=== PATIENT | male | born 1930 | race Caucasian/White ===

== ENCOUNTER 2016-10-06 11:01 | Emergency (ER) | payer OTHER ==
[~2016-10-06] VITALS: Ht 180.3 cm; Wt 94.3 kg
[~2016-10-06 11:01] MED LIST: ASPI81TA28 PO; ATEN-175 PO; LISI-725 PO
[2016-10-06 11:12] VITALS: TEMP 36.7; Ht 180.3 cm; Wt 94.3 kg
[2016-10-06] MEDS ORDERED: NAPR1TAB9 PO (11:39)
[2016-10-06] MEDS ORDERED: ACET-1256 PO (11:39)
--- NOTE | 2016-10-06 12:07 | DIAGNOSTIC IMAGING REPORT ---
LEFT KNEE 1 OR 2 VIEWS ROUTINE CLINICAL HISTORY: Left knee pain status post trauma COMPARISON: None DISCUSSION: There are postsurgical changes of a midline sternotomy. There is a transverse fracture of the mid patellar pole with fracture fragment distraction. Fracture margins appear corticated and this fracture may be old. Please correlate with history of prior injury. There is a bone cement interface lucency involving the anterior cortex of distal femur. There is no evidence of dislocation. IMPRESSION: 1. Distracted patellar fracture. This may be old. Clinical correlation is advocated 2. Postsurgical changes of a total right knee arthroplasty. Bone cement interface lucency involving the anterior cortex of the distal femur. Electronically signed by: Juvenal White M.D. 10/06/2016 12:05 PM Dictated Date/Time: 10/06/2016 12:03 PM
--- NOTE | 2016-10-06 12:13 | DIAGNOSTIC IMAGING REPORT ---
RIGHT RIBS UNILATERAL WITH PA CHEST CLINICAL HISTORY: Right rib pain status post trauma COMPARISON STUDY: Chest x-ray dated 01/29/2016 FINDINGS: There are postsurgical changes of bilateral shoulder arthroplasties. The heart is enlarged. There is no pneumothorax. There are acute fractures the right anterolateral sixth, seventh, and eighth ribs. IMPRESSION: 1. Acute fractures of the right anterolateral sixth, seventh, eighth ribs. 2. No evidence of pneumothorax. Electronically signed by: Juvenal White M.D. 10/06/2016 12:11 PM Dictated Date/Time: 10/06/2016 12:08 PM
[2016-10-06] MEDS ORDERED: OXYC1TAB3 PO (12:53)
[2016-10-06 13:22] VITALS: BP 159/82; PULSE 70; O2SAT 97
--- NOTE | 2016-10-06 17:24 | EMERGENCY ROOM VISIT NOTE ---
History Report prepared by Cassy: Xenia Seay Under the Supervision of: Dr. Lucian Iglesias M.D. First contact with patient: 11:23 Chief Complaint: FALL Stated Complaint: SORE RIBS RIGHTSIDE History of Present Illness The patient is an 85 year old male who presents to the Emergency Room with complaints of worsening pain to his right ribs since suffering a fall 4 days prior to arrival. Currently, while laying in a propped up position, he is in mild discomfort, but his pain worsens with attempts of movements as well as deep breaths. At the time of onset, the patient was walking outside when he slipped on ice, causing him to fall forward. During the fall, the patient scraped his nose and chin on the ground, and lost consciousness for about 15 seconds, but there were several people around that were able to help him at the scene. During the fall, the patient injured his right ribs as well as his left knee, but he did not get checked out until today because he thought that he was fine. However, as his pain has become progressively worse, he came to the ED for further evaluation today. He states he is mostly unable to sleep at night. Since the fall, the patient denies having a headache or pain to his neck, back , chest, left ribs, abdomen, upper extremities, pelvis, or lower right extremity. He also denies recent lightheadedness, dizziness, visual difficulties , shortness of breath, or abnormal swelling to his extremities. The patient takes a baby aspirin qd, but denies the use of other blood thinning medications. Source of History: patient Onset: over the past 4 days Position: other (Right ribs) Symptom Intensity: mild Timing: worsening Modifying Factors (Worsening): breathing, movement Associated Symptoms: No SOB, No abdominal pain, No headache, No neck pain Note: Patient has pain to his left knee. Review of Systems See HPI for pertinent positives & negatives. A total of 10 systems reviewed and were otherwise negative. Past Medical & Surgical Medical Problems: (1) CKD (chronic kidney disease), stage III (2) Dyslipidemia (3) HTN (hypertension) (4) Non-Hodgkin lymphoma (5) Osteoarthritis Surgical Problems: (1) H/O rotator cuff surgery (2) History of carotid endarterectomy (3) History of CEA (carotid endarterectomy) (4) History of total bilateral knee replacement (5) History of total left hip replacement (6) Hx of cholecystectomy (7) Status post total shoulder arthroplasty Family History Patient reports no known family medical history. Social History Smoking Status: Never Smoker Drug Use: none Marital Status: Occupation Status: retired Current/Historical Medications Scheduled Allopurinol (Zyloprim), 100 MG PO HS Aspirin (Aspirin Ec), 81 MG PO HS Atenolol (Tenormin), 100 MG PO QPM Lisinopril (Zestril), 20 MG PO QPM Scheduled PRN Oxycodone Ir (Roxicodone Ir), 5 MG PO Q4H PRN for Pain Miscellaneous Medications Acetaminophen (Tylenol), 500 MG PO Naproxen (Aleve), 220 MG PO Allergies Coded Allergies: Indapamide (Verified Allergy, Unknown, 10/06/16) Penicillins (Verified Allergy, Unknown, unknown, 10/06/16) Sulfa Antibiotics (Verified Allergy, Unknown, unknown, 10/06/16) Sulfamethoxazole (Verified Allergy, Unknown, unknown, 10/06/16) Physical Exam Vital Signs Date Time Temp Pulse Resp B/P Pulse Ox O2 Delivery O2 Flow Rate FiO2 10/06/16 13:22 70 17 159/82 97 Room Air 10/06/16 11:12 36.7 69 17 219/101 98 Room Air Physical Exam Constitutional: Vital signs reviewed. Head: Patient has abrasions to his chin and tip of the nose without facial tenderness or mobility. Eyes: Pupils are equal round reactive to light. Conjunctiva are noninjected. ENT: Pharynx is clear without erythema or exudate. Mucous membranes are moist. Neck supple without meningeal signs. No midline tenderness to the cervical spine. Respiratory: Clear to auscultation bilaterally. Breath sounds are equal bilaterally. Cardiovascular: Regular rate and rhythm. No rubs or gallops. GI: Soft, nondistended and nontender. Bowel sounds are present. Musculoskeletal: Tenderness over the right lower anterior ribs with mild bruising. No crepitus or flail segment. Tenderness to the medial aspect of the left knee with bruising. No joint laxity . Neurological: The patient is awake and alert. Cranial nerves II-XII are intact. Motor is 5 out of 5 all extremities. Sensation is intact to light touch all extremities. Normal speech. No pronator drift. Psychiatric: Normal affect. Medical Decision & Procedures ER Provider Diagnostic Interpretation: X-ray results as stated below per interpretation by me and the radiologist: RIGHT RIBS UNILATERAL WITH PA CHEST CLINICAL HISTORY: Right rib pain status post trauma COMPARISON STUDY: Chest x-ray dated 01/29/2016 FINDINGS: There are postsurgical changes of bilateral shoulder arthroplasties. The heart is enlarged. There is no pneumothorax. There are acute fractures the right anterolateral sixth, seventh, and eighth ribs. IMPRESSION: 1. Acute fractures of the right anterolateral sixth, seventh, eighth ribs. 2. No evidence of pneumothorax. Electronically signed by: Juvenal White M.D. 10/06/2016 12:11 PM Dictated Date/Time: 10/06/2016 12:08 PM LEFT KNEE 1 OR 2 VIEWS ROUTINE CLINICAL HISTORY: Left knee pain status post trauma COMPARISON: None DISCUSSION: There are postsurgical changes of a midline sternotomy. There is a transverse fracture of the mid patellar pole with fracture fragment distraction. Fracture margins appear corticated and this fracture may be old. Please correlate with history of prior injury. There is a bone cement interface lucency involving the anterior cortex of distal femur. There is no evidence of dislocation. IMPRESSION: 1. Distracted patellar fracture. This may be old. Clinical correlation is advocated 2. Postsurgical changes of a total right knee arthroplasty. Bone cement interface lucency involving the anterior cortex of the distal femur. Electronically signed by: Juvenal White M.D. 10/06/2016 12:05 PM Dictated Date/Time: 10/06/2016 12:03 PM ED Course 1124: The patient was evaluated in room C3. A complete history and physical exam was performed. 1230: I reevaluated the patient at this time and discussed the results of his radiology reports with him. He stated that he has an old patellar fracture, and Dr. Celeste did his knee replacement. [facility] will be contacted. 1245: I discussed the patient's case with Mikael Valencia PA-C from [facility]. He has reviewed the x-rays with Dr. White. He said that he does not need to be admitted, but said that the patient will need to have his knee repaired as an outpatient. He recommended a knee immobilizer with weight bearing. He will call the patient for expedient appointment. 1300: I updated the patient on my discussion with the orthopedists. Additional discharge instructions were also discussed at this time. He verbalized his understanding and agreement with the treatment plan, and he is now ready for disposition. Medical Decision This is an 85-year-old male who presents with pain to his ribs and left knee after a fall. Differential diagnosis includes rib fracture, pneumothorax, pleural effusion, pneumonia, knee fracture. I did perform a limited focused review of portions of the patient's old chart on the electronic medical record. The patient was seen by PT yesterday. He is also followed by the wound care clinic for a foot ulcer. I did evaluate the patient as noted above. The patient suffered a mechanical fall 4 days ago. He did hit his head and stated he thinks he lost consciousness but denies having any headache at this time it he denies any concussion symptoms as well and is neurologically intact on examination. Given these findings I did not feel CT scanning of his head was indicated. He does complain of right rib pain and knee pain. I did order and personally review the patient's x-rays as described above. The patient does have rib fractures to the right lower ribs as well as a fracture to his prosthetic knee. His patella is also fractured but is appears to be old. He does state that he has previously broken his patella. He is able to extend his knee without any difficulty. I did discuss the test results with the patient. I did discuss the case with [facility]. They did review the x-rays and felt that the patient could follow up in the office for outpatient repair of the knee. The patient does state that he has been walking on that knee. He was placed in a knee immobilizer and given a walker. He was also given an incentive spirometer and a prescription for OxyIR. He was given precautions regarding its use and he stated he would only use it at night to help him sleep. He was discharged in good condition and will follow up with [facility] later this week as well as his regular doctor. Consults Time Called: [phone] Consulting Physician: Mikael CABRAL Returned Call: [phone] Discussed the patient's case. He has reviewed the x-rays with Dr. White. He said that he does not need to be admitted, but said that the patient will need to have his knee repaired as an outpatient. He recommended a knee immobilizer with weight bearing. He will call the patient for expedient appointment. Impression Primary Impression: Multiple fractures of ribs of right side Additional Impressions: Fall Acute head injury with loss of consciousness Fracture of prosthetic knee Scribe Attestation The scribe's documentation has been prepared under my direct and personally reviewed by me in its entirety. I confirm that the note above accurately reflects all work, treatment, procedures, and medical decision making performed by me. Departure Information Dispostion Home / Self-Care Prescriptions Oxycodone Ir (Roxicodone Ir) 5 Mg Tab 5 MG PO Q4H Y for Pain, #20 TAB Prov: Tito Mayer M.D. 10/06/16 Referrals Kenn Gray D.O. (PCP) Forms HOME CARE DOCUMENTATION FORM, IMPORTANT VISIT INFORMATION Patient Instructions Francisco Villaseñor, My [facility] Additional Instructions You have been examined and treated today on an emergency basis only. This is not a substitute for, or an effort to provide, complete comprehensive medical care. It is impossible to recognize and treat all injuries or illnesses in a single emergency department visit. It is therefore important that you follow up closely with your physician and [facility] this week to schedule repair of your left knee. Call as soon as possible for an appointment. Return immediately for worsening symptoms or if you develop fever, vomiting, shortness of breath or any other concerning symptoms. Problem Qualifiers
[2017-04-28] MEDS ORDERED: TNR50 PO (12:31)
[2017-04-28] MEDS ORDERED: DAPT500I IV (12:31)
[2017-04-28] MEDS ORDERED: CMD5 PO (12:31)
[2017-04-28] MEDS ORDERED: LSN40 PO (12:31)
[2017-04-28] MEDS ORDERED: LPT10 PO (12:31)
[2017-04-28] MEDS ORDERED: LEVO-17 PO (12:31)
[2017-05-02] MEDS ORDERED: AMLO-110 PO (14:27)
[2017-05-02] MEDS ORDERED: LINE1TAB6 PO (14:27)
[2017-05-02] MEDS ORDERED: MGNO400 PO (14:27)
[2017-05-11] MEDS ORDERED: ALLO100T PO (13:41)
[2017-05-13] MEDS ORDERED: DXY100 PO (18:25)
== END 2016-10-06 13:25 | disposition home or self-care (01) ==
LOC: C.EDB 11:02 → C.EDC 13:25
DX: S22.41XA Multiple fractures of ribs, right side, initial encounter for closed fracture (principal); S06.9X1A Unspecified intracranial injury with loss of consciousness of 30 minutes or less, initial encounter; T84.013A Broken internal left knee prosthesis, initial encounter; W19.XXXA Unspecified fall, initial encounter; N18.3 Chronic kidney disease, stage 3 (moderate); E78.5 Hyperlipidemia, unspecified; I12.9 Hypertensive chronic kidney disease with stage 1 through stage 4 chronic kidney disease, or unspecified chronic kidney disease

== ENCOUNTER → 2017-04-06 | Outpatient (CLI) | payer OTHER ==
[~2017-04-06] MED LIST changes: +ACET-1256 PO; +ALLO100T PO; +AMLO-110 PO; +CMD5 PO; +DAPT500I IV; +DXY100 PO; +LEVO-17 PO; +LINE1TAB6 PO; +LPT10 PO; +LSN40 PO; +MGNO400 PO; +NAPR1TAB9 PO; +OXYC1TAB3 PO; +TNR50 PO; +WARF5TAB7 PO
--- NOTE | 2017-04-06 13:49 | DIAGNOSTIC IMAGING REPORT ---
THREE-PHASE NUCLEAR BONE SCAN OF THE RIGHT SHOULDER CLINICAL HISTORY: 86-year-old male with history of right total shoulder arthroplasty, clinical concern for loosening. TECHNIQUE: Following the IV administration of 26.7 mCi of technetium 99m MDP, three-phase bone scan of the right shoulder was performed. Anterior flow images as well as anterior and posterior blood pool phase images were acquired. Bone phase imaging of right shoulder was performed at three hours in multiple obliquities. COMPARISON: Correlation made to plain radiograph of the right shoulder from October 09, 2016. FINDINGS: Anterior angiographic images demonstrate left upper extremity injection with expected intravascular radiotracer activity. Few foci of persistent uptake likely in lymph nodes of the left upper extremity. Anterior and posterior blood flow phase images demonstrate diffuse soft tissue uptake as well as focally in the partially lymph nodes, consistent with the expected distribution. No increased radiotracer in the region of the right shoulder. Delayed phase demonstrates mild periprosthetic uptake in the right shoulder in the region of the glenoid fossa and acromion. Minimal increased uptake along the shaft and tip of the prosthesis within the proximal humeral metadiaphysis. IMPRESSION: 1. Three-phase bone scan demonstrates positive radiotracer uptake only on delayed phase with mild periprosthetic activity, which is nonspecific and could potentially indicate expected post surgical findings. As focal radiotracer uptake at the glenoid is slightly more prominent than along the shaft of the prosthesis, loosening cannot be confidently excluded in this region. However, no evidence to suggest infection. 2. Acromioclavicular joint degenerative changes. Electronically signed by: Isaiah Barahona M.D. 04/06/2017 1:48 PM Dictated Date/Time: 04/06/2017 1:33 PM
== END | disposition home or self-care (01) ==
LOC: C.NUCL 09:47
PROVIDERS: ATTEND Orthopaedic Surgery Sports Medicine
DX: M25.511 Pain in right shoulder (principal); G89.29 Other chronic pain

== ENCOUNTER 2017-04-24 11:48 | Inpatient (IN) | payer OTHER ==
[~2017-04-24] VITALS: Ht 180.3 cm; Wt 87.3 kg
[~2017-04-24 11:48] MED LIST changes: -ALLO100T PO; -AMLO-110 PO; -CMD5 PO; -DAPT500I IV; -DXY100 PO; -LEVO-17 PO; -LINE1TAB6 PO; -LPT10 PO; -LSN40 PO; -MGNO400 PO; -OXYC1TAB3 PO; -TNR50 PO; -WARF5TAB7 PO
--- NOTE | 2017-04-24 12:49 | EMERGENCY ROOM VISIT NOTE ---
History Report prepared by Jcibantonio: Rachele Cazares Under the Supervision of: Dr. Benito Green M.D. First contact with patient: 12:33 Chief Complaint: FOOT PAIN Stated Complaint: RIGHT FOOT PAIN History of Present Illness The patient is an 86 year old male who presents to the Emergency Room with complaints of worsening right foot pain. He reports he has had an ulcer on the bottom of his right foot for the past 2 years. Approximately 3 months ago, the wound opened up and has become increasingly painful. He rates his current discomfort as a 5/10. He is not diabetic. The patient also reports he was recently found to have an infection in his right shoulder. He had the shoulder replaced a few years ago by Dr. Walters of [facility]. He recently followed up with Dr. Kenny of [facility], as he had [place] [facility] The shoulder was drained this past week and the patient states he was told 2 days later that the sample showed evidence of infection. He is not currently on antibiotics. He denies any previous history of skin or surgical infections. He denies any recent fevers, chills, cough or cold symptoms, nausea, vomiting, diarrhea or constipation or urinary symptoms. Source of History: patient Onset: 3 months NP Position: foot (right) Symptom Intensity: 5/10 Timing: worsening Associated Symptoms: No fevers, No chills, No cough (cough or cold symptoms) , No nausea, No vomiting, No diarrhea, No urinary symptoms Review of Systems See HPI for pertinent positives and negatives. A total of ten systems were reviewed and were otherwise negative. Past Medical & Surgical Medical Problems: (1) CKD (chronic kidney disease), stage III (2) Dyslipidemia (3) HTN (hypertension) (4) Non-Hodgkin lymphoma (5) Osteoarthritis Surgical Problems: (1) H/O rotator cuff surgery (2) History of carotid endarterectomy (3) History of CEA (carotid endarterectomy) (4) History of total bilateral knee replacement (5) History of total left hip replacement (6) Hx of cholecystectomy (7) Status post total shoulder arthroplasty Family History Patient reports no known family medical history. Social History Smoking Status: Former Smoker Alcohol Use: none Drug Use: none Marital Status: Housing Status: lives alone Occupation Status: retired Current/Historical Medications Scheduled Allopurinol (Zyloprim), 200 MG PO HS Aspirin (Aspirin Ec), 81 MG PO HS Allergies Coded Allergies: Indapamide (Verified Allergy, Unknown, 04/24/17) Penicillins (Verified Allergy, Unknown, unknown, 04/24/17) Sulfa Antibiotics (Verified Allergy, Unknown, unknown, 04/24/17) Sulfamethoxazole (Verified Allergy, Unknown, unknown, 04/24/17) Physical Exam Vital Signs Date Time Temp Pulse Resp B/P (MAP) Pulse Ox O2 Delivery O2 Flow Rate FiO2 04/24/17 18:00 Room Air 04/24/17 18:00 36.6 79 18 174/98 (123) 99 Room Air 04/24/17 17:06 86 20 141/80 98 Room Air 04/24/17 15:56 67 20 141/97 100 Room Air 04/24/17 15:55 100 Room Air 04/24/17 14:57 87 20 164/97 98 Room Air 04/24/17 14:09 75 16 135/90 99 Room Air 04/24/17 11:57 36.7 86 20 99/66 96 Room Air Physical Exam GENERAL: Awake, alert, well-appearing, in no distress HENT: Normocephalic, atraumatic. Oropharynx unremarkable. EYES: Normal conjunctiva. Sclera non-icteric. NECK: Supple. No nuchal rigidity. FROM. No JVD. RESPIRATORY: Clear to auscultation. CARDIAC: Regular rate, normal rhythm. Extremities warm and well perfused. Pulses equal. ABDOMEN: Soft, non-distended. No tenderness to palpation. No rebound or guarding. No masses. RECTAL: Deferred. MUSCULOSKELETAL: Chest examination reveals no tenderness. The back is symmetrical on inspection without obvious abnormality. There is no CVA tenderness to palpation. Induration in anterior right shoulder, presumably from recently drained abscess, +underlying fluctuance, no erythema or warmth. LOWER EXTREMITIES: 2+ edema, mild warmth over dorsum of the foot, no crepitus, chronic ulcer at the plantar surface at the base of the 4th phalanx with induration and +underlying fluctuance. NEURO: Normal sensorium. No sensory or motor deficits noted. SKIN: No rash or jaundice noted. Medical Decision & Procedures ER Provider Diagnostic Interpretation: Radiology results as stated below per my review and radiologist interpretation: RIGHT FOOT MIN 3 VIEWS ROUTINE CLINICAL HISTORY: Right foot pain COMPARISON: None. DISCUSSION: There is a hallux valgus deformity. No acute fractures are visualized. There is a plantar calcaneal spur. IMPRESSION: 1. No acute fractures 2. Pronounced hallux valgus deformity Electronically signed by: Juvenal White M.D. 04/24/2017 1:58 PM Laboratory Results Test 04/24/17 13:35 Immature Granulocyte % (Auto) 0.4 % White Blood Count 5.36 K/uL (4.8-10.8) Red Blood Count 3.19 M/uL (4.7-6.1) Hemoglobin 10.2 g/dL (14.0-18.0) Hematocrit 31.2 % (42-52) Mean Corpuscular Volume 97.8 fL (80-100) Mean Corpuscular Hemoglobin 32.0 pg (25-34) Mean Corpuscular Hemoglobin Concent 32.7 g/dl (32-36) Platelet Count 123 K/uL (130-400) Mean Platelet Volume 9.2 fL (7.4-10.4) Neutrophils (%) (Auto) 70.5 % Lymphocytes (%) (Auto) 22.0 % Monocytes (%) (Auto) 4.3 % Eosinophils (%) (Auto) 2.6 % Basophils (%) (Auto) 0.2 % Neutrophils # (Auto) 3.78 K/uL (1.4-6.5) Lymphocytes # (Auto) 1.18 K/uL (1.2-3.4) Monocytes # (Auto) 0.23 K/uL (0.11-0.59) Eosinophils # (Auto) 0.14 K/uL (0-0.5) Basophils # (Auto) 0.01 K/uL (0-0.2) Immature Granulocyte # (Auto) 0.02 K/uL (0.00-0.02) Erythrocyte Sedimentation Rate 70 mm/hr (0-14) C-Reactive Protein 12.10 mg/dl (0-0.29) Laboratory results reviewed by me Medications Administered Medications (Trade) Dose Ordered Sig/Niall Route Start Time Stop Time Status Last Admin Dose Admin Sodium Chloride 1,000 ml @ 125 mls/hr Q8H STAT IV 04/24/17 15:01 04/24/17 18:10 DC 04/24/17 15:01 125 MLS/HR Metronidazole (Flagyl / Nss) 500 mg NOW STAT IV 04/24/17 15:01 04/24/17 15:11 DC 04/24/17 15:54 500 MG Cefepime HCl 2000 mg/Dextrose 122.6 ml @ 200 mls/hr NOW STAT IV 04/24/17 15:01 04/24/17 15:37 DC 04/24/17 15:54 200 MLS/HR Vancomycin HCl 1250 mg/Sodium Chloride 275 ml @ 125 mls/hr 1530 IV 04/24/17 15:30 04/24/17 18:00 DC 04/24/17 16:28 125 MLS/HR Aztreonam 2000 mg/ Dextrose 110 ml @ 100 mls/hr Q8H IV 04/24/17 18:00 05/08/17 17:59 04/26/17 10:05 100 MLS/HR Daptomycin 525 mg/ Sodium Chloride 60.5 ml @ 120 mls/hr 1730 ONCE IV 04/24/17 17:30 04/24/17 18:00 DC 04/24/17 19:06 120 MLS/HR ED Course 1237: The patient was evaluated in room B2. A complete history and physical exam was performed. 1530: I reevaluated the patient. He is resting comfortably. I discussed my recommendation he remain in the hospital for further evaluation and management and he and his daughter verbalized complete understanding and agreement. 1550: I discussed the patients case with Dr. Song, [facility] Hospitalist. The patient will be further evaluated. Medical Decision I reviewed the patient's past medical history, medications, and the nursing notes as described above. The differential diagnoses considered include cellulitis, osteomyelitis, abscess and venous stasis. The patient is an 86 y/o gentleman who presents to the ED with worsening right foot swelling, pain, and redness in the setting of ?right shoulder infection per HPI. On arrival the patient is well-appearing in NAD. On exam has indurated and fluctuant areas on plantar surface of right foot and anterior aspect of right shoulder. Bedside US showing fluid collections c/w abscess. Considering foot abscess is > 1 cm deep and shoulder abscess overlying remote total shoulder replacement will defer I&D to ortho. Otherwise, xrays negative for osseous involvement. WBC wnl. However, ESR and CRP elevated raising concern for rapidly evolving infection. Will tx empirically with broad spectrum abx. Patient admitted to medicine service for further management including ortho consultation. Medication Reconcilliation Current Medication List: was personally reviewed by me Blood Pressure Screening Patient's blood pressure: Normal blood pressure Blood pressure disposition: Did not require urgent referral Consults Time Called: 1545 Consulting Physician: Arianne Crawley Hospitalist Returned Call: [phone] I discussed the patients case with [facility]. The patient will be further evaluated. Impression Primary Impression: Cellulitis Additional Impressions: Foot abscess, right Abscess of shoulder Scribe Attestation The scribe's documentation has been prepared under my direction and personally reviewed by me in its entirety. I confirm that the note above accurately reflects all work, treatment, procedures, and medical decision making performed by me. Departure Information Dispostion Being Evaluated By Hospitalist Referrals Kenn Gray D.O. (PCP) Patient Instructions My [facility] Problem Qualifiers
[2017-04-24 13:49] LABS: BASO % 0.2 %; BASO ABS # 0.01 K/uL (0-0.2); COMPLETE YES; EOS % 2.6 %; HEMATOCRIT 31.2 % (42-52); IG% 0.4 %; LYMPH ABS # 1.18 K/uL (1.2-3.4); MEAN CELL VOLUME 97.8 fL (80-100); MEAN CORPUSCULAR HGB CONC 32.7 g/dl (32-36); MEAN PLATELET VOLUME 9.2 fL (7.4-10.4); MONO % 4.3 %; NEUT % 70.5 %; PLATELET COUNT 123 K/uL (130-400); RED BLOOD COUNT 3.19 M/uL (4.7-6.1); WHITE BLOOD COUNT 5.36 K/uL (4.8-10.8)
--- NOTE | 2017-04-24 13:59 | DIAGNOSTIC IMAGING REPORT ---
RIGHT FOOT MIN 3 VIEWS ROUTINE CLINICAL HISTORY: Right foot pain COMPARISON: None. DISCUSSION: There is a hallux valgus deformity. No acute fractures are visualized. There is a plantar calcaneal spur. IMPRESSION: 1. No acute fractures 2. Pronounced hallux valgus deformity Electronically signed by: Juvenal White M.D. 04/24/2017 1:58 PM Dictated Date/Time: 04/24/2017 1:55 PM
[2017-04-24 14:05] LABS: BUN/CREATININE RATIO 29.6 (10-20); C-REACTIVE PROTEIN 12.1 mg/dl (0-0.29); CREATININE 1.7 mg/dl (0.60-1.40); POTASSIUM 4.4 mmol/L (3.5-5.1)
[2017-04-24] MEDS ORDERED: METRONIDAZOLE 500MG / 100ML NSS IV STA (15:01)
[2017-04-24] MEDS ORDERED: VANCOMYCIN INJ 1,250 MG in SODIUM CHLORIDE 0.9% 500ML 500 ML IV STA (15:01)
[2017-04-24] MEDS ORDERED: CEFEPIME IV 2,000 MG in DEXTROSE 5% 100ML 100 ML IV STA (15:01)
[2017-04-24] MEDS ORDERED: SODIUM CHLORIDE 0.9% 1000ML 1,000 ML IV STA (15:01)
[2017-04-24] MEDS ORDERED: VANCOMYCIN INJ 1,250 MG in SODIUM CHLORIDE 0.9% 250ML 250 ML IV SCH (15:30)
--- NOTE | 2017-04-24 15:42 | DIAGNOSTIC IMAGING REPORT ---
RIGHT SHOULDER MIN 2 VIEWS ROUTINE CLINICAL HISTORY: Pain. Abscess. Evaluate for osteomyelitis. 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 There are no acute fractures or dislocations. There is a 2.5 cm corticated bony density located inferior to the scapular glenoid. This remain stable. There are no conventional radiographic findings to indicate acute osteomyelitis. IMPRESSION: 1. Postsurgical changes of a right shoulder arthroplasty 2. No acute fractures or dislocations 3. No conventional radiographic evidence of osteomyelitis Electronically signed by: Juvenal White M.D. 04/24/2017 3:41 PM Dictated Date/Time: 04/24/2017 3:39 PM
[2017-04-24 15:55] VITALS: O2SAT 100; Ht 180.3 cm; Wt 87.3 kg
[2017-04-24] MEDS ORDERED: CONSULT PHARMACY STA (16:23)
[2017-04-24] MEDS ORDERED: ACETAMINOPHEN 325 MG TAB PO PRN (16:30)
[2017-04-24] MEDS ORDERED: ONDANSETRON INJ 2 MG/ML 2 ML VIAL IV PRN (16:30)
[2017-04-24] MEDS ORDERED: POLYETHYLENE (MIRALAX) 17 GM PACK PO PRN (16:30)
[2017-04-24 16:44] LABS: PROTHROMBIN TIME (PATIENT) 33.1 SECONDS (9.0-12.0)
[2017-04-24] MEDS ORDERED: AZTREONAM CONSULT ACTIVE PRN ×2 (17:15)
[2017-04-24] MEDS ORDERED: DAPTOMYCIN CONSULT ACTIVE PRN ×2 (17:15)
[2017-04-24] MEDS ORDERED: DAPTOmycin IV 525 MG in SODIUM CHLORIDE 0.9% 50ML 50 ML IV ONE (17:30)
[2017-04-24 18:00] VITALS: BP 174/98; PULSE 79; TEMP 36.6; O2SAT 99
--- NOTE | 2017-04-24 18:02 | History and Physical ---
History & Physical Date & Time of Service: Apr 24, 2017 at 17:46 Chief Complaint: Right Foot Pain Primary Care Physician: Kenn Gray D.O. History of Present Illness Source: patient, family, clinic records Patient is an 86 yo male who came to the ER for complaints of worsening pain, drainage, and swelling of his right foot wound, and worsening pain and stiffness of his right shoulder. He states he was seen by Orthopedics and recently had fluid drained from his right shoulder, and that he was called on Wednesday that the fluid resulted as showing infection in his right shoulder. The patient states he has been having issues on and off for the last 3 years with his shoulder and reaccumulation of fluid, as well as decreasing ROM. He states that his right plantar foot wound has been there for several years, and that he was previously treated with IV abx and wound clinic follow up, but he was discharged in September 2016 as his wound had healed and no longer appeared infected per the clinic notes. The patient states that several months after that his wound seemed to again progressively worsen, and has been more painful to stand on and has been draining white/yellowish material. He denies any other symptoms of fever, chills, sweats, and only other complaint is feeling tired/ fatigued. Past Medical/Surgical History Medical Problems: (1) CKD (chronic kidney disease), stage III Status: Chronic (2) Dyslipidemia Status: Chronic (3) HTN (hypertension) Status: Chronic (4) Non-Hodgkin lymphoma: diffuse large B cell Permanent Comment: s/p chemo, last treatment in 2010 Status: Chronic (5) Osteoarthritis Status: Chronic Surgical Problems: (1) H/O rotator cuff surgery Status: Chronic (2) History of CEA (carotid endarterectomy) Status: Chronic (3) History of total bilateral knee replacement Permanent Comment: s/p left knee revision Status: Chronic (4) History of total left hip replacement Status: Chronic (5) Hx of cholecystectomy Status: Chronic (6) Status post total shoulder arthroplasty bilateral Status: Chronic Family History Patient reports no known family medical history. Social History Smoking Status: Former Smoker Drug Use: none Marital Status: Housing status: lives with family Occupational Status: retired Immunizations History of Influenza Vaccine: Yes Influenza Vaccine Date: Jun 24, 2007 History of Tetanus Vaccine?: Yes Tetanus Immunization Date: Jun 23, 2004 History of Pneumococcal: Unknown Pneumococcal Date: Jul 22, 2007 History of Hepatitis B Vaccine: No Multi-Drug Resistant Organisms History of MDRO: No Allergies Coded Allergies: Indapamide (Verified Allergy, Unknown, 04/24/17) Penicillins (Verified Allergy, Unknown, unknown, 04/24/17) Sulfa Antibiotics (Verified Allergy, Unknown, unknown, 04/24/17) Sulfamethoxazole (Verified Allergy, Unknown, unknown, 04/24/17) Home Medications Scheduled Allopurinol (Zyloprim), 200 MG PO HS Aspirin (Aspirin Ec), 81 MG PO HS Review of Systems Constitutional: + fatigue, No fever, No chills, No sweats, No weight loss Eyes: No worsening of vision, No eye pain, No discharge, No diplopia ENT: No hearing loss, No nasal symptoms, No sore throat, No trouble swallowing Respiratory: No cough, No sputum, No wheezing, No shortness of breath Cardiovascular: No chest pain, No edema, No claudication, No palpitations Abdomen: No pain, No nausea, No vomiting, No diarrhea, No GI bleeding Musculoskeletal: + joint pain, + swelling, No problem reported Genitourinary - Male: No hematuria, No dysuria, No urinary frequency, No urinary urgency Neurologic: No memory loss, No numbness/tingling Psychiatric: No depression symptoms, No anxiety, No insomnia, No substance abuse Endocrine: No problem reported Hematologic / Lymphatic: No problem reported Integumentary: + problem reported (right foot wound) Physical Exam Vital Signs Date Time Temp Pulse Resp B/P (MAP) Pulse Ox O2 Delivery O2 Flow Rate FiO2 04/24/17 17:06 86 20 141/80 98 Room Air 04/24/17 15:56 67 20 141/97 100 Room Air 04/24/17 15:55 100 Room Air 04/24/17 14:57 87 20 164/97 98 Room Air 04/24/17 14:09 75 16 135/90 99 Room Air 04/24/17 11:57 36.7 86 20 99/66 96 Room Air General Appearance: WD/WN, no apparent distress Head: normocephalic, atraumatic Eyes: PERRL, EOMI, sclerae normal ENT: hearing grossly normal Neck: supple, no JVD, no carotid bruits, trachea midline Respiratory/Chest: lungs clear, normal breath sounds, no respiratory distress, no accessory muscle use Cardiovascular: no edema, no gallop, no JVD, no murmur, + irregularly irregular Abdomen/GI: normal bowel sounds, non tender, soft, no organomegaly Back: normal inspection Extremities/Musculoskelatal: no calf tenderness, normal capillary refill, no pedal edema, + pertinent finding (right foot plantar wound with eschar) Neurologic/Psych: no motor/sensory deficits, alert, normal mood/affect, oriented x 3 Skin: normal color, warm/dry, no rash Diagnostics Laboratory Results Results Past 24 Hours Test 04/24/17 13:35 Range/Units White Blood Count 5.36 4.8-10.8 K/uL Red Blood Count 3.19 4.7-6.1 M/uL Hemoglobin 10.2 14.0-18.0 g/dL Hematocrit 31.2 42-52 % Mean Corpuscular Volume 97.8 80-100 fL Mean Corpuscular Hemoglobin 32.0 25-34 pg Mean Corpuscular Hemoglobin Concent 32.7 32-36 g/dl Platelet Count 123 130-400 K/uL Mean Platelet Volume 9.2 7.4-10.4 fL Neutrophils (%) (Auto) 70.5 % Lymphocytes (%) (Auto) 22.0 % Monocytes (%) (Auto) 4.3 % Eosinophils (%) (Auto) 2.6 % Basophils (%) (Auto) 0.2 % Neutrophils # (Auto) 3.78 1.4-6.5 K/uL Lymphocytes # (Auto) 1.18 1.2-3.4 K/uL Monocytes # (Auto) 0.23 0.11-0.59 K/uL Eosinophils # (Auto) 0.14 0-0.5 K/uL Basophils # (Auto) 0.01 0-0.2 K/uL RDW Standard Deviation 60.0 36.4-46.3 fL RDW Coefficient of Variation 16.6 11.5-14.5 % Immature Granulocyte % (Auto) 0.4 % Immature Granulocyte # (Auto) 0.02 0.00-0.02 K/uL Erythrocyte Sedimentation Rate 70 0-14 mm/hr Prothrombin Time 33.1 9.0-12.0 SECONDS Prothromb Time International Ratio 3.0 0.9-1.1 Sodium Level 135 136-145 mmol/L Potassium Level 4.4 3.5-5.1 mmol/L Chloride Level 106 98-107 mmol/L Carbon Dioxide Level 22 21-32 mmol/L Anion Gap 7.0 3-11 mmol/L Blood Urea Nitrogen 50 7-18 mg/dl Creatinine 1.70 0.60-1.40 mg/dl Est Creatinine Clear Calc Drug Dose 34.4 ml/min Estimated GFR () 42.0 Estimated GFR (Non- 36.2 BUN/Creatinine Ratio 29.6 10-20 Random Glucose 87 70-99 mg/dl Calcium Level 9.0 8.5-10.1 mg/dl C-Reactive Protein 12.10 0-0.29 mg/dl Microbiology Results 04/24/17 Blood Culture, Received Pending 04/24/17 Blood Culture, Received Pending Impression Assessment and Plan RIGHT FOOT WOUND WITH PROBABLE INFECTION: -will start on empiric abx with aztreonam and daptomycin -previous wound cultures grew MSSA -obtain blood cultures -consult placed to polisher sand and physician -consult to Ortho -foot x ray not suggestive of osteomyelitis; can consider MRI if the wound is suspicious for involvement of the bone -ESR and CRP were checked as outpatient as well as this admission and remain elevated RIGHT SHOULDER SYNOVITIS: had effusion recently aspirated and sent to lab -per patient he had aspiration of the fluid by Ortho and was called about possibility of infection although there isn't any information in [place] or [employer] concerning the fluid analysis -will consult Ortho for further evaluation -pain control PAROXYSMAL ATRIAL FIBRILLATION: -on atenolol and coumadin, continue both -rate controlled -EKG ordered HTN: -stable, controlled ANEMIA: -on procrit and followed by hematology -hgb stable VALVULAR DISEASE: -aortic sclerosis, moderate tricuspid regurgitation, mild mitral regurgitation. PREVIOUS CAROTID DISEASE: -s/p B/L CEA DYSLIPIDEMIA: -continued on atorvastatin DIFFUSE B CELL LYMPHOMA: -stable -continue with outpatient follow up with Oncology Level of Care Med/Surg Advanced Directives Existing Living Will: Yes Existing Power of Butter Grader: Yes VTE Prophylaxis VTE Risk Assessment Done? Y/N: Yes Risk Level: Moderate
[2017-04-24 19:15] VITALS: BP 148/83
[2017-04-24] MEDS: AZTREONAM IV 2,000 MG in DEXTROSE 5% 100ML 100 ML IV SCH (19:47)
[2017-04-24] MEDS ORDERED: ETHYL CHLORIDE AER SPR 100 ML CAN EXT SCH (20:30)
[2017-04-24] MEDS: OXYCODONE/ACETAMINOPHEN 5-325 TAB PO PRN (21:03)
[2017-04-24] MEDS: ALLOPURINOL 100 MG TAB PO SCH (21:23)
[2017-04-24] MEDS: ASPIRIN 81 MG ECTAB PO SCH (21:23)
[2017-04-24 22:48] VITALS: BP 122/70; PULSE 71; TEMP 36.9; O2SAT 97
[2017-04-24 22:48] LABS: SYNOVIAL FLUID APPEARANCE TURBID; SYNOVIAL FLUID COLOR RED
[2017-04-25] MEDS ORDERED: LORAZEPAM 0.5 MG TAB PO ONE ×2 (01:30→19:45)
[2017-04-25] MEDS: AZTREONAM IV 2,000 MG in DEXTROSE 5% 100ML 100 ML IV SCH ×3 (02:03→18:50)
--- NOTE | 2017-04-25 05:01 | ORTHOPEDIC CONSULTATION ---
DATE OF CONSULTATION: 04/24/2017 HISTORY OF PRESENT ILLNESS: The patient is an 86-year-old male who I have recently consulted on with regard to chronic right shoulder pain. He has a long history with regard to pain in his right shoulder. He had an index reverse total shoulder replacement in [address] Walters here at [facility]. He said he never had the pain relieved on this shoulder, they did on his other shoulder. Over the last year, he developed notable swelling in the shoulder and increasing pain. He has been followed in our practice with Dr. Celeste for knee and hip issues with regard to other joint replacements. He was seen by Dr. Celeste who wanted me to evaluate his shoulder, so I agreed to consult with regard to his right shoulder. At the time I had seen him, he had already had several months of shoulder pain, swelling and some skin changes and some erythema and warmth that were concerning for chronic infection in his shoulder. He did have labs demonstrating elevated C-reactive protein and sed rate over 100, but a normal white blood cell count. He is never febrile, never feeling sick. He did not really mention his foot issues to me, but on further questioning today, he discussed with me that he has been having issues with a nonhealing wound in his right foot. He has been treated at the wound clinic for over a year for that. He had a period of 4 months where the wound in his foot closed and was not draining and he was not having any trouble with it, but recently the wound just opened again and was getting some drainage from it. As part of his workup, we did x-ray his shoulder which demonstrated that he has a reverse total shoulder replacement. He did not have any loosening of his components. He has a long cemented stem which is firmly intact, the glenoid component is intact, but he does have significant notching on the inferior scapula and a 2 cm area of heterotopic ossification of soft tissues in that area. Initially, it was felt that possibly he had chronic pain due to notching and synovitis, but we had to rule out infection because of the increased CRP and sed rate, so I did do a sterile prep and aspiration of his shoulder and sent for Synovasure evaluation. This did come back as alpha-defensins positive, staph antigen positive with definitive infection in his shoulder. Because he had been seen at [place] as well in the past by Dr. Erick Perdomo who did his original reverse shoulder replacement on his opposite shoulder in 2006 and the fact that he may require removal of a well-fixed long cemented stem, I thought this may be better to have this done at tertiary care center. At this point, since we just found out the test results this week and were making arrangements, patient was admitted to the hospital here at [facility]. PAST MEDICAL HISTORY: Positive for gout as well as non-Hodgkin lymphoma, hypertension, rotator cuff surgery, left hip replacement, bilateral knee replacement, revision knee replacement, and carotid surgery. MEDICATIONS: See dictated H&P. REVIEW OF SYSTEMS: The patient's shoulder has been less painful and feeling better since he had the aspiration of his shoulder. PHYSICAL EXAMINATION: Today demonstrates that he has joint effusion, right shoulder. In the deltopectoral area, there is a fluctuant area consistent with fluid collection below the skin and subcutaneous tissues. There is no drainage. There is no erythema. He has soreness with range of motion of his shoulder, but no severe pain. Distal neurological exam and circulation was all intact. His shoulder is clinically located. His right foot demonstrates he has about a 2-3 mm open wound over the mid plantar aspect of the foot over the metatarsal heads. He has a significant hallux valgus deformity with severe deformity of the great toe and hammer toes with marked deformity of the central lesser toes 2, 3 and 4 and transfer lesion over the plantar surface of the foot with a small open wound with some minor amount of drainage, no viji pus, but an open wound in the area. He has some mild chronic erythematous changes on the dorsum of the foot and some edema of the foot. X-rays of his foot demonstrate the hammertoes and hallux valgus deformity with no clear bone erosion or infection. His shoulder x-ray demonstrates no loosening of his shoulder replacement with the notching and heterotopic ossification inferior to the glenoid noted as seen on previous x-rays. His sed rate now is down to 70. His white count is normal. His differential is normal. 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 PLAN: MRI right foot to rule out osteomyelitis or abscess. We did aspirate his shoulder as we do not have definitive cultures back from the previous aspiration and we do not have a defined organism. His shoulder was sterilely prepped today with Betadine and aspirated for cloudy debris filled fluid, somewhat blood tinged from the aspiration attempt. We did get a good 10 mL more fluid and because of all the debris the needle clogged, so we took the needle out and sent that to lab for assessment but I was able to express more fluid out through the opening from the needle and then placed sterile dressing across the anterior shoulder. The patient is presently on antibiotics. I discussed definitive treatment with patient that we will discuss all the options. He wants to be minimalistic with regard to surgery, but I do not think there is a nonsurgical option that is going to work for him. I discussed with him that I discussed this case with Dr. Walters who did his surgery, who is more familiar with this implant and discussed the options of either a surgical treatment here or transfer to tertiary care center as originally planned. Thank you for this consultation. HERNANDEZ
[2017-04-25 06:33] LABS: INR 3.4 (0.9-1.1); PROTHROMBIN TIME (PATIENT) 38.1 SECONDS (9.0-12.0)
[2017-04-25 07:32] VITALS: BP 133/86; PULSE 71; TEMP 36.5; O2SAT 96
[2017-04-25 08:00] VITALS: O2SAT 96
[2017-04-25] MEDS: ATORVASTATIN 10 MG TAB PO SCH (09:12)
[2017-04-25] MEDS: PANTOprazole SOD 40 MG TAB PO SCH (09:12)
[2017-04-25] MEDS: LISINOPRIL 40 MG TAB PO SCH (09:13)
--- NOTE | 2017-04-25 09:45 | Progress Note ---
Orthopedic SOAP Note Subjective Date of Service: Apr 25, 2017. Additional Notes: feeling better ,can raise arm better Problem List Medical Problems: (1) Abscess of shoulder Status: Acute (2) Cellulitis Status: Acute (3) Foot abscess, right Status: Acute Objective some swelling ,no erythema , and can raise shoulder to 110 degrees overhead in abduction.no change in foot. Date Time Temp Pulse Resp B/P (MAP) Pulse Ox O2 Delivery O2 Flow Rate FiO2 04/25/17 07:32 36.5 71 18 133/86 (102) 96 Room Air 04/25/17 00:20 Room Air 04/24/17 22:48 36.9 71 16 122/70 (87) 97 Room Air 04/24/17 19:15 148/83 (104) 04/24/17 18:00 Room Air 04/24/17 18:00 36.6 79 18 174/98 (123) 99 Room Air 04/24/17 17:06 86 20 141/80 98 Room Air 04/24/17 15:56 67 20 141/97 100 Room Air 04/24/17 15:55 100 Room Air 04/24/17 14:57 87 20 164/97 98 Room Air 04/24/17 14:09 75 16 135/90 99 Room Air 04/24/17 11:57 36.7 86 20 99/66 96 Room Air Laboratory Results 24 Hours: Test 04/24/17 13:35 04/25/17 05:26 White Blood Count 5.36 K/uL Red Blood Count 3.19 M/uL Hemoglobin 10.2 g/dL Hematocrit 31.2 % Mean Corpuscular Volume 97.8 fL Mean Corpuscular Hemoglobin 32.0 pg Mean Corpuscular Hemoglobin Concent 32.7 g/dl Platelet Count 123 K/uL Mean Platelet Volume 9.2 fL Neutrophils (%) (Auto) 70.5 % Lymphocytes (%) (Auto) 22.0 % Monocytes (%) (Auto) 4.3 % Eosinophils (%) (Auto) 2.6 % Basophils (%) (Auto) 0.2 % Neutrophils # (Auto) 3.78 K/uL Lymphocytes # (Auto) 1.18 K/uL Monocytes # (Auto) 0.23 K/uL Eosinophils # (Auto) 0.14 K/uL Basophils # (Auto) 0.01 K/uL Prothromb Time International Ratio 3.0 3.4 Prothrombin Time 33.1 SECONDS 38.1 SECONDS Assessment 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 will need definitive surgical rx of shoulder . patient would like to be evaluated by Dr Perdomo at [facility] if possible.will need iv abx for now.recommend infectious disease consultation.
--- NOTE | 2017-04-25 13:55 | Progress Note ---
Medicine Progress Note Date & Time of Visit: Apr 25, 2017 at 13:30. Subjective Pt was seen and examined Lying in bed comfortable with no distress Pt said that his right shoulder feels better he said that he is able to move it he denies any pain in the right shoulder. Denies any chest pain, palpitation, dizziness and SOB Objective Last 8 Hrs Date Time Temp Pulse Resp B/P (MAP) Pulse Ox O2 Delivery O2 Flow Rate FiO2 04/25/17 08:00 96 Room Air 04/25/17 07:32 36.5 71 18 133/86 (102) 96 Room Air Physical Exam: General- No acute distress Head- atraumatic Eyes- PERRL, EOMI ENT- oropharynx clear Neck- supple, no JVD Lungs- clear to auscultation Heart- No murmur Abdomen- normal bowel sounds, soft, nontender\ Extremities- Right foot edema, no calf tenderness Neuro- alert, oriented x 3; PERRL, EOMI; no facial palsy; no dysarthria Skin- warm & dry Laboratory Results: Last 24 Hours Test 04/24/17 13:35 04/24/17 20:50 04/25/17 05:26 White Blood Count 5.36 K/uL Red Blood Count 3.19 M/uL Hemoglobin 10.2 g/dL Hematocrit 31.2 % Mean Corpuscular Volume 97.8 fL Mean Corpuscular Hemoglobin 32.0 pg Mean Corpuscular Hemoglobin Concent 32.7 g/dl Platelet Count 123 K/uL Mean Platelet Volume 9.2 fL Neutrophils (%) (Auto) 70.5 % Lymphocytes (%) (Auto) 22.0 % Monocytes (%) (Auto) 4.3 % Eosinophils (%) (Auto) 2.6 % Basophils (%) (Auto) 0.2 % Neutrophils # (Auto) 3.78 K/uL Lymphocytes # (Auto) 1.18 K/uL Monocytes # (Auto) 0.23 K/uL Eosinophils # (Auto) 0.14 K/uL Basophils # (Auto) 0.01 K/uL RDW Standard Deviation 60.0 fL RDW Coefficient of Variation 16.6 % Immature Granulocyte % (Auto) 0.4 % Immature Granulocyte # (Auto) 0.02 K/uL Erythrocyte Sedimentation Rate 70 mm/hr Prothrombin Time 33.1 SECONDS 38.1 SECONDS Prothromb Time International Ratio 3.0 3.4 Sodium Level 135 mmol/L Potassium Level 4.4 mmol/L Chloride Level 106 mmol/L Carbon Dioxide Level 22 mmol/L Anion Gap 7.0 mmol/L Blood Urea Nitrogen 50 mg/dl Creatinine 1.70 mg/dl Est Creatinine Clear Calc Drug Dose 34.4 ml/min Estimated GFR () 42.0 Estimated GFR (Non- 36.2 BUN/Creatinine Ratio 29.6 Random Glucose 87 mg/dl Calcium Level 9.0 mg/dl C-Reactive Protein 12.10 mg/dl Synovial Fluid Source RIGHT SHOULDER Synovial Fluid Color RED Synovial Fluid Appearance TURBID Synovial Fluid WBC 02987 /uL Synovial Fluid RBC 64553 /uL Synovial Fluid Polynuclear WBCs 85.0 % Synovial Fluid Mononuclear WBCs 15.0 % Total Creatine Kinase 41 U/L Date/Time Source Procedure Growth Status 04/24/17 15:50 Blood Blood Culture Pending Received 04/24/17 15:25 Blood Blood Culture Pending Received 04/24/17 20:50 Joint Fluid/Space (Synovial) Shoulder, Right Gram Stain - Final Resulted 04/24/17 20:50 Joint Fluid/Space (Synovial) Shoulder, Right Bacterial Culture - Preliminary NO GROWTH TO DATE. Resulted Assessment & Plan RIGHT FOOT WOUND WITH DRAINAGE Afebrile, No leukocytosis Continue empiric abx with aztreonam and daptomycin Previous wound cultures grew MSSA Blood cx pending Elevated ESR and CRP Ortho on board MRI of right foot pending Wound care consulted RIGHT SHOULDER PAIN Had fluid aspiration done 1 week ago, received a called and said that fluid was positive for bacteria ( No record on outpatient chart of fluid analysis) ID on board Ortho on board Right shoulder was aspirated yesterday by ortho, no bacteria growth so far If surgery needed, he would like it to be done by Dr. Perdomo in [facility] since he did the surgery in his left shoulder Clinically improved significantly PAROXYSMAL ATRIAL FIBRILLATION: Rate is controlled On atenolol and coumadin INR today 3.4, will hold coumadin today Check INR in am ELEVATED CREATINE creatine on admission 1.7 creatine on 03/05 was 1.3 will monitor BMP HTN: Continue Atenolol and lisinopril controlled ANEMIA: On procrit -hgb 10.2 stable VALVULAR DISEASE: Aortic sclerosis, moderate tricuspid regurgitation, mild mitral regurgitation. Stable PREVIOUS CAROTID DISEASE: -s/p B/L CEA DYSLIPIDEMIA: -continued on atorvastatin DIFFUSE B CELL LYMPHOMA: -stable -continue with outpatient follow up with Oncology Consultants: Ortho ID Wound care Procedures: Right shoulder aspiration Current Inpatient Medications: Current Inpatient Medications Medications (Trade) Dose Ordered Sig/Niall Route Start Time Stop Time Status Last Admin Dose Admin Acetaminophen (Tylenol Tab) 650 mg Q4H PRN PO 04/24/17 16:30 05/24/17 16:29 Polyethylene (Miralax Powder Packet) 17 gm DAILY PRN PO 04/24/17 16:30 05/24/17 16:29 Ondansetron HCl (Zofran Inj) 4 mg Q6H PRN IV 04/24/17 16:30 05/24/17 16:29 Aztreonam 2000 mg/ Dextrose 110 ml @ 100 mls/hr Q8H IV 04/24/17 18:00 05/08/17 17:59 04/25/17 09:13 100 MLS/HR Daptomycin 525 mg/ Sodium Chloride 60.5 ml @ 100 mls/hr Q24H IV 04/25/17 17:00 05/08/17 16:59 Aztreonam (Consult) 1 ea UD PRN N/A 04/24/17 17:15 05/24/17 17:14 Daptomycin (Consult) 1 ea UD PRN N/A 04/24/17 17:15 05/24/17 17:14 Atenolol (Tenormin Tab) 50 mg QAM PO 04/25/17 09:00 05/25/17 08:59 04/25/17 09:13 50 MG Warfarin Sodium (Coumadin Tab) 5 mg DAILY@16 PO 04/25/17 16:00 05/25/17 15:59 Future Hold Lisinopril (Zestril Tab) 40 mg QAM PO 04/25/17 09:00 05/25/17 08:59 04/25/17 09:13 40 MG Pantoprazole Sodium (Protonix Tab) 40 mg QAM PO 04/25/17 09:00 05/25/17 08:59 04/25/17 09:12 40 MG Oxycodone/ Acetaminophen (Percocet 5-325mg Tab) 1 tab Q8 PRN PO 04/24/17 20:15 05/08/17 20:14 04/24/17 21:03 1 TAB Allopurinol (Zyloprim Tab) 200 mg HS PO 04/24/17 21:00 05/24/17 20:59 04/24/17 21:23 200 MG Aspirin (Ecotrin Tab) 81 mg HS PO 04/24/17 21:00 05/24/17 20:59 04/24/17 21:23 81 MG Atorvastatin Calcium (Lipitor Tab) 10 mg QAM PO 04/25/17 09:00 05/25/17 08:59 04/25/17 09:12 10 MG
[2017-04-25 15:20] VITALS: BP 134/92; PULSE 71; TEMP 36.5; O2SAT 97
[2017-04-25 16:40] LABS: SALINE CHECK YES
[2017-04-25] MEDS: DAPTOmycin IV 525 MG in SODIUM CHLORIDE 0.9% 50ML 50 ML IV SCH (16:44)
--- NOTE | 2017-04-25 17:49 | Medical Consult ---
Consultation Date of Consultation: Apr 25, 2017. Attending Physician: John Shultz M.D. Reason for Consultation: Right shoulder and right foot wound infection History of Present Illness 86-year-old male with history of multiple joint replacements, status post right shoulder replacement approximately 4 years ago, who states that he has been having progressively worsening right shoulder pain for quite some time. Was treated conservatively, but recently underwent aspiration of the right shoulder joint with finding of elevated white blood cell count with evidence of infection. Patient [facility] also [facility] for chronic right plantar ulcer, which was previously healed, but now has been open and draining for several months. He has had elevated sed rate and C reactive protein, but no fever, chills, or other systemic complaints. because of abnormal shoulder aspiration, patient was referred for admission, but also notes progressively worsening redness and swelling of his right foot. He has had x-ray done, read by me, which show no obvious bone infection. He was started empirically on combination of daptomycin and aztreonam, and has noted significant improvement over the last 24 hours in his right foot swelling and erythema. He denies any significant pain. Past Medical/Surgical History Medical Problems: (1) Abscess of shoulder Status: Acute (2) Cellulitis Status: Acute (3) Foot abscess, right Status: Acute Medical Problems: (1) CKD (chronic kidney disease), stage III (2) Dyslipidemia (3) HTN (hypertension) (4) Non-Hodgkin lymphoma (5) Osteoarthritis Surgical Problems: (1) H/O rotator cuff surgery (2) History of carotid endarterectomy (3) History of CEA (carotid endarterectomy) (4) History of total bilateral knee replacement (5) History of total left hip replacement (6) Hx of cholecystectomy (7) Status post total shoulder arthroplasty Family History Patient reports no known family medical history. Social History Smoking Status: Former Smoker Drug Use: none Marital Status: Housing Status: lives alone Occupation Status: retired Allergies Coded Allergies: Indapamide (Verified Allergy, Unknown, 04/24/17) Penicillins (Verified Allergy, Unknown, unknown, 04/24/17) Sulfa Antibiotics (Verified Allergy, Unknown, unknown, 04/24/17) Sulfamethoxazole (Verified Allergy, Unknown, unknown, 04/24/17) Current Inpatient Medications Current Inpatient Medications Medications (Trade) Dose Ordered Sig/Niall Route Start Time Stop Time Status Last Admin Dose Admin Acetaminophen (Tylenol Tab) 650 mg Q4H PRN PO 04/24/17 16:30 05/24/17 16:29 Polyethylene (Miralax Powder Packet) 17 gm DAILY PRN PO 04/24/17 16:30 05/24/17 16:29 Ondansetron HCl (Zofran Inj) 4 mg Q6H PRN IV 04/24/17 16:30 05/24/17 16:29 Aztreonam 2000 mg/ Dextrose 110 ml @ 100 mls/hr Q8H IV 04/24/17 18:00 05/08/17 17:59 04/25/17 09:13 100 MLS/HR Daptomycin 525 mg/ Sodium Chloride 60.5 ml @ 100 mls/hr Q24H IV 04/25/17 17:00 05/08/17 16:59 04/25/17 16:44 100 MLS/HR Aztreonam (Consult) 1 ea UD PRN N/A 04/24/17 17:15 05/24/17 17:14 Daptomycin (Consult) 1 ea UD PRN N/A 04/24/17 17:15 05/24/17 17:14 Atenolol (Tenormin Tab) 50 mg QAM PO 04/25/17 09:00 05/25/17 08:59 04/25/17 09:13 50 MG Warfarin Sodium (Coumadin Tab) 5 mg DAILY@16 PO 04/25/17 16:00 05/25/17 15:59 Future Hold Lisinopril (Zestril Tab) 40 mg QAM PO 04/25/17 09:00 05/25/17 08:59 04/25/17 09:13 40 MG Pantoprazole Sodium (Protonix Tab) 40 mg QAM PO 04/25/17 09:00 05/25/17 08:59 04/25/17 09:12 40 MG Oxycodone/ Acetaminophen (Percocet 5-325mg Tab) 1 tab Q8 PRN PO 04/24/17 20:15 05/08/17 20:14 04/24/17 21:03 1 TAB Allopurinol (Zyloprim Tab) 200 mg HS PO 04/24/17 21:00 05/24/17 20:59 04/24/17 21:23 200 MG Aspirin (Ecotrin Tab) 81 mg HS PO 04/24/17 21:00 05/24/17 20:59 04/24/17 21:23 81 MG Atorvastatin Calcium (Lipitor Tab) 10 mg QAM PO 04/25/17 09:00 05/25/17 08:59 04/25/17 09:12 10 MG Review of Systems All systems were reviewed and are negative except as per HPI Physical Exam Date Time Temp Pulse Resp B/P (MAP) Pulse Ox O2 Delivery O2 Flow Rate FiO2 04/25/17 15:20 36.5 71 18 134/92 (106) 97 Room Air 04/25/17 08:00 96 Room Air 04/25/17 07:32 36.5 71 18 133/86 (102) 96 Room Air 04/25/17 00:20 Room Air 04/24/17 22:48 36.9 71 16 122/70 (87) 97 Room Air 04/24/17 19:15 148/83 (104) 04/24/17 18:00 Room Air 04/24/17 18:00 36.6 79 18 174/98 (123) 99 Room Air General Appearance: WD/WN, no apparent distress Head: normocephalic, atraumatic Eyes: normal inspection, EOMI, sclerae normal ENT: normal ENT inspection, hearing grossly normal, pharynx normal Neck: supple, no adenopathy, thyroid normal, trachea midline Respiratory/Chest: chest non-tender, lungs clear, normal breath sounds, no respiratory distress Cardiovascular: regular rate, rhythm, no gallop, no murmur Abdomen/GI: normal bowel sounds, non tender, soft, no organomegaly Back: normal inspection, no CVA tenderness Extremities/Musculoskelatal: no calf tenderness, normal capillary refill, + pertinent finding ( minimal right shoulder swelling) Neurologic/Psych: alert, normal mood/affect, oriented x 3 Skin: normal color, no rash, + pertinent finding ( receding right foot erythema , small plantar ulcer right foot with serous drainage at present) Lymphatic: no adenopathy Laboratory Results Date/Time Source Procedure Growth Status 04/24/17 20:50 Joint Fluid/Space (Synovial) Shoulder, Right Gram Stain - Final Resulted 04/24/17 20:50 Joint Fluid/Space (Synovial) Shoulder, Right Bacterial Culture - Preliminary NO GROWTH TO DATE. Resulted Last 24 Hours Test 04/24/17 20:50 04/25/17 05:26 Synovial Fluid Source RIGHT SHOULDER Synovial Fluid Color RED Synovial Fluid Appearance TURBID Synovial Fluid WBC 81382 /uL Synovial Fluid RBC [id number] /uL Synovial Fluid Polynuclear WBCs 85.0 % Synovial Fluid Mononuclear WBCs 15.0 % Prothrombin Time 38.1 SECONDS Prothromb Time International Ratio 3.4 Total Creatine Kinase 41 U/L RIGHT FOOT MIN 3 VIEWS ROUTINE CLINICAL HISTORY: Right foot pain COMPARISON: None. DISCUSSION: There is a hallux valgus deformity. No acute fractures are visualized. There is a plantar calcaneal spur. IMPRESSION: 1. No acute fractures 2. Pronounced hallux valgus deformity Electronically signed by: Juvenal White M.D. 04/24/2017 1:58 PM Dictated Date/Time: 04/24/2017 1:55 PM Assessment & Plan 86-year-old male with probable low-grade infection of right shoulder replacement, as well as right foot infection in the setting of chronic foot ulceration, which appears to be improving on IV antibiotics. Patient should continue on daptomycin and aztreonam pending further culture results. Patient likely is going to require prolonged IV antibiotic therapy, await final culture results to determine optimum antibiotic therapy. Will follow.
--- NOTE | 2017-04-25 18:46 | DIAGNOSTIC IMAGING REPORT ---
RIGHT FOREFOOT MRI WITHOUT CONTRAST HISTORY: right foot infection TECHNIQUE: Multiplanar multisequence MRI of the right forefoot was performed without the use of intravenous contrast COMPARISON STUDY: Right foot 04/24/2017. FINDINGS: Motion artifact results in suboptimal evaluation the right foot. Hallux valgus deformity is again noted. Dorsal subcutaneous edema. Nonspecific marrow edema within the shaft and head of the third metacarpal with surrounding mild soft tissue edema. This also demonstrates diminished T1 signal. There is also marrow edema within the proximal pharynx of the third toe as well surrounding soft tissue edema within the third toe. No loculated fluid collections identified this noncontrast study. The remaining osseous structures demonstrate a normal signal intensity. There is mild soft tissue edema along the plantar surface of the foot. Large bony bunion. 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 Flexion deformities throughout the second through fifth toes. There is chronic dorsal subluxation of the second through fourth toes. IMPRESSION: 1. Difficult evaluation for osteomyelitis given the motion artifact and lack of intravenous contrast. There is abnormal marrow edema and T1 hypointense signal seen within the head and shaft of the third metatarsal and proximal phalanx of the third toe. This is nonspecific but is suspicious for osteomyelitis in the appropriate clinical setting. 2. Subcutaneous edema within the foot. 3. Chronic deformities as described above within the toes. Electronically signed by: Delfino Peng M.D. 04/26/2017 4:06 PM Dictated Date/Time: 04/25/2017 6:35 PM
[2017-04-25] MEDS: OXYCODONE/ACETAMINOPHEN 5-325 TAB PO PRN (20:22)
[2017-04-25] MEDS: ALLOPURINOL 100 MG TAB PO SCH (21:19)
[2017-04-25] MEDS: ASPIRIN 81 MG ECTAB PO SCH (21:19)
[2017-04-25 23:10] VITALS: BP 144/87; PULSE 59; TEMP 36.5; O2SAT 95
[2017-04-26] MEDS: AZTREONAM IV 2,000 MG in DEXTROSE 5% 100ML 100 ML IV SCH ×3 (01:24→18:38)
[2017-04-26 06:03] LABS: HEMATOCRIT 28.5 % (42-52); MEAN CORPUSCULAR HEMOGLOBIN 31.6 pg (25-34); MEAN PLATELET VOLUME 9.1 fL (7.4-10.4); PLATELET COUNT 125 K/uL (130-400); RED BLOOD COUNT 2.97 M/uL (4.7-6.1); WHITE BLOOD COUNT 4.43 K/uL (4.8-10.8)
[2017-04-26 06:34] LABS: INR 2.5 (0.9-1.1); PROTHROMBIN TIME (PATIENT) 28.3 SECONDS (9.0-12.0)
[2017-04-26 06:45] LABS: BUN/CREATININE RATIO 25.9 (10-20); CALCIUM 8.6 mg/dl (8.5-10.1); CREATININE 1.5 mg/dl (0.60-1.40); POTASSIUM 3.7 mmol/L (3.5-5.1)
[2017-04-26 07:12] VITALS: BP 147/91; PULSE 84; TEMP 36.4; O2SAT 97
[2017-04-26 07:30] VITALS: O2SAT 97
[2017-04-26] MEDS: PANTOprazole SOD 40 MG TAB PO SCH (10:04)
[2017-04-26] MEDS: ATORVASTATIN 10 MG TAB PO SCH (10:05)
[2017-04-26] MEDS: LISINOPRIL 40 MG TAB PO SCH (10:05)
--- NOTE | 2017-04-26 11:21 | Orthopedic Progress Note ---
Orthopedic Progress Note Date of Service Apr 26, 2017. Subjective Reports: feeling well, Denies: complaints Objective Shoulder with minimal discomfort. States his forward flexion is much better since aspiration. Aspiration site without drainage. Old drainage noted on dressing. Essentially NT on ROM. Right 3rd toe ulcer on plantar surface. Lessening erythema. Mild drainage. No foul odor. Date Time Temp Pulse Resp B/P (MAP) Pulse Ox O2 Delivery O2 Flow Rate FiO2 04/26/17 07:12 36.4 84 18 147/91 (109) 97 Room Air 04/25/17 23:35 Room Air 04/25/17 23:10 36.5 59 16 144/87 (106) 95 Room Air 04/25/17 15:30 Room Air 04/25/17 15:20 36.5 71 18 134/92 (106) 97 Room Air Laboratory Results 24 Hours: Test 04/26/17 05:36 Hematocrit 28.5 % Hemoglobin 9.4 g/dL Prothromb Time International Ratio 2.5 Prothrombin Time 28.3 SECONDS Additional Notes: RIGHT FOREFOOT MRI WITHOUT CONTRAST HISTORY: right foot infection TECHNIQUE: Multiplanar multisequence MRI of the right forefoot was performed without the use of intravenous contrast COMPARISON STUDY: Right foot 04/24/2017. FINDINGS: Motion artifact results in suboptimal evaluation the right foot. Hallux valgus deformity is again noted. Dorsal subcutaneous edema. Nonspecific marrow edema within the shaft and head of the third metacarpal with surrounding mild soft tissue edema. This also demonstrates diminished T1 signal. There is also marrow edema within the proximal pharynx of the third toe as well surrounding soft tissue edema within the third toe. No loculated fluid collections identified this noncontrast study. The remaining osseous structures demonstrate a normal signal intensity. There is mild soft tissue edema along the plantar surface of the foot. Large bony bunion. 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 Flexion deformities throughout the second through fifth toes. There is chronic dorsal subluxation of the second through fourth toes. IMPRESSION: 1. Difficult evaluation for osteomyelitis given the motion artifact and lack of intravenous contrast. There is abnormal marrow edema and T1 hypointense signal seen within the head and shaft of the third metatarsal and proximal femoral severe third toe. This is nonspecific but could represent osteomyelitis in the appropriate clinical setting. 2. Subcutaneous edema within the foot. 3. Chronic deformities as described above within the toes. Assessment & Plan Assessment: chronic infection and notching and synovitis of right reversed total shoulder replacement,chronic infection and nonhealing wound right foot Plan: MRI of foot with no definite area of osteomyelitis but possible. Waiting for better kidney fxn so that contrast may be used to ascertain whether it's true osteo or not. No surgery planned for right shoulder at this time. Cx still NGTD. If further work would be needed on the prosthesis, planning for [place]domo [place] [facility] [place] look into that further.
--- NOTE | 2017-04-26 12:17 | Progress Note ---
Medicine Progress Note Date & Time of Visit: Apr 26, 2017 at 11:51. Subjective Pt was seen and examined Lying in bed comfortable with son at bedside Pt said that he did not sleep last night because of being in hospital he said that he was thinking to much last night Pt said that he has no pain in his shoulder He said that he is able to move it with no discomfort denies any chest pain, palpitation, dizziness and fever Objective Last 8 Hrs Date Time Temp Pulse Resp B/P (MAP) Pulse Ox O2 Delivery O2 Flow Rate FiO2 04/26/17 07:12 36.4 84 18 147/91 (109) 97 Room Air Physical Exam: General- No acute distress Head- atraumatic Eyes- PERRL, EOMI ENT- oropharynx clear Neck- supple, no JVD Lungs- clear to auscultation Heart- No murmur Abdomen- normal bowel sounds, soft, nontender Extremities- Right foot edema, mild drainage at the right plantar area of the 3rd toe, no erythema, no calf tenderness Neuro- alert, oriented x 3; PERRL, EOMI; no facial palsy; no dysarthria Skin- warm & dry Laboratory Results: Last 24 Hours Test 04/26/17 05:36 White Blood Count 4.43 K/uL Red Blood Count 2.97 M/uL Hemoglobin 9.4 g/dL Hematocrit 28.5 % Mean Corpuscular Volume 96.0 fL Mean Corpuscular Hemoglobin 31.6 pg Mean Corpuscular Hemoglobin Concent 33.0 g/dl RDW Standard Deviation 58.1 fL RDW Coefficient of Variation 16.6 % Platelet Count 125 K/uL Mean Platelet Volume 9.1 fL Prothrombin Time 28.3 SECONDS Prothromb Time International Ratio 2.5 Sodium Level 139 mmol/L Potassium Level 3.7 mmol/L Chloride Level 110 mmol/L Carbon Dioxide Level 19 mmol/L Anion Gap 10.0 mmol/L Blood Urea Nitrogen 39 mg/dl Creatinine 1.50 mg/dl Est Creatinine Clear Calc Drug Dose 39.0 ml/min Estimated GFR () 48.8 Estimated GFR (Non- 42.1 BUN/Creatinine Ratio 25.9 Random Glucose 92 mg/dl Calcium Level 8.6 mg/dl Assessment & Plan RIGHT FOOT WOUND WITH DRAINAGE Afebrile, No leukocytosis Continue empiric abx with aztreonam and daptomycin Previous wound cultures grew MSSA Blood cx no growth to date Elevated ESR and CRP Ortho on board MRI of right foot without contrast cannot exclude osteomyelitis will need to get MRI with contrast when renal function improves to r/o osteomyelitis Wound care consulted Continue daily wound care RIGHT SHOULDER PAIN Had fluid aspiration done 1 week ago, received a called and said that fluid was positive for bacteria ( No record on outpatient chart of fluid analysis) Ortho on board Right shoulder was aspirated yesterday by ortho, no bacteria growth so far Continue IV dapto and aztreonam ID on board recommended to continue IV abx As per ID pt will need prolonged IV antibiotic therapy, waiting for the cx for final decision to arrange for abx infusion ed case manager was notified about outpt abx infusion If surgery needed, he would like it to be done by Dr. Perdomo in [facility] [place] since he did the surgery in his left shoulder Clinically improved significantly PAROXYSMAL ATRIAL FIBRILLATION: Rate is controlled On atenolol and coumadin INR today 2.5, will resume coumadin today Check INR in am ELEVATED CREATINE creatine on admission 1.7 creatine on 03/05 was 1.3 creatine today 1.5 hold lisinopril for now Plan to get an MRI with contrast when creatine improves will monitor BMP HTN: Continue Atenolol controlled hold lisinopril tomorrow ANEMIA: On procrit hgb 9.6 Continue monitor VALVULAR DISEASE: Aortic sclerosis, moderate tricuspid regurgitation, mild mitral regurgitation. Stable PREVIOUS CAROTID DISEASE: -s/p B/L CEA DYSLIPIDEMIA: -continued on atorvastatin DIFFUSE B CELL LYMPHOMA: -stable -continue with outpatient follow up with Oncology DVT px on Coumadin INR 2.5 CODE STATUS FULL CODE Consultants: Ortho ID Wound care Procedures: Right shoulder aspiration Current Inpatient Medications: Current Inpatient Medications Medications (Trade) Dose Ordered Sig/Niall Route Start Time Stop Time Status Last Admin Dose Admin Acetaminophen (Tylenol Tab) 650 mg Q4H PRN PO 04/24/17 16:30 05/24/17 16:29 Polyethylene (Miralax Powder Packet) 17 gm DAILY PRN PO 04/24/17 16:30 05/24/17 16:29 Ondansetron HCl (Zofran Inj) 4 mg Q6H PRN IV 04/24/17 16:30 05/24/17 16:29 Aztreonam 2000 mg/ Dextrose 110 ml @ 100 mls/hr Q8H IV 04/24/17 18:00 05/08/17 17:59 04/26/17 10:05 100 MLS/HR Daptomycin 525 mg/ Sodium Chloride 60.5 ml @ 100 mls/hr Q24H IV 04/25/17 17:00 05/08/17 16:59 04/25/17 16:44 100 MLS/HR Aztreonam (Consult) 1 ea UD PRN N/A 04/24/17 17:15 05/24/17 17:14 Daptomycin (Consult) 1 ea UD PRN N/A 04/24/17 17:15 05/24/17 17:14 Atenolol (Tenormin Tab) 50 mg QAM PO 04/25/17 09:00 05/25/17 08:59 04/26/17 10:04 50 MG Warfarin Sodium (Coumadin Tab) 5 mg DAILY@16 PO 04/25/17 16:00 05/25/17 15:59 Future Hold Lisinopril (Zestril Tab) 40 mg QAM PO 04/25/17 09:00 05/25/17 08:59 04/26/17 10:05 40 MG Pantoprazole Sodium (Protonix Tab) 40 mg QAM PO 04/25/17 09:00 05/25/17 08:59 04/26/17 10:04 40 MG Oxycodone/ Acetaminophen (Percocet 5-325mg Tab) 1 tab Q8 PRN PO 04/24/17 20:15 05/08/17 20:14 04/25/17 20:22 1 TAB Allopurinol (Zyloprim Tab) 200 mg HS PO 04/24/17 21:00 05/24/17 20:59 04/25/17 21:19 200 MG Aspirin (Ecotrin Tab) 81 mg HS PO 04/24/17 21:00 05/24/17 20:59 04/25/17 21:19 81 MG Atorvastatin Calcium (Lipitor Tab) 10 mg QAM PO 04/25/17 09:00 05/25/17 08:59 04/26/17 10:05 10 MG
--- NOTE | 2017-04-26 14:44 | Infectious Disease Progress Nt ---
Progress Note Date of Service Apr 26, 2017. Subjective Pt evaluation today including: conversation w/ patient, physical exam, chart review, lab review, review of studies, conversation w/ tax consultant, review of inpatient medication list No new complaints. Shoulder pain/motion improving. Remains afebrile. Cultures negative to date. All Other Systems: Reviewed and Negative Medications Current Inpatient Medications Medications (Trade) Dose Ordered Sig/Niall Route Start Time Stop Time Status Last Admin Dose Admin Acetaminophen (Tylenol Tab) 650 mg Q4H PRN PO 04/24/17 16:30 05/24/17 16:29 Polyethylene (Miralax Powder Packet) 17 gm DAILY PRN PO 04/24/17 16:30 05/24/17 16:29 Ondansetron HCl (Zofran Inj) 4 mg Q6H PRN IV 04/24/17 16:30 05/24/17 16:29 Aztreonam 2000 mg/ Dextrose 110 ml @ 100 mls/hr Q8H IV 04/24/17 18:00 05/08/17 17:59 04/26/17 10:05 100 MLS/HR Daptomycin 525 mg/ Sodium Chloride 60.5 ml @ 100 mls/hr Q24H IV 04/25/17 17:00 05/08/17 16:59 04/25/17 16:44 100 MLS/HR Aztreonam (Consult) 1 ea UD PRN N/A 04/24/17 17:15 05/24/17 17:14 Daptomycin (Consult) 1 ea UD PRN N/A 04/24/17 17:15 05/24/17 17:14 Atenolol (Tenormin Tab) 50 mg QAM PO 04/25/17 09:00 05/25/17 08:59 04/26/17 10:04 50 MG Warfarin Sodium (Coumadin Tab) 5 mg DAILY@16 PO 04/25/17 16:00 05/25/17 15:59 Future hold Lisinopril (Zestril Tab) 40 mg QAM PO 04/25/17 09:00 05/25/17 08:59 04/26/17 10:05 40 MG Pantoprazole Sodium (Protonix Tab) 40 mg QAM PO 04/25/17 09:00 05/25/17 08:59 04/26/17 10:04 40 MG Oxycodone/ Acetaminophen (Percocet 5-325mg Tab) 1 tab Q8 PRN PO 04/24/17 20:15 05/08/17 20:14 04/25/17 20:22 1 TAB Allopurinol (Zyloprim Tab) 200 mg HS PO 04/24/17 21:00 05/24/17 20:59 04/25/17 21:19 200 MG Aspirin (Ecotrin Tab) 81 mg HS PO 04/24/17 21:00 05/24/17 20:59 04/25/17 21:19 81 MG Atorvastatin Calcium (Lipitor Tab) 10 mg QAM PO 04/25/17 09:00 05/25/17 08:59 04/26/17 10:05 10 MG Objective Vital Signs Date Time Temp Pulse Resp B/P (MAP) Pulse Ox O2 Delivery O2 Flow Rate FiO2 04/26/17 07:30 97 Room Air 04/26/17 07:12 36.4 84 18 147/91 (109) 97 Room Air 04/25/17 23:35 Room Air 04/25/17 23:10 36.5 59 16 144/87 (106) 95 Room Air 04/25/17 15:30 Room Air 04/25/17 15:20 36.5 71 18 134/92 (106) 97 Room Air Physical Exam General Appearance: WD/WN, no apparent distress Eyes: normal inspection, sclerae normal ENT: normal ENT inspection, pharynx normal Neck: supple, no adenopathy, trachea midline Respiratory/Chest: chest non-tender, lungs clear, normal breath sounds, no respiratory distress Cardiovascular: regular rate, rhythm, no gallop, no murmur Abdomen: normal bowel sounds, non tender, soft, no organomegaly Extremities: non-tender, no calf tenderness Neurologic/Psychiatric: alert, oriented x 3 Skin: normal color, no rash, + pertinent finding (improved right foot erythema) Lymphatic: no adenopathy Laboratory Results RUN DATE: 04/25/17 [facility] LAB PAGE 1 RUN TIME: 1109 Specimen Inquiry PATIENT: JHONY CHAPPELL LOC: [facility] U # : [id number] AGE/SX: 86/M ROOM: [facility] REG : 04/24/[address]: John Shultz M.D. : 1930 BED: 2 DIS : STATUS: ADM IN TLOC: SPEC #: [id number] OLAYINKA: 04/24/17 STATUS: RES REQ #: [id number] RECD: 04/24/[address]: Mike Kenny M.D. SOURCE: [facility] ENTR: 04/24/17 [facility] DR: Neal Frey MD SPDESC: SHOULDER,R Macie Song DYamel Dooley M.D. Shaw, Mark R., Kenn Ling D.O. ORDERED: AER/ALANIS CULTSMR COMMENTS: Has Specimen Been Obtained/Collected? Y Procedure Result Verified Site GRAM STAIN Final 04/25/17-06 RESULT MANY WBCs SEEN NO ORGANISMS SEEN OR AER/ALANIS CULT Preliminary 04/25/17-1108 NO GROWTH TO DATE. Last 24 Hours Test 04/26/17 05:36 White Blood Count 4.43 K/uL Red Blood Count 2.97 M/uL Hemoglobin 9.4 g/dL Hematocrit 28.5 % Mean Corpuscular Volume 96.0 fL Mean Corpuscular Hemoglobin 31.6 pg Mean Corpuscular Hemoglobin Concent 33.0 g/dl RDW Standard Deviation 58.1 fL RDW Coefficient of Variation 16.6 % Platelet Count 125 K/uL Mean Platelet Volume 9.1 fL Prothrombin Time 28.3 SECONDS Prothromb Time International Ratio 2.5 Sodium Level 139 mmol/L Potassium Level 3.7 mmol/L Chloride Level 110 mmol/L Carbon Dioxide Level 19 mmol/L Anion Gap 10.0 mmol/L Blood Urea Nitrogen 39 mg/dl Creatinine 1.50 mg/dl Est Creatinine Clear Calc Drug Dose 39.0 ml/min Estimated GFR () 48.8 Estimated GFR (Non- 42.1 BUN/Creatinine Ratio 25.9 Random Glucose 92 mg/dl Calcium Level 8.6 mg/dl RIGHT FOREFOOT MRI WITHOUT CONTRAST HISTORY: right foot infection TECHNIQUE: Multiplanar multisequence MRI of the right forefoot was performed without the use of intravenous contrast COMPARISON STUDY: Right foot 04/24/2017. FINDINGS: Motion artifact results in suboptimal evaluation the right foot. Hallux valgus deformity is again noted. Dorsal subcutaneous edema. Nonspecific marrow edema within the shaft and head of the third metacarpal with surrounding mild soft tissue edema. This also demonstrates diminished T1 signal. There is also marrow edema within the proximal pharynx of the third toe as well surrounding soft tissue edema within the third toe. No loculated fluid collections identified this noncontrast study. The remaining osseous structures demonstrate a normal signal intensity. There is mild soft tissue edema along the plantar surface of the foot. Large bony bunion. 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 Flexion deformities throughout the second through fifth toes. There is chronic dorsal subluxation of the second through fourth toes. IMPRESSION: 1. Difficult evaluation for osteomyelitis given the motion artifact and lack of intravenous contrast. There is abnormal marrow edema and T1 hypointense signal seen within the head and shaft of the third metatarsal and proximal femoral severe third toe. This is nonspecific but could represent osteomyelitis in the appropriate clinical setting. 2. Subcutaneous edema within the foot. 3. Chronic deformities as described above within the toes. Assessment and Plan 86-year-old male with probable low-grade infection of right shoulder replacement, as well as right foot infection in the setting of chronic foot ulceration, which appears to be improving on IV antibiotics. Could possibly have P. acnes shoulder infection as this may take several days to grow. Suspect patient does not have osteomyelitis given unremarkable foot xray. Continue present Abx for now. Will follow.
[2017-04-26 15:26] VITALS: BP 148/96; PULSE 64; TEMP 36.3; O2SAT 98
[2017-04-26] MEDS: WARFARIN SOD 5 MG TAB PO SCH (16:06)
[2017-04-26] MEDS: DAPTOmycin IV 525 MG in SODIUM CHLORIDE 0.9% 50ML 50 ML IV SCH (17:30)
[2017-04-26] MEDS ORDERED: ZOLPIDEM TARTRATE 5 MG TAB PO PRN (19:30)
[2017-04-26] MEDS: ALLOPURINOL 100 MG TAB PO SCH (20:17)
[2017-04-26] MEDS: ASPIRIN 81 MG ECTAB PO SCH (20:17)
[2017-04-26 23:55] VITALS: BP 158/83; PULSE 82; TEMP 36.7; O2SAT 95
[2017-04-27] MEDS: AZTREONAM IV 2,000 MG in DEXTROSE 5% 100ML 100 ML IV SCH ×3 (01:44→17:59)
[2017-04-27 05:58] LABS: HEMATOCRIT 28.6 % (42-52); MEAN CELL VOLUME 96.3 fL (80-100); MEAN CORPUSCULAR HGB CONC 32.2 g/dl (32-36); MEAN PLATELET VOLUME 9.6 fL (7.4-10.4); PLATELET COUNT 120 K/uL (130-400); RED BLOOD COUNT 2.97 M/uL (4.7-6.1); WHITE BLOOD COUNT 4.05 K/uL (4.8-10.8)
[2017-04-27 06:08] LABS: INR 2.1 (0.9-1.1); PROTHROMBIN TIME (PATIENT) 23.6 SECONDS (9.0-12.0)
[2017-04-27 06:32] LABS: BUN/CREATININE RATIO 27.8 (10-20); CALCIUM 8.7 mg/dl (8.5-10.1); CREATININE 1.3 mg/dl (0.60-1.40); POTASSIUM 3.6 mmol/L (3.5-5.1)
[2017-04-27 07:40] VITALS: O2SAT 97
[2017-04-27 07:53] VITALS: BP 144/88; PULSE 76; TEMP 36.6; O2SAT 96
[2017-04-27 08:00] VITALS: O2SAT 96
[2017-04-27] MEDS: PANTOprazole SOD 40 MG TAB PO SCH (08:41)
[2017-04-27] MEDS: ATORVASTATIN 10 MG TAB PO SCH (08:41)
[2017-04-27] MEDS: LISINOPRIL 40 MG TAB PO SCH (08:42)
[2017-04-27] MEDS: OXYCODONE/ACETAMINOPHEN 5-325 TAB PO PRN (08:43)
--- NOTE | 2017-04-27 13:51 | Orthopedic Progress Note ---
Orthopedic Progress Note Date of Service Apr 27, 2017. Subjective Reports: feeling well, pain controlled w PO medications, Denies: complaints, chest pain, SOB, nausea / vomiting, light headedness, calf pain Additional Notes: states shoulder pain improving, denies fever/chills Objective Shoulder with minimal discomfort, states his flexion has significantly improved since 3 days ago, able to FF to 90 degrees. No drainage noted. Essentially NT on ROM. Right 3rd toe ulcer on plantar surface. minimal drainage. No foul odor. 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 Waiting for better kidney fxn so that contrast may be used to ascertain whether it's true osteo or not. No surgery planned for right shoulder at this time. Cx still NGTD. If further work would be needed on the prosthesis, planning for Dr Perdomo at [facility] [place] that further. Discussed possible PICC, medicine to discuss with dr khan.
--- NOTE | 2017-04-27 13:52 | Wound Consultation: Inpatient ---
Wound Consultation Date of Consultation: Apr 26, 2017. Attending Physician: Chapito Pimentel MD Reason for Consultation: Ulceration right great toe History of Present Illness Patient recently admitted for evaluation of cellulitis infection to his right foot as well as right shoulder. Patient states he is uncertain when he initially got the ulceration to his right great toe for some time in the last few months. Patient denies any known trauma. Patient denies any fever chills or night sweats patient denies any increased pain at the current time. Patient denies any other systemic complaints at this time. Family History Patient reports no known family medical history. Social History Smoking Status: Former Smoker Drug Use: none Marital Status: Housing Status: lives alone Occupation Status: retired Allergies Coded Allergies: Indapamide (Verified Allergy, Unknown, 04/24/17) Penicillins (Verified Allergy, Unknown, unknown, 04/24/17) Sulfa Antibiotics (Verified Allergy, Unknown, unknown, 04/24/17) Sulfamethoxazole (Verified Allergy, Unknown, unknown, 04/24/17) Home Medications Scheduled Allopurinol (Zyloprim), 200 MG PO HS Aspirin (Aspirin Ec), 81 MG PO HS Inpatient Medications Current Inpatient Medications Medications (Trade) Dose Ordered Sig/Niall Route Start Time Stop Time Status Last Admin Dose Admin Acetaminophen (Tylenol Tab) 650 mg Q4H PRN PO 04/24/17 16:30 05/24/17 16:29 Polyethylene (Miralax Powder Packet) 17 gm DAILY PRN PO 04/24/17 16:30 05/24/17 16:29 Ondansetron HCl (Zofran Inj) 4 mg Q6H PRN IV 04/24/17 16:30 05/24/17 16:29 Aztreonam 2000 mg/ Dextrose 110 ml @ 100 mls/hr Q8H IV 04/24/17 18:00 05/08/17 17:59 04/27/17 10:11 100 MLS/HR Daptomycin 525 mg/ Sodium Chloride 60.5 ml @ 100 mls/hr Q24H IV 04/25/17 17:00 05/08/17 16:59 04/26/17 17:30 100 MLS/HR Aztreonam (Consult) 1 ea UD PRN N/A 04/24/17 17:15 05/24/17 17:14 Daptomycin (Consult) 1 ea UD PRN N/A 04/24/17 17:15 05/24/17 17:14 Atenolol (Tenormin Tab) 50 mg QAM PO 04/25/17 09:00 05/25/17 08:59 04/27/17 08:41 50 MG Warfarin Sodium (Coumadin Tab) 5 mg DAILY@16 PO 04/25/17 16:00 05/25/17 15:59 Future hold 04/26/17 16:06 5 MG Lisinopril (Zestril Tab) 40 mg QAM PO 04/25/17 09:00 05/25/17 08:59 04/27/17 08:42 40 MG Pantoprazole Sodium (Protonix Tab) 40 mg QAM PO 04/25/17 09:00 05/25/17 08:59 04/27/17 08:41 40 MG Oxycodone/ Acetaminophen (Percocet 5-325mg Tab) 1 tab Q8 PRN PO 04/24/17 20:15 05/08/17 20:14 04/27/17 08:43 1 TAB Allopurinol (Zyloprim Tab) 200 mg HS PO 04/24/17 21:00 05/24/17 20:59 04/26/17 20:17 200 MG Aspirin (Ecotrin Tab) 81 mg HS PO 04/24/17 21:00 05/24/17 20:59 04/26/17 20:17 81 MG Atorvastatin Calcium (Lipitor Tab) 10 mg QAM PO 04/25/17 09:00 05/25/17 08:59 04/27/17 08:41 10 MG Zolpidem Tartrate (Ambien Tab) 5 mg HS PRN PO 04/26/17 19:30 05/26/17 19:29 04/26/17 21:05 5 MG Physical Exam Date Time Temp Pulse Resp B/P (MAP) Pulse Ox O2 Delivery O2 Flow Rate FiO2 04/27/17 08:00 96 Room Air 04/27/17 07:53 36.6 76 18 144/88 (106) 96 Room Air 04/27/17 07:40 97 Room Air 04/26/17 23:55 36.7 82 18 158/83 (108) 95 Room Air 04/26/17 23:50 Room Air 04/26/17 16:00 Room Air 04/26/17 15:26 36.3 64 18 148/96 (591) 98 Room Air General Appearance: no apparent distress Head: normocephalic, atraumatic Eyes: normal inspection, PERRL, sclerae normal ENT: normal ENT inspection Neck: supple Respiratory/Chest: lungs clear Cardiovascular: regular rate, rhythm Extremities/Musculoskelatal: + pertinent finding (abdomen ulceration present on the right foot second metatarsal head measuring 0.3 x 0.2 x 0.1 cm. There is no central slough noted there is no periwound erythema edema palpable tenderness or fluctuance noted. Full range of motion is present. Pulses +2 equal patient is neuropathic in the foot.) Neurologic/Psych: no motor/sensory deficits, oriented x 3 Laboratory Results Last 24 Hours Test 04/27/17 05:14 White Blood Count 4.05 K/uL Red Blood Count 2.97 M/uL Hemoglobin 9.2 g/dL Hematocrit 28.6 % Mean Corpuscular Volume 96.3 fL Mean Corpuscular Hemoglobin 31.0 pg Mean Corpuscular Hemoglobin Concent 32.2 g/dl RDW Standard Deviation 58.7 fL RDW Coefficient of Variation 16.6 % Platelet Count 120 K/uL Mean Platelet Volume 9.6 fL Prothrombin Time 23.6 SECONDS Prothromb Time International Ratio 2.1 Sodium Level 139 mmol/L Potassium Level 3.6 mmol/L Chloride Level 111 mmol/L Carbon Dioxide Level 21 mmol/L Anion Gap 7.0 mmol/L Blood Urea Nitrogen 36 mg/dl Creatinine 1.30 mg/dl Est Creatinine Clear Calc Drug Dose 45.0 ml/min Estimated GFR () 58.1 Estimated GFR (Non- 50.1 BUN/Creatinine Ratio 27.8 Random Glucose 92 mg/dl Calcium Level 8.7 mg/dl Assessment & Plan Assessment: Neuropathic ulcer right foot Plan: No debridement is indicated at this time. The site will be dressed with Aquacel Ag and gauze change daily patient will have an orthotic consultation for ongoing offloading issues. Patient will continue to be monitored during hospitalization and followed an outpatient basis as needed.
[2017-04-27] MEDS ORDERED: EPOETIN ALFA 40,000 UNITS/ML VIAL SQ SCH (14:00)
[2017-04-27] MEDS ORDERED: LISINOPRIL 40 MG TAB PO ONE (14:01)
--- NOTE | 2017-04-27 14:03 | Progress Note ---
Medicine Progress Note Date & Time of Visit: Apr 27, 2017 at 13:57. Subjective patient seen resting in bed, comfortable in good spirits states right shoulder and right foot pain is improving daily denies other symptoms Objective Last 8 Hrs Date Time Temp Pulse Resp B/P (MAP) Pulse Ox O2 Delivery O2 Flow Rate FiO2 04/27/17 08:00 96 Room Air 04/27/17 07:53 36.6 76 18 144/88 (106) 96 Room Air 04/27/17 07:40 97 Room Air Physical Exam: General- oriented x 3, not in distress, speaks in sentences with no effort Eyes- EOMI, anicteric ENT- oropharynx clear Neck- supple, no JVD Lungs- clear to auscultation bilaterally Heart- regular rhythm; no murmur, normal rate Abdomen- normal bowel sounds, soft, nontender Extremities- no pretibial edema, no calf tenderness Neuro- alert, oriented x 3; no gross focal deficits Skin- warm & dry Laboratory Results: Last 24 Hours Test 04/27/17 05:14 White Blood Count 4.05 K/uL Red Blood Count 2.97 M/uL Hemoglobin 9.2 g/dL Hematocrit 28.6 % Mean Corpuscular Volume 96.3 fL Mean Corpuscular Hemoglobin 31.0 pg Mean Corpuscular Hemoglobin Concent 32.2 g/dl RDW Standard Deviation 58.7 fL RDW Coefficient of Variation 16.6 % Platelet Count 120 K/uL Mean Platelet Volume 9.6 fL Prothrombin Time 23.6 SECONDS Prothromb Time International Ratio 2.1 Sodium Level 139 mmol/L Potassium Level 3.6 mmol/L Chloride Level 111 mmol/L Carbon Dioxide Level 21 mmol/L Anion Gap 7.0 mmol/L Blood Urea Nitrogen 36 mg/dl Creatinine 1.30 mg/dl Est Creatinine Clear Calc Drug Dose 45.0 ml/min Estimated GFR () 58.1 Estimated GFR (Non- 50.1 BUN/Creatinine Ratio 27.8 Random Glucose 92 mg/dl Calcium Level 8.7 mg/dl Assessment & Plan INFECTED RIGHT FOOT ULCER Afebrile, No leukocytosis Continue empiric abx with aztreonam and daptomycin Previous wound cultures grew MSSA Blood cx no growth to date Elevated ESR and CRP Ortho on board MRI of right foot without contrast cannot exclude osteomyelitis will need to get MRI with contrast when renal function improves to r/o osteomyelitis Wound care consulted Continue daily wound care ID consulted currently on Dapto + Aztreonam IV awaiting Dr. Frey's recommendations re: IV antibiotics may need a PICC line will discuss with Dr. Frey re: if MRI foot with contrast is necessary RIGHT SHOULDER PAIN Had fluid aspiration done 1 week ago, received a called and said that fluid was positive for bacteria ( No record on outpatient chart of fluid analysis) Ortho on board Right shoulder was aspirated by ortho, no bacteria growth so far Continue IV dapto and aztreonam -- awaiting final recommendations per Ortho PAROXYSMAL ATRIAL FIBRILLATION: Rate is controlled On atenolol INR today 2.1 -- on coumadin ACUTE RENAL FAILURE, RESOLVED creatine on admission 1.7 creatine today 1.3 HTN: Continue Atenolol continue Lisinopril ANEMIA: On procrit hgb 9.6 -- continue procrit VALVULAR DISEASE: Aortic sclerosis, moderate tricuspid regurgitation, mild mitral regurgitation. Stable PREVIOUS CAROTID DISEASE: -s/p B/L CEA DYSLIPIDEMIA: -continued on atorvastatin DIFFUSE B CELL LYMPHOMA: -stable -continue with outpatient follow up with Oncology DVT px on Coumadin CODE STATUS FULL CODE Consultants: Ortho ID Wound care Procedures: Right shoulder aspiration Dispo pending awaiting ID recommendations re: IV antibiotics Consultants: Ortho ID Wound care Procedures: Right shoulder aspiration Current Inpatient Medications: Current Inpatient Medications Medications (Trade) Dose Ordered Sig/Niall Route Start Time Stop Time Status Last Admin Dose Admin Acetaminophen (Tylenol Tab) 650 mg Q4H PRN PO 04/24/17 16:30 05/24/17 16:29 Polyethylene (Miralax Powder Packet) 17 gm DAILY PRN PO 04/24/17 16:30 05/24/17 16:29 Ondansetron HCl (Zofran Inj) 4 mg Q6H PRN IV 04/24/17 16:30 05/24/17 16:29 Aztreonam 2000 mg/ Dextrose 110 ml @ 100 mls/hr Q8H IV 04/24/17 18:00 05/08/17 17:59 04/27/17 10:11 100 MLS/HR Daptomycin 525 mg/ Sodium Chloride 60.5 ml @ 100 mls/hr Q24H IV 04/25/17 17:00 05/08/17 16:59 04/26/17 17:30 100 MLS/HR Aztreonam (Consult) 1 ea UD PRN N/A 04/24/17 17:15 05/24/17 17:14 Daptomycin (Consult) 1 ea UD PRN N/A 04/24/17 17:15 05/24/17 17:14 Atenolol (Tenormin Tab) 50 mg QAM PO 04/25/17 09:00 05/25/17 08:59 04/27/17 08:41 50 MG Warfarin Sodium (Coumadin Tab) 5 mg DAILY@16 PO 04/25/17 16:00 05/25/17 15:59 Future hold 04/26/17 16:06 5 MG Lisinopril (Zestril Tab) 40 mg QAM PO 04/25/17 09:00 05/25/17 08:59 04/27/17 08:42 40 MG Pantoprazole Sodium (Protonix Tab) 40 mg QAM PO 04/25/17 09:00 05/25/17 08:59 04/27/17 08:41 40 MG Oxycodone/ Acetaminophen (Percocet 5-325mg Tab) 1 tab Q8 PRN PO 04/24/17 20:15 05/08/17 20:14 04/27/17 08:43 1 TAB Allopurinol (Zyloprim Tab) 200 mg HS PO 04/24/17 21:00 05/24/17 20:59 04/26/17 20:17 200 MG Aspirin (Ecotrin Tab) 81 mg HS PO 04/24/17 21:00 05/24/17 20:59 04/26/17 20:17 81 MG Atorvastatin Calcium (Lipitor Tab) 10 mg QAM PO 04/25/17 09:00 05/25/17 08:59 04/27/17 08:41 10 MG Zolpidem Tartrate (Ambien Tab) 5 mg HS PRN PO 04/26/17 19:30 05/26/17 19:29 04/26/17 21:05 5 MG
[2017-04-27 15:15] VITALS: BP 130/81; PULSE 68; TEMP 36.5; O2SAT 97
--- NOTE | 2017-04-27 15:37 | Infectious Disease Progress Nt ---
Progress Note Date of Service Apr 27, 2017. Subjective Pt evaluation today including: conversation w/ patient, physical exam, chart review, lab review, review of studies, conversation w/ [employer] consultant, review of inpatient medication list No new complaints. Pain in shoulders improving. Remains afebrile. Cultures from shoulder aspirate still no growth. All Other Systems: Reviewed and Negative Medications Current Inpatient Medications Medications (Trade) Dose Ordered Sig/Niall Route Start Time Stop Time Status Last Admin Dose Admin Acetaminophen (Tylenol Tab) 650 mg Q4H PRN PO 04/24/17 16:30 05/24/17 16:29 Polyethylene (Miralax Powder Packet) 17 gm DAILY PRN PO 04/24/17 16:30 05/24/17 16:29 Ondansetron HCl (Zofran Inj) 4 mg Q6H PRN IV 04/24/17 16:30 05/24/17 16:29 Aztreonam 2000 mg/ Dextrose 110 ml @ 100 mls/hr Q8H IV 04/24/17 18:00 05/08/17 17:59 04/27/17 10:11 100 MLS/HR Daptomycin 525 mg/ Sodium Chloride 60.5 ml @ 100 mls/hr Q24H IV 04/25/17 17:00 05/08/17 16:59 04/26/17 17:30 100 MLS/HR Aztreonam (Consult) 1 ea UD PRN N/A 04/24/17 17:15 05/24/17 17:14 Daptomycin (Consult) 1 ea UD PRN N/A 04/24/17 17:15 05/24/17 17:14 Atenolol (Tenormin Tab) 50 mg QAM PO 04/25/17 09:00 05/25/17 08:59 04/27/17 08:41 50 MG Warfarin Sodium (Coumadin Tab) 5 mg DAILY@16 PO 04/25/17 16:00 05/25/17 15:59 Future hold 04/26/17 16:06 5 MG Lisinopril (Zestril Tab) 40 mg QAM PO 04/25/17 09:00 05/25/17 08:59 04/27/17 08:42 40 MG Pantoprazole Sodium (Protonix Tab) 40 mg QAM PO 04/25/17 09:00 05/25/17 08:59 04/27/17 08:41 40 MG Oxycodone/ Acetaminophen (Percocet 5-325mg Tab) 1 tab Q8 PRN PO 04/24/17 20:15 05/08/17 20:14 04/27/17 08:43 1 TAB Allopurinol (Zyloprim Tab) 200 mg HS PO 04/24/17 21:00 05/24/17 20:59 04/26/17 20:17 200 MG Aspirin (Ecotrin Tab) 81 mg HS PO 04/24/17 21:00 05/24/17 20:59 04/26/17 20:17 81 MG Atorvastatin Calcium (Lipitor Tab) 10 mg QAM PO 04/25/17 09:00 05/25/17 08:59 04/27/17 08:41 10 MG Zolpidem Tartrate (Ambien Tab) 5 mg HS PRN PO 04/26/17 19:30 05/26/17 19:29 04/26/17 21:05 5 MG Diphenhydramine HCl (Benadryl Cap) 25 mg DAILY PRN PO 04/27/17 14:00 05/27/17 13:59 Epoetin Berry 11820 units/ Syringe 3 ml @ 0 mls/hr NOW ONCE SQ 04/27/17 16:00 04/27/17 16:01 Objective Vital Signs Date Time Temp Pulse Resp B/P (MAP) Pulse Ox O2 Delivery O2 Flow Rate FiO2 04/27/17 15:15 36.5 68 18 130/81 (97) 97 Room Air 04/27/17 08:00 96 Room Air 04/27/17 07:53 36.6 76 18 144/88 (106) 96 Room Air 04/27/17 07:40 97 Room Air 04/26/17 23:55 36.7 82 18 158/83 (108) 95 Room Air 04/26/17 23:50 Room Air 04/26/17 16:00 Room Air Physical Exam General Appearance: WD/WN, no apparent distress Eyes: normal inspection, EOMI, sclerae normal ENT: normal ENT inspection, pharynx normal Neck: supple, thyroid normal, trachea midline Respiratory/Chest: lungs clear, normal breath sounds, no respiratory distress Cardiovascular: regular rate, rhythm, no gallop, no murmur Abdomen: normal bowel sounds, non tender, soft, no organomegaly Extremities: non-tender, no calf tenderness Neurologic/Psychiatric: alert, normal mood/affect, oriented x 3 Skin: normal color, no rash, + pertinent finding (Right foot ulcer without drainage or purulence) Lymphatic: no adenopathy Laboratory Results RUN DATE: 04/27/17 LAB PAGE 1 RUN TIME: 1143 Specimen Inquiry PATIENT: JHONY CHAPPELL LOC: [employer] U # : [id number] AGE/SX: 86/M ROOM: [facility] REG : 04/24/[address]: Chapito Pimentel MD : [id number] BED: 2 DIS : STATUS: ADM IN TLOC: SPEC #: [id number] OLAYINKA: 04/24/17 STATUS: RES REQ #: [id number] RECD: 04/24/[address]: Mike Kenny M.D. SOURCE: [facility] ENTR: 04/24/[address] [facility] [address]: Neal Frey MD [facility]: SHOULDER,R Macie Song, DОльгаOYamel Oconnor M.D. Shaw, Mark R., Kenn Ling D.O. ORDERED: AER/ALANIS CULTSMR COMMENTS: Has Specimen Been Obtained/Collected? Y Procedure Result Verified Site GRAM STAIN Final 04/25/17-654 RESULT MANY WBCs SEEN NO ORGANISMS SEEN OR AER/ALANIS CULT Preliminary 04/27/17-1142 NO GROWTH TO DATE. Last 24 Hours Test 04/27/17 05:14 White Blood Count 4.05 K/uL Red Blood Count 2.97 M/uL Hemoglobin 9.2 g/dL Hematocrit 28.6 % Mean Corpuscular Volume 96.3 fL Mean Corpuscular Hemoglobin 31.0 pg Mean Corpuscular Hemoglobin Concent 32.2 g/dl RDW Standard Deviation 58.7 fL RDW Coefficient of Variation 16.6 % Platelet Count 120 K/uL Mean Platelet Volume 9.6 fL Prothrombin Time 23.6 SECONDS Prothromb Time International Ratio 2.1 Sodium Level 139 mmol/L Potassium Level 3.6 mmol/L Chloride Level 111 mmol/L Carbon Dioxide Level 21 mmol/L Anion Gap 7.0 mmol/L Blood Urea Nitrogen 36 mg/dl Creatinine 1.30 mg/dl Est Creatinine Clear Calc Drug Dose 45.0 ml/min Estimated GFR () 58.1 Estimated GFR (Non- 50.1 BUN/Creatinine Ratio 27.8 Random Glucose 92 mg/dl Calcium Level 8.7 mg/dl Assessment and Plan 86-year-old male with probable low-grade infection of right shoulder replacement, as well as right foot infection in the setting of chronic foot ulceration, which appears to be improving on IV antibiotics. Could possibly have P. acnes shoulder infection as this may take several days to grow. Suspect patient does not have osteomyelitis given unremarkable foot xray. Suspect patient will require prolonged IV antibiotic therapy, would recommend PICC line placement and have case management see if daptomycin can be covered as an outpatient. Could use oral levofloxacin in place of aztreonam to make outpatient therapy easier. Will discuss with all involved. Will continue to follow.
[2017-04-27] MEDS ORDERED: EPOETIN ALFA SQ ONE (16:00)
[2017-04-27] MEDS: WARFARIN SOD 5 MG TAB PO SCH (17:01)
[2017-04-27] MEDS: DAPTOmycin IV 525 MG in SODIUM CHLORIDE 0.9% 50ML 50 ML IV SCH (17:01)
[2017-04-27 21:11] VITALS: BP 137/84; PULSE 77
[2017-04-27] MEDS: ALLOPURINOL 100 MG TAB PO SCH (21:13)
[2017-04-27] MEDS: ASPIRIN 81 MG ECTAB PO SCH (21:13)
[2017-04-27 23:20] VITALS: BP 132/80; PULSE 73; TEMP 36.5; O2SAT 97
[2017-04-28] MEDS: AZTREONAM IV 2,000 MG in DEXTROSE 5% 100ML 100 ML IV SCH ×2 (01:57→10:37)
[2017-04-28 07:30] VITALS: BP 130/84; PULSE 76; TEMP 36.2; O2SAT 97
[2017-04-28 07:58] VITALS: O2SAT 97
[2017-04-28] MEDS ORDERED: LISINOPRIL 40 MG TAB PO SCH (09:00)
[2017-04-28] MEDS: ATORVASTATIN 10 MG TAB PO SCH (09:11)
[2017-04-28] MEDS: LISINOPRIL 40 MG TAB PO SCH (09:11)
[2017-04-28] MEDS: PANTOprazole SOD 40 MG TAB PO SCH (09:11)
--- NOTE | 2017-04-28 10:56 | DIAGNOSTIC IMAGING REPORT ---
CHEST ONE VIEW PORTABLE HISTORY: PICC placement COMPARISON: Chest 01/29/2016. FINDINGS: No pleural effusions. No pneumothorax. No focal lung consolidations to suggest pneumonia. No evidence for pulmonary edema. A few linear densities the left lung base favor subsegmental atelectasis. Bilateral shoulder arthroplasties. There is a left PICC. The tip is not clearly visualized but appears to terminate at the distal left brachiocephalic vein near the midline. IMPRESSION: There is a left PICC. The tip is not clearly visualized but appears to terminate at the distal left brachiocephalic vein near the midline. This could be advanced by approximately 3 cm. Electronically signed by: Delfino Peng M.D. 04/28/2017 10:55 AM Dictated Date/Time: 04/28/2017 10:52 AM
--- NOTE | 2017-04-28 12:25 | Progress Note ---
Medicine Progress Note Date & Time of Visit: Apr 28, 2017 at 12:15. Subjective patient seen resting in bed, in good spirits states he feels "tremendous" pain on his shoulder and foot much improved denies other symptoms states he is ready and would like to be discharged today Objective Last 8 Hrs Date Time Temp Pulse Resp B/P (MAP) Pulse Ox O2 Delivery O2 Flow Rate FiO2 04/28/17 07:58 97 Room Air 04/28/17 07:30 Room Air 04/28/17 07:30 36.2 76 20 130/84 (99) 97 Room Air Physical Exam: General- oriented x 3, not in distress, speaks in sentences with no effort Eyes-anicteric Neck-no JVD Lungs- clear breath sounds bilaterally Heart- regular rhythm; no murmur, normal rate Abdomen- normal bowel sounds, soft, nontender Extremities- no pretibial edema, no calf tenderness right shoulder:mild swelling, no erythema/warmth/tenderness right fooot: small ulcer on the plantar aspect, 3rd metatarsal head, no discharge/surrounding erythema/warmth Neuro- alert, oriented x 3; no gross focal deficits Skin- warm & dry Laboratory Results: Last 24 Hours Test 04/28/17 11:54 Assessment & Plan INFECTED RIGHT FOOT ULCER ID consulted- Dr. Frey placed on aztreonam and daptomycin IV x 4 days Blood cx no growth to date Ortho consulted- Dr. Kenny MRI of right foot without contrast cannot exclude osteomyelitis per Dr. Frey, osteomyelitis of the right foot unlikely Wound care consulted- Dr. Jeffrey Clarke recommend site to be dressed with Aquacel Ag and gauze change daily discussed with Dr. Frey recommend at least 2 weeks of IV Dapto via PICC line and Levaquin PO follow up with Dr. Frey (ID) and Dr. Clarke ([facility]) in 1 week RIGHT SHOULDER PAIN Ortho consulted- Dr. Kenny xray:IMPRESSION: 1. Postsurgical changes of a right shoulder arthroplasty 2. No acute fractures or dislocations 3. No conventional radiographic evidence of osteomyelitis -- s/p Aspiration of shoulder culture: negative -- surgery not recommended at this time per Ortho PAROXYSMAL ATRIAL FIBRILLATION: Rate is controlled On atenolol and coumadin ACUTE RENAL FAILURE, RESOLVED HTN: Continue Atenolol continue Lisinopril ANEMIA: On procrit hgb 9.6 -- continue procrit VALVULAR DISEASE: Aortic sclerosis, moderate tricuspid regurgitation, mild mitral regurgitation. Stable PREVIOUS CAROTID DISEASE: -s/p B/L CEA DYSLIPIDEMIA: -continued on atorvastatin DIFFUSE B CELL LYMPHOMA: -stable -continue with outpatient follow up with Oncology DVT px on Coumadin CODE STATUS FULL CODE Consultants: Ortho ID Wound care Procedures: Right shoulder aspiration Dispo d/c home today ff up with PCP in 3-5 days ff up with Dr. Frey and Dr. Clarke in 1 week Consultants: Ortho ID Wound care Procedures: Right shoulder aspiration Current Inpatient Medications: Current Inpatient Medications Medications (Trade) Dose Ordered Sig/Niall Route Start Time Stop Time Status Last Admin Dose Admin Acetaminophen (Tylenol Tab) 650 mg Q4H PRN PO 04/24/17 16:30 05/24/17 16:29 Polyethylene (Miralax Powder Packet) 17 gm DAILY PRN PO 04/24/17 16:30 05/24/17 16:29 Ondansetron HCl (Zofran Inj) 4 mg Q6H PRN IV 04/24/17 16:30 05/24/17 16:29 Aztreonam 2000 mg/ Dextrose 110 ml @ 100 mls/hr Q8H IV 04/24/17 18:00 06/05/17 17:59 04/28/17 10:37 100 MLS/HR Daptomycin 525 mg/ Sodium Chloride 60.5 ml @ 100 mls/hr Q24H IV 04/25/17 17:00 06/06/17 16:59 04/27/17 17:01 100 MLS/HR Aztreonam (Consult) 1 ea UD PRN N/A 04/24/17 17:15 05/24/17 17:14 Daptomycin (Consult) 1 ea UD PRN N/A 04/24/17 17:15 05/24/17 17:14 Atenolol (Tenormin Tab) 50 mg QAM PO 04/25/17 09:00 05/25/17 08:59 04/28/17 09:11 50 MG Warfarin Sodium (Coumadin Tab) 5 mg DAILY@16 PO 04/25/17 16:00 05/25/17 15:59 Future hold 04/27/17 17:01 5 MG Lisinopril (Zestril Tab) 40 mg QAM PO 04/25/17 09:00 05/25/17 08:59 04/28/17 09:11 40 MG Pantoprazole Sodium (Protonix Tab) 40 mg QAM PO 04/25/17 09:00 05/25/17 08:59 04/28/17 09:11 40 MG Oxycodone/ Acetaminophen (Percocet 5-325mg Tab) 1 tab Q8 PRN PO 04/24/17 20:15 05/08/17 20:14 04/27/17 08:43 1 TAB Allopurinol (Zyloprim Tab) 200 mg HS PO 04/24/17 21:00 05/24/17 20:59 04/27/17 21:13 200 MG Aspirin (Ecotrin Tab) 81 mg HS PO 04/24/17 21:00 05/24/17 20:59 04/27/17 21:13 81 MG Atorvastatin Calcium (Lipitor Tab) 10 mg QAM PO 04/25/17 09:00 05/25/17 08:59 04/28/17 09:11 10 MG Zolpidem Tartrate (Ambien Tab) 5 mg HS PRN PO 04/26/17 19:30 05/26/17 19:29 04/26/17 21:05 5 MG Diphenhydramine HCl (Benadryl Cap) 25 mg DAILY PRN PO 04/27/17 14:00 05/27/17 13:59 04/27/17 21:17 25 MG Heparin Sodium (Porcine) (Heparin 10 Unit/ ml 5 ml Flush) 5 ml PRN PRN FLUSH 04/28/17 10:30 05/28/17 10:29
[2017-04-28] MEDS ORDERED: LEVO-17 PO (12:31)
[2017-04-28] MEDS ORDERED: LSN40 PO (12:31)
[2017-04-28] MEDS ORDERED: TNR50 PO (12:31)
[2017-04-28] MEDS ORDERED: DAPT500I IV (12:31)
[2017-04-28] MEDS ORDERED: LPT10 PO (12:31)
[2017-04-28] MEDS ORDERED: CMD5 PO (12:31)
--- NOTE | 2017-04-28 12:40 | Discharge Instructions ---
Discharge Instructions Date of Service Apr 28, 2017. Admission Reason for Admission: Abscess Of Shoulder, Foot Abscess - Right Discharge Discharge Diagnosis / Problem: RIGHT SHOULDER AND RIGHT FOOT ULCER INFECTION Discharge Goals Goal(s): Diagnostic testing, Therapeutic intervention Activity Recommendations Activity Limitations: as noted below (INCREASE ACTIVITY GRADUALLY TOLERATED) Lifting Limitations: until after follow-up appointment Exercise/Sports Limitations: until after follow-up appointment Weightbearing Status: Right partial (weight bearing on the heel only) ALWAYS USE BOOT FOR THE RIGHT FOOT, NO LIFTING AND MINIMIZE MOVEMENT ON THE RIGHT SHOULDER FOR NOW . Instructions / Follow-Up Instructions / Follow-Up PLEASE REVIEW YOUR NEW MEDICATION LIST AND FOLLOW UP INSTRUCTIONS DAILY. OBSERVE PROPER WOUND CARE DAILY. CALL PRIMARY CARE PHYSICIAN OR RETURN TO ER IMMEDIATELY IF WITH RECURRENCE OF SYMPTOMS, INCREASING PAIN/REDNESS/SWELLING/DISCHARGE ON THE RIGHT SHOULDER/FOOT, FEVER/ CHILLS, DIARRHEA; PAIN/SWELLING/BLEEDING/DISCHARGE ON THE PICC LINE SITE OR LEFT ARM. EAT YOGURT DAILY AND AT LEAST 1 WEEK AFTER TAKING ANTIBIOTICS. DRINK LOTS OF FLUIDS DAILY. FOLLOW UP WITH DR. GAMING (ASSOCIATE OF DR. OLVERA) ON MAY 03, 2017 AT 10 :45 AM. FOLLOW UP WITH DR. TALBERT (INFECTIOUS DISEASE) IN 1 WEEK. FOLLOW UP WITH DR. GARCIA (WOUND CARE CENTER) IN 1 WEEK. FOLLOW UP WITH DR. MAY (ORTHOPEDIC SURGEON) IN 1 WEEK. Current Hospital Diet Patient's current hospital diet: AHA Diet (Heart Healthy) Discharge Diet Recommended Diet: AHA Diet (Heart Healthy) Procedures Procedures Performed: RIGHT SHOULDER ASPIRATION; PICC LINE INSERTION Pending Studies Studies pending at discharge: no Medical Emergencies . Who to Call and When: Medical Emergencies: If at any time you feel your situation is an emergency, please call 911 immediately. . Non-Emergent Contact Non-Emergency issues call your: Primary Care Provider Call Non-Emergent contact if: you have a fever, your pain is not controlled, your pain is worsening, wound has increased drainage, wound has increased redness, wound has increased pain, you have any medication questions . . "Provider Documentation" section prepared by Chapito Pimentel. . VTE Core Measure Inpt VTE Proph given/why not?: Warfarin (Coumadin)
--- NOTE | 2017-04-28 12:46 | Discharge Summary ---
Discharge Summary Date of Service Apr 28, 2017. Discharge Summary Admission Date: Apr 24, 2017 at 18:04 Discharge Date: Apr 28, 2017 Discharge Disposition: Home with services Principal Diagnosis: INFECTED RIGHT FOOT ULCER and SHOULDER Secondary Diagnoses/Problems: Please refer to hospital course below. Procedures: Right shoulder aspiration; PICC line insertion RIGHT FOREFOOT MRI WITHOUT CONTRAST HISTORY: right foot infection TECHNIQUE: Multiplanar multisequence MRI of the right forefoot was performed without the use of intravenous contrast COMPARISON STUDY: Right foot 04/24/2017. FINDINGS: Motion artifact results in suboptimal evaluation the right foot. Hallux valgus deformity is again noted. Dorsal subcutaneous edema. Nonspecific marrow edema within the shaft and head of the third metacarpal with surrounding mild soft tissue edema. This also demonstrates diminished T1 signal. There is also marrow edema within the proximal pharynx of the third toe as well surrounding soft tissue edema within the third toe. No loculated fluid collections identified this noncontrast study. The remaining osseous structures demonstrate a normal signal intensity. There is mild soft tissue edema along the plantar surface of the foot. Large bony bunion. 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 Flexion deformities throughout the second through fifth toes. There is chronic dorsal subluxation of the second through fourth toes. IMPRESSION: 1. Difficult evaluation for osteomyelitis given the motion artifact and lack of intravenous contrast. There is abnormal marrow edema and T1 hypointense signal seen within the head and shaft of the third metatarsal and proximal phalanx of the third toe. This is nonspecific but is suspicious for osteomyelitis in the appropriate clinical setting. 2. Subcutaneous edema within the foot. 3. Chronic deformities as described above within the toes. RIGHT SHOULDER MIN 2 VIEWS ROUTINE CLINICAL HISTORY: Pain. Abscess. Evaluate for osteomyelitis. 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 There are no acute fractures or dislocations. There is a 2.5 cm corticated bony density located inferior to the scapular glenoid. This remain stable. There are no conventional radiographic findings to indicate acute osteomyelitis. IMPRESSION: 1. Postsurgical changes of a right shoulder arthroplasty 2. No acute fractures or dislocations 3. No conventional radiographic evidence of osteomyelitis RIGHT FOOT MIN 3 VIEWS ROUTINE CLINICAL HISTORY: Right foot pain COMPARISON: None. DISCUSSION: There is a hallux valgus deformity. No acute fractures are visualized. There is a plantar calcaneal spur. IMPRESSION: 1. No acute fractures 2. Pronounced hallux valgus deformity Consultations: Ortho; ID; Wound care Pending Studies/Follow-Up: Weekly CBC, CMP, CPK while on IV antibiotics ; Please refer to hospital course below. Medication Reconciliation New Medications: Daptomycin (Daptomycin) 500 Mg Inj 525 MG IV DAILY for 14 Days, 0 Refills Levofloxacin (Levaquin) 250 Mg Tab 250 MG PO DAILY for 14 Days, #14 TAB 0 Refills Atenolol (Atenolol) 50 Mg Tab 50 MG PO QAM for 30 Days, #30 TAB Atorvastatin (Atorvastatin Calcium) 10 Mg Tab 10 MG PO QAM for 30 Days, #30 TAB Lisinopril (Lisinopril) 40 Mg Tab 40 MG PO QAM for 30 Days, #30 TAB Warfarin Sod (Coumadin) 5 Mg Tab 5 MG PO UD for 30 Days, TAB take usual dose: 5mg po every //sat; and 2.5mg po all other days Continued Medications: Allopurinol (Zyloprim) 100 Mg Tab 200 MG PO HS, TAB 5 Refills Aspirin (Aspirin Ec) 81 Mg Tab 81 MG PO HS Admission Information HPI (per Admitting provider): Patient is an 86 yo male who came to the ER for complaints of worsening pain, drainage, and swelling of his right foot wound, and worsening pain and stiffness of his right shoulder. He states he was seen by Orthopedics and recently had fluid drained from his right shoulder, and that he was called on Wednesday that the fluid resulted as showing infection in his right shoulder. The patient states he has been having issues on and off for the last 3 years with his shoulder and reaccumulation of fluid, as well as decreasing ROM. He states that his right plantar foot wound has been there for several years, and that he was previously treated with IV abx and wound clinic follow up, but he was discharged in September 2016 as his wound had healed and no longer appeared infected per the clinic notes. The patient states that several months after that his wound seemed to again progressively worsen, and has been more painful to stand on and has been draining white/yellowish material. He denies any other symptoms of fever, chills, sweats, and only other complaint is feeling tired/ fatigued. Physical Exam (per Admitting): General Appearance: WD/WN, no apparent distress Head: normocephalic, atraumatic Eyes: PERRL, EOMI, sclerae normal ENT: hearing grossly normal Neck: supple, no JVD, no carotid bruits, trachea midline Respiratory/Chest: lungs clear, normal breath sounds, no respiratory distress, no accessory muscle use Cardiovascular: no edema, no gallop, no JVD, no murmur, + irregularly irregular Abdomen/GI: normal bowel sounds, non tender, soft, no organomegaly Back: normal inspection Extremities/Musculoskelatal: no calf tenderness, normal capillary refill, no pedal edema, + pertinent finding (right foot plantar wound with eschar) Neurologic/Psych: no motor/sensory deficits, alert, normal mood/affect, oriented x 3 Skin: normal color, warm/dry, no rash Hospital Course INFECTED RIGHT FOOT ULCER Foot Xray: 1. No acute fractures 2. Pronounced hallux valgus deformity Foot MRI: 1. Difficult evaluation for osteomyelitis given the motion artifact and lack of intravenous contrast. There is abnormal marrow edema and T1 hypointense signal seen within the head and shaft of the third metatarsal and proximal phalanx of the third toe. This is nonspecific but is suspicious for osteomyelitis in the appropriate clinical setting. 2. Subcutaneous edema within the foot. 3. Chronic deformities as described above within the toes. ID consulted- Dr. Frey placed on aztreonam and daptomycin IV x 4 days Blood cx no growth to date Ortho consulted- Dr. Kenny MRI of right foot without contrast cannot exclude osteomyelitis per Dr. Frey, osteomyelitis of the right foot unlikely Wound care consulted- Dr. Jeffrey Garcia recommend site to be dressed with Aquacel Ag and gauze change daily clinically improved discussed with Dr. Frey recommend at least 2 weeks of IV Dapto via PICC line and Levaquin PO - Dr. Frey to determine duration of antibiotics on follow up follow up with Dr. Frey (ID) and Dr. Garcia (W[facility] Care [facility]) in 1 week RIGHT SHOULDER PAIN Ortho consulted- Dr. Kenny xray:IMPRESSION: 1. Postsurgical changes of a right shoulder arthroplasty 2. No acute fractures or dislocations 3. No conventional radiographic evidence of osteomyelitis -- s/p Aspiration of shoulder culture: negative -- surgery not recommended at this time per Ortho -- follow up with Ortho Dr. 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 Stable PREVIOUS CAROTID DISEASE: -s/p B/L CEA DYSLIPIDEMIA: -continued on atorvastatin DIFFUSE B CELL LYMPHOMA: -stable -continue with outpatient follow up with Oncology DVT px on Coumadin CODE STATUS FULL CODE Consultants: Ortho ID Wound care Procedures: Right shoulder aspiration Dispo d/c home ff up with PCP in 3-5 days ff up with Dr. Frey, Dr. Garcia, Dr. Kenny in 1 week Total time spent on discharge = 45 minutes This includes examination of the patient, discharge planning, medication reconciliation, and communication with other providers. Discharge Instructions Discharge Instructions Date of Service Apr 28, 2017. Admission Reason for Admission: Abscess Of Shoulder, Foot Abscess - Right Discharge Discharge Diagnosis / Problem: RIGHT SHOULDER AND RIGHT FOOT ULCER INFECTION Discharge Goals Goal(s): Diagnostic testing, Therapeutic intervention Activity Recommendations Activity Limitations: as noted below (INCREASE ACTIVITY GRADUALLY TOLERATED) Lifting Limitations: until after follow-up appointment Exercise/Sports Limitations: until after follow-up appointment ALWAYS USE BOOT FOR THE RIGHT FOOT, NO LIFTING AND MINIMIZE MOVEMENT ON THE RIGHT SHOULDER FOR NOW . Instructions / Follow-Up Instructions / Follow-Up PLEASE REVIEW YOUR NEW MEDICATION LIST AND FOLLOW UP INSTRUCTIONS DAILY. OBSERVE PROPER WOUND CARE DAILY. CALL PRIMARY CARE PHYSICIAN OR RETURN TO ER IMMEDIATELY IF WITH RECURRENCE OF SYMPTOMS, INCREASING PAIN/REDNESS/SWELLING/DISCHARGE ON THE RIGHT SHOULDER/FOOT, FEVER/ CHILLS, DIARRHEA; PAIN/SWELLING/BLEEDING/DISCHARGE ON THE PICC LINE SITE OR LEFT ARM. EAT YOGURT DAILY AND AT LEAST 1 WEEK AFTER TAKING ANTIBIOTICS. DRINK LOTS OF FLUIDS DAILY. FOLLOW UP WITH DR. GAMING (ASSOCIATE OF DR. OLVERA) ON MAY 03, 2017 AT 10 :45 AM. FOLLOW UP WITH DR. FREY (INFECTIOUS DISEASE) IN 1 WEEK. FOLLOW UP WITH DR. GARCIA (WOUND CARE CENTER) IN 1 WEEK. FOLLOW UP WITH DR. KENNY (ORTHOPEDIC SURGEON) IN 1 WEEK. Current Hospital Diet Patient's current hospital diet: AHA Diet (Heart Healthy) Discharge Diet Recommended Diet: AHA Diet (Heart Healthy) Procedures Procedures Performed: RIGHT SHOULDER ASPIRATION; PICC LINE INSERTION Pending Studies Studies pending at discharge: no Medical Emergencies . Who to Call and When: Medical Emergencies: If at any time you feel your situation is an emergency, please call 911 immediately. . Non-Emergent Contact Non-Emergency issues call your: Primary Care Provider Call Non-Emergent contact if: you have a fever, your pain is not controlled, your pain is worsening, wound has increased drainage, wound has increased redness, wound has increased pain, you have any medication questions . . "Provider Documentation" section prepared by Chapito Pimentel. . VTE Core Measure Inpt VTE Proph given/why not?: Warfarin (Coumadin)
[2017-04-28 12:57] LABS: INR 2.7 (0.9-1.1); PROTHROMBIN TIME (PATIENT) 29.9 SECONDS (9.0-12.0)
[2017-04-28] MEDS ORDERED: NURSING VERBAL MED ORDER ONE (14:00)
[2017-04-28 14:04] VITALS: BP 130/84; PULSE 76; TEMP 36.2; O2SAT 97
--- NOTE | 2017-04-28 14:29 | DIAGNOSTIC IMAGING REPORT ---
CHEST ONE VIEW PORTABLE CLINICAL HISTORY: pic adjustment line position COMPARISON STUDY: 05/08/2017 10:35 AM FINDINGS: PICC catheter has been advanced to the superior vena cava. No evidence pneumothorax. IMPRESSION: PICC catheter is now in the superior vena cava. No evidence pneumothorax. The above report was generated using voice recognition software. It may contain grammatical, syntax or spelling errors. Electronically signed by: Jeffrey Loja M.D. 04/28/2017 2:28 PM Dictated Date/Time: 04/28/2017 2:27 PM
[2017-04-28] MEDS: DAPTOmycin IV 525 MG in SODIUM CHLORIDE 0.9% 50ML 50 ML IV SCH (14:50)
[2017-04-28 15:04] VITALS: BP 148/84; PULSE 73; TEMP 36.7; O2SAT 97
--- NOTE | 2017-04-28 15:27 | Infectious Disease Progress Nt ---
Progress Note Date of Service Apr 28, 2017. Subjective Pt evaluation today including: conversation w/ patient, physical exam, chart review, lab review, review of studies, conversation w/ production support consultant, review of inpatient medication list Patient without new complaints. Shoulder pain improving. No increase in foot pain. No fever or chills. Continues tolerating antibiotic without apparent difficulty. All Other Systems: Reviewed and Negative Medications Current Inpatient Medications Medications (Trade) Dose Ordered Sig/Niall Route Start Time Stop Time Status Last Admin Dose Admin Acetaminophen (Tylenol Tab) 650 mg Q4H PRN PO 04/24/17 16:30 05/24/17 16:29 Polyethylene (Miralax Powder Packet) 17 gm DAILY PRN PO 04/24/17 16:30 05/24/17 16:29 Ondansetron HCl (Zofran Inj) 4 mg Q6H PRN IV 04/24/17 16:30 05/24/17 16:29 Aztreonam 2000 mg/ Dextrose 110 ml @ 100 mls/hr Q8H IV 04/24/17 18:00 06/05/17 17:59 04/28/17 10:37 100 MLS/HR Daptomycin 525 mg/ Sodium Chloride 60.5 ml @ 100 mls/hr Q24H IV 04/25/17 17:00 06/06/17 16:59 04/28/17 14:50 100 MLS/HR Aztreonam (Consult) 1 ea UD PRN N/A 04/24/17 17:15 05/24/17 17:14 Daptomycin (Consult) 1 ea UD PRN N/A 04/24/17 17:15 05/24/17 17:14 Atenolol (Tenormin Tab) 50 mg QAM PO 04/25/17 09:00 05/25/17 08:59 04/28/17 09:11 50 MG Warfarin Sodium (Coumadin Tab) 5 mg DAILY@16 PO 04/25/17 16:00 05/25/17 15:59 Future hold 04/27/17 17:01 5 MG Lisinopril (Zestril Tab) 40 mg QAM PO 04/25/17 09:00 05/25/17 08:59 04/28/17 09:11 40 MG Pantoprazole Sodium (Protonix Tab) 40 mg QAM PO 04/25/17 09:00 05/25/17 08:59 04/28/17 09:11 40 MG Oxycodone/ Acetaminophen (Percocet 5-325mg Tab) 1 tab Q8 PRN PO 04/24/17 20:15 05/08/17 20:14 04/27/17 08:43 1 TAB Allopurinol (Zyloprim Tab) 200 mg HS PO 04/24/17 21:00 05/24/17 20:59 04/27/17 21:13 200 MG Aspirin (Ecotrin Tab) 81 mg HS PO 04/24/17 21:00 05/24/17 20:59 04/27/17 21:13 81 MG Atorvastatin Calcium (Lipitor Tab) 10 mg QAM PO 04/25/17 09:00 05/25/17 08:59 04/28/17 09:11 10 MG Zolpidem Tartrate (Ambien Tab) 5 mg HS PRN PO 04/26/17 19:30 05/26/17 19:29 04/26/17 21:05 5 MG Diphenhydramine HCl (Benadryl Cap) 25 mg DAILY PRN PO 04/27/17 14:00 05/27/17 13:59 04/27/17 21:17 25 MG Heparin Sodium (Porcine) (Heparin 10 Unit/ ml 5 ml Flush) 5 ml PRN PRN FLUSH 04/28/17 10:30 05/28/17 10:29 Objective Vital Signs Date Time Temp Pulse Resp B/P (MAP) Pulse Ox O2 Delivery O2 Flow Rate FiO2 04/28/17 15:04 36.7 73 18 148/84 (105) 97 Room Air 04/28/17 14:04 36.2 76 20 97 Room Air 04/28/17 07:58 97 Room Air 04/28/17 07:30 Room Air 04/28/17 07:30 36.2 76 20 130/84 (99) 97 Room Air 04/27/17 23:45 Room Air 04/27/17 23:20 36.5 73 16 132/80 (97) 97 Room Air 04/27/17 21:11 77 137/84 (101) 04/27/17 19:20 Room Air Physical Exam General Appearance: WD/WN, no apparent distress Eyes: normal inspection, EOMI, sclerae normal ENT: normal ENT inspection, pharynx normal Neck: supple, no adenopathy, trachea midline Respiratory/Chest: chest non-tender, lungs clear, normal breath sounds, no respiratory distress Cardiovascular: regular rate, rhythm, no gallop, no murmur Abdomen: normal bowel sounds, non tender, soft, no organomegaly Extremities: non-tender, no calf tenderness Neurologic/Psychiatric: alert, oriented x 3 Skin: normal color, no rash, + pertinent finding ( foot with less erythema) Lymphatic: no adenopathy Laboratory Results RUN DATE: 04/27/17 [facility] PAGE 1 RUN TIME: 1143 Specimen Inquiry PATIENT: JHONY CHAPPELL J [facility] [place] # : [id number] AGE/SX: 86/M ROOM: [facility] REG : 04/24/[address]: Chapito Pimentel MD : [id number] BED: 2 DIS : STATUS: ADM IN TLOC: SPEC #: [id number] OLAYINKA: 04/24/17 STATUS: RES REQ #: [id number] RECD: 04/24/[address]: Mike Kenny M.D. SOURCE: [place] ENTR: 04/24/[address] [facility] [address]: Neal Frey MD SPDESC: SHOULDER,R Macie Song ., D.OYamel Oconnor M.D. Shaw, Mark R., Kenn Ling D.OОльга ORDERED: AER/ALANIS CULTSMR COMMENTS: Has Specimen Been Obtained/Collected? Y Procedure Result Verified Site GRAM STAIN Final 04/25/17-654 RESULT MANY WBCs SEEN NO ORGANISMS SEEN OR AER/ALANIS CULT Preliminary 04/27/17-1142 NO GROWTH TO DATE. Last 24 Hours Test 04/28/17 12:20 Prothrombin Time 29.9 SECONDS Prothromb Time International Ratio 2.7 [~ rep ct add3]] CHEST ONE VIEW PORTABLE CLINICAL HISTORY: pic adjustment line position COMPARISON STUDY: 05/08/2017 10:35 AM FINDINGS: PICC catheter has been advanced to the superior vena cava. No evidence pneumothorax. IMPRESSION: PICC catheter is now in the superior vena cava. No evidence pneumothorax. The above report was generated using voice recognition software. It may contain grammatical, syntax or spelling errors. Assessment and Plan 86-year-old male with probable low-grade infection of right shoulder replacement, as well as right foot infection in the setting of chronic foot ulceration, which appears to be improving on IV antibiotics. Could possibly have P. acnes shoulder infection as this may take several days to grow. Suspect patient does not have osteomyelitis given unremarkable foot xray. Patient will require at least several weeks of IV antibiotics, PICC line has been placed, and outpatient therapy arranged. Would like to see patient back in follow-up in 2 weeks.
[2017-04-28] MEDS: WARFARIN SOD 5 MG TAB PO SCH (15:47)
--- NOTE | 2017-04-29 12:21 | EDITING REQUIRED CODING QUERY ---
CODING QUERY To promote full compliance with coding requirements relating to patient care, provider participation is requested in all cases of hvac journeyman uncertainty. Please assist us with the question(s) below: Coding Question(s): Osteomyelitis of the patient's foot was documented throughout the chart as a possibility. Please clarify below to the best of your knowledge. Thank you so much for your help! ( ) Acute Osteomyelitis, ( ) present on admission, ( ) Not present on admission ( ) Chronic Osteomyelitis, present on admission ( ) Sub acute Osteomyelitis, ( ) present on admission, ( ) Not present on admission ( ) Osteomyelitis, ruled out (X ) Other, explain Infectious Disease [facility] [place] consulted: as per Dr. Frey's consult notes, Osteomyelitis unlikely. Please refer to his notes. Thanks. Thank you! Rita Jimenez Principal Diagnosis: "_that condition established after study, to be chiefly responsible for occasioning the admission of the patient to the hospital for care." Co-Existing Principal Diagnosis: "_when two or more diagnoses equally meet the criteria for principal diagnosis as determined by the circumstances of admission, diagnostic work up, and/or therapy provided, and the Alphabetic Index, Tabular List, or another coding guideline does not provide sequencing direction, any one of the diagnoses may be sequenced first." "When the physician has documented what appears to be a current diagnosis in the body of the record, but has not included the diagnosis in the final diagnostic statement, the physician should be asked whether the diagnosis should be added." (Source Coding Clinic 2 QTR90. p3-4)
[2017-05-11] MEDS ORDERED: ALLO100T PO (13:41)
== END 2017-04-28 16:00 | disposition home health service (06) | DRG 540 ==
LOC: C.EDB 11:49 → ENRESERV 16:52 → C.MSW 18:04
PROVIDERS: ADMIT Internal Medicine; ATTEND Internal Medicine
PROC: 02HV33Z Insertion of Infusion Device into Superior Vena Cava, Percutaneous Approach (ICD-10-PCS; principal; 2017-04-28)
DX: M86.9 Osteomyelitis, unspecified (principal); T84.59XA Infection and inflammatory reaction due to other internal joint prosthesis, initial encounter; L02.611 Cutaneous abscess of right foot; C83.30 Diffuse large B-cell lymphoma, unspecified site; N17.9 Acute kidney failure, unspecified; Z96.611 Presence of right artificial shoulder joint; N18.3 Chronic kidney disease, stage 3 (moderate); I12.9 Hypertensive chronic kidney disease with stage 1 through stage 4 chronic kidney disease, or unspecified chronic kidney disease; E78.5 Hyperlipidemia, unspecified; M65.111 Other infective (teno)synovitis, right shoulder; I48.0 Paroxysmal atrial fibrillation; D64.9 Anemia, unspecified; I08.3 Combined rheumatic disorders of mitral, aortic and tricuspid valves; M10.9 Gout, unspecified; Z79.82 Long term (current) use of aspirin; Z79.899 Other long term (current) drug therapy; Z87.891 Personal history of nicotine dependence; Y83.1 Surgical operation with implant of artificial internal device as the cause of abnormal reaction of the patient, or of later complication, without mention of misadventure at the time of the procedure; Y79.2 Prosthetic and other implants, materials and accessory orthopedic devices associated with adverse incidents

== ENCOUNTER 2017-04-30 12:05 | Inpatient (IN) | payer OTHER ==
[~2017-04-30] VITALS: Ht 180.3 cm; Wt 88.3 kg
[~2017-04-30 12:05] MED LIST changes: -ACET-1256 PO; -ATEN-175 PO; +CMD5 PO; +DAPT500I IV; +LEVO-17 PO; -LISI-725 PO; +LPT10 PO; +LSN40 PO; -NAPR1TAB9 PO; +TNR50 PO
--- NOTE | 2017-04-30 13:14 | DIAGNOSTIC IMAGING REPORT ---
CHEST ONE VIEW PORTABLE HISTORY: Short of breath. COMPARISON: Chest 04/28/2017. FINDINGS: The tip of the left PICC is difficult to visualize but appears to terminate in the SVC. This imaging done change. No pneumothorax. No pleural effusions. The heart remains mildly enlarged. Diffusely elevated interstitium without focal consolidation to suggest pneumonia. This remains unchanged. Bilateral shoulder arthroplasties. IMPRESSION: No significant change compared to the prior study. No acute process. Electronically signed by: Delfino Peng M.D. 04/30/2017 1:12 PM Dictated Date/Time: 04/30/2017 1:11 PM
[2017-04-30 13:37] LABS: HEMATOCRIT 29.5 % (42-52); MEAN CELL VOLUME 96.4 fL (80-100); MEAN CORPUSCULAR HEMOGLOBIN 30.7 pg (25-34); MEAN CORPUSCULAR HGB CONC 31.9 g/dl (32-36); MEAN PLATELET VOLUME 9.8 fL (7.4-10.4); PLATELET COUNT 110 K/uL (130-400); RED BLOOD COUNT 3.06 M/uL (4.7-6.1); WHITE BLOOD COUNT 7.26 K/uL (4.8-10.8)
--- NOTE | 2017-04-30 13:47 | EMERGENCY ROOM VISIT NOTE ---
History First contact with patient: 13:44 Chief Complaint: SHORTNESS OF BREATH Stated Complaint: INFECTION-RT FOOT/SHOULDER, SOB Nursing Triage Summary: Pt states "my breathing is terrible. I walk 10 feet and I'm out of breath. I have a bunch of red spots all over me. It's on my arms. " Pt states Home Health told him to come to ED. SOB x 3 weeks. Rash since this am. Was admitted for infection in foot. Has PICC line. Receiving Dapto. Concerned about allergy to Dapto. Pt c/o blood being under PICC dressing. HX right shoulder pain. History of Present Illness The patient is a 86 year old male who presents to the Emergency Room with complaints of 3 weeks of progressive SOB Exacerbated by ambulation, relieved by rest. Denies orthopnea and PND. No oxygen or CPAP/BIPAP use at home. No associated CP, leg cramping while ambulating, diaphoresis, nausea, palpitations, leg edema, weight gain. Not dizzy or lightheaded. Compliant with a.fib medication. Denies pleurisy, no recent surgery or travel, but immobilization during previous hospital stay No falls, or LOC. Ex smoker of 50+ years, 5 pack year history. No inhaler use No fevers/chills/sweats. No URTI sx. Rash start today on arms bilaterally. Rash is not itchy, or burning. Home nurse pointed it out to him. Denies changes in food, medication, or outdoor travel/bug or tick bite. Review of Systems See HPI for pertinent positives and negatives. A total of ten systems were reviewed and were otherwise negative. Past Medical/Surgical History Medical Problems: (1) Atrial fibrillation (2) CKD (chronic kidney disease), stage III (3) DLBCL (diffuse large B cell lymphoma) (4) Dyslipidemia (5) HTN (hypertension) (6) Osteoarthritis Surgical Problems: (1) H/O rotator cuff surgery (2) History of carotid endarterectomy (3) History of CEA (carotid endarterectomy) (4) History of total bilateral knee replacement (5) History of total left hip replacement (6) Hx of cholecystectomy (7) Status post total shoulder arthroplasty Family History Patient reports no known family medical history. Social History Smoking Status: Former Smoker Alcohol Use: none Drug Use: none Marital Status: Housing Status: lives alone Occupation Status: retired Current/Historical Medications Scheduled Allopurinol (Zyloprim), 200 MG PO HS Aspirin (Aspirin Ec), 81 MG PO HS Atenolol (Atenolol), 50 MG PO QAM Atorvastatin (Atorvastatin Calcium), 10 MG PO QAM Daptomycin (Daptomycin), 525 MG IV DAILY Levofloxacin (Levaquin), 250 MG PO DAILY Lisinopril (Lisinopril), 40 MG PO QAM Warfarin Sod (Coumadin), 5 MG PO UD Physical Exam Vital Signs Date Time Temp Pulse Resp B/P (MAP) Pulse Ox O2 Delivery O2 Flow Rate FiO2 04/30/17 15:57 83 22 117/65 92 Room Air 04/30/17 15:33 85 Room Air 04/30/17 14:42 72 16 137/60 04/30/17 13:52 97 Room Air 04/30/17 13:52 97 Room Air 04/30/17 13:47 68 16 97/60 98 Room Air 04/30/17 12:42 70 04/30/17 12:09 36.9 74 22 100/63 96 Room Air 04/30/17 12:09 92 Room Air Physical Exam GENERAL: Alert, lying in bed, no acute distress, non-toxic. Saturations noted to drop into high 80s with conversation. HEAD: NC/AT. No sinus tenderness. EYES: PERRL, EOMI, normal conjunctiva OROPHARYNX: no exudate, no erythema, lips, buccal mucosa, and tongue normal and mucous membranes are dry EARS: Tympanic membranes within normal limits, no indication of effusion. NECK: Supple, no nuchal rigidity, no adenopathy, non-tender LUNGS: Clear to auscultation. Normal chest wall mechanics, good air entry. No crepitations, crackles, or wheezes HEART: S1 and S2 normal, irregularly irregular but rate controlled, no murmurs CHEST: No reproducible tenderness. ABDOMEN: abdomen soft, non-tender, normo-active bowel sounds, no masses, no rebound or guarding. BACK: Back is symmetrical on inspection, no deformities, no midline tenderness, no CVA tenderness. SKIN: Warm, pink, dry. Scattered petechiae on body, coalesced on elbows. UPPER EXTREMITIES: Grossly normal. Strength 5/5 LOWER EXTREMITIES: No pitting edema. Calves non tender. Valgus deformity of right big toe. Ulcer covered with bandage on base of right foot. Strength 5/5 bilaterally. NEURO: Alert, Ox3. No focal deficits. Normal sensorium, cranial nerves II-XII grossly intact, normal speech. PSYCH: Mood and affect appropriate. Medical Decision & Procedures ER Provider Diagnostic Interpretation: CHEST ONE VIEW PORTABLE HISTORY: Short of breath. COMPARISON: Chest 04/28/2017. FINDINGS: The tip of the left PICC is difficult to visualize but appears to terminate in the SVC. This imaging done change. No pneumothorax. No pleural effusions. The heart remains mildly enlarged. Diffusely elevated interstitium without focal consolidation to suggest pneumonia. This remains unchanged. Bilateral shoulder arthroplasties. IMPRESSION: No significant change compared to the prior study. No acute process. Laboratory Results 04/30/17 13:22 Red Blood Count 3.06, Mean Corpuscular Volume 96.4, Mean Corpuscular Hemoglobin 30.7, Mean Corpuscular Hemoglobin Concent 31.9, Mean Platelet Volume 9.8, Neutrophils (%) (Auto) 82.5, Lymphocytes (%) (Auto) 12.4, Monocytes (%) (Auto) 1.9, Eosinophils (%) (Auto) 3.0, Basophils (%) (Auto) 0.1, Neutrophils # (Auto) 5.98, Lymphocytes # (Auto) 0.90, Monocytes # (Auto) 0.14, Eosinophils # (Auto) 0.22, Basophils # (Auto) 0.01 04/30/17 13:22 Test 04/30/17 13:22 04/30/17 13:25 04/30/17 13:56 04/30/17 15:20 White Blood Count 7.26 K/uL (4.8-10.8) Red Blood Count 3.06 M/uL (4.7-6.1) Hemoglobin 9.4 g/dL (14.0-18.0) Hematocrit 29.5 % (42-52) Mean Corpuscular Volume 96.4 fL (80-100) Mean Corpuscular Hemoglobin 30.7 pg (25-34) Mean Corpuscular Hemoglobin Concent 31.9 g/dl (32-36) Platelet Count 110 K/uL (130-400) Mean Platelet Volume 9.8 fL (7.4-10.4) Neutrophils (%) (Auto) 82.5 % Lymphocytes (%) (Auto) 12.4 % Monocytes (%) (Auto) 1.9 % Eosinophils (%) (Auto) 3.0 % Basophils (%) (Auto) 0.1 % Neutrophils # (Auto) 5.98 K/uL (1.4-6.5) Lymphocytes # (Auto) 0.90 K/uL (1.2-3.4) Monocytes # (Auto) 0.14 K/uL (0.11-0.59) Eosinophils # (Auto) 0.22 K/uL (0-0.5) Basophils # (Auto) 0.01 K/uL (0-0.2) RDW Standard Deviation 61.3 fL (36.4-46.3) RDW Coefficient of Variation 17.4 % (11.5-14.5) Immature Granulocyte % (Auto) 0.1 % Immature Granulocyte # (Auto) 0.01 K/uL (0.00-0.02) Anisocytosis PRESENT Prothrombin Time 58.5 SECONDS (9.0-12.0) Prothromb Time International Ratio 5.1 (0.9-1.1) Activated Partial Thromboplast Time 60.1 SECONDS (21.0-31.0) Partial Thromboplastin Ratio 2.3 Anion Gap 9.0 mmol/L (3-11) Est Creatinine Clear Calc Drug Dose 27.9 ml/min Estimated GFR () 32.5 Estimated GFR (Non- 28.1 BUN/Creatinine Ratio 21.6 (10-20) Calcium Level 8.3 mg/dl (8.5-10.1) Magnesium Level 1.6 mg/dl (1.8-2.4) Total Bilirubin 0.3 mg/dl (0.2-1) Aspartate Amino Transf (AST/SGOT) 40 U/L (15-37) Alanine Aminotransferase (ALT/SGPT) 33 U/L (12-78) Alkaline Phosphatase 91 U/L (45-117) Total Protein 7.0 gm/dl (6.4-8.2) Albumin 2.0 gm/dl (3.4-5.0) Globulin 5.0 gm/dl (2.5-4.0) Albumin/Globulin Ratio 0.4 (0.9-2) Troponin I 0.021 ng/ml (0-0.045) Pro-B-Type Natriuretic Peptide 59005 pg/ml (0-1800) Bedside Troponin I < 0.030 ng/ml (0-0.045) Venous Blood pH 7.37 (7.36-7.41) Venous Blood Partial Pressure CO2 29 mmHg (38.0-50.0) Venous Blood Partial Pressure O2 33 mmHg Venous Blood HCO3 16 mmol/L Venous Blood Oxygen Saturation < 60.0 % Venous Blood Base Excess -7.8 mEq/L Medications Administered Medications (Trade) Dose Ordered Sig/Niall Route Start Time Stop Time Status Last Admin Dose Admin Sodium Chloride 1,000 ml @ 80 mls/hr [id number] IV 04/30/17 16:35 05/30/17 16:34 04/30/17 20:06 80 MLS/HR ECG Indication: SOB/dyspnea Rhythm: atrial fibrillation Findings: nonspecific-ST abn (Inferior and anterolateral) ED Course 1347: The patient was evaluated in room B4. A complete history and physical exam was performed. Labs and imaging were ordered 1412: Patient reassessed, comfortable at rest 1530: ambulation pulse ox. Sats 85%, HR 120s 1545: Consulted [facility] team 1558: Discussed patient with Dr. Coello who is agreeable to assess patient for admission Medical Decision Prior records/ancillary studies reviewed. Triage Nursing notes reviewed. Additional history obtained from the family. The patient's history was concerning for respiratory difficulties. Differential diagnosis: Etiologies such as infections, reactive airway disease, pneumonia, pneumothorax , COPD, CHF, cardiac ischemia, pulmonary embolism, musculoskeletal, gastrointestinal, as well as others were entertained. Physical examination: As above. ER treatment provided: On reassessment the patient felt better. Diagnostic interpretation by me: The electrocardiogram was negative for acute ischemic or pathologic change. The labs revealed anemia (stable), thrombocytopenia (stable), mild hyponatremia and hypokalemia, evidence of NAJMA and CHF, a supratherapeutic INR, Imaging studies: Chest x-ray as above. Consultation: [facility] The case was discussed and diagnostics were reviewed. The patient was evaluated in the ER for further treatment. This appears to be consistent with CHF, NAJMA, allergic reaction. By the evaluation outlined above emergent etiologies such as cardiac ischemia, pulmonary embolism, reactive airway disease, pneumonia, pneumothorax, musculoskeletal, serious bacterial infections, as well as others were deemed relatively unlikely. The patient informed about the findings as listed above. All questions were answered and he was pleased with the treatment thus far. Impression Primary Impression: Hypoxia Additional Impressions: CHF (congestive heart failure) NAJMA (acute kidney injury) Allergic drug rash Departure Information Dispostion Being Evaluated By Hospitalist Condition FAIR Referrals Kenn Gray D.O. (PCP) Patient Instructions My [facility] Resident Tracking Resident Involvement: Resident Care Provided Care Provided: Adult ED Problem Qualifiers Additional Impressions: CHF (congestive heart failure) Congestive heart failure type: unspecified congestive heart failure type Congestive heart failure chronicity: unspecified congestive heart failure chronicity Qualified Codes: I50.9 - Heart failure, unspecified
[2017-04-30 13:54] LABS: PARTIAL THROMBOPLASTIN RATIO 2.3; PROTHROMBIN TIME (PATIENT) 58.5 SECONDS (9.0-12.0)
[2017-04-30 13:57] LABS: BUN/CREATININE RATIO 21.6 (10-20); CALCIUM 8.3 mg/dl (8.5-10.1); CREATININE 2.1 mg/dl (0.60-1.40); POTASSIUM 3.3 mmol/L (3.5-5.1)
[2017-04-30 13:59] LABS: ALB/GLOB RATIO 0.4 (0.9-2)
[2017-04-30 14:04] LABS: ANISOCYTOSIS PRESENT; BASO % 0.1 %; BASO ABS # 0.01 K/uL (0-0.2); COMPLETE YES; IG% 0.1 %; LYMPH % 12.4 %; MONO % 1.9 %; NEUT % 82.5 %
[2017-04-30] MEDS ORDERED: SODIUM CHLORIDE 0.9% 500ML 500 ML IV STA (14:12)
[2017-04-30 14:17] LABS: INR 5.1 (0.9-1.1)
[2017-04-30 16:02] LABS: VEN BLOOD GAS BASE EXCESS -7.8 mEq/L; VENOUS BLOOD GAS PCO2 29 mmHg (38.0-50.0); VENOUS BLOOD GAS PO2 33 mmHg
[2017-04-30 16:03] LABS: VEN BLD GAS O2 SATURATION < 60.0 %
[2017-04-30] MEDS ORDERED: DAPTOMYCIN CONSULT ACTIVE PRN ×2 (16:42)
[2017-04-30] MEDS ORDERED: AZTREONAM CONSULT ACTIVE PRN ×2 (16:43)
[2017-04-30] MEDS ORDERED: METHYLPREDNISOLONE IV 60 MG in SYRINGE 0 ML IV ONE (16:45)
[2017-04-30] MEDS ORDERED: ONDANSETRON INJ 2 MG/ML 2 ML VIAL IV PRN (16:45)
[2017-04-30] MEDS ORDERED: ACETAMINOPHEN 325 MG TAB PO PRN (16:45)
[2017-04-30] MEDS ORDERED: METHYLPREDNISOLONE 125 MG VIAL IV STA (17:16)
--- NOTE | 2017-04-30 17:26 | History and Physical ---
History & Physical Date & Time of Service: Apr 30, 2017 ~ 16:30 Chief Complaint: Rash Primary Care Physician: Kenn Gray D.O. History of Present Illness Source: patient, clinic records, hospital records 86 year old male who presents to the ER with a rash. Patient was recently admitted to [facility] 04/24 - 04/28 for an infected right foot ulcer. Patient was discharged on IV Daptomycin and PO Levaquin. Patient reports he has been feeling well since his discharge. He reports that when he woke up this morning he noted a rash on his arms. He reports he had a similar type of rash last year and it went away on its own. He was not too concerned about the rash. He denies itching. Home health nursing came to evaluate the patient today and he reports they wanted him to come to the ER for evaluation. Patient also notes exertional shortness of breath for the past few weeks. He actually thought his breathing was better than it has been today. He denies chest pain. He reports his appetite has been good. No abdominal pain, nausea, vomiting, or diarrhea. He denies fever and chills. No urinary symptoms. Reports the pain he had in his right foot from the infection has gone away. In the ER, when patient ambulated he was visibly short of breath and became hypoxic at 85% and tachycardia. Symptoms improved with rest. CXR is clear. Creat is found to be 2.1 (baseline runs in the mid 1's). INR is 5.1. Past Medical/Surgical History Medical Problems: (1) Atrial fibrillation Status: Chronic (2) CKD (chronic kidney disease), stage III Status: Chronic (3) DLBCL (diffuse large B cell lymphoma) Permanent Comment: s/p chemo, 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 Status: Chronic (4) Dyslipidemia Status: Chronic (5) HTN (hypertension) Status: Chronic (6) Osteoarthritis Status: Chronic Surgical Problems: (1) H/O rotator cuff surgery Status: Chronic (2) History of CEA (carotid endarterectomy) Status: Chronic (3) History of total bilateral knee replacement Permanent Comment: s/p left knee revision Status: Chronic (4) History of total left hip replacement Status: Chronic (5) Hx of cholecystectomy Status: Chronic (6) Status post total shoulder arthroplasty Status: Chronic Family History non contributory due to patient's advanced age Social History Smoking Status: Former Smoker Alcohol Use: none Immunizations History of Influenza Vaccine: Yes Influenza Vaccine Date: Oct 19, 2016 History of Tetanus Vaccine?: Yes Tetanus Immunization Date: Feb 18, 2009 History of Pneumococcal: Yes Pneumococcal Date: Jan 14, 2016 Multi-Drug Resistant Organisms History of MDRO: No Allergies Coded Allergies: Indapamide (Verified Allergy, Unknown, 04/30/17) Penicillins (Verified Allergy, Unknown, unknown, 04/30/17) Sulfa Antibiotics (Verified Allergy, Unknown, unknown, 04/30/17) Sulfamethoxazole (Verified Allergy, Unknown, unknown, 04/30/17) Home Medications Scheduled Allopurinol (Zyloprim), 200 MG PO HS Aspirin (Aspirin Ec), 81 MG PO HS Atenolol (Atenolol), 50 MG PO QAM Atorvastatin (Atorvastatin Calcium), 10 MG PO QAM Daptomycin (Daptomycin), 525 MG IV DAILY Levofloxacin (Levaquin), 250 MG PO DAILY Lisinopril (Lisinopril), 40 MG PO QAM Warfarin Sod (Coumadin), 5 MG PO UD Review of Systems Constitutional- no fever; no weight loss Eyes- no acute visual changes ENT- no sinus drainage; no pharyngitis Pulmonary- no cough, no wheezing Cardiac- no chest pain, no palpitations, no orthopnea, no dependent edema GI- no nausea, no vomiting, no diarrhea, no melena, no hematochezia - no dysuria, no hematuria Musculoskeletal- no arthralgias, no myalgias Derm- (+) as above Hematologic- no unusual bruising, no unusual bleeding Lymphatics- no adenopathy Endocrine- no polyuria or polydipsia; no heat or cold intolerance Neuro- no headaches, no focal neurologic symptoms Psych- no anxiety, no depression Physical Exam Vital Signs Date Time Temp Pulse Resp B/P (MAP) Pulse Ox O2 Delivery O2 Flow Rate FiO2 04/30/17 15:57 83 22 117/65 92 Room Air 04/30/17 15:33 85 Room Air 04/30/17 14:42 72 16 137/60 04/30/17 13:52 97 Room Air 04/30/17 13:52 97 Room Air 04/30/17 13:47 68 16 97/60 98 Room Air 04/30/17 12:42 70 8/11/17 12:09 36.9 74 22 100/63 96 Room Air 04/30/17 12:09 92 Room Air General Appearance: no apparent distress Head: normocephalic Eyes: normal inspection ENT: hearing grossly normal Neck: supple, no JVD Respiratory/Chest: lungs clear, normal breath sounds, no respiratory distress Cardiovascular: regular rate, rhythm, no edema, normal peripheral pulses Abdomen/GI: normal bowel sounds, non tender, soft Extremities/Musculoskelatal: normal inspection, no calf tenderness Neurologic/Psych: no motor/sensory deficits, alert, normal mood/affect, oriented x 3 Skin: + pertinent finding (right plantar foot ulcer healing well, no surrounding redness or drainage; also noted diffuse maculopapular rash covering most of the body ) Diagnostics Laboratory Results Results Past 24 Hours Test 04/30/17 13:22 04/30/17 13:25 04/30/17 13:56 04/30/17 15:20 Range/Units White Blood Count 7.26 4.8-10.8 K/uL Red Blood Count 3.06 4.7-6.1 M/uL Hemoglobin 9.4 14.0-18.0 g/dL Hematocrit 29.5 42-52 % Mean Corpuscular Volume 96.4 80-100 fL Mean Corpuscular Hemoglobin 30.7 25-34 pg Mean Corpuscular Hemoglobin Concent 31.9 32-36 g/dl Platelet Count 110 130-400 K/uL Mean Platelet Volume 9.8 7.4-10.4 fL Neutrophils (%) (Auto) 82.5 % Lymphocytes (%) (Auto) 12.4 % Monocytes (%) (Auto) 1.9 % Eosinophils (%) (Auto) 3.0 % Basophils (%) (Auto) 0.1 % Neutrophils # (Auto) 5.98 1.4-6.5 K/uL Lymphocytes # (Auto) 0.90 1.2-3.4 K/uL Monocytes # (Auto) 0.14 0.11-0.59 K/uL Eosinophils # (Auto) 0.22 0-0.5 K/uL Basophils # (Auto) 0.01 0-0.2 K/uL RDW Standard Deviation 61.3 36.4-46.3 fL RDW Coefficient of Variation 17.4 11.5-14.5 % Immature Granulocyte % (Auto) 0.1 % Immature Granulocyte # (Auto) 0.01 0.00-0.02 K/uL Anisocytosis PRESENT Prothrombin Time 58.5 9.0-12.0 SECONDS Prothromb Time International Ratio 5.1 0.9-1.1 Activated Partial Thromboplast Time 60.1 21.0-31.0 SECONDS Partial Thromboplastin Ratio 2.3 Sodium Level 133 136-145 mmol/L Potassium Level 3.3 3.5-5.1 mmol/L Chloride Level 107 98-107 mmol/L Carbon Dioxide Level 17 21-32 mmol/L Anion Gap 9.0 3-11 mmol/L Blood Urea Nitrogen 45 7-18 mg/dl Creatinine 2.10 0.60-1.40 mg/dl Est Creatinine Clear Calc Drug Dose 27.9 ml/min Estimated GFR () 32.5 Estimated GFR (Non- 28.1 BUN/Creatinine Ratio 21.6 10-20 Random Glucose 112 70-99 mg/dl Calcium Level 8.3 8.5-10.1 mg/dl Total Bilirubin 0.3 0.2-1 mg/dl Aspartate Amino Transf (AST/SGOT) 40 15-37 U/L Alanine Aminotransferase (ALT/SGPT) 33 12-78 U/L Alkaline Phosphatase 91 45-117 U/L Total Protein 7.0 6.4-8.2 gm/dl Albumin 2.0 3.4-5.0 gm/dl Globulin 5.0 2.5-4.0 gm/dl Albumin/Globulin Ratio 0.4 0.9-2 Troponin I 0.021 0-0.045 ng/ml Pro-B-Type Natriuretic Peptide 77542 0-1800 pg/ml Bedside Troponin I < 0.030 0-0.045 ng/ml Venous Blood pH 7.37 7.36-7.41 Venous Blood Partial Pressure CO2 29 38.0-50.0 mmHg Venous Blood Partial Pressure O2 33 mmHg Venous Blood HCO3 16 mmol/L Venous Blood Oxygen Saturation < 60.0 % Venous Blood Base Excess -7.8 mEq/L Test 04/30/17 16:42 Range/Units Diagnostic Radiology CXR IMPRESSION: No significant change compared to the prior study. No acute process. Impression Assessment and Plan RASH - will give Solumedrol 60mg x 1 - ? drug rash from Daptomycin patient reports that he did not take Levaquin on discharge as directed, as he was not aware he had to take it - place on Aztreonam for now, d/c Daptomycin - ID consult NAJMA ON CKD STAGE III - baseline creat runs in the mid 1's, up to 2.1 today - likely prerenal - IVF, hold ACEi - follow up labs in AM EXERTIONAL SHORTNESS OF BREATH, HYPOXIA - admit to tele - patient presenting to the ER with a chief complaint of rash however was noted to have exertional shortness of breath and hypoxia - currently saturating well on room air at rest - CXR clear, no reports of cough or sputum production - on Coumadin, INR 5.1 - low suspicion for PE - noted high proBNP however patient does not examine to be volume overloaded - will obtain echo to complete work up - continue PRN O2, monitor ambulatory pulse ox; will need home O2 eval before discharge, ? outpatient PFTs RIGHT FOOT ULCER - healing well, antibiotics as above ATRIAL FIBRILLATION - rate controlled on beta anton, will continue - INR 5.1 - no signs of bleeding, hold Coumadin tonight ANEMIA - hgb at baseline - on Procrit HLD - continue statin HX DIFFUSE B CELL LYMPHOMA - stable - outpatient oncology follow up DVT PROPHYLAXIS - on Coumadin, INR 5.1 DISPO - In my clinical judgment this beneficiary meets acute admission criteria, established by [facility], that includes being hospitalized through two midnights. ATTENDING ADDENDUM care coordinated with DERECK Coello please refer to her notes for full details, I agree with her notes patient seen and examined, records reviewed by myself as well on exam, patient seen resting in bed, comfortable, in good spirits states rash is mildly pruritic at times, denies throat/lip swelling/tightness states dyspnea with exertion (Long distance) has been going on for 3 weeks, unchanged denies changes with urination no other symptoms VS noted and reviewed oriented x 3 , not in distress, speaks in sentences with no effort nor accessory muscle use normal rate, regular rhythm, no murmurs clear breath sounds bilaterally non distended, soft, nontender no bipedal edema, erythema, warmth no neuro deficits (+) diffuse maculopapular rash on the arms, chest/abdomen, back right shoulder: no erythema/warmth/tenderness right foot: healing ulcer plantar aspect, 3rd metatarsal WBC 8.9 Hg 9.2 Crea 2.1 ASSESSMENT/PLAN> GENERALIZED RASH, FROM DAPTOMYCIN? - started the morning of admission - was receiving daptomycin and aztreonam prior to discharge, and daptomycin was continued at home states he has note taken Levaquin since discharge as prescribed as he was not aware that he is supposed to take it - trial of Solumedrol 60mg IV once will consult ID ACUTE RENAL FAILURE - pre renal? - baseline 1.3 now 2.1 - will check CPK - IV fluids CHRONIC DYSPNEA ON EXERTION - elevated BNP but patient euvolemic from acute renal failure? - CXR clear - check echo - on coumadin, INR supratherapeutic, PE unlikely - may need outpatient PFTs RIGHT SHOULDER AND FOOT INFECTION - will consult ID for Abx other diagnoses and plan of care as per DERECK Coello's notes Chapito Pimentel MD VTE Prophylaxis VTE Risk Assessment Done? Y/N: Yes Risk Level: Moderate Given or contraindicated: Warfarin (Coumadin)
[2017-04-30 17:55] VITALS: BP 103/66; PULSE 80; TEMP 36.9; Ht 180.3 cm; Wt 88.3 kg
[2017-04-30] MEDS ORDERED: POTASSIUM CHLORIDE 20 MEQ TABCR PO ONE (19:30)
[2017-04-30] MEDS ORDERED: AZTREONAM 2000 MG in DEXTROSE 5% 100 ML IV ONE (19:30)
--- NOTE | 2017-04-30 19:43 | EMERGENCY ROOM VISIT NOTE ---
History Report prepared by Cassy: Jono Freeman Under the Supervision of: Dr. Anthony Higginbotham D.O. First contact with patient: 13:44 Chief Complaint: SHORTNESS OF BREATH Stated Complaint: INFECTION-RT FOOT/SHOULDER, SOB Nursing Triage Summary: Pt states "my breathing is terrible. I walk 10 feet and I'm out of breath. I have a bunch of red spots all over me. It's on my arms. " Pt states Home Health told him to come to ED. SOB x 3 weeks. Rash since this am. Was admitted for infection in foot. Has PICC line. Receiving Dapto. Concerned about allergy to Dapto. Pt c/o blood being under PICC dressing. HX right shoulder pain. History of Present Illness The patient is a 86 year old male who presents to the Emergency Room with complaints of worsening shortness of breath for the past 3 weeks. The patient was just recently discharged from the hospital from a foot and shoulder infection. He had a PIC line in place with IV Daptomycin. He has not changed any of his medications, foods, or recent activity. His shortness of breath is exacerbated with exertion. His home nurse noticed this morning that he had a rash all over his body. It is not bothering him at all. He denies any fevers, chest pain, abdominal pain, diaphoresis, nausea, vomiting, edema, dizziness, lightheadedness, or abnormal urinary symptoms. He also has not had recent falls or trauma. He notes that he has gotten a similar rash in the past. He has a history of atrial fibrillation and is on Coumadin. Source of History: patient Onset: 3 weeks ago Position: other (Respiratory System) Symptom Intensity: moderate Quality: other (Shortness of breath) Timing: worsening Modifying Factors (Worsening): exertion Associated Symptoms: + rash, No fevers, No chest pain, No nausea, No vomiting, No abdominal pain, No urinary symptoms Review of Systems See HPI for pertinent positives & negatives. A total of 10 systems reviewed and were otherwise negative. Past Medical & Surgical Medical Problems: (1) Atrial fibrillation (2) CKD (chronic kidney disease), stage III (3) DLBCL (diffuse large B cell lymphoma) (4) Dyslipidemia (5) HTN (hypertension) (6) Osteoarthritis Surgical Problems: (1) H/O rotator cuff surgery (2) History of carotid endarterectomy (3) History of CEA (carotid endarterectomy) (4) History of total bilateral knee replacement (5) History of total left hip replacement (6) Hx of cholecystectomy (7) Status post total shoulder arthroplasty Family History Patient reports no known family medical history. Social History Smoking Status: Former Smoker Alcohol Use: none Drug Use: none Marital Status: Housing Status: lives alone Occupation Status: retired Current/Historical Medications Scheduled Allopurinol (Zyloprim), 200 MG PO HS Aspirin (Aspirin Ec), 81 MG PO HS Atenolol (Atenolol), 50 MG PO QAM Atorvastatin (Atorvastatin Calcium), 10 MG PO QAM Daptomycin (Daptomycin), 525 MG IV DAILY Levofloxacin (Levaquin), 250 MG PO DAILY Lisinopril (Lisinopril), 40 MG PO QAM Warfarin Sod (Coumadin), 5 MG PO UD Allergies Coded Allergies: Indapamide (Verified Allergy, Unknown, 04/30/17) Penicillins (Verified Allergy, Unknown, unknown, 04/30/17) Sulfa Antibiotics (Verified Allergy, Unknown, unknown, 04/30/17) Sulfamethoxazole (Verified Allergy, Unknown, unknown, 04/30/17) Physical Exam Vital Signs Date Time Temp Pulse Resp B/P (MAP) Pulse Ox O2 Delivery O2 Flow Rate FiO2 04/30/17 15:57 83 22 117/65 92 Room Air 04/30/17 15:33 85 Room Air 04/30/17 14:42 72 16 137/60 04/30/17 13:52 97 Room Air 04/30/17 13:52 97 Room Air 04/30/17 13:47 68 16 97/60 98 Room Air 04/30/17 12:42 70 04/30/17 12:09 36.9 74 22 100/63 96 Room Air 04/30/17 12:09 92 Room Air Physical Exam GENERAL: alert, disheveled appearing, well nourished, no distress, non-toxic, sitting up in bed. EYE EXAM: normal conjunctiva OROPHARYNX: no exudate, no erythema, lips, buccal mucosa, and tongue normal and mucous membranes are moist NECK: supple, no nuchal rigidity, no adenopathy, non-tender LUNGS: Coarse breath sounds at bilateral bases. Normal chest wall mechanics HEART: Irregularly irregular, no murmurs, S1 normal and S2 normal ABDOMEN: abdomen soft, non-tender, normo-active bowel sounds, no masses, no rebound or guarding. BACK: Back is symmetrical on inspection and there is no deformity, no midline tenderness, no CVA tenderness. SKIN: Petechiae bilaterally to the upper extremities along with erythema of the chest. Maculopapular erythema which blanches on the chest, back, and legs. UPPER EXTREMITIES: Right shoulder erythema and tenderness over the humerus. There is a PICC line in forearm. LOWER EXTREMITIES: Right foot has a small ulcer at the base of the MTP on the plantar surface. NEURO EXAM: Normal sensorium, cranial nerves II-XII grossly intact, normal speech, no gross weakness of arms, no gross weakness of legs. Medical Decision & Procedures ER Provider Diagnostic Interpretation: Radiology results as stated below per my review and the radiologist's interpretation: CHEST ONE VIEW PORTABLE HISTORY: Short of breath. COMPARISON: Chest 04/28/2017. FINDINGS: The tip of the left PICC is difficult to visualize but appears to terminate in the SVC. This imaging done change. No pneumothorax. No pleural effusions. The heart remains mildly enlarged. Diffusely elevated interstitium without focal consolidation to suggest pneumonia. This remains unchanged. Bilateral shoulder arthroplasties. IMPRESSION: No significant change compared to the prior study. No acute process. Electronically signed by: Delfino Peng M.D. 04/30/2017 1:12 PM Dictated Date/Time: 04/30/2017 1:11 PM Laboratory Results 04/30/17 13:22 Red Blood Count 3.06, Mean Corpuscular Volume 96.4, Mean Corpuscular Hemoglobin 30.7, Mean Corpuscular Hemoglobin Concent 31.9, Mean Platelet Volume 9.8, Neutrophils (%) (Auto) 82.5, Lymphocytes (%) (Auto) 12.4, Monocytes (%) (Auto) 1.9, Eosinophils (%) (Auto) 3.0, Basophils (%) (Auto) 0.1, Neutrophils # (Auto) 5.98, Lymphocytes # (Auto) 0.90, Monocytes # (Auto) 0.14, Eosinophils # (Auto) 0.22, Basophils # (Auto) 0.01 04/30/17 13:22 Test 04/30/17 13:22 04/30/17 13:25 04/30/17 13:56 04/30/17 15:20 White Blood Count 7.26 K/uL (4.8-10.8) Red Blood Count 3.06 M/uL (4.7-6.1) Hemoglobin 9.4 g/dL (14.0-18.0) Hematocrit 29.5 % (42-52) Mean Corpuscular Volume 96.4 fL (80-100) Mean Corpuscular Hemoglobin 30.7 pg (25-34) Mean Corpuscular Hemoglobin Concent 31.9 g/dl (32-36) Platelet Count 110 K/uL (130-400) Mean Platelet Volume 9.8 fL (7.4-10.4) Neutrophils (%) (Auto) 82.5 % Lymphocytes (%) (Auto) 12.4 % Monocytes (%) (Auto) 1.9 % Eosinophils (%) (Auto) 3.0 % Basophils (%) (Auto) 0.1 % Neutrophils # (Auto) 5.98 K/uL (1.4-6.5) Lymphocytes # (Auto) 0.90 K/uL (1.2-3.4) Monocytes # (Auto) 0.14 K/uL (0.11-0.59) Eosinophils # (Auto) 0.22 K/uL (0-0.5) Basophils # (Auto) 0.01 K/uL (0-0.2) RDW Standard Deviation 61.3 fL (36.4-46.3) RDW Coefficient of Variation 17.4 % (11.5-14.5) Immature Granulocyte % (Auto) 0.1 % Immature Granulocyte # (Auto) 0.01 K/uL (0.00-0.02) Anisocytosis PRESENT Prothrombin Time 58.5 SECONDS (9.0-12.0) Prothromb Time International Ratio 5.1 (0.9-1.1) Activated Partial Thromboplast Time 60.1 SECONDS (21.0-31.0) Partial Thromboplastin Ratio 2.3 Anion Gap 9.0 mmol/L (3-11) Est Creatinine Clear Calc Drug Dose 27.9 ml/min Estimated GFR () 32.5 Estimated GFR (Non- 28.1 BUN/Creatinine Ratio 21.6 (10-20) Calcium Level 8.3 mg/dl (8.5-10.1) Magnesium Level 1.6 mg/dl (1.8-2.4) Total Bilirubin 0.3 mg/dl (0.2-1) Aspartate Amino Transf (AST/SGOT) 40 U/L (15-37) Alanine Aminotransferase (ALT/SGPT) 33 U/L (12-78) Alkaline Phosphatase 91 U/L (45-117) Total Protein 7.0 gm/dl (6.4-8.2) Albumin 2.0 gm/dl (3.4-5.0) Globulin 5.0 gm/dl (2.5-4.0) Albumin/Globulin Ratio 0.4 (0.9-2) Troponin I 0.021 ng/ml (0-0.045) Pro-B-Type Natriuretic Peptide 67860 pg/ml (0-1800) Bedside Troponin I < 0.030 ng/ml (0-0.045) Venous Blood pH 7.37 (7.36-7.41) Venous Blood Partial Pressure CO2 29 mmHg (38.0-50.0) Venous Blood Partial Pressure O2 33 mmHg Venous Blood HCO3 16 mmol/L Venous Blood Oxygen Saturation < 60.0 % Venous Blood Base Excess -7.8 mEq/L Laboratory results per my review. Medications Administered ECG Indication: SOB/dyspnea Rate (beats per minute): 70 Rhythm: atrial fibrillation Findings: Q waves (Septal), other (poor baseline in inferior leads) ED Course ED COURSE: Vital signs were reviewed and showed hypotension. The patients medical record was reviewed The above diagnostic studies were performed and reviewed. ED treatments and interventions as stated above. 1344: The patient was evaluated in room B4B. A complete history and physical examination was performed. 1412: Ordered Sodium Chloride 500 ml @ 999 mls/hr IV 1556: Upon reevaluation, the patient is resting. I discussed my findings with the patient and he understands and agrees with the treatment plan. Based on the patients age, coexisting illnesses, exam and lab findings the decision to treat as an inpatient was made. The patient remained stable while under my care. The patient will be evaluated by Malena Mulligan [facility] Hospitalist, for further management. Medical Decision Differential diagnoses includes but is not limited to pneumonia, bronchitis, COPD/Asthma exacerbation, pneumothorax, pulmonary embolism, congestive heart failure, acute coronary syndrome. Patient is an 86-year-old male who presents the ER for shortness of breath which has been worsening over the past 3 weeks along with recent rash which started in the past 24 hours. Rashes she has petechiae and appears to be a drug rash secondary to the IV antibiotics is receiving for infection on his foot. INR is 5.1. On ambulation he desats to 84% symptoms extremely tachycardic in the 120s. BNP is elevated at 10,000. Hemoglobin is stable at 9. Creatinine has increased to 2.1 along with a CO2 of 17. Secondary to the CO2, VBG was obtained which shows no acidosis. Chest x-ray was unremarkable. Patient was updated in regards to his findings. I favor the hypoxia is likely secondary to mild CHF. The rash I favors likely secondary to drugs. He has no oral involvement. No signs of TEN/SJS. She was updated at bedside admitted to internal medicine for further workup. Medication Reconcilliation Current Medication List: was personally reviewed by me Blood Pressure Screening Patient's blood pressure: Low blood pressure Consults Time Called: 1550 Consulting Physician: Malena Mulligan [facility] Hospitalist Returned Call: 1556 She will be evaluating the patient for further management and care. Impression Primary Impression: Dyspnea Additional Impressions: Petechiae NAJMA (acute kidney injury) CHF (congestive heart failure) Drug-induced skin rash Scribe Attestation The scribe's documentation has been prepared under my direction and personally reviewed by me in its entirety. I confirm that the note above accurately reflects all work, treatment, procedures, and medical decision making performed by me. Departure Information Dispostion Being Evaluated By Hospitalist Referrals Kenn Gray D.OОльга (PCP) Patient Instructions My [facility] Problem Qualifiers Primary Impression: Dyspnea Dyspnea type: dyspnea on exertion Qualified Codes: R06.09 - Other forms of dyspnea Additional Impressions: CHF (congestive heart failure) Congestive heart failure type: unspecified congestive heart failure type Congestive heart failure chronicity: unspecified congestive heart failure chronicity Qualified Codes: I50.9 - Heart failure, unspecified
[2017-04-30 20:00] VITALS: BP 107/71; PULSE 107; TEMP 37; O2SAT 97
[2017-04-30] MEDS: SODIUM CHLORIDE 0.9% 1000ML 1,000 ML IV SCH (20:06)
[2017-04-30] MEDS ORDERED: ASPIRIN 81 MG ECTAB PO SCH (21:00)
[2017-04-30 21:12] VITALS: BP 115/72; PULSE 81
[2017-04-30] MEDS: ALLOPURINOL 100 MG TAB PO SCH (21:16)
[2017-04-30] MEDS: ATORVASTATIN 10 MG TAB PO SCH (21:16)
[2017-04-30 23:47] VITALS: BP 98/59; PULSE 69; TEMP 36.3; O2SAT 98
[2017-05-01] VITALS (7 sets, daily range): BP systolic 100–125; BP diastolic 60–80; PULSE 63–80; TEMP 36.3–36.9; O2SAT 97–99
[2017-05-01] MEDS: AZTREONAM IV 1,000 MG in DEXTROSE 5% 100ML IV SCH ×2 (04:13→12:24)
[2017-05-01] MEDS: SODIUM CHLORIDE 0.9% 1000ML 1,000 ML IV SCH (04:14)
[2017-05-01 06:21] LABS: HEMATOCRIT 28.1 % (42-52); MEAN CELL VOLUME 95.6 fL (80-100); MEAN CORPUSCULAR HEMOGLOBIN 31.3 pg (25-34); MEAN CORPUSCULAR HGB CONC 32.7 g/dl (32-36); MEAN PLATELET VOLUME 10.6 fL (7.4-10.4); PLATELET COUNT 100 K/uL (130-400); RED BLOOD COUNT 2.94 M/uL (4.7-6.1); WHITE BLOOD COUNT 8.94 K/uL (4.8-10.8)
[2017-05-01 06:38] LABS: PROTHROMBIN TIME (PATIENT) 68.3 SECONDS (9.0-12.0)
[2017-05-01 06:43] LABS: INR 5.9 (0.9-1.1)
[2017-05-01 06:55] LABS: BUN/CREATININE RATIO 25.7 (10-20); CALCIUM 7.8 mg/dl (8.5-10.1); CREATININE 1.8 mg/dl (0.60-1.40); POTASSIUM 3.3 mmol/L (3.5-5.1)
[2017-05-01] MEDS ORDERED: POTASSIUM CHLORIDE 10 MEQ TABCR PO ONE ×2 (08:00→16:00)
[2017-05-01] MEDS: ATORVASTATIN 10 MG TAB PO SCH (08:10)
[2017-05-01 08:14] LABS: ALLEN TEST POS (POS); ARTERIAL BLD GAS O2 SATURATION 98.6 % (90-95); ARTERIAL BLOOD GAS BASE EXCESS -8.6 mEq/L (-9-1.8); ARTERIAL BLOOD GAS HCO3 14 mmol/L (19-24); ARTERIAL BLOOD GAS PO2 134 mm/Hg (80-95); ARTERIAL BLOOD GAS pH 7.45 (7.35-7.45); O2 ADMINISTRATION ROOM AIR
[2017-05-01 08:47] LABS: MAGNESIUM 1.7 mg/dl (1.8-2.4)
[2017-05-01] MEDS ORDERED: MAGNESIUM OXIDE 400 MG TAB PO ONE (13:45)
[2017-05-01] MEDS: LINEZOLID 600MG / D5W IV SCH (13:46)
[2017-05-01] MEDS ORDERED: METHYLPREDNISOLONE IV 60 MG in SYRINGE 0 ML IV ONE (14:00)
--- NOTE | 2017-05-01 14:10 | Progress Note ---
Medicine Progress Note Date & Time of Visit: May 01, 2017 at 13:58. Subjective patient seen resting in bed, comfortable in good spirits, joking states he feels good pruritus is very minimal to none, denies fever/chills, nausea, abdominal pain denies changes with urination no bleeding no dyspnea at rest, no change with breathing, only short of breath with walking long distances denies other symptoms Objective Last 8 Hrs Date Time Temp Pulse Resp B/P (MAP) Pulse Ox O2 Delivery O2 Flow Rate FiO2 05/01/17 12:01 98 Room Air 05/01/17 11:45 36.6 78 22 125/75 (92) 99 05/01/17 08:00 98 Room Air 05/01/17 07:30 36.4 79 20 100/60 (73) 98 Room Air Physical Exam: General- oriented x 3, not in distress, speaks in sentences with no effort Head- (+) facial erythema Eyes- EOMI, anicteric ENT- oropharynx clear Neck- supple, no JVD, no adenopathy, no thyromegaly Lungs- clear breath sounds bilaterally, no rales/wheezes Heart- normal rate, irregularly irregular rhythm Abdomen- normal bowel sounds, soft, nontender (+) maculopapular rash on the chest/abdomen/back Extremities- no pretibial edema, no calf tenderness (+) maculopapular rash on the upper and lower ext, with petechial rash Neuro- alert, oriented x 3; no gross deficits Skin- warm & dry Laboratory Results: Last 24 Hours Test 04/30/17 15:20 05/01/17 05:35 05/01/17 07:52 05/01/17 13:11 Venous Blood pH 7.37 Venous Blood Partial Pressure CO2 29 mmHg Venous Blood Partial Pressure O2 33 mmHg Venous Blood HCO3 16 mmol/L Venous Blood Oxygen Saturation < 60.0 % Venous Blood Base Excess -7.8 mEq/L White Blood Count 8.94 K/uL Red Blood Count 2.94 M/uL Hemoglobin 9.2 g/dL Hematocrit 28.1 % Mean Corpuscular Volume 95.6 fL Mean Corpuscular Hemoglobin 31.3 pg Mean Corpuscular Hemoglobin Concent 32.7 g/dl RDW Standard Deviation 60.3 fL RDW Coefficient of Variation 17.5 % Platelet Count 100 K/uL Mean Platelet Volume 10.6 fL Prothrombin Time 68.3 SECONDS Prothromb Time International Ratio 5.9 Sodium Level 134 mmol/L Potassium Level 3.3 mmol/L Chloride Level 108 mmol/L Carbon Dioxide Level 15 mmol/L Anion Gap 11.0 mmol/L Blood Urea Nitrogen 46 mg/dl Creatinine 1.80 mg/dl Est Creatinine Clear Calc Drug Dose 32.5 ml/min Estimated GFR () 39.2 Estimated GFR (Non- 33.8 BUN/Creatinine Ratio 25.7 Random Glucose 175 mg/dl Calcium Level 7.8 mg/dl Magnesium Level 1.7 mg/dl Total Bilirubin 0.3 mg/dl Direct Bilirubin 0.1 mg/dl Aspartate Amino Transf (AST/SGOT) 30 U/L Alanine Aminotransferase (ALT/SGPT) 35 U/L Alkaline Phosphatase 89 U/L Total Creatine Kinase 92 U/L Total Protein 6.7 gm/dl Albumin 1.8 gm/dl Arterial Blood pH 7.45 Arterial Blood Partial Pressure CO2 20 mmHg Arterial Blood Partial Pressure O2 134 mm/Hg Arterial Blood HCO3 14 mmol/L Arterial Blood Oxygen Saturation 98.6 % Arterial Blood Base Excess -8.6 mEq/L Arterial Blood Gas Delivery ROOM AIR Scar Test POS Test 05/01/17 13:13 05/01/17 13:29 Assessment & Plan GENERALIZED RASH, LIKELY DRUG ERUPTION HISTORY OF LEUKOCLASTIC VASCULITIS - had 1 day of Vanco, and 4 days Dapto + Aztreonam during admission last week continue Dapto x 2 days at home then rash started patient reports that he did not take Levaquin on discharge as directed, as he was not aware he had to take it - remains afebrile pruritus is very minimal, intermittent no dyspnea - d/c Aztreonam, continue Linezolid for right shoulder and foot infection on Solumedrol 60mg IV day 2 rash seems to be increasing patient also reports similar rash on his legs last year, 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 Miller (Derm), agree with management above and will see patient for inpatient consult - check liver profile NAJMA ON CKD STAGE III - baseline creat runs in the mid 1's crea on admission 2.3, now 1.8 HCO3 15 ABG ph 7.4 - likely prerenal - IVF, hold ACEi continue IV fluids check UA, lactic acid monitor crea may need Nephro consult EXERTIONAL SHORTNESS OF BREATH, HYPOXIA - on room air, asymptomatic CXR clear check Echo RIGHT FOOT ULCER - healing well - Linezolid only for now ID consulted ATRIAL FIBRILLATION - rate controlled on beta anton, will continue - INR increased to 5.9 no other signs of bleeding will monitor Plt, if below 100, may need vit k ANEMIA - hgb at baseline - on Procrit HLD - continue statin HX DIFFUSE B CELL LYMPHOMA - stable - outpatient oncology follow up DVT PROPHYLAXIS - on Coumadin, INR 5.9 DISPO - In my clinical judgment this beneficiary meets acute admission criteria, established by [facility], that includes being hospitalized through two midnights. Current Inpatient Medications: Current Inpatient Medications Medications (Trade) Dose Ordered Sig/Niall Route Start Time Stop Time Status Last Admin Dose Admin Sodium Chloride 1,000 ml @ 80 mls/hr [id number] IV 04/30/17 16:35 05/30/17 16:34 05/01/17 04:14 80 MLS/HR Acetaminophen (Tylenol Tab) 650 mg Q4H PRN PO 04/30/17 16:45 05/30/17 16:44 Ondansetron HCl (Zofran Inj) 4 mg Q6H PRN IV 04/30/17 16:45 05/30/17 16:44 Allopurinol (Zyloprim Tab) 200 mg HS PO 04/30/17 21:00 05/30/17 20:59 04/30/17 21:16 200 MG Aspirin (Ecotrin Tab) 81 mg HS PO 04/30/17 21:00 05/30/17 20:59 04/30/17 21:16 81 MG Atenolol (Tenormin Tab) 50 mg QAM PO 04/30/17 19:00 05/30/17 18:59 05/01/17 12:26 50 MG Atorvastatin Calcium (Lipitor Tab) 10 mg QAM PO 04/30/17 19:00 05/30/17 18:59 05/01/17 08:10 10 MG Heparin Sodium (Porcine) (Heparin 10 Unit/ ml 5 ml Flush) 5 ml PRN PRN FLUSH 05/01/17 00:45 05/31/17 00:44 Linezolid 600 mg/ Prmx 300 ml @ 200 mls/hr Q12H IV 05/01/17 12:30 05/11/17 12:29 Magnesium Oxide (Mag-Ox Tab) 400 mg BID PO 05/01/17 21:00 05/31/17 20:59 Magnesium Oxide (Mag-Ox Tab) 400 mg 1345 ONCE PO 05/01/17 13:45 05/01/17 13:46 Methylprednisolone Sodium Succinate 60 mg/Syringe 0.96 ml @ 1.5 mls/min 1400 ONCE IV 05/01/17 14:00 05/01/17 14:01
[2017-05-01 15:02] LABS: URINE APPEARANCE CLEAR (CLEAR); URINE BILIRUBIN NEG (NEG); URINE COLOR YELLOW; URINE EPITHELIAL CELL AUTO >30 /lpf (0-5); URINE NITRITE NEG (NEG); UROBILINOGEN NEG (NEG)
[2017-05-01 15:04] LABS: MANUAL MICROSCOPIC REQUIRED? NO; REVIEW REQ? YES
[2017-05-01 15:13] LABS: BUN/CREATININE RATIO 24.5 (10-20); CALCIUM 7.5 mg/dl (8.5-10.1); CREATININE 1.9 mg/dl (0.60-1.40); POTASSIUM 3.4 mmol/L (3.5-5.1)
[2017-05-01 15:14] LABS: PARTIAL THROMBOPLASTIN RATIO 2.6; PROTHROMBIN TIME (PATIENT) 87.4 SECONDS (9.0-12.0)
[2017-05-01 15:18] LABS: URINE PATH CASTS 0-3 GRANULAR CASTS /lpf (0)
[2017-05-01 15:24] LABS: INR 7.5 (0.9-1.1)
[2017-05-01] MEDS: SODIUM BICARBONATE 8.4% INJ 75 MEQ in SODIUM CHLORIDE 0.45% 1000ML 1,000 ML IV SCH (16:37)
[2017-05-01] MEDS ORDERED: PHYTONADIONE 5 MG TAB PO ONE (17:30)
--- NOTE | 2017-05-01 19:06 | ECHOCARDIOGRAM REPORT ---
*NOTICE TO RECEIVING REPUBLICAN AGENCY This information is strictly Confidential and protected under [place] law. [place] law prohibits you from making any further disclosure of this information unless further disclosure is expressly permitted by the written consent of the person to whom it pertains or is authorized by law. A general authorization for the release of medical or other information is not sufficient for this purpose. Hospital accepts no responsibility if the information is made available to any other person, INCLUDING THE PATIENT. Interpretation Summary * Name: JHONY CHAPPELL Study Date: 05/01/2017 09:43 AM BP: 125/75 mmHg * Patient Location: [facility] HR: 78 * : 1930 (M/d/yyyy) Gender: Male Height: 71 in * Age: 86 yrs Ethnicity: [place] Weight: 190 lb * Ordering Physician: Malena Coello * Referring Physician: Self, Referred * Performed By: Dashawn Ma RCS * * Reason For Study: SOB * BSA: 2.1 m2 * The study was technically adequate. * -- Conclusions -- * The left ventricular wall motion is normal. * Ejection Fraction = 55-60%. * The right ventricle is normal in size and function. * There is mild mitral regurgitation. * There is mild tricuspid regurgitation. * The aortic valve is moderately calcified with decreased excursion of the right coronary cusp. * No significant aortic valve gradient is detected on Doppler, however, mild aortic valve stenosis is suggested based on the 2D appearance. * Mild pulmonary hypertension is present. * The pulmonary artery systolic pressure is calculated to be 45 mm Hg. Procedure Details * A complete two-dimensional transthoracic echocardiogram was performed (2D, M-mode, Doppler and color flow Doppler). Left Ventricle * The left ventricle is normal in size. * There is normal left ventricular wall thickness. * Ejection Fraction = 55-60%. * Left ventricular systolic function is normal. * The left ventricular wall motion is normal. Right Ventricle * The right ventricle is normal in size and function. Atria * The left atrium is mildly dilated. * Right atrial size is normal. * There is no evidence of atrial septal defect, but resolution does not allow assessment for a patent foramen ovale. Mitral Valve * There is mild mitral annular calcification. * There is no mitral valve stenosis. * There is mild mitral regurgitation. Tricuspid Valve * The tricuspid valve is normal. * There is no tricuspid stenosis. * There is mild tricuspid regurgitation. * Mild pulmonary hypertension is present. The pulmonary artery systolic pressure is calculated to be 45 mm Hg. Aortic Valve * The aortic valve is trileaflet. * The aortic valve is moderately calcified with decreased excursion of the right coronary cusp. No significant aortic valve gradient is detected on Doppler, however, mild aortic valve stenosis is suggested based on the 2D appearance. * There is no significant aortic regurgitation. Pulmonic Valve * The pulmonary valve is not well seen, but the Doppler examination is normal without significant regurgitation or stenosis. Great Vessels * The aortic root and proximal ascending aorta are normal sized. Pericardium/Pleural * There is no pericardial effusion. Great Vessels * Normal inferior vena cava diameter and respiratory variation suggests normal central venous pressure. MMode 2D Measurements and Calculations IVSd 1.1 cm IVSs 1.3 cm LVIDd 4.5 cm LVIDs 3.2 cm LVPWd 1.1 cm LVPWs 1.3 cm IVS/LVPW 1.0 FS 28.1 % EDV(Teich) 92.8 ml ESV(Teich) 42.2 ml EF(Teich) 54.6 % EDV(cubed) 91.5 ml ESV(cubed) 34.0 ml EF(cubed) 62.9 % % IVS thick 14.6 % % LVPW thick 24.7 % LV mass(C)d 173.7 grams LV mass(C)dI 84.2 grams/m\S\2 LV mass(C)s 138.9 grams LV mass(C)sI 67.3 grams/m\S\2 CO(Teich) 3.8 l/min CI(Teich) 1.9 l/min/m\S\2 SV(Teich) 50.6 ml SI(Teich) 24.5 ml/m\S\2 CO(cubed) 4.4 l/min CI(cubed) 2.1 l/min/m\S\2 SV(cubed) 57.6 ml SI(cubed) 27.9 ml/m\S\2 Ao root diam 4.1 cm Ao root area 13.3 cm\S\2 ACS 1.7 cm LA dimension 4.2 cm asc Aorta Diam 3.7 cm LA/Ao 1.0 LVOT diam 2.1 cm LVOT area 3.3 cm\S\2 LVAd ap4 34.5 cm\S\2 LVLd ap4 8.5 cm EDV(MOD-sp4) 116.0 ml LVAs ap4 18.7 cm\S\2 LVLs ap4 7.3 cm ESV(MOD-sp4) 40.0 ml EF(MOD-sp4) 65.5 % LVAd ap2 33.5 cm\S\2 LVLd ap2 9.1 cm EDV(MOD-sp2) 103.0 ml LVAs ap2 19.0 cm\S\2 LVLs ap2 7.5 cm ESV(MOD-sp2) 42.0 ml EF(MOD-sp2) 59.2 % CO(MOD-sp4) 5.8 l/min CI(MOD-sp4) 2.8 l/min/m\S\2 SV(MOD-sp4) 76.0 ml SI(MOD-sp4) 36.8 ml/m\S\2 CO(MOD-sp2) 4.6 l/min CI(MOD-sp2) 2.2 l/min/m\S\2 SV(MOD-sp2) 61.0 ml SI(MOD-sp2) 29.6 ml/m\S\2 Doppler Measurements and Calculations MV E max shameka 109.1 cm/sec MV A max shameka 25.8 cm/sec MV E/A 4.2 MV P1/2t max shameka 130.3 cm/sec MV P1/2t 92.5 msec MVA(P1/2t) 2.4 cm\S\2 MV dec slope 412.7 cm/sec\S\2 MV dec time 0.22 sec Ao V2 max 228.4 cm/sec Ao max PG 20.9 mmHg Ao max PG (full) 13.7 mmHg Ao V2 mean 145.3 cm/sec Ao mean PG 9.8 mmHg Ao mean PG (full) 6.6 mmHg Ao V2 VTI 42.5 cm DANIEL(I,A) 1.8 cm\S\2 DANIEL(I,D) 1.8 cm\S\2 DANIEL(V,A) 1.9 cm\S\2 DANIEL(V,D) 1.9 cm\S\2 LV V1 max PG 7.1 mmHg LV V1 mean PG 3.3 mmHg LV V1 max 133.7 cm/sec LV V1 mean 83.8 cm/sec LV V1 VTI 22.7 cm SV(Ao) 565.7 ml SI(Ao) 274.2 ml/m\S\2 SV(LVOT) 75.6 ml SI(LVOT) 36.6 ml/m\S\2 PA V2 max 107.6 cm/sec PA max PG 4.6 mmHg PI max shameka 236.5 cm/sec PI max PG 22.4 mmHg PI dec slope 264.1 cm/sec\S\2 PI P1/2t 262.3 msec TR max shameka 298.5 cm/sec
[2017-05-01] MEDS: MAGNESIUM OXIDE 400 MG TAB PO SCH (20:34)
[2017-05-01] MEDS: ALLOPURINOL 100 MG TAB PO SCH (20:35)
[2017-05-02 00:01] VITALS: BP 110/77; PULSE 58; TEMP 36.4; O2SAT 96
[2017-05-02] MEDS: LINEZOLID 600MG / D5W IV SCH ×2 (00:05→13:11)
[2017-05-02] MEDS: SODIUM BICARBONATE 8.4% INJ 75 MEQ in SODIUM CHLORIDE 0.45% 1000ML 1,000 ML IV SCH ×2 (02:27→13:12)
[2017-05-02 04:19] VITALS: BP 135/75; PULSE 75; TEMP 36.2; O2SAT 98
[2017-05-02 06:35] LABS: BASO % 0.1 %; BASO ABS # 0.01 K/uL (0-0.2); EOS % 1.1 %; HEMATOCRIT 26.4 % (42-52); IG% 0.3 %; LYMPH % 8.6 %; MEAN CELL VOLUME 95.3 fL (80-100); MEAN CORPUSCULAR HEMOGLOBIN 30.7 pg (25-34); MEAN CORPUSCULAR HGB CONC 32.2 g/dl (32-36); MEAN PLATELET VOLUME 10.4 fL (7.4-10.4); MONO % 1.3 %; NEUT % 88.6 %; PLATELET COUNT 119 K/uL (130-400); RED BLOOD COUNT 2.77 M/uL (4.7-6.1); WHITE BLOOD COUNT 9.31 K/uL (4.8-10.8)
[2017-05-02 06:45] LABS: INR 2.8 (0.9-1.1); PROTHROMBIN TIME (PATIENT) 31.7 SECONDS (9.0-12.0)
[2017-05-02 07:06] LABS: BUN/CREATININE RATIO 30.2 (10-20); CALCIUM 7.8 mg/dl (8.5-10.1); CREATININE 1.8 mg/dl (0.60-1.40); MAGNESIUM 1.6 mg/dl (1.8-2.4); POTASSIUM 3.5 mmol/L (3.5-5.1)
[2017-05-02 07:23] LABS: COMPLETE YES; ECHINOCYTES 1+; VACUOLIZATION OCCASIONAL
[2017-05-02 07:38] VITALS: BP 146/70; PULSE 88; TEMP 36.4; O2SAT 97
[2017-05-02] MEDS: ATORVASTATIN 10 MG TAB PO SCH (08:17)
[2017-05-02] MEDS: MAGNESIUM OXIDE 400 MG TAB PO SCH (08:17)
--- NOTE | 2017-05-02 10:24 | DERMATOLOGY CONSULTATION ---
DATE OF CONSULTATION: 05/02/2017 HISTORY OF PRESENT ILLNESS: Mr. Gunderson is an 86-year-old white male who was admitted on 04/30/2017 for infection and skin rash. He was previously admitted 04/24/2017 through 04/28/2017. He was started on IV antibiotics for a right foot infection and a right shoulder infection and synovitis. He was placed on daptomycin and Levaquin. The daptomycin was IV daily with home health nurse, which he continued to receive starting on 04/24/2017. He apparently did not take the Levaquin. Upon admission on 04/30/2017, the daptomycin was stopped. Zyvox was started. He did receive Solu-Medrol IV on 04/30/2017 and 05/01/2017. He developed a rash on 04/30/2017 beginning on the arms but became generalized. This was minimally pruritic. He voiced no other complaints. He denied any fever, chills, cough, shortness of breath, abdominal pain. Admitting labs revealed normal liver function. His INR was supratherapeutic. Kidney function had worsened, it went from 1.5 to 2.1, serum creatinine. This has now come down with fluids to 1.9. White count has remained normal. He is mildly anemic and platelet count is down slightly. The rash has faded somewhat since admission. He otherwise feels well. Of note, he does have microscopic hematuria. PHYSICAL EXAMINATION: GENERAL: Well-developed, well-nourished white male. He is alert and oriented x3. Mood and affect are normal. VITAL SIGNS: He is afebrile. FACE, HEAD AND NECK: Reveals some slight flushing of the face; however, the oral mucosa and sclerae are normal. BACK, CHEST, ABDOMEN, HANDS, ARMS, LEGS AND FEET: Reveal purple macules and petechiae on the legs, dorsal feet, particularly around the upper thighs, some on the buttocks, flanks; however, there is minimal involvement of the back and chest. There is involvement of the hands and arms. This purpura is nonpalpable and nonblanching. Palms and soles are not involved. He does have a healing, crusted, nonerythematous, nonindurated, small ulceration on the ball of the right foot. IMPRESSION: Drug-induced eruption, apparently to the daptomycin. Of note, he does have PENICILLIN AND SULFA ALLERGY. He is currently on Zyvox. 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 PLAN: No additional daptomycin. He will remain on the Zyvox. I do not feel he needs any additional topical or systemic steroids as the rash does appear to be fading and he is asymptomatic and he is not toxic. Only concern is the microscopic hematuria and the elevated serum creatinine. Need to be sure he does not have a vasculitis associated kidney involvement. Nephrology has been consulted. I will follow him up as an outpatient on a p.r.n. basis. HERNANDEZ
--- NOTE | 2017-05-02 10:40 | DIAGNOSTIC IMAGING REPORT ---
RENAL ULTRASOUND HISTORY: acute renal failure on chronic kidney disease COMPARISON: Abdominal ultrasound 01/29/2011. FINDINGS: Right kidney: 11.1 cm. No hydronephrosis. Moderate cortical renal thinning with slight increased cortical echogenicity. Left kidney: 11.4 cm. No hydronephrosis. Moderate cortical renal thinning with slight increased cortical echogenicity. A few cysts with the largest measuring 1.7 cm. Bladder: No bladder wall thickening. The prostate is mildly enlarged. IMPRESSION: 1. No hydronephrosis. 2. Moderate bilateral cortical renal thinning/atrophy. 3. Slight increased cortical echogenicity seen bilaterally consistent with medical renal disease. Electronically signed by: Delfino Peng M.D. 05/02/2017 10:39 AM Dictated Date/Time: 05/02/2017 10:37 AM
[2017-05-02 12:00] VITALS: BP 138/88; PULSE 77; TEMP 36.4; O2SAT 97
--- NOTE | 2017-05-02 14:24 | Progress Note ---
Medicine Progress Note Date & Time of Visit: May 02, 2017 at 14:06. Subjective patient seen resting in bedside chair comfortable in good spirits states he feels much better overall denies itching, shortness of breath denies chest pain, dyspnea, dizziness no changes with urination denies other symptoms states he is ready and would really like to go home today because he cannot rest and sleep in his hospital bed, "i am miserable here" states he is back to his baseline Objective Last 8 Hrs Date Time Temp Pulse Resp B/P (MAP) Pulse Ox O2 Delivery O2 Flow Rate FiO2 05/02/17 12:00 36.4 77 16 138/88 (105) 97 05/02/17 07:38 36.4 88 18 146/70 (95) 97 Room Air Physical Exam: General- oriented x 3, not in distress, speaks in sentences with no effort Head- very mild facial erythema Eyes- anicteric ENT- oropharynx clear Neck- no JVD Lungs- clear breath sounds, no rales/wheezes bilaterally Heart- normal rate, irregularly irregular rhythm, no murmurs Abdomen- normal bowel sounds, soft, nontender (+) maculopapular rash on the chest/abdomen/back: much improved and faded Extremities- no pretibial edema, no calf tenderness (+) maculopapular rash on the upper and lower ext, with petechial rash: much improved and faded Neuro- alert, oriented x 3; no gross deficits Skin- warm & dry Laboratory Results: Last 24 Hours Test 05/01/17 14:43 05/01/17 21:08 05/02/17 05:46 Prothrombin Time 87.4 SECONDS 31.7 SECONDS Prothromb Time International Ratio 7.5 2.8 Activated Partial Thromboplast Time 68.1 SECONDS Partial Thromboplastin Ratio 2.6 Sodium Level 133 mmol/L 135 mmol/L Potassium Level 3.4 mmol/L 3.5 mmol/L Chloride Level 108 mmol/L 107 mmol/L Carbon Dioxide Level 15 mmol/L 16 mmol/L Anion Gap 10.0 mmol/L 12.0 mmol/L Blood Urea Nitrogen 47 mg/dl 54 mg/dl Creatinine 1.90 mg/dl 1.80 mg/dl Est Creatinine Clear Calc Drug Dose 30.8 ml/min 32.5 ml/min Estimated GFR () 36.7 39.2 Estimated GFR (Non- 31.7 33.8 BUN/Creatinine Ratio 24.5 30.2 Random Glucose 207 mg/dl 144 mg/dl Lactic Acid Level 3.2 mmol/L 2.0 mmol/L Calcium Level 7.5 mg/dl 7.8 mg/dl Total Bilirubin 0.3 mg/dl Direct Bilirubin 0.1 mg/dl Aspartate Amino Transf (AST/SGOT) 32 U/L Alanine Aminotransferase (ALT/SGPT) 38 U/L Alkaline Phosphatase 87 U/L Total Protein 6.4 gm/dl Albumin 1.8 gm/dl White Blood Count 9.31 K/uL Red Blood Count 2.77 M/uL Hemoglobin 8.5 g/dL Hematocrit 26.4 % Mean Corpuscular Volume 95.3 fL Mean Corpuscular Hemoglobin 30.7 pg Mean Corpuscular Hemoglobin Concent 32.2 g/dl Platelet Count 119 K/uL Mean Platelet Volume 10.4 fL Neutrophils (%) (Auto) 88.6 % Lymphocytes (%) (Auto) 8.6 % Monocytes (%) (Auto) 1.3 % Eosinophils (%) (Auto) 1.1 % Basophils (%) (Auto) 0.1 % Neutrophils # (Auto) 8.25 K/uL Lymphocytes # (Auto) 0.80 K/uL Monocytes # (Auto) 0.12 K/uL Eosinophils # (Auto) 0.10 K/uL Basophils # (Auto) 0.01 K/uL RDW Standard Deviation 60.4 fL RDW Coefficient of Variation 17.6 % Immature Granulocyte % (Auto) 0.3 % Immature Granulocyte # (Auto) 0.03 K/uL Nucleated RBC Absolute Count (auto) 0.03 K/uL Nucleated Red Blood Cells % 0.3 % Toxic Vacuolation OCCASIONAL Echinocytes 1+ Magnesium Level 1.6 mg/dl Assessment & Plan GENERALIZED RASH, LIKELY DRUG ERUPTION FROM DAPTOMYCIN OR AZTREONAM HISTORY OF LEUKOCLASTIC VASCULITIS - had 1 day of Vanco, and 4 days Dapto + Aztreonam during admission last week continued Dapto x 2 days at home then rash started patient reports that he did not take Levaquin on discharge as directed, as he was not aware he had to take it - remained afebrile pruritus is very minimal, intermittent to none no dyspnea - d/c Aztreonam given Linezolid IV x 1 day for right shoulder and foot infection: tolerated well given Solumedrol 60mg IV x 2 days - rash significantly improved, fading consulted Tuyere Fitter Dr. Miller: agreed with drug rash follows with Dr. Baker for history of skin rash, s/p Biopsy: Leukoclastic vasculitis - plan for antibiotic upon discussion with Dr. Frey: Linezolid 600mg BID x 2 weeks at least Levaquin 250mg po daily x 2 weeks at least follow up with Dr. Frey in 1 week NAJMA ON CKD STAGE III - likely prerenal - baseline creat 1.5 crea on admission 2.3 - given IVF, stopped Lisinopril - crea improved to 1.8 consulted and discussed with Nephro Dr. Holloway may be discharged from his standpoint hold Lisinopril, will change to Amlodipine 5mg po for now repeat PRP as outpatient on ff up this week repeat UA as outpatient as patient (+) microscopic hematuria and (+)1 proteinuria - ff up with Nephro as outpatient EXERTIONAL SHORTNESS OF BREATH, HYPOXIA - on room air, asymptomatic - CXR clear Echo: -- Conclusions -- * The left ventricular wall motion is normal. * Ejection Fraction = 55-60%. * The right ventricle is normal in size and function. * There is mild mitral regurgitation. * There is mild tricuspid regurgitation. * The aortic valve is moderately calcified with decreased excursion of the right coronary cusp. * No significant aortic valve gradient is detected on Doppler, however, mild aortic valve stenosis is suggested based on the 2D appearance. * Mild pulmonary hypertension is present. * The pulmonary artery systolic pressure is calculated to be 45 mm Hg. -- 98% after walking in the hallways patient would like to continue work up as outpatient RIGHT SHOULDER AND FOOT ULCER - healing well - discussed with Dr. Frey - plan for antibiotic upon discussion with Dr. Frey: Linezolid 600mg BID x 2 weeks at least Levaquin 250mg po daily x 2 weeks at least follow up with Dr. Frey in 1 week - ff up with ID Dr. Frey, [facility] in 1 week ATRIAL FIBRILLATION - rate controlled - INR increased from 5.1 to 7.5 (+) petechiae with the rash - given Vitamin K 5 mg INR decreased to 2.5 - resume usual coumadin dosing - will contact coag clinic to ff up patient this week ANEMIA - hgb at baseline - on Procrit - repeat CBC on follow up HLD - continue statin HX DIFFUSE B CELL LYMPHOMA - stable - outpatient oncology follow up DISPO patient adamantly requesting to be discharged today explained overnight observation to ensure rash, renal function, INR continues to improve, but he declined explained risks involved including worsening of renal function, INR, etc. and he verbalized understanding/agreement advised to ff up with PCP , Coumadin Clinic, ID clinic this week and he verbalized understanding/agreement Current Inpatient Medications: Current Inpatient Medications Medications (Trade) Dose Ordered Sig/Niall Route Start Time Stop Time Status Last Admin Dose Admin Acetaminophen (Tylenol Tab) 650 mg Q4H PRN PO 04/30/17 16:45 05/30/17 16:44 Ondansetron HCl (Zofran Inj) 4 mg Q6H PRN IV 04/30/17 16:45 05/30/17 16:44 Allopurinol (Zyloprim Tab) 200 mg HS PO 04/30/17 21:00 05/30/17 20:59 05/01/17 20:35 200 MG Atenolol (Tenormin Tab) 50 mg QAM PO 04/30/17 19:00 05/30/17 18:59 05/02/17 08:18 50 MG Atorvastatin Calcium (Lipitor Tab) 10 mg QAM PO 04/30/17 19:00 05/30/17 18:59 05/02/17 08:17 10 MG Heparin Sodium (Porcine) (Heparin 10 Unit/ ml 5 ml Flush) 5 ml PRN PRN FLUSH 05/01/17 00:45 05/31/17 00:44 Linezolid 600 mg/ Prmx 300 ml @ 200 mls/hr Q12H IV 05/01/17 12:30 05/11/17 12:29 05/02/17 13:11 200 MLS/HR Magnesium Oxide (Mag-Ox Tab) 400 mg BID PO 05/01/17 21:00 05/31/17 20:59 05/02/17 08:17 400 MG Sodium Bicarbonate 75 meq/Sodium Chloride 1,075 ml @ 100 mls/hr [id number] IV 05/01/17 16:00 05/31/17 15:59 05/02/17 13:12 100 MLS/HR
[2017-05-02] MEDS ORDERED: MGNO400 PO (14:27)
[2017-05-02] MEDS ORDERED: LINE1TAB6 PO (14:27)
[2017-05-02] MEDS ORDERED: AMLO-110 PO (14:27)
--- NOTE | 2017-05-02 14:38 | Discharge Instructions ---
Discharge Instructions Date of Service May 02, 2017. Admission Reason for Admission: Hypoxia Discharge Discharge Diagnosis / Problem: GENERALIZED RASH, LIKELY DRUG REACTION Discharge Goals Goal(s): Diagnostic testing, Therapeutic intervention Activity Recommendations Activity Limitations: as noted below (INCREASE ACTIVITY GRADUALLY TOLERATED) Lifting Limitations: until after follow-up appointment Exercise/Sports Limitations: until after follow-up appointment . Instructions / Follow-Up Instructions / Follow-Up PLEASE REVIEW YOUR NEW MEDICATION LIST AND FOLLOW INSTRUCTIONS CAREFULLY. YOU WILL NEED TO TAKE TWO TYPES OF ANTIBIOTICS BY MOUTH- LINEZOLID AND LEVAQUIN. FOLLOW UP WITH DR. TALBERT WITHIN A WEEK FOR FURTHER ADVICE REGARDING ANTIBIOTIC DURATION. ALWAYS USE BOOT FOR THE RIGHT FOOT, NO LIFTING AND MINIMIZE MOVEMENT ON THE RIGHT SHOULDER FOR NOW .OBSERVE PROPER WOUND CARE DAILY. DO NOT TAKE NSAIDS- IBUPROFEN, NAPROXEN, ETC. ENSURE ADEQUATE DAILY FLUID INTAKE. PLEASE CALL PRIMARY CARE PHYSICIAN OR RETURN TO ER IMMEDIATELY IF WITH RECURRENCE OF SYMPTOMS, FEVER, CHANGES WITH URINATION. INCREASING PAIN/REDNESS/SWELLING/DISCHARGE ON THE RIGHT SHOULDER/FOOT, FEVER/ CHILLS, DIARRHEA; PAIN/SWELLING/BLEEDING/DISCHARGE ON THE PICC LINE SITE OR LEFT ARM. EAT YOGURT DAILY AND AT LEAST 1 WEEK AFTER TAKING ANTIBIOTICS. FOLLOW UP WITH DR. OLVERA OR ONE OF HIS ASSOCIATES IN 1 WEEK (CLINIC WILL CALL YOU WITH THE APPOINTMENT). FOLLOW UP WITH DR. TALBERT (INFECTIOUS DISEASE) IN [address]. [address]LLOW UP WITH DR. GARCIA (WOUND CARE CENTER) IN 1 WEEK[address] FOLLOW UP WITH DR. MAY (ORTHOPEDIC SURGEON) IN 1 WEEK. Current Hospital Diet Patient's current hospital diet: AHA Diet (Heart Healthy) Discharge Diet Recommended Diet: AHA Diet (Heart Healthy) Pending Studies Studies pending at discharge: yes List of pending studies: REPEAT BLOOD WORK C/O PRIMARY CARE PHYSICIAN. Medical Emergencies . Who to Call and When: Medical Emergencies: If at any time you feel your situation is an emergency, please call 911 immediately. . Non-Emergent Contact Non-Emergency issues call your: Primary Care Provider Call Non-Emergent contact if: you have a fever, your pain is not controlled, your pain is worsening, wound has increased drainage, wound has increased redness, wound has increased pain, you have any medication questions . . "Provider Documentation" section prepared by Chapito Pimentel. . VTE Core Measure Inpt VTE Proph given/why not?: Warfarin (Coumadin)
--- NOTE | 2017-05-02 14:43 | Discharge Summary ---
Discharge Summary Date of Service May 02, 2017. Discharge Summary Admission Date: Apr 30, 2017 at 16:37 Discharge Date: May 02, 2017 Discharge Disposition: Home with services Principal Diagnosis: GENERALIZED RASH, LIKELY DRUG ERUPTION FROM DAPTOMYCIN OR AZTREONAM HISTORY OF LEUKOCLASTIC VASCULITIS Secondary Diagnoses/Problems: Please refer to hospital course below. Consultations: Creative Consultant Dr. Miller, Final Tester Dr. Holloway Pending Studies/Follow-Up: Weekly CBC, CMP, CPK while on antibiotics ; Please refer to hospital course below for further details. Medication Reconciliation New Medications: Amlodipine (Norvasc) 5 Mg Tab 5 MG PO DAILY for 30 Days, #30 TAB 0 Refills Linezolid (Zyvox) 600 Mg Tab 600 MG PO BID for 14 Days, #28 TAB 0 Refills Magnesium Oxide (Magnesium-Oxide) 400 Mg Tab 400 MG PO BID for 5 Days, #10 TAB 0 Refills Continued Medications: Allopurinol (Zyloprim) 100 Mg Tab 200 MG PO HS, TAB 5 Refills Atenolol (Atenolol) 50 Mg Tab 50 MG PO QAM for 30 Days, #30 TAB Atorvastatin (Atorvastatin Calcium) 10 Mg Tab 10 MG PO QAM for 30 Days, #30 TAB Levofloxacin (Levaquin) 250 Mg Tab 250 MG PO DAILY for 14 Days, #14 TAB 0 Refills Warfarin Sod (Coumadin) 5 Mg Tab 5 MG PO UD for 30 Days, TAB take usual dose: 5mg po every tues/thurs/sat; and 2.5mg po all other days Discontinued Medications: Aspirin (Aspirin Ec) 81 Mg Tab 81 MG PO HS Daptomycin (Daptomycin) 500 Mg Inj 525 MG IV DAILY for 14 Days, 0 Refills Lisinopril (Lisinopril) 40 Mg Tab 40 MG PO QAM for 30 Days, #30 TAB Admission Information HPI (per Admitting provider): 86 year old male who presents to the ER with a rash. Patient was recently admitted to [facility] 04/24 - 04/28 for an infected right foot ulcer. Patient was discharged on IV Daptomycin and PO Levaquin. Patient reports he has been feeling well since his discharge. He reports that when he woke up this morning he noted a rash on his arms. He reports he had a similar type of rash last year and it went away on its own. He was not too concerned about the rash. He denies itching. Home health nursing came to evaluate the patient today and he reports they wanted him to come to the ER for evaluation. Patient also notes exertional shortness of breath for the past few weeks. He actually thought his breathing was better than it has been today. He denies chest pain. He reports his appetite has been good. No abdominal pain, nausea, vomiting, or diarrhea. He denies fever and chills. No urinary symptoms. Reports the pain he had in his right foot from the infection has gone away. In the ER, when patient ambulated he was visibly short of breath and became hypoxic at 85% and tachycardia. Symptoms improved with rest. CXR is clear. Creat is found to be 2.1 (baseline runs in the mid 1's). INR is 5.1. Physical Exam (per Admitting): General Appearance: no apparent distress Head: normocephalic Eyes: normal inspection ENT: hearing grossly normal Neck: supple, no JVD Respiratory/Chest: lungs clear, normal breath sounds, no respiratory distress Cardiovascular: regular rate, rhythm, no edema, normal peripheral pulses Abdomen/GI: normal bowel sounds, non tender, soft Extremities/Musculoskelatal: normal inspection, no calf tenderness Neurologic/Psych: no motor/sensory deficits, alert, normal mood/affect, oriented x 3 Skin: + pertinent finding (right plantar foot ulcer healing well, no surrounding redness or drainage; also noted diffuse maculopapular rash covering most of the body ) Hospital Course GENERALIZED RASH, LIKELY DRUG ERUPTION FROM DAPTOMYCIN OR AZTREONAM HISTORY OF LEUKOCLASTIC VASCULITIS - admitted last week for right shoulder and foot infection- had 1 day of Vanco, and 4 days Dapto + Aztreonam continued Dapto x 2 days via picc line at home then rash started, hence readmitted patient reports that he did not take Levaquin on discharge as directed, as he was not aware he had to take it - remained afebrile pruritus is very minimal, intermittent to none no dyspnea - did not order Daptomycin, only Aztreonam, however, rash worsened hospital day 2, hence Aztreonam discontinued and changed to Linezolid given Linezolid IV x 1 day: tolerated well given Solumedrol 60mg IV x 2 days - rash significantly improved, fading consulted Creative Consultant Dr. Shupp: agreed with drug rash follows with Dr. Inman for history of skin rash, s/p Biopsy: Leukoclastic vasculitis - plan for antibiotic upon discussion with Dr. Frey: Linezolid 600mg BID x 2 weeks at least Levaquin 250mg po daily x 2 weeks at least follow up with Dr. Frey in 1 week NAJMA ON CKD STAGE III - likely prerenal - baseline creat 1.5 crea on admission 2.3 - given IVF, stopped Lisinopril - crea improved to 1.8 consulted and discussed with Nephro Dr. Holloway may be discharged from his standpoint hold Lisinopril, will change to Amlodipine 5mg po for now repeat PRP as outpatient on ff up this week repeat UA as outpatient as patient (+) microscopic hematuria and (+)1 proteinuria - ff up with Nephro as outpatient HYPOMAGNESEMIA - Mg supplement ordered - repeat Mg on ff up EXERTIONAL SHORTNESS OF BREATH, HYPOXIA - on room air, asymptomatic - CXR clear Echo: -- Conclusions -- * The left ventricular wall motion is normal. * Ejection Fraction = 55-60%. * The right ventricle is normal in size and function. * There is mild mitral regurgitation. * There is mild tricuspid regurgitation. * The aortic valve is moderately calcified with decreased excursion of the right coronary cusp. * No significant aortic valve gradient is detected on Doppler, however, mild aortic valve stenosis is suggested based on the 2D appearance. * Mild pulmonary hypertension is present. * The pulmonary artery systolic pressure is calculated to be 45 mm Hg. -- 98% after walking in the hallways patient would like to continue work up as outpatient RIGHT SHOULDER AND FOOT ULCER - healing well - discussed with Dr. Frey - plan for antibiotic upon discussion with Dr. Frey: Linezolid 600mg BID x 2 weeks at least Levaquin 250mg po daily x 2 weeks at least follow up with Dr. Frey in 1 week - ff up with ID Dr. Frey, [facility] in 1 week ATRIAL FIBRILLATION - rate controlled - INR increased from 5.1 to 7.5 (+) petechiae with the rash - given Vitamin K 5 mg INR decreased to 2.5 - resume usual coumadin dosing - will contact coag clinic to ff up patient this week - Aspirin held for petechiae resume accordingly ANEMIA - hgb at baseline - on Procrit - repeat CBC on follow up HLD - continue statin HX DIFFUSE B CELL LYMPHOMA - stable - outpatient oncology follow up DISPO patient adamantly requesting to be discharged today explained overnight observation to ensure rash, renal function, INR continues to improve, but he declined explained risks involved including worsening of renal function, INR, etc. and he verbalized understanding/agreement advised to ff up with PCP , Coumadin Clinic, ID clinic this week and he verbalized understanding/agreement Total time spent on discharge = 60 minutes This includes examination of the patient, discharge planning, medication reconciliation, and communication with other providers. Discharge Instructions Discharge Instructions Date of Service May 02, 2017. Admission Reason for Admission: Hypoxia Discharge Discharge Diagnosis / Problem: GENERALIZED RASH, LIKELY DRUG REACTION Discharge Goals Goal(s): Diagnostic testing, Therapeutic intervention Activity Recommendations Activity Limitations: as noted below (INCREASE ACTIVITY GRADUALLY TOLERATED) Lifting Limitations: until after follow-up appointment Exercise/Sports Limitations: until after follow-up appointment . Instructions / Follow-Up Instructions / Follow-Up PLEASE REVIEW YOUR NEW MEDICATION LIST AND FOLLOW INSTRUCTIONS CAREFULLY. YOU WILL NEED TO TAKE TWO TYPES OF ANTIBIOTICS BY MOUTH- LINEZOLID AND LEVAQUIN. FOLLOW UP WITH DR. FREY WITHIN A WEEK FOR FURTHER ADVICE REGARDING ANTIBIOTIC DURATION. ALWAYS USE BOOT FOR THE RIGHT FOOT, NO LIFTING AND MINIMIZE MOVEMENT ON THE RIGHT SHOULDER FOR NOW .OBSERVE PROPER WOUND CARE DAILY. DO NOT TAKE NSAIDS- IBUPROFEN, NAPROXEN, ETC. ENSURE ADEQUATE DAILY FLUID INTAKE. PLEASE CALL PRIMARY CARE PHYSICIAN OR RETURN TO ER IMMEDIATELY IF WITH RECURRENCE OF SYMPTOMS, FEVER, CHANGES WITH URINATION. INCREASING PAIN/REDNESS/SWELLING/DISCHARGE ON THE RIGHT SHOULDER/FOOT, FEVER/ CHILLS, DIARRHEA; PAIN/SWELLING/BLEEDING/DISCHARGE ON THE PICC LINE SITE OR LEFT ARM. EAT YOGURT DAILY AND AT LEAST 1 WEEK AFTER TAKING ANTIBIOTICS. FOLLOW UP WITH DR. OLVERA OR ONE OF HIS ASSOCIATES IN 1 WEEK (CLINIC WILL CALL YOU WITH THE APPOINTMENT). FOLLOW UP WITH DR. FREY (INFECTIOUS DISEASE) IN 1 WEEK. FOLLOW UP WITH DR. GARCIA (WOUND CARE CENTER) IN 1 WEEK. FOLLOW UP WITH DR. MAY (ORTHOPEDIC SURGEON) IN 1 WEEK. Current Hospital Diet Patient's current hospital diet: AHA Diet (Heart Healthy) Discharge Diet Recommended Diet: AHA Diet (Heart Healthy) Pending Studies Studies pending at discharge: yes List of pending studies: REPEAT BLOOD WORK C/O PRIMARY CARE PHYSICIAN. Medical Emergencies . Who to Call and When: Medical Emergencies: If at any time you feel your situation is an emergency, please call 911 immediately. . Non-Emergent Contact Non-Emergency issues call your: Primary Care Provider Call Non-Emergent contact if: you have a fever, your pain is not controlled, your pain is worsening, wound has increased drainage, wound has increased redness, wound has increased pain, you have any medication questions . . "Provider Documentation" section prepared by Chapito Pimentel. . VTE Core Measure Inpt VTE Proph given/why not?: Warfarin (Coumadin)
--- NOTE | 2017-05-02 14:58 | Medical Consult ---
Consultation Date of Consultation: May 02, 2017. Attending Physician: Chapito Pimentel MD Reason for Consultation: Infected right foot ulcer, drug rash History of Present Illness 86-year-old male well known to me from recent hospitalization with history of possible septic arthritis involving the right shoulder as well as chronic right great toe ulceration with cellulitis, who was discharged home on combination of IV daptomycin on oral levofloxacin. Apparently patient was not taking his levofloxacin. He was now readmitted with progressively worsening erythematous pruritic rash involving mostly his trunk and upper extremities and face. Daptomycin has been discontinued and patient feeling better. Zyvox was substituted. Patient states that foot infection has been improving and drainage from ulcer has now stopped. Denies any significant fever or chills. Past Medical/Surgical History Medical Problems: (1) Abscess of shoulder Status: Acute (2) NAJMA (acute kidney injury) Status: Acute (3) Allergic drug rash Status: Acute (4) Cellulitis Status: Acute (5) CHF (congestive heart failure) Status: Acute (6) Drug-induced skin rash Status: Acute (7) Dyspnea Status: Acute (8) Foot abscess, right Status: Acute (9) Hypoxia Status: Acute (10) Petechiae Status: Acute Medical Problems: (1) Atrial fibrillation (2) CKD (chronic kidney disease), stage III (3) DLBCL (diffuse large B cell lymphoma) (4) Dyslipidemia (5) HTN (hypertension) (6) Osteoarthritis Surgical Problems: (1) H/O rotator cuff surgery (2) History of carotid endarterectomy (3) History of CEA (carotid endarterectomy) (4) History of total bilateral knee replacement (5) History of total left hip replacement (6) Hx of cholecystectomy (7) Status post total shoulder arthroplasty Family History Patient reports no known family medical history. Social History Smoking Status: Former Smoker Alcohol Use: none Drug Use: none Marital Status: Housing Status: lives alone Occupation Status: retired Allergies Coded Allergies: Aztreonam (Verified Allergy, Severe, RASH, 05/02/17) Daptomycin (Verified Allergy, Severe, RASH, 05/02/17) Indapamide (Verified Allergy, Unknown, 04/30/17) Penicillins (Verified Allergy, Unknown, unknown, 04/30/17) Sulfa Antibiotics (Verified Allergy, Unknown, unknown, 04/30/17) Sulfamethoxazole (Verified Allergy, Unknown, unknown, 04/30/17) Current Inpatient Medications Current Inpatient Medications Medications (Trade) Dose Ordered Sig/Niall Route Start Time Stop Time Status Last Admin Dose Admin Acetaminophen (Tylenol Tab) 650 mg Q4H PRN PO 04/30/17 16:45 05/30/17 16:44 Ondansetron HCl (Zofran Inj) 4 mg Q6H PRN IV 04/30/17 16:45 05/30/17 16:44 Allopurinol (Zyloprim Tab) 200 mg HS PO 04/30/17 21:00 05/30/17 20:59 05/01/17 20:35 200 MG Atenolol (Tenormin Tab) 50 mg QAM PO 04/30/17 19:00 05/30/17 18:59 05/02/17 08:18 50 MG Atorvastatin Calcium (Lipitor Tab) 10 mg QAM PO 04/30/17 19:00 05/30/17 18:59 05/02/17 08:17 10 MG Heparin Sodium (Porcine) (Heparin 10 Unit/ ml 5 ml Flush) 5 ml PRN PRN FLUSH 05/01/17 00:45 05/31/17 00:44 Magnesium Oxide (Mag-Ox Tab) 400 mg BID PO 05/01/17 21:00 05/31/17 20:59 05/02/17 08:17 400 MG Sodium Bicarbonate 75 meq/Sodium Chloride 1,075 ml @ 100 mls/hr [id number] IV 05/01/17 16:00 05/31/17 15:59 05/02/17 13:12 100 MLS/HR Linezolid (Zyvox Tab) 600 mg BID PO 05/02/17 21:00 05/12/17 20:59 UNV Review of Systems All systems were reviewed and are negative except as per HPI Physical Exam Date Time Temp Pulse Resp B/P (MAP) Pulse Ox O2 Delivery O2 Flow Rate FiO2 05/02/17 12:00 Room Air 05/02/17 12:00 36.4 77 16 138/88 (105) 97 05/02/17 08:00 Room Air 05/02/17 07:38 36.4 88 18 146/70 (95) 97 Room Air 05/02/17 04:19 36.2 75 16 135/75 (95) 98 Room Air 05/02/17 04:00 Room Air 05/02/17 00:01 36.4 58 20 110/77 (88) 96 Room Air 05/02/17 00:00 Room Air 05/01/17 20:19 36.7 78 20 117/80 (92) 97 Room Air 05/01/17 20:00 Room Air 05/01/17 16:00 Room Air 05/01/17 15:22 36.9 80 18 108/68 (81) 97 Room Air General Appearance: WD/WN, no apparent distress Head: normocephalic, atraumatic Eyes: normal inspection, EOMI, sclerae normal ENT: normal ENT inspection, pharynx normal Neck: supple, no adenopathy, thyroid normal, trachea midline Respiratory/Chest: chest non-tender, lungs clear, normal breath sounds, no respiratory distress Cardiovascular: regular rate, rhythm, no gallop, no murmur Abdomen/GI: normal bowel sounds, non tender, soft, no organomegaly Back: normal inspection, no CVA tenderness Extremities/Musculoskelatal: no calf tenderness, non-tender Neurologic/Psych: alert, oriented x 3 Skin: normal color, + pertinent finding (Diffuse erythematous macular- papular rash) Lymphatic: no adenopathy Laboratory Results Last 24 Hours Test 05/01/17 21:08 05/02/17 05:46 Lactic Acid Level 2.0 mmol/L White Blood Count 9.31 K/uL Red Blood Count 2.77 M/uL Hemoglobin 8.5 g/dL Hematocrit 26.4 % Mean Corpuscular Volume 95.3 fL Mean Corpuscular Hemoglobin 30.7 pg Mean Corpuscular Hemoglobin Concent 32.2 g/dl Platelet Count 119 K/uL Mean Platelet Volume 10.4 fL Neutrophils (%) (Auto) 88.6 % Lymphocytes (%) (Auto) 8.6 % Monocytes (%) (Auto) 1.3 % Eosinophils (%) (Auto) 1.1 % Basophils (%) (Auto) 0.1 % Neutrophils # (Auto) 8.25 K/uL Lymphocytes # (Auto) 0.80 K/uL Monocytes # (Auto) 0.12 K/uL Eosinophils # (Auto) 0.10 K/uL Basophils # (Auto) 0.01 K/uL RDW Standard Deviation 60.4 fL RDW Coefficient of Variation 17.6 % Immature Granulocyte % (Auto) 0.3 % Immature Granulocyte # (Auto) 0.03 K/uL Nucleated RBC Absolute Count (auto) 0.03 K/uL Nucleated Red Blood Cells % 0.3 % Toxic Vacuolation OCCASIONAL Echinocytes 1+ Prothrombin Time 31.7 SECONDS Prothromb Time International Ratio 2.8 Sodium Level 135 mmol/L Potassium Level 3.5 mmol/L Chloride Level 107 mmol/L Carbon Dioxide Level 16 mmol/L Anion Gap 12.0 mmol/L Blood Urea Nitrogen 54 mg/dl Creatinine 1.80 mg/dl Est Creatinine Clear Calc Drug Dose 32.5 ml/min Estimated GFR () 39.2 Estimated GFR (Non- 33.8 BUN/Creatinine Ratio 30.2 Random Glucose 144 mg/dl Calcium Level 7.8 mg/dl Magnesium Level 1.6 mg/dl Assessment & Plan Patient with infected right foot ulcer as well as possible septic right shoulder in the setting of previous shoulder replacement now with probable drug rash with daptomycin being most likely candidate. Agree with discontinuation of daptomycin and substitution of Zyvox. Patient should also be restarted on levofloxacin to provide adequate coverage for his foot infection will follow up as an outpatient. Discussed with hospitalist service.
[2017-05-02 15:10] VITALS: BP 138/88; PULSE 77; TEMP 36.4; O2SAT 97
--- NOTE | 2017-05-02 16:15 | NEPHROLOGY CONSULTATION ---
DATE OF CONSULTATION: 05/02/2017 REASON FOR CONSULT: Acute renal failure. HISTORY OF PRESENT ILLNESS: The patient is an 86-year-old male with a baseline CKD, stage 3 with a creatinine at baseline around 1.5. He presented to the Emergency Department with rash. He was recently admitted to [facility] on 04/24/2017 to 04/28/2017 for an infected right foot ulcer. He was discharged home with IV daptomycin and p.o. Levaquin. He reports feeling well until the day of admission when he woke up with rash in his arms. He reported this rash to the formerly [id number] group home who wanted the patient to go to the Emergency Department for further evaluation. The patient has also been feeling slightly more short of breath than usual. For the last few weeks, he denies having any nausea, vomiting, diarrhea or loss of appetite. He denies any fever, chills, or urinary symptoms. In the Emergency Department, he was noted to be visibly short of breath and also became hypoxic at 85% and somewhat tachycardic. Symptoms did improve with rest. Creatinine was elevated at 2.1 with a baseline of around 1.5. Since admission, he has received IV fluid and with that this morning the lab is slightly better with a creatinine of 1.8. LABS: Potassium is normal at 3.5. Sodium was slightly low at the time of admission. At 133 and so was potassium 3.3. He also had an elevated lactic acid level at the time of admission. Serum bicarbonate has been running somewhat low at 15-17 range, but his arterial blood gas shows if anything slightly alkaline pH. At this time, he feels is back to normal and really wants to go home. PAST MEDICAL AND SURGICAL HISTORY: Atrial fibrillation, chronic CKD; stage 3 with a baseline creatinine of 1.5, diffuse large B cell lymphoma, dyslipidemia, hypertension, osteoarthritis, rotator cuff surgery, bilateral history of carotid endarterectomy, history of total bilateral knee replacement, total hip replacement, and cholecystectomy. FAMILY HISTORY: Noncontributory. No renal disease in the family. SOCIAL HISTORY: Former smoker. No alcohol. HOME MEDICATIONS: List was reviewed and includes allopurinol, aspirin, atenolol, atorvastatin, daptomycin, levofloxacin, lisinopril and Coumadin. REVIEW OF SYSTEMS: As detailed in HPI. A total of 12 systems was reviewed and is negative otherwise. PHYSICAL EXAMINATION: GENERAL: Elderly white male who actually looks pretty good for his age, he is not in any distress at this time and he was very talkative. He is awake, alert, oriented x3, no respiratory distress. HEENT: Mucous membranes are moist. NECK: Supple. No jugular venous distention. CHEST: Bilateral decreased breath sound at the bases. LUNGS: Overall otherwise clear. CARDIOVASCULAR: Regular rate and rhythm, no edema. ABDOMEN: Soft, nontender. EXTREMITIES: Shows no edema. SKIN: He does have some fading rash over his body. LABORATORY TESTS: From this morning shows creatinine is 1.8, BUN 54, carbon dioxide 16. Sodium 135, potassium 3.5, and chloride 107. At the time of admission, he had a creatinine of 2.10. His baseline creatinine is around 1.5. Hemoglobin this morning was 8.5, WBC count 9.31, and platelet count 119. ASSESSMENT AND PLAN: An 86-year-old male who presented with rash in the setting of new exposure to antibiotics, namely daptomycin. He was noted to have acute kidney injury on baseline chronic kidney disease, stage 3. 1. Acute kidney injury. Acute component of the renal failure is pretty mild, as it is only a slight elevation from baseline 1.5-2.1. It is already coming down with the use of IV fluid. I would continue to hold the lisinopril. His blood pressure was somewhat low at the time of admission and was associated with lactic acidosis. I would continue with IV fluid for the time being. Continue to hold lisinopril. He really really wants to go home and I personally do not have a significant problem from renal standpoint. 2. Exertional shortness of breath/hypoxia. This is being investigated by the primary team. His BNP is elevated at 10,588. However, the chest x-ray appears fairly unremarkable. I would defer the management to primary service. If there is concern for congestive heart failure, we can certainly stop the fluid as he is eating and drinking fairly normally at this time. Continue to do daily labs. I expect his kidney function to get better in the coming days. HEIDYD
[2017-05-02] MEDS ORDERED: LINEZOLID 600 MG TAB PO SCH ×2 (21:00)
[2017-05-04] MEDS ORDERED: LINEZOLID 600 MG TAB PO SCH ×2 (11:00)
[2017-05-11] MEDS ORDERED: ALLO100T PO (13:41)
[2017-05-11] MEDS ORDERED: POTASSIUM CHLORIDE 10 MEQ TABCR PO STA (21:04)
[2017-05-11] MEDS ORDERED: MAGNESIUM SULFATE 1GM / D5W 1 GM in PREMIXED IN D5W 100 ML IV ONE (21:15)
== END 2017-05-02 16:06 | disposition home health service (06) | DRG 683 ==
LOC: C.EDB 12:06 → C.MED 16:37 → ENRESERV 17:00 → CANRESERV 17:00 → ENRESERV 17:37
PROVIDERS: ADMIT Internal Medicine; ATTEND Internal Medicine
DX: N17.9 Acute kidney failure, unspecified (principal); L97.819 Non-pressure chronic ulcer of other part of right lower leg with unspecified severity; L27.0 Generalized skin eruption due to drugs and medicaments taken internally; I12.9 Hypertensive chronic kidney disease with stage 1 through stage 4 chronic kidney disease, or unspecified chronic kidney disease; I48.91 Unspecified atrial fibrillation; N18.3 Chronic kidney disease, stage 3 (moderate); E78.5 Hyperlipidemia, unspecified; Z96.642 Presence of left artificial hip joint; Z96.653 Presence of artificial knee joint, bilateral; Z88.2 Allergy status to sulfonamides; T36.8X5A Adverse effect of other systemic antibiotics, initial encounter; T36.1X5A Adverse effect of cephalosporins and other beta-lactam antibiotics, initial encounter; D64.9 Anemia, unspecified; Z85.72 Personal history of non-Hodgkin lymphomas; E83.42 Hypomagnesemia; Z79.01 Long term (current) use of 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; Y92.009 Unspecified place in unspecified non-institutional (private) residence as the place of occurrence of the external cause; Z88.0 Allergy status to penicillin

== ENCOUNTER 2017-05-11 15:26 | Inpatient (IN) | payer OTHER ==
[~2017-05-11] VITALS: Ht 180.3 cm; Wt 89.4 kg
[~2017-05-11 15:26] MED LIST changes: +ALLO100T PO; +AMLO-110 PO; -ASPI81TA28 PO; -DAPT500I IV; +LINE1TAB6 PO; -LSN40 PO; +MGNO400 PO
[2017-05-11] MEDS ORDERED: WARF5TAB7 PO (16:53)
[2017-05-11] MEDS ORDERED: CMD5 PO (16:53)
--- NOTE | 2017-05-11 17:07 | EMERGENCY ROOM VISIT NOTE ---
History Report prepared by Cassy: Donny Pereira Under the Supervision of: Dr. Benito Green M.D. First contact with patient: 16:52 Chief Complaint: REFERRED BY DOCTOR Stated Complaint: DOC REFERRED History of Present Illness The patient is a 86 year old male who presents to the Emergency Room with complaints of abnormal lab work that occurred prior to arrival. The patient states that he went to visit his PCP today where he had blood work done. He reports that the doctor looked at his lab results and sent him to the ED. The patient states that his hemoglobin and platelet count are low. He also states that his kidney function is abnormal, which has been chronic for a while. The patient states he follows up with Hematology every two weeks for his history of anemia. He states that he had a shot of Procrit today which he has been on for a year. The patient reports that if his RBC is above 11, he does not get a shot of Procrit, but if it is below, he gets a shot of Procrit. The patient admits that he has been experiencing shortness of breath for the last two to three weeks. He states that he takes Linezolid for his joints and Coumadin. The patient denies any abdominal pain, cough, congestion, nausea, vomiting, and urinary symptoms. Source of History: patient Onset: prior to arrival Position: other (global) Quality: other (low platelet count) Timing: other (sudden) Associated Symptoms: + SOB, No cough, No nausea, No vomiting, No abdominal pain Review of Systems See HPI for pertinent positives and negatives. A total of ten systems were reviewed and were otherwise negative. Past Medical & Surgical Medical Problems: (1) Atrial fibrillation (2) CKD (chronic kidney disease), stage III (3) DLBCL (diffuse large B cell lymphoma) (4) Dyslipidemia (5) HCAP (healthcare-associated pneumonia) (6) HTN (hypertension) (7) Osteoarthritis (8) Symptomatic anemia Surgical Problems: (1) H/O rotator cuff surgery (2) History of carotid endarterectomy (3) History of CEA (carotid endarterectomy) (4) History of total bilateral knee replacement (5) History of total left hip replacement (6) Hx of cholecystectomy (7) Status post total shoulder arthroplasty Family History Patient reports no known family medical history. Social History Smoking Status: Former Smoker Alcohol Use: none Drug Use: none Marital Status: Housing Status: lives alone Occupation Status: retired Current/Historical Medications Scheduled Allopurinol (Zyloprim), 200 MG PO HS Amlodipine (Norvasc), 5 MG PO DAILY Atenolol (Atenolol), 50 MG PO QAM Atorvastatin (Atorvastatin Calcium), 10 MG PO QAM Levofloxacin (Levaquin), 250 MG PO DAILY Linezolid (Zyvox), 600 MG PO BID Warfarin Sod (Jantoven), 2.5 MG PO [id number] Warfarin Sod (Coumadin), 5 MG PO [id number] Allergies Coded Allergies: Aztreonam (Verified Allergy, Severe, RASH, 05/11/17) Daptomycin (Verified Allergy, Severe, RASH, 05/11/17) Indapamide (Verified Allergy, Unknown, 05/11/17) Penicillins (Verified Allergy, Unknown, unknown, 05/11/17) Sulfa Antibiotics (Verified Allergy, Unknown, unknown, 05/11/17) Sulfamethoxazole (Verified Allergy, Unknown, unknown, 05/11/17) Physical Exam Vital Signs Date Time Temp Pulse Resp B/P (MAP) Pulse Ox O2 Delivery O2 Flow Rate FiO2 05/11/17 20:18 36.4 67 18 146/79 98 Room Air 05/11/17 19:57 67 05/11/17 19:07 63 18 146/79 98 Room Air 05/11/17 17:56 72 18 126/75 99 Room Air 05/11/17 16:51 69 05/11/17 15:32 36.4 84 20 118/75 100 Room Air Physical Exam GENERAL: Fatigued, awake, alert, well-appearing, in no distress HENT: Normocephalic, atraumatic. Dry mucous membranes. Oropharynx otherwise unremarkable. EYES: Normal conjunctiva. Sclera non-icteric. NECK: Supple. No nuchal rigidity. FROM. No JVD. RESPIRATORY: Diminished at base. Otherwise, Clear to auscultation. CARDIAC: IRIR. Extremities warm and well perfused. Pulses equal. ABDOMEN: Soft, non-distended. No tenderness to palpation. No rebound or guarding. No masses. RECTAL: Deferred. MUSCULOSKELETAL: Chest examination reveals no tenderness. The back is symmetrical on inspection without obvious abnormality. There is no CVA tenderness to palpation. No joint edema. LOWER EXTREMITIES: Calves are equal size bilaterally and non-tender. Mild lower extremity edema without redness or warmth. No discoloration. NEURO: Normal sensorium. No sensory or motor deficits noted. SKIN: No rash or jaundice noted. Area of fluctuance on right shoulder that is nontender. No redness or warmth. Medical Decision & Procedures ER Provider Diagnostic Interpretation: X-ray: Per my interpretation, radiologist review. CHEST ONE VIEW PORTABLE HISTORY: Short of breath. COMPARISON: Chest 04/30/2017. FINDINGS: No pleural effusions. No pneumothorax. The heart is mildly enlarged. Bilateral total shoulder arthroplasties. The right lung is essentially clear. Left basilar patchy densities. This has progressed. IMPRESSION: Patchy density left lung base which could be due to atelectasis or pneumonia. The heart is mildly enlarged. Electronically signed by: Delfino Peng M.D. 05/11/2017 6:02 PM Dictated Date/Time: 05/11/2017 6:01 PM Laboratory Results Test 05/11/17 17:20 Toxic Granulation 1+ Toxic Vacuolation 1+ Platelet Estimate DECREASED Peripheral Blood Smear Path Consult Magnesium Level 1.7 mg/dl (1.8-2.4) Total Bilirubin 0.6 mg/dl (0.2-1) Direct Bilirubin 0.3 mg/dl (0-0.2) Aspartate Amino Transf (AST/SGOT) 16 U/L (15-37) Alanine Aminotransferase (ALT/SGPT) 23 U/L (12-78) Alkaline Phosphatase 79 U/L (45-117) Troponin I < 0.015 ng/ml (0-0.045) Pro-B-Type Natriuretic Peptide 9136 pg/ml (0-1800) Total Protein 7.0 gm/dl (6.4-8.2) Albumin 2.3 gm/dl (3.4-5.0) Thyroid Stimulating Hormone (TSH) 3.080 uIu/ml (0.300-4.500) Laboratory results reviewed by me Medications Administered Medications (Trade) Dose Ordered Sig/Niall Route Start Time Stop Time Status Last Admin Dose Admin Cefepime HCl 1000 mg/Dextrose 111.3 ml @ 200 mls/hr NOW STAT IV 05/11/17 19:47 05/11/17 20:20 DC 05/11/17 22:49 200 MLS/HR ECG Indication: SOB/dyspnea Rate (beats per minute): 74 Rhythm: atrial fibrillation Findings: Q waves (Anterior unchanged from previous), no acute ischemic change ED Course 1655: The patient was evaluated in room C04. A complete history and physical exam was performed. 1916: I reevaluated the patient and he is doing well. I updated him about his x- ray. I will consult someone for further evaluation due to the patient's pneumonia and low platelet count. 1944: I discussed the patients case with the rifle case repairer. Medical Decision I reviewed the patient's past medical history, medications, and the nursing notes as described above. The patient's presentation and history were concerning for ITP, infection - pneumonia, bronchitis. The patient presents to the emergency department from pcp's office with concern for down trending h/h and platelets in the setting of chronic anemia on scheduled procrit injections per hpi. On arrival the patient appears fatigued but in NAD. AFVSS. Labs c/w outpatient labs earlier with hbg of 8 and plts 40s. Cr. 1.8 at recent baseline. CXR with worsening LLL opacification concerning for pna. Considering patient's report of malaise, cough/congestion/sob with broaden abx coverage to cefepime (patient currenlty on levofloxacin and linezolid for join infection). Otherwise, EKG unremarkable. Trop negative in the setting of constant sx of fatigue, sob. BNP 9000 but improved from recent. INR 3.0. Patient denies bloody or black stools. Patient admitted to medicine for further management and likely hematology consultation. Medication Reconcilliation Current Medication List: was personally reviewed by me Blood Pressure Screening Patient's blood pressure: Elevated blood pressure Blood pressure disposition: Elevated BP felt to be situational Consults Time Called: 1950 Consulting Physician: Arianne Avendaño Hospitalist Returned Call: 1950 I discussed the patients case with [facility]. He understands the patients condition and agrees to accept the patient. The patient will be further evaluated. Impression Primary Impression: Pneumonia Scribe Attestation The scribe's documentation has been prepared under my direction and personally reviewed by me in its entirety. I confirm that the note above accurately reflects all work, treatment, procedures, and medical decision making performed by me. Departure Information Dispostion Being Evaluated By Hospitalist Referrals Kenn Gray D.O. (PCP) Patient Instructions [facility]
[2017-05-11 17:39] LABS: HEMATOCRIT 25.5 % (42-52); MEAN CELL VOLUME 98.8 fL (80-100); MEAN CORPUSCULAR HEMOGLOBIN 31.8 pg (25-34); MEAN CORPUSCULAR HGB CONC 32.2 g/dl (32-36); RED BLOOD COUNT 2.58 M/uL (4.7-6.1)
[2017-05-11 17:45] LABS: PROTHROMBIN TIME (PATIENT) 33.2 SECONDS (9.0-12.0)
[2017-05-11 17:56] LABS: BLOOD UREA NITROGEN 44 mg/dl (7-18); BUN/CREATININE RATIO 24.3 (10-20); CALCIUM 8.4 mg/dl (8.5-10.1); CARBON DIOXIDE 21 mmol/L (21-32); CHLORIDE 110 mmol/L (98-107); GLUCOSE 121 mg/dl (70-99); POTASSIUM 4.6 mmol/L (3.5-5.1); SODIUM 137 mmol/L (136-145)
--- NOTE | 2017-05-11 18:04 | DIAGNOSTIC IMAGING REPORT ---
CHEST ONE VIEW PORTABLE HISTORY: Short of breath. COMPARISON: Chest 04/30/2017. FINDINGS: No pleural effusions. No pneumothorax. The heart is mildly enlarged. Bilateral total shoulder arthroplasties. The right lung is essentially clear. Left basilar patchy densities. This has progressed. IMPRESSION: Patchy density left lung base which could be due to atelectasis or pneumonia. The heart is mildly enlarged. Electronically signed by: Delfino Peng M.D. 05/11/2017 6:02 PM Dictated Date/Time: 05/11/2017 6:01 PM
[2017-05-11 18:07] LABS: ANISOCYTOSIS PRESENT; BASO % 0.3 %; BASO ABS # 0.01 K/uL (0-0.2); COMPLETE YES; EOS % 4.5 %; IG% 0.3 %; LYMPH % 25.2 %; LYMPH ABS # 0.78 K/uL (1.2-3.4); MONO % 2.3 %; NEUT % 67.4 %; PLATELET COUNT 47 K/uL (130-400); PLT ESTIMATE DECREASED; TOXIC GRANULATION 1+; VACUOLIZATION 1+
[2017-05-11] MEDS ORDERED: CEFEPIME IV 1,000 MG in DEXTROSE 5% 100ML 100 ML IV STA (19:47)
[2017-05-11 20:18] VITALS: BP 146/79; PULSE 67; TEMP 36.4; O2SAT 98; Ht 180.3 cm; Wt 89.4 kg
[2017-05-11] MEDS ORDERED: ACETAMINOPHEN 325 MG TAB PO PRN (21:00)
[2017-05-11] MEDS ORDERED: HYDROmorphone INJ 0.5 MG/0.5 ML SYR IV PRN (21:00)
[2017-05-11] MEDS ORDERED: TRAMADOL HCL 50 MG TAB PO PRN (21:00)
[2017-05-11] MEDS ORDERED: ONDANSETRON INJ 2 MG/ML 2 ML VIAL IV PRN (21:00)
[2017-05-11] MEDS ORDERED: ALBUT/IPRATROP 3MG/0.5MG NEB 3 ML VIAL INH PRN (21:00)
[2017-05-11] MEDS ORDERED: LINEZOLID 600 MG TAB PO SCH (21:00)
[2017-05-11 21:27] LABS: MAGNESIUM 1.7 mg/dl (1.8-2.4)
[2017-05-11] MEDS ORDERED: POTASSIUM CHLORIDE 10 MEQ TABCR PO STA (21:28)
[2017-05-11] MEDS ORDERED: VANCOMYCIN INJ 0 MG in SODIUM CHLORIDE 0.9% 250ML 250 ML IV STA (22:07)
--- NOTE | 2017-05-11 22:15 | HISTORY & PHYSICAL EXAMINATION ---
DATE OF ADMISSION: 05/11/2017 PRIMARY CARE DOCTOR: Kenn Gray DO CHIEF COMPLAINT: Shortness of breath. HISTORY OF PRESENT ILLNESS: History obtained from patient and records. Medical history significant for CAD, PVD, hypertension, chronic renal insufficiency (baseline creatinine of 1.5 to 1.), AFib, on anticoagulation; history of non-Hodgkin's lymphoma, status post chemotherapy (currently in remission), hx chronic right shoulder and right foot infection, ongoing Levaquin and Zyvox course, past tobacco abuse; chronic anemia (baseline hemoglobin of 8-9), chronic thrombocytopenia. Patient was admitted about 2 weeks ago for cellulitis and infected right foot ulcer and shoulder. The patient discharged on Levaquin and Daptomycin course. Recent confinement last week for rash attributed to either daptomycin or aztreonam. At the time of admission, patient had cough symptoms productive of clear sputum. Daptomycin discontinued. Patient discharged on Levaquin and Zyvox course for at least 2 more weeks after consultation with ID. Patient was seen at PCP's office with shortness of breath especially on exertion. No unusual leg swelling. No chest pain. Same cough symptoms productive of clear sputum. No fever, no chills. No black or bloody stool. Sent to the Emergency Room. Px received Cefepime for possible pneumonia, MEDICAL HISTORY: As above. SURGICAL HISTORY: He has had orthopedic procedures, cholecystectomy, hip surgery, shoulder surgery HOME MEDICATIONS: Include Zyloprim, Jantoven, allopurinol, Levaquin, Coumadin, amlodipine, atenolol, atorvastatin, linezolid. ALLERGIES: AZTREONAM, DAPTOMYCIN, INDAPAMIDE, PENICILLIN, SULFA, BACTRIM. FAMILY HISTORY: Arthritis. PERSONAL AND SOCIAL HISTORY: Past tobacco abuse. No chronic intake of alcohol. Retired [employer]. Lives with son. REVIEW OF SYSTEMS: As per HPI, all other ROS negative. PHYSICAL EXAMINATION: VITAL SIGNS: Blood pressure noted to be 146/79, pulse rate 60, RR 18, temperature 36.4, sats 98% on room air. GENERAL: Noted to be pleasant, no respiratory distress. Looks younger for stated age. SKIN: Pallor. HEENT: Pale palpable conjunctivae. Dry mucosa. NECK: No JVD. supple CHEST: Clear to auscultation. HEART: Irregular. ABDOMEN: Soft. NT EXTREMITIES: No edema, no tenderness. Dressing on the right foot. NEUROLOGIC: No gross focality. LABORATORY DATA: Hemoglobin was noted to be 8.2, hematocrit 25.1, white cell count 3.1, platelets 47. Sodium 140, potassium 4.6, chloride 110, CO2 21, BUN 44, creatinine 1.8, glucose 121. INR was 3. trop 0 stool FOBT negative as per ER physician Chest x-ray: Patchy density left lung base, atelectasis versus pneumonia EKG as per my interpretation rate 75 A. fib, T-wave flattening inferior leads ASSESSMENT: 1. Symptomatic anemia baseline hemoglobin of 8-9 2. Worsening (acute on chronic) thrombocytopenia ? Zyvox ADR 3. Possible pneumonia on x-ray. cough productive of clear sputum for 2 weeks. Doubt new infection. Patient not septic. 3. Chronic foot and shoulder infection, continued improvement on Levaquin and Zyvox course. 4. Coronary artery disease. 5. PVD sp surgery 6. atrial fibrillation, rate controlled. INR therapeutic. 7. Chronic renal insufficiency, creatinine at baseline 8. NHL sp chemotx currently in remission 9. Past tobacco abuse. PLAN: GMF Transfuse pRBC for symptomatic anemia. Hold Zyvox for now as per px PCP request RE worsening thrombocytopenia Patient PCP requesting for ID consult RE alternative to Zyvox IV Vancomycin interim until patient seen by ID in a.m. Continue Levaquin dosed for poss pulmonary infection PT OT eval DVT prophylaxis, Coumadin INR 2-3. DNR. MTDD
[2017-05-11] MEDS ORDERED: LEVOFLOXACIN 500 MG TAB PO STA (22:33)
[2017-05-11 22:37] LABS: HEMATOCRIT 24.8 % (42-52)
[2017-05-11] MEDS ORDERED: VANCOMYCIN CONSULT ACTIVE PRN (22:45)
[2017-05-11 22:53] VITALS: BP 132/76; PULSE 60; TEMP 36.5; O2SAT 98
[2017-05-11] MEDS: MAGNESIUM SULFATE 1GM / D5W 1 GM in PREMIXED IN D5W 100 ML IV STA (23:36)
[2017-05-11] MEDS: VANCOMYCIN INJ 2,250 MG in SODIUM CHLORIDE 0.9% 500ML 500 ML IV SCH (23:36)
[2017-05-11 23:59] VITALS: BP 132/78; PULSE 70; TEMP 36.6; O2SAT 99
[2017-05-12] VITALS (11 sets, daily range): BP systolic 125–151; BP diastolic 73–87; PULSE 67–76; TEMP 36.2–36.5; O2SAT 94–99
[2017-05-12] MEDS: VANCOMYCIN INJ 2,250 MG in SODIUM CHLORIDE 0.9% 500ML 500 ML IV SCH (01:59)
[2017-05-12] MEDS: MAGNESIUM SULFATE 1GM / D5W 1 GM in PREMIXED IN D5W 100 ML IV STA (02:00)
[2017-05-12 05:51] LABS: HEMATOCRIT 27.2 % (42-52); MEAN CELL VOLUME 96.8 fL (80-100); MEAN CORPUSCULAR HEMOGLOBIN 30.6 pg (25-34); MEAN CORPUSCULAR HGB CONC 31.6 g/dl (32-36); RED BLOOD COUNT 2.81 M/uL (4.7-6.1); WHITE BLOOD COUNT 3.31 K/uL (4.8-10.8)
[2017-05-12 06:01] LABS: MEAN PLATELET VOLUME 9.9 fL (7.4-10.4); PLATELET COUNT 41 K/uL (130-400)
[2017-05-12 06:14] LABS: PROTHROMBIN TIME (PATIENT) 33.1 SECONDS (9.0-12.0)
[2017-05-12 06:47] LABS: BUN/CREATININE RATIO 23.5 (10-20); CALCIUM 8.1 mg/dl (8.5-10.1); CREATININE 1.6 mg/dl (0.60-1.40); POTASSIUM 4.9 mmol/L (3.5-5.1)
[2017-05-12 07:15] LABS: ANISOCYTOSIS PRESENT; COMPLETE YES; IG% 0.3 %; LARGE PLATELETS 1+; LYMPH % 21.8 %; LYMPH ABS # 0.72 K/uL (1.2-3.4); MONO % 2.4 %; NEUT % 69.5 %
[2017-05-12] MEDS ORDERED: LEVOFLOXACIN CONSULT ACTIVE PRN (08:00)
[2017-05-12] MEDS: ATORVASTATIN 10 MG TAB PO SCH (08:42)
[2017-05-12] MEDS: AMLODIPINE BESYLATE 5 MG TAB PO SCH (08:42)
--- NOTE | 2017-05-12 10:19 | Clinical Documentation Query ---
CLINICAL DOCUMENTATION QUERY 86 year old male who presents to the Emergency Room with complaints of symptomatic anemia. Query #1/2 In your clinical opinion is this patient being managed for: ( ) Pancytopenia due to Zyvox therapy ( X ) Thrombocytopenia only due to Zyvox therapy ( ) Not Agree ( ) Other explanation of clinical findings (Please Explain) ( ) Unable to determine (Please Define) ( ) Need to Discuss The medical record reflects the following clinical findings, treatment, and risk factors. Clinical Indicators: WBC's 3.10, PLT 41, Hgb 8.1, Hct 24.8. H&P states, "Worsening (acute on chronic) thrombocytopenia ? Zyvox ADR." Treatment: 1 unit of PRBC's, Zyvox held, Risk Factors: Age, Zyvox therapy, Query #2/2 In your clinical opinion is this patient being managed for: ( ) NAJMA on CKD III ( X ) CKD III only ( ) Not Agree ( ) Other explanation of clinical findings (Please Explain) ( ) Unable to determine (Please Define) ( ) Need to Discuss The medical record reflects the following clinical findings, treatment, and risk factors. Clinical Indicators: H&P states, "chronic renal insufficiency (baseline creatinine of 1.5 to 1)." Presenting labs reveal BUN 44, Creatinine 1.80, GFR 33.8 Treatment: daily PRP's, PRBC's Risk Factors: Age, anemia Please clarify and document your clinical opinion in the progress notes and discharge summary. Terms such as "probable", "suspected", "likely", "questionable", "possible", or "still to be ruled out" are acceptable. IF IN AGREEMENT, YOU MUST DOCUMENT ABOVE DIAGNOSTIC STATEMENT IN DAILY PROGRESS NOTES AND DISCHARGE SUMMARY. This document is not part of the patient's record. Thank You, Lucio Arteaga, RN [phone]
--- NOTE | 2017-05-12 11:41 | Progress Note ---
Progress Note Date of Service May 12, 2017. Progress Note ID Consult Dictated #[id number] A/P: 1. Chronic right foot ulcer 2. Left infiltrate -Continue levaquin -Can change zyvox to doxy 100mg po bid with food, h/o MSSA right foot in 07/2016 -Plans to follow with Dr. Frey as outpt, could also follow with wound center as well -No active infection right foot -thank you
--- NOTE | 2017-05-12 11:54 | INFECT. DISEASE CONSULTATION ---
DATE OF CONSULTATION: 05/12/2017 REQUESTING PHYSICIAN: Chapito Pimentel MD HISTORY OF PRESENT ILLNESS: This is an 86-year-old gentleman who is being treated chronically with Levaquin and Zyvox for a longstanding right plantar ulceration. He was last seen by infectious disease in the hospital on 05/02/2017. At that time, he was on daptomycin, but this was discontinued secondary to rash and he was subsequently placed on Zyvox. He was admitted yesterday with respiratory distress and a left lung density. He was placed back on Levaquin and Zyvox; however, he has been found to have pancytopenia with a white blood cell count of 3.3 and platelets of 41. His creatinine is elevated at 1.6. He states he is tolerating Zyvox well and overall, his wound is improving significantly. He is yet to have an outpatient appointment with Dr. Frey, as he has been subsequently readmitted to the hospital. He denies any fevers or chills. He denies any pain with ambulation. He denies any bleeding or drainage from the ulceration. Infectious disease was asked to see this patient for alternative antibiotics with pancytopenia, likely thought to be secondary to Zyvox. Blood cultures are pending at this time. The patient has been afebrile. He does admit to some cough yesterday, but states he is feeling much better. He denies any pleuritic chest pain. He denies any hemoptysis. He denies any shortness of breath or wheezing. All remaining review of systems is reviewed and unremarkable except for as noted. PAST MEDICAL HISTORY: Significant for coronary artery disease, peripheral vascular disease, hypertension, chronic renal insufficiency with a baseline creatinine of 1.5, AFib; on anticoagulation, non-Hodgkin's lymphoma; status post chemo, chronic anemia and thrombocytopenia. PAST SURGICAL HISTORY: Significant for right shoulder surgery in the past for which he is on chronic suppressive antibiotics for complication of infection cholecystectomy and hip surgery. ALLERGIES: INCLUDE AZTREONAM, DAPTOMYCIN, PENICILLIN AND SULFA. FAMILY HISTORY: Noncontributory. SOCIAL HISTORY: Significant for history of tobacco use. There is no alcohol or drug use. He lives with family. He has recent sick contacts. CURRENT MEDICATIONS: Include Levaquin, Norvasc, atenolol, Lipitor, vancomycin, Tylenol, Dilaudid, Ultram, Zofran, and DuoNeb. PHYSICAL EXAMINATION: VITAL SIGNS: He is afebrile, pulse is 74, respiratory rate is 18, blood pressure is 134/84, oxygen saturation is 94% on room air. GENERAL: He is awake, alert and oriented x3. He is in no acute distress. Mucous membranes are moist. HEENT: Extraocular muscles are intact. HEART: Regular. LUNGS: Clear bilaterally. ABDOMEN: Soft, nontender, nondistended. EXTREMITIES: There is no lower extremity edema bilaterally. Examination of the right foot reveals a callus over the plantar aspect of the right foot. There is no surrounding warmth, erythema, induration, tenderness, drainage or bleeding. LABORATORY STUDIES: CBC today reveals a white blood cell count of 3.1, hemoglobin 8.6, hematocrit is 27.2, and platelets are 41. On 05/02/2017, his white blood cell count was 9.3 and platelets were 119. Chemistry panel today reveals a sodium of 139, potassium 4.9, chloride 113, bicarbonate 19, BUN 38, creatinine 1.6, glucose is 83. Blood cultures are pending. Chest x-ray done on 05/11/2017 showed a left lung density. ASSESSMENT AND PLAN: Chronic foot ulceration, on suppressive antibiotics. Certainly, his pancytopenia may be in part related to Zyvox therapy. An alternative antibiotic would be doxycycline 100 mg twice daily with food. He is instructed to continue his followup appointment with Dr. Frey in the office. Thank you for this consultation.
[2017-05-12 12:13] LABS: HEMATOCRIT 28.4 % (42-52)
[2017-05-12 18:43] LABS: HEMATOCRIT 27.5 % (42-52)
[2017-05-12] MEDS ORDERED: DOXYCYCLINE HYCLATE 100 MG CAP PO SCH (20:00)
--- NOTE | 2017-05-12 20:23 | Progress Note ---
Medicine Progress Note Date & Time of Visit: May 12, 2017 at 20:18. Subjective patient seen resting in bed, in good spirits states he feels better walked in the halls today, denies dyspnea denies bleeding no shoulder/foot pain denies other symptoms Objective Last 8 Hrs Date Time Temp Pulse Resp B/P (MAP) Pulse Ox O2 Delivery O2 Flow Rate FiO2 05/12/17 19:20 75 18 136/84 (101) 98 Room Air 05/12/17 15:38 36.5 76 18 125/82 (96) 98 Room Air 05/12/17 15:30 Room Air Physical Exam: General- oriented x 3, not in distress, speaks in sentences with no effort Eyes- EOMI, anicteric ENT- oropharynx clear Neck- supple, no JVD, no adenopathy Lungs- clear to auscultation b/l Heart- regular rhythm; no murmur, normal rate Abdomen- normal bowel sounds, soft, nontender Extremities- no pretibial edema, no calf tenderness; peripheral pulses intact right shoulder and foot: no signs of active infection Neuro- alert, oriented x 3; no gross focal deficits Skin- warm & dry Laboratory Results: Last 24 Hours Test 05/11/17 22:29 05/12/17 05:28 05/12/17 11:54 05/12/17 18:18 Hemoglobin 8.1 g/dL 8.6 g/dL 9.1 g/dL 9.1 g/dL Hematocrit 24.8 % 27.2 % 28.4 % 27.5 % White Blood Count 3.31 K/uL Red Blood Count 2.81 M/uL Mean Corpuscular Volume 96.8 fL Mean Corpuscular Hemoglobin 30.6 pg Mean Corpuscular Hemoglobin Concent 31.6 g/dl Platelet Count 41 K/uL Mean Platelet Volume 9.9 fL Neutrophils (%) (Auto) 69.5 % Lymphocytes (%) (Auto) 21.8 % Monocytes (%) (Auto) 2.4 % Eosinophils (%) (Auto) 6.0 % Basophils (%) (Auto) 0.0 % Neutrophils # (Auto) 2.30 K/uL Lymphocytes # (Auto) 0.72 K/uL Monocytes # (Auto) 0.08 K/uL Eosinophils # (Auto) 0.20 K/uL Basophils # (Auto) 0.00 K/uL RDW Standard Deviation 68.1 fL RDW Coefficient of Variation 20.1 % Immature Granulocyte % (Auto) 0.3 % Immature Granulocyte # (Auto) 0.01 K/uL Nucleated RBC Absolute Count (auto) 0.03 K/uL Nucleated Red Blood Cells % 0.8 % Large Platelets 1+ Anisocytosis PRESENT Prothrombin Time 33.1 SECONDS Prothromb Time International Ratio 3.0 Sodium Level 139 mmol/L Potassium Level 4.9 mmol/L Chloride Level 113 mmol/L Carbon Dioxide Level 19 mmol/L Anion Gap 7.0 mmol/L Blood Urea Nitrogen 38 mg/dl Creatinine 1.60 mg/dl Est Creatinine Clear Calc Drug Dose 36.6 ml/min Estimated GFR () 45.2 Estimated GFR (Non- 39.0 BUN/Creatinine Ratio 23.5 Random Glucose 83 mg/dl Calcium Level 8.1 mg/dl Assessment & Plan ASSESSMENT: 1. Symptomatic anemia baseline hemoglobin of 8-9 -- s/p 1 unit PRBC Hg improved to 9 dyspnea resolved 2. Worsening (acute on chronic) thrombocytopenia -- likely from Zyvox -- ID consulted transitioned to Doxycycline appreciate Dr. Almonte's input 3. Possible pneumonia on x-ray. -- patient denies cough -- already on Levaquin and Doxycycline repeat CXR as outpatient 3. Chronic foot and shoulder infection -- now on LevaquiN + Doxy 4. Coronary artery disease. 5. PVD sp surgery -- stable continue usual meds 6. atrial fibrillation, rate controlled. INR therapeutic. -- INR 3.0 hold coumadin in light of thrombocytopenia 7. Chronic renal insufficiency, creatinine at baseline 8. NHL sp chemotx currently in remission 9. Past tobacco abuse. DVT prophylaxis -- SCDs for now Dispo -- anticipate d/c home when medically stable Current Inpatient Medications: Current Inpatient Medications Medications (Trade) Dose Ordered Sig/Niall Route Start Time Stop Time Status Last Admin Dose Admin Acetaminophen (Tylenol Tab) 650 mg Q4H PRN PO 05/11/17 21:00 06/10/17 20:59 Hydromorphone HCl (Dilaudid Inj) 0.5 mg Q3H PRN IV 05/11/17 21:00 05/25/17 20:59 Tramadol HCl (Ultram Tab) 25 mg Q6H PRN PO 05/11/17 21:00 06/10/17 20:59 05/12/17 00:28 25 MG Ondansetron HCl (Zofran Inj) 4 mg Q6H PRN IV 05/11/17 21:00 06/10/17 20:59 Amlodipine Besylate (Norvasc Tab) 5 mg DAILY PO 05/12/17 08:00 06/11/17 08:59 05/12/17 08:42 5 MG Atenolol (Tenormin Tab) 50 mg QAM PO 05/12/17 08:00 06/11/17 08:59 05/12/17 08:42 50 MG Atorvastatin Calcium (Lipitor Tab) 10 mg QAM PO 05/12/17 08:00 06/11/17 08:59 05/12/17 08:42 10 MG Levofloxacin (Consult) 1 ea DAILY PRN N/A 05/12/17 08:00 06/11/17 08:59 Albuterol/ Ipratropium (Duoneb) 3 ml Q2H PRN INH 05/11/17 21:00 06/10/17 20:59 Levofloxacin (Levaquin Tab) 250 mg DAILY@2200 PO 05/12/17 22:00 05/17/17 22:01 Doxycycline Hyclate (Vibramycin Cap) 100 mg BID PO 05/12/17 21:00 05/22/17 20:59
[2017-05-12] MEDS: DOXYCYCLINE HYCLATE 100 MG CAP PO SCH (20:34)
[2017-05-12] MEDS ORDERED: LEVOFLOXACIN 250 MG TAB PO SCH (22:00)
[2017-05-13] MEDS ORDERED: VANCOMYCIN INJ 1,250 MG in SODIUM CHLORIDE 0.9% 250ML 250 ML IV SCH (02:00)
[2017-05-13 03:57] VITALS: BP 146/75; PULSE 67; TEMP 36.5; O2SAT 98
[2017-05-13 06:00] LABS: MEAN CELL VOLUME 95.6 fL (80-100); MEAN CORPUSCULAR HEMOGLOBIN 31.3 pg (25-34); MEAN CORPUSCULAR HGB CONC 32.7 g/dl (32-36); RED BLOOD COUNT 2.72 M/uL (4.7-6.1); WHITE BLOOD COUNT 3.28 K/uL (4.8-10.8)
[2017-05-13 06:07] LABS: MEAN PLATELET VOLUME 10.6 fL (7.4-10.4); PLATELET COUNT 37 K/uL (130-400)
[2017-05-13 06:08] LABS: INR 2.5 (0.9-1.1); PROTHROMBIN TIME (PATIENT) 27.9 SECONDS (9.0-12.0)
[2017-05-13 06:36] LABS: BUN/CREATININE RATIO 23.7 (10-20); CALCIUM 7.9 mg/dl (8.5-10.1); CREATININE 1.7 mg/dl (0.60-1.40); POTASSIUM 4.4 mmol/L (3.5-5.1)
[2017-05-13 07:33] VITALS: BP 149/88; PULSE 69; TEMP 36.3; O2SAT 96
[2017-05-13 07:44] LABS: ANISOCYTOSIS PRESENT; BASO % 0.3 %; BASO ABS # 0.01 K/uL (0-0.2); COMPLETE YES; IG% 0.3 %; LYMPH % 25.9 %; LYMPH ABS # 0.85 K/uL (1.2-3.4); NEUT % 56.5 %; TEAR DROP CELLS 1+
[2017-05-13] MEDS: ATORVASTATIN 10 MG TAB PO SCH (08:19)
[2017-05-13] MEDS: AMLODIPINE BESYLATE 5 MG TAB PO SCH (08:20)
[2017-05-13] MEDS: DOXYCYCLINE HYCLATE 100 MG CAP PO SCH (08:20)
[2017-05-13 08:30] VITALS: O2SAT 96
[2017-05-13 11:41] VITALS: BP 148/82; PULSE 69; TEMP 36.2; O2SAT 97
[2017-05-13 14:15] LABS: HEMATOCRIT 26.5 % (42-52); MEAN CORPUSCULAR HEMOGLOBIN 30.8 pg (25-34); MEAN CORPUSCULAR HGB CONC 32.1 g/dl (32-36); RED BLOOD COUNT 2.76 M/uL (4.7-6.1); WHITE BLOOD COUNT 3.78 K/uL (4.8-10.8)
[2017-05-13 14:43] LABS: ANISOCYTOSIS PRESENT; BASO % 0.3 %; BASO ABS # 0.01 K/uL (0-0.2); COMPLETE YES; EOS % 8.2 %; IG% 0.3 %; LYMPH ABS # 1.21 K/uL (1.2-3.4); MONO % 3.7 %; NEUT % 55.5 %; PLATELET COUNT 33 K/uL (130-400)
[2017-05-13 16:19] VITALS: BP 148/90; PULSE 69; TEMP 36.4; O2SAT 99
--- NOTE | 2017-05-13 18:22 | Progress Note ---
Medicine Progress Note Date & Time of Visit: May 13, 2017 at 18:16. Subjective patient seen resting in bed, comfortable states he walked in the halls, no dyspnea, chest pain, dizziness, palpitations denies bleeding no other symptoms states he is ready and would like to be discharged today cannot sleep in the hospital Objective Last 8 Hrs Date Time Temp Pulse Resp B/P (MAP) Pulse Ox O2 Delivery O2 Flow Rate FiO2 05/13/17 16:19 36.4 69 17 148/90 (109) 99 Room Air 05/13/17 11:41 36.2 69 18 148/82 (104) 97 Physical Exam: General- oriented x 3, not in distress, speaks in sentences with no effort Eyes- anicteric Neck- supple, no JVD Lungs- clear breath sounds bilaterally Heart- regular rhythm; no murmur, normal rate Abdomen- normal bowel sounds, soft, nontender Extremities- no pretibial edema, no calf tenderness Neuro- alert, oriented x 3; no gross focal deficits Skin- warm & dry Laboratory Results: Last 24 Hours Test 05/12/17 18:18 05/13/17 05:38 05/13/17 14:04 Hemoglobin 9.1 g/dL 8.5 g/dL 8.5 g/dL Hematocrit 27.5 % 26.0 % 26.5 % White Blood Count 3.28 K/uL 3.78 K/uL Red Blood Count 2.72 M/uL 2.76 M/uL Mean Corpuscular Volume 95.6 fL 96.0 fL Mean Corpuscular Hemoglobin 31.3 pg 30.8 pg Mean Corpuscular Hemoglobin Concent 32.7 g/dl 32.1 g/dl Platelet Count 37 K/uL 33 K/uL Mean Platelet Volume 10.6 fL 10.0 fL Neutrophils (%) (Auto) 56.5 % 55.5 % Lymphocytes (%) (Auto) 25.9 % 32.0 % Monocytes (%) (Auto) 3.0 % 3.7 % Eosinophils (%) (Auto) 14.0 % 8.2 % Basophils (%) (Auto) 0.3 % 0.3 % Neutrophils # (Auto) 1.85 K/uL 2.10 K/uL Lymphocytes # (Auto) 0.85 K/uL 1.21 K/uL Monocytes # (Auto) 0.10 K/uL 0.14 K/uL Eosinophils # (Auto) 0.46 K/uL 0.31 K/uL Basophils # (Auto) 0.01 K/uL 0.01 K/uL RDW Standard Deviation 68.3 fL 68.8 fL RDW Coefficient of Variation 20.1 % 20.2 % Immature Granulocyte % (Auto) 0.3 % 0.3 % Immature Granulocyte # (Auto) 0.01 K/uL 0.01 K/uL Anisocytosis PRESENT PRESENT Tear Drop Cells 1+ Prothrombin Time 27.9 SECONDS Prothromb Time International Ratio 2.5 Sodium Level 140 mmol/L Potassium Level 4.4 mmol/L Chloride Level 112 mmol/L Carbon Dioxide Level 20 mmol/L Anion Gap 8.0 mmol/L Blood Urea Nitrogen 40 mg/dl Creatinine 1.70 mg/dl Est Creatinine Clear Calc Drug Dose 34.4 ml/min Estimated GFR () 42.0 Estimated GFR (Non- 36.2 BUN/Creatinine Ratio 23.7 Random Glucose 81 mg/dl Calcium Level 7.9 mg/dl Assessment & Plan ASSESSMENT: 1. Symptomatic anemia baseline hemoglobin of 8-9 -- s/p 1 unit PRBC Hg improved to 9--> 8.5 dyspnea resolved -- repeat CBC tomorrow needs to monitor CBC closely 2. Thrombocytopenia -- likely from Zyvox -- ID consulted transitioned to Doxycycline -- Plt 33 no signs of bleeding -- will need to repeat CBC tomorrow patient adamantly requesting to go home today explained that staying overnight, checking CBC tomorrow would be ideal to address low counts immediately and low Hg and Plt may lead to acute symptoms, bleeding and even fatal consequences, he accepts and understands the risks, would like to go home today and repeat CBC tomorrow and monitor CBC as outpatient -- will provide script for repeat CBC 3. Possible pneumonia on x-ray -- CXR: IMPRESSION: Patchy density left lung base which could be due to atelectasis or pneumonia. The heart is mildly enlarged. -- patient denies cough -- already on Levaquin and Doxycycline repeat CXR as outpatient 3. Chronic foot and shoulder infection -- now on Levaquin + Doxy -- ff up with ID in 1-2 weeks 4. Coronary artery disease. 5. PVD sp surgery -- stable continue usual meds 6. atrial fibrillation, rate controlled. INR therapeutic. -- INR 2.5 HOLD coumadin in light of thrombocytopenia will inform coumadin clinic 7. Chronic renal insufficiency, creatinine at baseline 8. NHL sp chemotx currently in remission 9. Past tobacco abuse. DVT prophylaxis -- SCDs for now Dispo d/c home ff up with PCP in 3-5 days Current Inpatient Medications: Current Inpatient Medications Medications (Trade) Dose Ordered Sig/Niall Route Start Time Stop Time Status Last Admin Dose Admin Acetaminophen (Tylenol Tab) 650 mg Q4H PRN PO 05/11/17 21:00 06/10/17 20:59 Hydromorphone HCl (Dilaudid Inj) 0.5 mg Q3H PRN IV 05/11/17 21:00 05/25/17 20:59 Tramadol HCl (Ultram Tab) 25 mg Q6H PRN PO 05/11/17 21:00 06/10/17 20:59 05/12/17 00:28 25 MG Ondansetron HCl (Zofran Inj) 4 mg Q6H PRN IV 05/11/17 21:00 06/10/17 20:59 Amlodipine Besylate (Norvasc Tab) 5 mg DAILY PO 05/12/17 08:00 06/11/17 08:59 05/13/17 08:20 5 MG Atenolol (Tenormin Tab) 50 mg QAM PO 05/12/17 08:00 06/11/17 08:59 05/13/17 08:19 50 MG Atorvastatin Calcium (Lipitor Tab) 10 mg QAM PO 05/12/17 08:00 06/11/17 08:59 05/13/17 08:19 10 MG Levofloxacin (Consult) 1 ea DAILY PRN N/A 05/12/17 08:00 06/11/17 08:59 Albuterol/ Ipratropium (Duoneb) 3 ml Q2H PRN INH 05/11/17 21:00 06/10/17 20:59 Levofloxacin (Levaquin Tab) 250 mg DAILY@2200 PO 05/12/17 22:00 05/17/17 22:01 05/12/17 22:26 250 MG Doxycycline Hyclate (Vibramycin Cap) 100 mg BID PO 05/12/17 21:00 05/22/17 20:59 05/13/17 08:20 100 MG
[2017-05-13] MEDS ORDERED: DXY100 PO (18:25)
[2017-05-13 18:27] VITALS: BP 148/90; PULSE 69; TEMP 36.4; O2SAT 99
--- NOTE | 2017-05-13 18:30 | Discharge Instructions ---
Discharge Instructions Date of Service May 13, 2017. Admission Reason for Admission: Symptomatic Anemia Discharge Discharge Diagnosis / Problem: SYMPTOMATIC ANEMIA Discharge Goals Goal(s): Diagnostic testing, Therapeutic intervention Activity Recommendations Activity Limitations: as noted below (INCREASE ACTIVITY GRADUALLY TOLERATED) Lifting Limitations: until after follow-up appointment Exercise/Sports Limitations: until after follow-up appointment . Instructions / Follow-Up Instructions / Follow-Up PLEASE REVIEW YOUR NEW MEDICATION LIST AND FOLLOW INSTRUCTIONS CAREFULLY. STOP TAKING LINEZOLID (ZYVOX). DO NOT TAKE COUMADIN FOR NOW BECAUSE YOUR PLATELET COUNT IS TOO LOW. PLEASE RETURN TO ER OR CALL 911 IF YOU HAVE SIGNS OF BLEEDING. CALL PRIMARY CARE PHYSICIAN OR RETURN TO ER IF YOU HAVE RECURRENCE OF SYMPTOMS. RETURN TO [facility] TOMORROW FOR BLOOD WORK (CBC). FOLLOW UP WITH PRIMARY CARE PHYSICIAN IN 3-5 DAYS. FOLLOW UP WITH INFECTIOUS DISEASE SPECIALIST DR. TALBERT IN 1 WEEK. Current Hospital Diet Patient's current hospital diet: AHA Diet (Heart Healthy) Discharge Diet Recommended Diet: AHA Diet (Heart Healthy) Pending Studies Studies pending at discharge: yes List of pending studies: REPEAT CBC TOMORROW 05/13/17 Medical Emergencies . Who to Call and When: Medical Emergencies: If at any time you feel your situation is an emergency, please call 911 immediately. . Non-Emergent Contact Non-Emergency issues call your: Primary Care Provider Call Non-Emergent contact if: you have a fever, you have any medication questions . . "Provider Documentation" section prepared by Chapito Pimentel. . VTE Core Measure Inpt VTE Proph given/why not?: SCD's
[2017-05-14] MEDS ORDERED: VANCOMYCIN TROUGH SCH (01:30)
--- NOTE | 2017-05-14 20:46 | Discharge Summary ---
Discharge Summary Date of Service May 14, 2017. Discharge Summary Admission Date: May 11, 2017 at 20:29 Discharge Date: May 13, 2017 Discharge Disposition: Home Principal Diagnosis: Symptomatic anemia Secondary Diagnoses/Problems: Please refer to hospital course below. Procedures: pRBC transfusion 1 unit Pending Studies/Follow-Up: Repeat CBC on ff up with PCP; Coumadin on hold in light of thrombocytopenia; Please refer to hospital course below. Medication Reconciliation New Medications: Doxycycline Hyclate (Doxycycline Hyclate) 100 Mg Cap 100 MG PO BID for 14 Days, #28 CAP 0 Refills Continued Medications: Allopurinol (Zyloprim) 100 Mg Tab 200 MG PO HS, TAB 5 Refills Amlodipine (Norvasc) 5 Mg Tab 5 MG PO DAILY for 30 Days, #30 TAB 0 Refills Atenolol (Atenolol) 50 Mg Tab 50 MG PO QAM for 30 Days, #30 TAB Atorvastatin (Atorvastatin Calcium) 10 Mg Tab 10 MG PO QAM for 30 Days, #30 TAB Levofloxacin (Levaquin) 250 Mg Tab 250 MG PO DAILY for 14 Days, #14 TAB 0 Refills Discontinued Medications: Linezolid (Zyvox) 600 Mg Tab 600 MG PO BID for 14 Days, #28 TAB 0 Refills Warfarin Sod (Jantoven) 5 Mg Tab 2.5 MG PO 4XWK, TAB wednesday, wednesday, wednesday, and wednesday Warfarin Sod (Coumadin) 5 Mg Tab 5 MG PO 3XWK wednesday, , and wednesday Admission Information HPI (per Admitting provider): Medical history significant for CAD, PVD, hypertension, chronic renal insufficiency (baseline creatinine of 1.5 to 1.), AFib, on anticoagulation; history of non-Hodgkin's lymphoma, status post chemotherapy (currently in remission), hx chronic right shoulder and right foot infection, ongoing Levaquin and Zyvox course, past tobacco abuse; chronic anemia (baseline hemoglobin of 8-9), chronic thrombocytopenia. Patient was admitted about 2 weeks ago for cellulitis and infected right foot ulcer and shoulder. The patient discharged on Levaquin and Daptomycin course. Recent confinement last week for rash attributed to either daptomycin or aztreonam. At the time of admission, patient had cough symptoms productive of clear sputum. Daptomycin discontinued. Patient discharged on Levaquin and Zyvox course for at least 2 more weeks after consultation with ID. Patient was seen at PCP's office with shortness of breath especially on exertion. No unusual leg swelling. No chest pain. Same cough symptoms productive of clear sputum. No fever, no chills. No black or bloody stool. Sent to the Emergency Room. Px received Cefepime for possible pneumonia, Physical Exam (per Admitting): VITAL SIGNS: Blood pressure noted to be 146/79, pulse rate 60, RR 18, temperature 36.4, sats 98% on room air. GENERAL: Noted to be pleasant, no respiratory distress. Looks younger for stated age. SKIN: Pallor. HEENT: Pale palpable conjunctivae. Dry mucosa. NECK: No JVD. supple CHEST: Clear to auscultation. HEART: Irregular. ABDOMEN: Soft. NT EXTREMITIES: No edema, no tenderness. Dressing on the right foot. NEUROLOGIC: No gross focality. Hospital Course ASSESSMENT: 1. Symptomatic anemia - baseline hemoglobin of 8-9 -- s/p 1 unit PRBC Hg improved to 9--> 8.5 dyspnea resolved -- needs to monitor CBC closely repeat CBC on ff up with PCP within 1 week 2. Thrombocytopenia -- likely from Zyvox -- ID consulted transitioned to Doxycycline -- Plt 33 on discharge no signs of bleeding --patient adamantly requesting to go home as soon as possible -- provided script for repeat CBC as outpatient the day after discharge CBC 05/14/17 reviewed: stable, repeat in 1 week after discharge 3. Possible pneumonia on x-ray -- CXR: IMPRESSION: Patchy density left lung base which could be due to atelectasis or pneumonia. -- patient denies cough -- already on Levaquin and Doxycycline repeat CXR as outpatient 3. Chronic foot and shoulder infection -- now on Levaquin + Doxy (needs at least 2 week course per ID) -- ff up with ID Clinic Dr. Talbert in 1-2 weeks 4. Coronary artery disease. -- no cardiac symptoms 5. PVD sp surgery -- stable continue usual meds 6. atrial fibrillation, rate controlled. INR therapeutic. -- INR 2.5 HOLD coumadin in light of thrombocytopenia will inform coumadin clinic, resume when Plt level > 100k 7. Chronic renal insufficiency, creatinine at baseline 8. NHL sp chemotx currently in remission 9. Past tobacco abuse. Dispo d/c home ff up with PCP in 3-5 days ff up with Coumadin clinic next week ID clinic in 1-2 weeks Total time spent on discharge = 30 mins This includes examination of the patient, discharge planning, medication reconciliation, and communication with other providers. Discharge Instructions Discharge Instructions Date of Service May 13, 2017. Admission Reason for Admission: Symptomatic Anemia Discharge Discharge Diagnosis / Problem: SYMPTOMATIC ANEMIA Discharge Goals Goal(s): Diagnostic testing, Therapeutic intervention Activity Recommendations Activity Limitations: as noted below (INCREASE ACTIVITY GRADUALLY TOLERATED) Lifting Limitations: until after follow-up appointment Exercise/Sports Limitations: until after follow-up appointment . Instructions / Follow-Up Instructions / Follow-Up PLEASE REVIEW YOUR NEW MEDICATION LIST AND FOLLOW INSTRUCTIONS CAREFULLY. STOP TAKING LINEZOLID (ZYVOX). DO NOT TAKE COUMADIN FOR NOW BECAUSE YOUR PLATELET COUNT IS TOO LOW. PLEASE RETURN TO ER OR CALL 911 IF YOU HAVE SIGNS OF BLEEDING. CALL PRIMARY CARE PHYSICIAN OR RETURN TO ER IF YOU HAVE RECURRENCE OF SYMPTOMS. RETURN TO [facility] TOMORROW FOR BLOOD WORK (CBC). FOLLOW UP WITH PRIMARY CARE PHYSICIAN IN 3-5 DAYS. FOLLOW UP WITH INFECTIOUS DISEASE SPECIALIST DR. TALBERT IN 1 WEEK. Current Hospital Diet Patient's current hospital diet: AHA Diet (Heart Healthy) Discharge Diet Recommended Diet: AHA Diet (Heart Healthy) Pending Studies Studies pending at discharge: yes List of pending studies: REPEAT CBC TOMORROW 05/13/17 Medical Emergencies . Who to Call and When: Medical Emergencies: If at any time you feel your situation is an emergency, please call 911 immediately. . Non-Emergent Contact Non-Emergency issues call your: Primary Care Provider Call Non-Emergent contact if: you have a fever, you have any medication questions . . "Provider Documentation" section prepared by Chapito Pimentel. . VTE Core Measure Inpt VTE Proph given/why not?: SCD's
== END 2017-05-13 18:56 | disposition home health service (06) | DRG 808 ==
LOC: C.EDB 15:27 → ENRESERV 20:19 → C.4E 20:29 → EDBEDREQ 20:39
PROVIDERS: ADMIT Internal Medicine; ATTEND Internal Medicine
DX: D61.818 Other pancytopenia (principal); J18.9 Pneumonia, unspecified organism; C85.90 Non-Hodgkin lymphoma, unspecified, unspecified site; T36.8X5A Adverse effect of other systemic antibiotics, initial encounter; L97.519 Non-pressure chronic ulcer of other part of right foot with unspecified severity; L08.9 Local infection of the skin and subcutaneous tissue, unspecified; I48.91 Unspecified atrial fibrillation; N18.3 Chronic kidney disease, stage 3 (moderate); E78.5 Hyperlipidemia, unspecified; I12.9 Hypertensive chronic kidney disease with stage 1 through stage 4 chronic kidney disease, or unspecified chronic kidney disease; I25.10 Atherosclerotic heart disease of native coronary artery without angina pectoris; Z79.01 Long term (current) use of 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; Z79.2 Long term (current) use of antibiotics; Z79.899 Other long term (current) drug therapy; Z87.891 Personal history of nicotine dependence

== ENCOUNTER → 2017-05-14 | Outpatient (CLI) | payer OTHER ==
[~2017-05-14] MED LIST changes: -CMD5 PO; +DXY100 PO; -LINE1TAB6 PO; -MGNO400 PO
[2017-05-14 15:03] LABS: HEMATOCRIT 29.8 % (42-52); MEAN CORPUSCULAR HEMOGLOBIN 30.6 pg (25-34); MEAN CORPUSCULAR HGB CONC 31.2 g/dl (32-36); RED BLOOD COUNT 3.04 M/uL (4.7-6.1); WHITE BLOOD COUNT 4.41 K/uL (4.8-10.8)
[2017-05-14 15:14] LABS: MEAN PLATELET VOLUME 10.9 fL (7.4-10.4); PLATELET COUNT 40 K/uL (130-400)
== END | disposition home or self-care (01) ==
LOC: C.LAB 12:53
PROVIDERS: ATTEND Internal Medicine
DX: D69.6 Thrombocytopenia, unspecified (principal); D64.9 Anemia, unspecified

== ENCOUNTER → 2017-05-21 | Outpatient (CLI) | payer OTHER ==
--- NOTE | 2017-05-21 11:41 | DIAGNOSTIC IMAGING REPORT ---
ULTRASOUND venous Doppler ultrasound of the right lower extremity CLINICAL HISTORY: LEG EDEMA RIGHT COMPARISON STUDY: No previous studies for comparison. FINDINGS: Real-time and color flow Doppler imaging were performed. Flow was seen within the femoral, popliteal and calf veins with no intraluminal thrombus demonstrated. The saphenous vein is patent. IMPRESSION: No evidence of right lower extremity DVT Electronically signed by: Juvenal White M.D. 05/21/2017 11:39 AM Dictated Date/Time: 05/21/2017 11:39 AM
== END | disposition home or self-care (01) ==
LOC: C.ULTR 11:04
PROVIDERS: ATTEND Internal Medicine Cardiovascular Disease
DX: R60.0 Localized edema (principal)

== ENCOUNTER → 2017-06-24 | Outpatient (CLI) | payer OTHER | END | disposition home or self-care (01) | LOC: C.LABSPEC 16:57 | PROVIDERS: ATTEND Podiatrist Foot & Ankle Surgery | DX: L97.509 Non-pressure chronic ulcer of other part of unspecified foot with unspecified severity (principal) ==

== ENCOUNTER 2017-07-12 10:10 | Inpatient (IN) | payer OTHER ==
[~2017-07-12] VITALS: Ht 180.3 cm; Wt 88.6 kg
[2017-07-12 11:40] VITALS: BP 188/103; PULSE 74; TEMP 36.4; O2SAT 97; Ht 180.3 cm; Wt 88.6 kg
--- NOTE | 2017-07-12 12:13 | HISTORY & PHYSICAL EXAMINATION ---
DATE OF ADMISSION: HISTORY OF PRESENT ILLNESS: This is an 86-year-old male recently sent to me for evaluation of ulcerations from the [place]. The patient had an ulceration on the plantar aspect of his right foot which we have been following for the past few weeks. On of last week an x-ray showed gas in the subcutaneous soft tissue. At that time he was refusing admission to the hospital due to the game. It was I&D'd in the office and he came back to the office this morning after taking the IV antibiotics. The patient has had a history of infections in his right shoulder and his right foot. He notes 2 admissions in April and May where Dr. Kenny had washed out his shoulder. He had previous shoulder replacement by Dr. Walters several years ago and then notes an infection that developed in his shoulder recently. The patient has not had any surgery on his foot; however, notes he has had chronic ulcerations for long period of time. The patient is a relatively new patient of [facility] as he is referred for care from the [facility]. The patient denies fevers, chills and night sweats. He notes improvement since starting the antibiotics at the end of last week and patient is in agreement to hospital admission at this time. PAST SURGICAL HISTORY: Knee replacement bilaterally in 1993, total shoulder surgery in 2009, carotid endarterectomy, cholecystectomy, left hip surgery and rotator cuff repair prior to the total joint. PAST MEDICAL HISTORY: Anemia, osteoarthritis, chronic kidney disease, hypertension, dyslipidemia, large B cell lymphoma and AFib. MEDICATIONS: Cipro, atorvastatin, atenolol, allopurinol, amlodipine. ALLERGIES: SULFA, PENICILLIN, AZTREONAM, DAPTOMYCIN, Indapamide, SULFA DRUGS. FAMILY HISTORY: Unremarkable. SOCIAL HISTORY: The patient admits to alcohol use, drinking described as social. REVIEW OF SYSTEMS: Unremarkable except for right foot swelling and redness. PHYSICAL EXAMINATION: CONSTITUTIONAL: The patient appears well-developed and nourished with good attention in grooming and body habitus. HEAD AND FACE: Normocephalic, atraumatic without any gross head, face, or neck masses. EYES: Conjunctival and pupillary reaction to light and accommodation normal. EARS, NOSE, MOUTH, AND THROAT: Unremarkable. NECK: Neck is supple. Trachea is midline. CARDIOVASCULAR: Normal S1, S2 without murmur, gallops, rubs, or clicks noted. RESPIRATORY: Chest is symmetric. No scars are noted on the chest. There is a right shoulder scar. There is no port or pacemaker. LUNGS: Clear to auscultation bilaterally and equal. GASTROINTESTINAL: Kidney showed no abnormalities, masses, tenderness, or rigidity. EXTREMITIES: Lower extremity vascular exam, dorsalis pedis is 1/4. Posterior tibial pulses nonpalpable secondary to edema in his legs and digital hair is absent. There is swelling around the forefoot of the right foot with evidence of moderate edema. DERMATOLOGIC: There is no crepitance palpable in the tissue; however, there is an ulceration on the plantar aspect of the right third MTPJ that probes directly to bone. Exudates include serous drainage. No purulence. There is no crepitus palpable. There is erythema and maceration noted to the right third toe. The erythema is more around the plantar aspect of the right second, third and fourth with mild dorsal involvement. NEUROLOGIC: Epicritic sensation per [place] monofilament 5.07 is absent. MUSCULOSKELETAL: Muscle tone is normal. Enlarged dorsal medial eminence of bone, crowding of the toes 1 through 5. The right second digit is overlapping the right 2nd and 3rd. IMPRESSION: 1. Cellulitis, right foot. 2. Septic arthritis, right third MTPJ with gas gangrene noted on x-ray and probable osteomyelitis. 3. Peripheral neuropathy, unknown causation. 4. Pain. 5. Difficulty walking. 6. Cellulitis. 7. History of septic arthritis of the right shoulder in summer of 2017. PLAN: Spoke with [facility] Hospitalist regarding IV admission. Instructed the patient due to probing to bone MRI from previous admission was unequivocal however, due to the probing of bone with gas in the subcutaneous soft tissue. We reviewed the procedure, risks, and complications with the digital amputation, resection the left third metatarsal. This will be performed under local IV sedation at the hospital. The procedure, risks and complications were fully reviewed with the patient. Consent form, foot diagram and illustration reviewed in all their entirety. All the patient's questions were answered. Complications were discussed in detail with the patient including pain, infection, swelling that may or may not be excessive, pins and needles feeling, numbness, metatarsalgia, excessive bleeding, delay or nonhealing bone, delay or nonhealing of skin, enlarged scar, failure of the procedure, reoccurrence or worsening of condition that may not require further surgery, adverse reaction to anesthesia, allergic reaction to suture or other implant material, loss of toe, foot or leg, more proximal amputation, short toe, elevated toe, transfer lesion or callus, peripheral neurovascular complications such as phlebitis, damage to nerves or vascular structures, significant chronic pain, chronic nerve pain, damage, and general medical complications. The patient will be required to be in a surgery shoe and not return to dress shoe for 6-12 weeks depending on the postop edema. The patient is aware this is an elective type procedure and I recommend a second opinion. The patient stated they understood. Consent form was signed with a copy of the foot diagram and illustration given to the patient. The patient will be empirically started on vancomycin due to the multiple allergies, will be renally dosed due to his kidney issues by the pharmacy department. We will obtain another x-rays, previous films show no gas over the base of the right third digit. 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 HERNANDEZ
[2017-07-12 14:01] VITALS: BP 175/81
[2017-07-12] MEDS ORDERED: NURSING VERBAL MED ORDER ONE (14:15)
[2017-07-12] MEDS ORDERED: VANCOMYCIN CONSULT ACTIVE PRN (14:30)
[2017-07-12] MEDS ORDERED: VANCOMYCIN INJ 1,750 MG in SODIUM CHLORIDE 0.9% 500ML 500 ML IV ONE (15:00)
[2017-07-12] MEDS ORDERED: CIPROFLOXACIN CONSULT ACTIVE PRN ×2 (15:15)
--- NOTE | 2017-07-12 15:51 | DIAGNOSTIC IMAGING REPORT ---
CHEST 2 VIEWS ROUTINE CLINICAL HISTORY: Preoperative chest COMPARISON STUDY: May 11, 2017 FINDINGS: The cardiac and mediastinal contours remain stable. There is no failure. There is no focal pulmonary consolidation. There are no pleural effusions. There is minor basilar interstitial thickening which is felt to be chronic. There are postsurgical changes of bilateral reverse total shoulder arthroplasties[ IMPRESSION: No active disease in the chest. Electronically signed by: Juvenal White M.D. 07/12/2017 3:50 PM Dictated Date/Time: 07/12/2017 3:50 PM
[2017-07-12 15:57] LABS: CREATININE 1.18 mg/dl (0.60-1.40)
--- NOTE | 2017-07-12 16:00 | DIAGNOSTIC IMAGING REPORT ---
R FOOT MIN 3 VIEWS ROUTINE HISTORY: 86 years-old Male RIGHT FOOT OSTEOMYELITIS preoperative study in a patient with right foot osteomyelitis COMPARISON: Right foot radiographs 04/24/2017 TECHNIQUE: 3 views of the right foot FINDINGS: Severe hallux valgus deformity is again noted with moderate to severe first MTP joint osteoarthritis. The bones are mildly demineralized. Hammertoe deformities are noted throughout with associated subluxation and remodeling changes of the second through third metatarsophalangeal joints. Calcaneal enthesophytes noted. Moderate midfoot degenerative changes are also present. There is moderate soft tissue swelling about the foot with vascular calcifications. There is increased lucency with cortical irregularity involving the third metatarsal head which appears new from comparison. No acute fracture or dislocation. IMPRESSION: 1. Moderate soft tissue swelling without acute fracture or dislocation. 2. Questioned lucent changes of the third metatarsal head which appear new from comparison study 04/24/2017. Correlate with clinical exam to exclude ulcer with osteomyelitis. 2. Hallux valgus deformity with chronic changes of the MTP joints as above. 3. Peripheral vascular disease. The above report was generated using voice recognition software. It may contain grammatical, syntax or spelling errors. Electronically signed by: Walter Deshpande M.D. 07/12/2017 3:58 PM Dictated Date/Time: 07/12/2017 3:54 PM
[2017-07-12] MEDS ORDERED: FENTANYL CITRATE INJ 50 MCG/1 ML 2 ML VIAL ONE (16:11)
[2017-07-12] MEDS ORDERED: PROPOFOL IV EMULSION 10 MG/ML 20 ML VIAL IV ONE (16:11)
[2017-07-12] MEDS ORDERED: MIDAZOLAM HCL 1 MG/ML 2ML VIAL ONE (16:11)
[2017-07-12] MEDS ORDERED: LIDOCAINE HCL 2% 2 ML VIAL (20MG/ML) ONE (16:11)
[2017-07-12] MEDS: AMLODIPINE BESYLATE 5 MG TAB PO SCH (16:12)
[2017-07-12] MEDS: ATORVASTATIN 10 MG TAB PO SCH (16:13)
[2017-07-12 16:15] LABS: BASO % 0.3 %; BASO ABS # 0.01 K/uL (0-0.2); COMPLETE YES; EOS % 0.9 %; IG% 0.3 %; LYMPH % 36.4 %; LYMPH ABS # 1.24 K/uL (1.2-3.4); MEAN CORPUSCULAR HEMOGLOBIN 31.7 pg (25-34); MEAN CORPUSCULAR HGB CONC 31.7 g/dl (32-36); MEAN PLATELET VOLUME 10.3 fL (7.4-10.4); MONO % 4.4 %; NEUT % 57.7 %; PLATELET COUNT 132 K/uL (130-400); WHITE BLOOD COUNT 3.41 K/uL (4.8-10.8)
[2017-07-12 16:35] LABS: INR 1.9 (0.9-1.1); PARTIAL THROMBOPLASTIN RATIO 1.5; PROTHROMBIN TIME (PATIENT) 20.7 SECONDS (9.0-12.0)
[2017-07-12] MEDS ORDERED: FENTANYL CITRATE INJ 50 MCG/1 ML 2 ML VIAL IV PRN (16:45)
[2017-07-12] MEDS ORDERED: LABETALOL HCL IV 5 MG/ML 20ML IV PRN (16:45)
[2017-07-12] MEDS ORDERED: HYDROmorphone INJ 1 MG/ML SYR IV PRN (16:45)
[2017-07-12] MEDS ORDERED: EpHEDrine SULFATE INJ 50 MG/ML AMP IV PRN (16:45)
[2017-07-12] MEDS ORDERED: MEPERIDINE HCL 25 MG/ML CARP IV PRN (16:45)
[2017-07-12] MEDS ORDERED: ONDANSETRON INJ 2 MG/ML 2 ML VIAL IV PRN (16:45)
[2017-07-12] MEDS ORDERED: ATROPINE SULFATE 0.1 MG/ML 5ML SYR IV PRN (16:45)
--- NOTE | 2017-07-12 16:46 | Pharmacy Progress Note ---
Pharmacy Antibiotic Consult Date of Service: Jul 12, 2017. Pharmacy Dosing Scope Pharmacy is consulted to initiate Vancomycin IV and Cipro PO dosing therapy, order appropriate labs and adjust drug dose/frequency. Subjective The patient is a 86 year old male admitted on Jul 12, 2017 at 11:05. Objective Height (Feet): 5 Height (Inches): 11.00 Weight (Kilograms): 88.630 Lab Results (24hrs): Test 07/12/17 15:13 White Blood Count 3.41 K/uL (4.8-10.8) Red Blood Count 3.60 M/uL (4.7-6.1) Hemoglobin 11.4 g/dL (14.0-18.0) Hematocrit 36.0 % (42-52) Mean Corpuscular Volume 100.0 fL (80-100) Mean Corpuscular Hemoglobin 31.7 pg (25-34) Mean Corpuscular Hemoglobin Concent 31.7 g/dl (32-36) Platelet Count 132 K/uL (130-400) Mean Platelet Volume 10.3 fL (7.4-10.4) Neutrophils (%) (Auto) 57.7 % Lymphocytes (%) (Auto) 36.4 % Monocytes (%) (Auto) 4.4 % Eosinophils (%) (Auto) 0.9 % Basophils (%) (Auto) 0.3 % Neutrophils # (Auto) 1.97 K/uL (1.4-6.5) Lymphocytes # (Auto) 1.24 K/uL (1.2-3.4) Monocytes # (Auto) 0.15 K/uL (0.11-0.59) Eosinophils # (Auto) 0.03 K/uL (0-0.5) Basophils # (Auto) 0.01 K/uL (0-0.2) RDW Standard Deviation 64.6 fL (36.4-46.3) RDW Coefficient of Variation 17.4 % (11.5-14.5) Immature Granulocyte % (Auto) 0.3 % Immature Granulocyte # (Auto) 0.01 K/uL (0.00-0.02) Creatinine 1.18 mg/dl (0.60-1.40) Est Creatinine Clear Calc Drug Dose 49.6 ml/min Estimated GFR () 65.3 Estimated GFR (Non- 56.3 Assessment & Plan Assessment Pt is an 86 year old male with cellulitis, Septic arthritis, right third MTPJ with gas gangrene noted on x-ray and probable osteomyelitis. He was on Cipro at home. Dose unknown at this time. Pharmacy is consulted to dose vancomycin and cipro for treatment of osteomyelitis. He has multiple allergies which were considered when selecting antibiotic regimen. Pt is also ordered Clindamycin 900mg IV q 8 hours for anaerobic coverage. PK parameters used: half-life=15 hrs Ke=0.046 Vd=62. Plan Vancomycin * Vancomycin (20mg/kg) 1750mg IV x 1, then vanco (14.1mg/kg) 1.25gm IV q 16 hours * Trough level ordered for 07/14 @ 1530 Cipro * 500mg po BID Pharmacy will continue to follow and will adjust dose/frequency as necessary. Thank you
[2017-07-12 17:09] LABS: ALKALINE PHOSPHATASE 112 U/L (45-117); ALT/SGPT 17 U/L (12-78); AST/SGOT 25 U/L (15-37); BLOOD UREA NITROGEN 20 mg/dl (7-18); BUN/CREATININE RATIO 16.4 (10-20); CHLORIDE 106 mmol/L (98-107); GLUCOSE 81 mg/dl (70-99); POTASSIUM 3.6 mmol/L (3.5-5.1); SODIUM 139 mmol/L (136-145)
[2017-07-12] MEDS: CLINDAMYCIN IV 900 MG in DEXTROSE 5% 50ML 50 ML IV SCH (17:25)
[2017-07-12] MEDS: CIPROFLOXACIN 500 MG TAB PO SCH (17:25)
[2017-07-12 18:40] VITALS: O2SAT 98
--- NOTE | 2017-07-12 18:55 | Anesthesiology Progress Note ---
Pre-OP Anesthesia Assessment Date of Note Jul 12, 2017. Review patient information reviewed, chart reviewed, labs reviewed, acceptable for surgery Notes Elderly male has had non-healing ulcer right foot. Diagnosed with osteomyelitis and scheduled for debridement, possible amputation right third toe and metatarsal, possible right transmetatarsal amputation. PMH includes HTN , hypercholesterolemia, PVD, chronic atrial fibrilation, peripheral neuropathy, anemia, renal insufficiency. He has had anesthesia numerous times without complications. He reports being active including golfing and fishing without significant limitations. It is noted that he has been anticoagulated until recently and INR is presently elevated. He is otherwise suitable candidate for proposed surgery. MAC vs GA described. He expressed understanding and signed informed consent. Recommendation of anesthetic will be determined by attending anesthesiologist at time of surgery. Pt should be NPO after MN except for meds with sips of water.
--- NOTE | 2017-07-12 19:30 | INTERNAL MEDICINE CONSULTATION ---
DATE OF CONSULTATION: 07/12/2017 CHIEF COMPLAINT: Admitted for right foot osteomyelitis. HISTORY OF PRESENT ILLNESS: This is an 86-year-old male with past medical history significant for coronary artery disease; peripheral vascular disease; hypertension; chronic kidney disease, baseline creatinine about 1.5; atrial fibrillation, on anticoagulation; history of non-Hodgkin lymphoma, status post chemotherapy, currently in remission; history of right shoulder and right foot infection, had right shoulder surgery done; chronic anemia, baseline hemoglobin around 9; chronic thrombocytopenia; was admitted for right foot osteomyelitis by podiatry and we are consulted for medical management. The patient saw podiatry last Wednesday and was found to have osteomyelitis and he was given IV antibiotics and outpatient I&D was done and was advised to get admitted, but patient wanted to watch the football game. Today podiatry admitted to hospital for further debridement and IV antibiotics. The patient does have some soreness at infection site, otherwise, denies any complaint. Denies any headaches. No dizziness, no blurred vision, no sore throat, no nausea, no vomiting, no chest pain, no shortness of breath, no cough, no abdominal pain. Normal bowel and bladder movements. Currently, resting comfortably. The patient says he developed a callus in his right foot about 2 years ago, it got opened up and since then it is not healing. He is following with doctors on and off since last 1-1/2 years, but he it is not getting better. ALLERGIES: AZTREONAM, DAPTOMYCIN, INDAPAMIDE, PENICILLIN, SULFA and BACTRIM. PAST MEDICAL HISTORY: As mentioned above. PAST SURGICAL HISTORY: Orthopedic procedures, cholecystectomy, hip surgery, shoulder surgery. FAMILY HISTORY: Significant for arthritis. SOCIAL HISTORY: Past tobacco abuse. No alcohol abuse. Retired [employer], lives with his son. MEDICATIONS: The patient is on allopurinol 200 mg p.o. at bedtime, amlodipine 5 mg p.o. daily, atenolol 50 mg p.o. daily, atorvastatin 10 mg p.o. a.m. REVIEW OF SYMPTOMS: As per HPI. Rest of review of symptoms negative. PHYSICAL EXAMINATION: GENERAL: The patient is of moderate-built, not in distress. VITAL SIGNS: Temperature 36.4, pulse 74, respiratory rate 16, blood pressure 175/81, oxygen 97% on room air. HEENT: No pallor, no icterus. NECK: No JVD, no neck masses, no carotid bruits. CARDIOVASCULAR: S1, S2 heard. Regular rate and rhythm. No murmur, no gallop. RESPIRATORY SYSTEM: Clear to auscultation bilaterally. No accessory muscle use. No wheezing, no crackles. ABDOMEN: Soft, bowel sounds present. Nontender. No distention. CENTRAL NERVOUS SYSTEM: Cranial nerves II-XII grossly intact. Nonfocal. EXTREMITIES: Right foot plantar aspect open area ulcer about 0.5 x 0.5 cm seen with bloody discharge. LABS: Pending. ASSESSMENT AND PLAN: This is an 86-year-old male who presents with right foot osteomyelitis. 1. Right foot osteomyelitis. The patient is started on IV vancomycin and IV clindamycin. Podiatry is planning for debridement. Consult ID in am . Wound care consult. Monitor on medical floor. 2. History of atrial fibrillation . On atenolol. The patient's last admission Coumadin was held for anemia and thrombocytopenia., but patient says he is still taking Coumadin but he did not take today. We will follow the PT/INR and adjust his Coumadin dose. 3. Chronic anemia and thrombocytopenia. We will follow the labs. 4. Gout. Continue allopurinol. 5. Hypertension. Continue amlodipine and atenolol. We will monitor the blood pressure. 6. History of non-Hodgkin lymphoma, status post chemotherapy. 7. Hx of CAd. On b anton. stable 8.Hx of CKD stage 3. Baseline cr around 1.5 will f/u labs 9. Deep venous thrombosis prophylaxis, sequential compression devices for now. DISPOSITION: As per podiatry. Level 1 full code. MTDD
[2017-07-12] MEDS: ALLOPURINOL 100 MG TAB PO SCH (20:57)
[2017-07-12] MEDS ORDERED: LORAZEPAM 0.5 MG TAB PO ONE (21:00)
[2017-07-12 23:11] VITALS: BP 110/69; PULSE 63; TEMP 36.6; O2SAT 94
[2017-07-13] MEDS: CLINDAMYCIN IV 900 MG in DEXTROSE 5% 50ML 50 ML IV SCH ×2 (00:16→07:40)
[2017-07-13] MEDS: CIPROFLOXACIN 500 MG TAB PO SCH ×2 (06:27→21:05)
[2017-07-13] MEDS ORDERED: ROPIVACAINE 0.5% 5 MG/ML 30 ML VIAL ONE (06:34)
[2017-07-13 07:25] LABS: BASO % 0.4 %; BASO ABS # 0.01 K/uL (0-0.2); COMPLETE YES; EOS % 4.3 %; HEMATOCRIT 31.5 % (42-52); LYMPH % 41.4 %; LYMPH ABS # 1.06 K/uL (1.2-3.4); MEAN CELL VOLUME 100.3 fL (80-100); MEAN CORPUSCULAR HEMOGLOBIN 30.6 pg (25-34); MEAN CORPUSCULAR HGB CONC 30.5 g/dl (32-36); MEAN PLATELET VOLUME 9.9 fL (7.4-10.4); MONO % 10.2 %; NEUT % 43.7 %; PLATELET COUNT 105 K/uL (130-400); RED BLOOD COUNT 3.14 M/uL (4.7-6.1); WHITE BLOOD COUNT 2.56 K/uL (4.8-10.8)
[2017-07-13 07:37] LABS: INR 1.9 (0.9-1.1); PROTHROMBIN TIME (PATIENT) 21.4 SECONDS (9.0-12.0)
[2017-07-13] MEDS: VANCOMYCIN INJ 1,250 MG in SODIUM CHLORIDE 0.9% 250ML 250 ML IV SCH ×2 (07:40→23:55)
[2017-07-13 07:57] LABS: BUN/CREATININE RATIO 16.6 (10-20); CALCIUM 8.2 mg/dl (8.5-10.1); CREATININE 1.25 mg/dl (0.60-1.40); MAGNESIUM 1.8 mg/dl (1.8-2.4); POTASSIUM 3.4 mmol/L (3.5-5.1)
[2017-07-13 08:16] VITALS: BP 169/85; PULSE 53; TEMP 36.6; O2SAT 94
[2017-07-13] MEDS: AMLODIPINE BESYLATE 5 MG TAB PO SCH (08:53)
[2017-07-13] MEDS: ATORVASTATIN 10 MG TAB PO SCH (08:53)
[2017-07-13] MEDS ORDERED: MIDAZOLAM HCL 1 MG/ML 2ML VIAL ONE (08:55)
[2017-07-13] MEDS ORDERED: FENTANYL CITRATE INJ 50 MCG/1 ML 2 ML VIAL ONE (08:55)
[2017-07-13] MEDS ORDERED: ATORVASTATIN 10 MG TAB PO SCH (09:00)
[2017-07-13] MEDS ORDERED: AMLODIPINE BESYLATE 5 MG TAB PO SCH (09:00)
[2017-07-13] MEDS ORDERED: FENTANYL CITRATE INJ 50 MCG/1 ML 2 ML VIAL IV PRN (09:30)
[2017-07-13] MEDS ORDERED: ONDANSETRON INJ 2 MG/ML 2 ML VIAL IV PRN (09:30)
[2017-07-13] MEDS ORDERED: EpHEDrine SULFATE INJ 50 MG/ML AMP IV PRN (09:30)
[2017-07-13] MEDS ORDERED: ATROPINE SULFATE 0.1 MG/ML 5ML SYR IV PRN (09:30)
[2017-07-13] MEDS ORDERED: HYDROmorphone INJ 1 MG/ML SYR IV PRN (09:30)
[2017-07-13] MEDS ORDERED: PHENYLEPHRINE 100MCG/ML 5ML SYR IV PRN (09:30)
[2017-07-13] MEDS ORDERED: BACITRACIN 50000 UNIT VIAL ONE ×2 (09:38→11:01)
[2017-07-13] MEDS ORDERED: BUPIVACAINE 0.5 % 5 MG/1 ML MPF 30ML VIAL ONE (09:38)
--- NOTE | 2017-07-13 10:44 | History & Physical Bridge Note ---
H&P Re-Evaluation Bridge Note: I have examined the patient, reviewed the History & Physical and in the interval since the performance of the History & Physical I have noted the following changes of clinical significance: Bone involvment and ulceration on Right foot (not left as noted in H&P)
[2017-07-13] MEDS ORDERED: PROPOFOL IV EMULSION 10 MG/ML 20 ML VIAL IV ONE (10:56)
[2017-07-13] MEDS ORDERED: LIDOCAINE HCL 2% 2 ML VIAL (20MG/ML) ONE (10:56)
[2017-07-13] MEDS ORDERED: KETAMINE HCL INJ 50 MG/ML 10 ML VIAL ONE (11:17)
[2017-07-13] MEDS ORDERED: CLINDAMYCIN PHOS 150 MG/ML 2 ML VIAL ONE (11:43)
--- NOTE | 2017-07-13 12:36 | OPERATIVE REPORT ---
DATE OF OPERATION: 07/13/2017 PREOPERATIVE DIAGNOSES: 1. Osteomyelitis, right third metatarsal. 2. Cellulitis, right foot. POSTOPERATIVE DIAGNOSES: Same. PROCEDURES: 1. Resection right third metatarsal. 2. Amputation of right third digit. 3. I&D right lower extremity. SURGEON: Dr. Aguilar. ANESTHESIA: IV with local sedation, preoperative block given 30 mL 0.5% Marcaine plain. HEMOSTASIS: Pneumatic calf tourniquet inflated to a level of 300 mmHg for a total tourniquet time of 33 minutes. Irrigation 300 units with 300 mg clindamycin. MATERIALS: 3-0 Vicryl, 4-0 nylon and iodoform Nu Gauze packing. ESTIMATED BLOOD LOSS: Minimal. HISTOPATHOLOGY: Bone sent. aerobic, anaerobic and Gram stain obtained. FINDINGS: Dislocation metatarsophalangeal joint, plantar aspect right third metatarsal head was soft. No gross pus pocket or significant abscess present. The patient is a relatively new patient to myself from the [place]. He has had a history of ulceration over a few years, has been treated for several years on and off. Recently was admitted to the hospital for shoulder and foot infection in May and in April. The patient presented to the office last week and had gas gangrene on the films and subcutaneous soft tissues; however, refused admission at that time due to the [employer] football game. This was I&D'd in the office and drained. The patient reported to the office yesterday for admission, continued IV antibiotics, all procedures, risks and complications were fully explained to the patient. Consent form was signed and found on the chart. PROCEDURE: The patient was brought to the OR and placed on the OR table in supine position. Upon completion of local sedation by the anesthesia department, local field block was performed with 30 mL 0.5% Marcaine plain. Foot was scrubbed, prepped and draped in the usual aseptic fashion. Attention was directed to the dorsal aspect of the foot or third metatarsal where a linear incision was made. The fluoroscan was used to identify the third metatarsal and ascertained as digits were extremely contractured over this area. Third metatarsal neck was identified and dissection was carried down to the level of bone, resected at the third metatarsal. Distal amp was performed distally in a curvilinear fashion over the toe. The area was irrigated with 3000 units with 300 grams of clindamycin under pulse lavage. All bleeding was controlled. Superficial deep structures were closed dorsally with 3-0 Vicryl in a box stitch technique. Skin margins closed using 4-0 nylon in simple interrupted fashion. Nu Gauze was placed over the plantar ulceration. It should be noted that there was communication with the plantar ulceration directly to the third metatarsal head. Upon surgical dissection this area was irrigated well and packed with Nu Gauze iodoform packing. The patient tolerated the procedure and anesthesia well without complications. Dry sterile dressing consisting of 4 x 4s, Adaptic, ABDs, Kerlix and an Arnoldo was applied. The patient was transported to recovery room with vital signs stable and neurovascular status intact. Long-term plan continue ID consult, recommended 6 weeks of IV antibiotics. Due to multiple allergies and presence of gas last week would like to continue vancomycin and clindamycin for the anaerobes and Cipro for better gram negative coverage until more definitive cultures can be obtained. ID consulted. Will place PICC line and will most likely need either home IVs or long-term placement based on insurance coverage. The patient will be readmitted to the floor for continued IV antibiotics. I attest to the content of the Intraoperative Record and any orders documented therein. Any exception s are noted below.
[2017-07-13 13:00] VITALS: BP 169/100; PULSE 65; TEMP 36.5; O2SAT 97
--- NOTE | 2017-07-13 13:00 | Anesthesiology Progress Note ---
Anesthesia Post Op Note Date & Time Jul 13, 2017 at 12:59 Vital Signs Pain Intensity: 0 Vital Signs Past 12 Hours Date Time Temp Pulse Resp B/P (MAP) Pulse Ox O2 Delivery O2 Flow Rate FiO2 07/13/17 12:25 60 17 168/103 97 Room Air 07/13/17 12:15 36.3 56 15 168/101 94 Room Air 07/13/17 12:05 71 17 154/103 90 Room Air 07/13/17 11:57 36.1 63 24 143/87 99 Room Air 07/13/17 08:16 36.6 53 18 169/85 (113) 94 Room Air 07/13/17 08:00 Room Air Notes Mental Status: alert / awake / arousable, participated in evaluation Pt Amnestic to Procedure: Yes Nausea / Vomiting: adequately controlled Pain: adequately controlled Airway Patency, RR, SpO2: stable & adequate BP & HR: stable & adequate Hydration State: stable & adequate Anesthetic Complications: no major complications apparent
--- NOTE | 2017-07-13 13:24 | DIAGNOSTIC IMAGING REPORT ---
R TOE(S) MIN 2 VIEWS HISTORY: 86 years-old Male RT 3RD METATARSAL AMP amputation of the third digit at the level of the distal aspect of the third metatarsal. Osteomyelitis. COMPARISON: Right foot radiographs 07/12/2017. TECHNIQUE: Single spot fluoroscopic image of the right third foot was obtained utilizing 6.0 seconds fluoroscopy time. FINDINGS: There has been interval amputation of the third digit at the level of the distal diaphyseal portion third metatarsal. Postsurgical soft tissue swelling and deep tissue air is noted within this distribution. Extensive degenerative changes of the metatarsophalangeal joints with subluxation redemonstrated. Severe hallux valgus deformity with first MTP joint degenerative changes. Vascular calcifications. No retained foreign body identified. IMPRESSION: Interval amputation of the third digit at the level of the distal diaphyseal third metatarsal. The above report was generated using voice recognition software. It may contain grammatical, syntax or spelling errors. Electronically signed by: Walter Deshpande M.D. 07/13/2017 1:23 PM Dictated Date/Time: 07/13/2017 1:20 PM
[2017-07-13 13:32] VITALS: BP 173/79; PULSE 64; TEMP 36.5; O2SAT 96
--- NOTE | 2017-07-13 13:46 | Progress Note ---
Progress Note Date of Service Jul 13, 2017. Progress Note ID Consult Dictated #[id number] A/P: 1. Osteo r foot, sp/ 3rd met amp -Continue abx, follow cultures -Will follow, thank you
--- NOTE | 2017-07-13 14:07 | INFECT. DISEASE CONSULTATION ---
DATE OF CONSULTATION: 07/13/2017 REQUESTING PHYSICIAN: Magdalena Aguilar DPM. HISTORY OF PRESENT ILLNESS: This is an 86-year-old gentleman who has been on multiple suppressive antibiotics in the recent past for a chronic right foot ulceration. He apparently had worsening of this over the past few weeks and was being followed at the [facility] and then referred to podiatry. A culture was obtained from the right foot on 06/24/2017. This culture grew MSSA. The patient states that he was on a capsule of antibiotic prior to admission, but does not remember the name. He also is unable to tell me how long he had been on this antibiotic. He was last seen in the hospital on 05/12/2017. At that time, he was on Zyvox and Levaquin for suppressive therapy, but developed pancytopenia. He was then changed to doxycycline. He has not had further hospital follow up with ID since that time. He has been afebrile since admission. He did have x-rays done as an outpatient which did show concern for osteomyelitis. He also had a positive [id number] test and was subsequently admitted to the hospital for further debridement which he underwent today. He is complaining of minimal pain in the foot. His postoperative dressing is clean, dry and intact. He was started empirically on vancomycin, Cipro and clindamycin. His white blood cell count remains low at 2.5. Intraoperative cultures are pending. He currently denies any fevers or chills. He denies any cough, chest pain or shortness of breath. He has no nausea, vomiting, diarrhea or abdominal pain. REVIEW OF SYSTEMS: His remaining review of systems is reviewed and is unremarkable. PAST MEDICAL HISTORY: Significant for anemia, osteoarthritis, chronic kidney disease, high blood pressure, high cholesterol, large B cell lymphoma and AFib. PAST SURGICAL HISTORY: Significant for bilateral knee replacements, shoulder surgery in 2010, carotid endarterectomy, cholecystectomy, left hip surgery and rotator cuff repair. Per his H&P, he was recently on Cipro. FAMILY HISTORY: Unremarkable. SOCIAL HISTORY: Significant for occasional alcohol use. He denies any alcohol or drug use. ALLERGIES: HE HAS MULTIPLE ALLERGIES INCLUDING AZTREONAM, DAPTO, PENICILLIN AND SULFA. CURRENT MEDICATIONS: Include Percocet, fentanyl, Dilaudid, Zofran, ephedrine, phenylephrine, vancomycin, allopurinol, Cipro, clindamycin, Lipitor, Norvasc, atenolol. PHYSICAL EXAMINATION: VITAL SIGNS: He is afebrile, pulse 64, respiratory rate 18, blood pressure 173/79, oxygen saturation is 96% on room air. GENERAL: He is awake, alert and oriented x3. She is in no acute distress. HEENT: Mucous membranes are moist. Extraocular muscles are intact. HEART: Regular. LUNGS: Clear. ABDOMEN: Soft, nontender, nondistended. EXTREMITIES: There is no lower extremity edema. Right foot dressing is clean, dry and intact. LABORATORY STUDIES: CBC today reveals a white blood cell count of 2.5, hemoglobin 9.6 and platelets are 105. Chemistry panel reveals a sodium of 141, potassium 3.4, chloride 109, bicarbonate 23, BUN 21, creatinine 1.2, glucose is 83. OR cultures are pending. A previous superficial culture from 06/24/2017 is growing MSSA. Toe x-ray shows lucency at the third metatarsal head. A chest x-ray yesterday was unremarkable. ASSESSMENT AND PLAN: Likely osteomyelitis of the right foot with recent MSSA. He will remain on vancomycin and Cipro pending additional OR cultures which were obtained today. His clindamycin will be discontinued. Further antibiotic recommendations will be based on OR cultures. We will follow along with you. Thank you for this consultation.
--- NOTE | 2017-07-13 14:08 | DIAGNOSTIC IMAGING REPORT ---
R FOOT MIN 3 VIEWS ROUTINE HISTORY: 86 years-old Male postop postoperative exam status post amputation COMPARISON: Right foot radiographs 07/12/2017 TECHNIQUE: 3 views of the right foot FINDINGS: There has been interval amputation of the third digit at the level of the distal diaphyseal portion third metatarsal with expected soft tissue swelling and deep tissue air at the surgical site. Stable background changes of mild bone demineralization with multifocal advanced interphalangeal degenerative changes and remodeling/subluxation of the metatarsophalangeal joints. Severe hallux valgus deformity. Vascular calcifications. No retained foreign body. IMPRESSION: Status post amputation of the distal third digit at the level of the distal diaphyseal third metatarsal without postprocedural complication identified. The above report was generated using voice recognition software. It may contain grammatical, syntax or spelling errors. Electronically signed by: Walter Deshpande M.D. 07/13/2017 2:07 PM Dictated Date/Time: 07/13/2017 2:02 PM
[2017-07-13] MEDS: OXYCODONE/ACETAMINOPHEN 5-325 TAB PO PRN ×2 (14:10→15:14)
[2017-07-13 14:34] VITALS: BP 163/90; PULSE 58; TEMP 36.6; O2SAT 96
--- NOTE | 2017-07-13 15:01 | Progress Note ---
Medicine Progress Note Date & Time of Visit: Jul 13, 2017 at 15:00 . Subjective Amputation of right third digit, resection of right third metatarsal, and I&D right lower extremity performed earlier today by Dr. Aguilar with regional block and IV sedation. Doing well postoperatively. No chest pain. No cough or dyspnea. No nausea or vomiting. Postop pain well-controlled. . Objective Last 8 Hrs Date Time Temp Pulse Resp B/P (MAP) Pulse Ox O2 Delivery O2 Flow Rate FiO2 07/13/17 14:34 36.6 58 18 163/90 (114) 96 Room Air 07/13/17 13:32 36.5 64 18 173/79 (110) 96 Room Air 07/13/17 13:00 36.5 65 18 169/100 (123) 97 Room Air 07/13/17 12:25 60 17 168/103 97 Room Air 07/13/17 12:15 36.3 56 15 168/101 94 Room Air 07/13/17 12:05 71 17 154/103 90 Room Air 07/13/17 11:57 36.1 63 24 143/87 99 Room Air 07/13/17 08:16 36.6 53 18 169/85 (113) 94 Room Air 07/13/17 08:00 Room Air Physical Exam: General- no distress Neck- no JVD Lungs- clear Heart- irregular; II/ sys murmur at base Abdomen- normal bowel sounds, soft, nontender Extremities- right foot bandaged; no pretibial edema or calf tenderness Neuro- alert . Laboratory Results: Last 24 Hours Test 07/12/17 15:13 07/12/17 18:19 07/13/17 07:01 White Blood Count 3.41 K/uL 2.56 K/uL Red Blood Count 3.60 M/uL 3.14 M/uL Hemoglobin 11.4 g/dL 9.6 g/dL Hematocrit 36.0 % 31.5 % Mean Corpuscular Volume 100.0 fL 100.3 fL Mean Corpuscular Hemoglobin 31.7 pg 30.6 pg Mean Corpuscular Hemoglobin Concent 31.7 g/dl 30.5 g/dl Platelet Count 132 K/uL 105 K/uL Mean Platelet Volume 10.3 fL 9.9 fL Neutrophils (%) (Auto) 57.7 % 43.7 % Lymphocytes (%) (Auto) 36.4 % 41.4 % Monocytes (%) (Auto) 4.4 % 10.2 % Eosinophils (%) (Auto) 0.9 % 4.3 % Basophils (%) (Auto) 0.3 % 0.4 % Neutrophils # (Auto) 1.97 K/uL 1.12 K/uL Lymphocytes # (Auto) 1.24 K/uL 1.06 K/uL Monocytes # (Auto) 0.15 K/uL 0.26 K/uL Eosinophils # (Auto) 0.03 K/uL 0.11 K/uL Basophils # (Auto) 0.01 K/uL 0.01 K/uL RDW Standard Deviation 64.6 fL 64.6 fL RDW Coefficient of Variation 17.4 % 17.7 % Immature Granulocyte % (Auto) 0.3 % 0.0 % Immature Granulocyte # (Auto) 0.01 K/uL 0.00 K/uL Prothrombin Time 20.7 SECONDS 21.4 SECONDS Prothromb Time International Ratio 1.9 1.9 Activated Partial Thromboplast Time 38.9 SECONDS Partial Thromboplastin Ratio 1.5 Sodium Level 139 mmol/L 141 mmol/L Potassium Level 3.6 mmol/L 3.4 mmol/L Chloride Level 106 mmol/L 109 mmol/L Carbon Dioxide Level mmol/L 22 mmol/L 23 mmol/L Anion Gap 10.0 mmol/L 8.0 mmol/L Blood Urea Nitrogen 20 mg/dl 21 mg/dl Creatinine 1.20 mg/dl 1.25 mg/dl Est Creatinine Clear Calc Drug Dose 48.8 ml/min 46.8 ml/min Estimated GFR () 64.0 60.9 Estimated GFR (Non- 55.2 52.5 BUN/Creatinine Ratio 16.4 16.6 Random Glucose 81 mg/dl 83 mg/dl Calcium Level 9.0 mg/dl 8.2 mg/dl Total Bilirubin 1.0 mg/dl Direct Bilirubin 0.3 mg/dl Aspartate Amino Transf (AST/SGOT) 25 U/L Alanine Aminotransferase (ALT/SGPT) 17 U/L Alkaline Phosphatase 112 U/L Total Protein 8.4 gm/dl Albumin 3.3 gm/dl Nucleated RBC Absolute Count (auto) 0.02 K/uL Nucleated Red Blood Cells % 0.7 % Magnesium Level 1.8 mg/dl Date/Time Source Procedure Growth Status 07/13/17 11:28 Incision Site Foot Right Gram Stain Pending Received 07/13/17 11:28 Incision Site Foot Right Bacterial Culture Pending Received Assessment & Plan OSTEOMYELITIS / SEPTIC ARTHRITIS RIGHT FOOT Amputation of right third digit with resection of right third metatarsal and I& D performed by Dr. Aguilar. ID consulted for antibiotic recommendations. CHRONIC ATRIAL FIBRILLATION Continue atenolol for rate control. Resume anticoagulation with warfarin when OK from surgical perspective. HYPERTENSION Hemodynamically stable. Continue atenolol and amlodipine. DYSLIPIDEMIA Continue atorvastatin. VTE PROPHYLAXIS Per Podiatry. Thank you for this consultation. We will follow the patient with you during their hospital stay. You can reach a member of the [facility] Medicine Team 12/04 via pager @ [phone]. You can reach me via cell @ [phone]. . Current Inpatient Medications: Current Inpatient Medications Medications (Trade) Dose Ordered Sig/Niall Route Start Time Stop Time Status Last Admin Dose Admin Vancomycin HCl (Consult) 1 ea UD PRN N/A 07/12/17 14:30 08/11/17 14:29 Atorvastatin Calcium (Lipitor Tab) 10 mg QAM PO 07/12/17 14:45 08/11/17 14:44 07/13/17 08:53 10 MG Amlodipine Besylate (Norvasc Tab) 5 mg QAM PO 07/12/17 14:45 08/11/17 14:44 07/13/17 08:53 5 MG Atenolol (Tenormin Tab) 50 mg QAM PO 07/12/17 14:45 08/11/17 14:44 07/12/17 16:12 50 MG Ciprofloxacin (Consult) 1 ea UD PRN N/A 07/12/17 15:15 08/11/17 15:14 Allopurinol (Zyloprim Tab) 200 mg HS PO 07/12/17 21:00 08/11/17 20:59 07/12/17 20:57 100 MG Ciprofloxacin (Cipro Tab) 500 mg BID PO 07/12/17 17:00 08/23/17 16:59 07/12/17 17:25 500 MG Vancomycin HCl 1250 mg/Sodium Chloride 275 ml @ 125 mls/hr Q16H IV 07/13/17 08:00 08/23/17 07:59 07/13/17 07:40 125 MLS/HR Ondansetron HCl (Zofran Inj) 4 mg ONE PRN IV 07/13/17 09:30 Oxycodone/ Acetaminophen (Percocet 5-325mg Tab) `1-2 TABS FOR PAIN `1 TAB... Q4H PRN PO 07/13/17 12:15 07/27/17 12:14 07/13/17 14:10 1 TAB
[2017-07-13] MEDS ORDERED: NURSING VERBAL MED ORDER ONE ×2 (17:00→21:00)
[2017-07-13] MEDS: OXYCODONE HCL IR 5 MG TAB (IMMEDIATE RELEASE) PO PRN ×3 (17:21→23:55)
[2017-07-13] MEDS: OXYCODONE HCL 10 MG TABCR (OXYCONTIN) PO SCH (18:16)
[2017-07-13 19:25] VITALS: BP 157/79; PULSE 70; TEMP 36.7; O2SAT 96
[2017-07-13] MEDS: ALLOPURINOL 100 MG TAB PO SCH (21:05)
[2017-07-13] MEDS ORDERED: SULINDAC 200 MG TAB PO ONE (21:30)
[2017-07-13 23:35] VITALS: BP 150/94; PULSE 69; TEMP 36.9; O2SAT 97
[2017-07-14] MEDS: OXYCODONE HCL IR 5 MG TAB (IMMEDIATE RELEASE) PO PRN ×4 (03:34→16:39)
[2017-07-14 03:37] VITALS: BP 174/83; PULSE 66; TEMP 36.5; O2SAT 94
[2017-07-14] MEDS: OXYCODONE HCL 10 MG TABCR (OXYCONTIN) PO SCH ×2 (06:06→17:53)
[2017-07-14] MEDS: AMLODIPINE BESYLATE 5 MG TAB PO SCH (06:35)
[2017-07-14 06:38] VITALS: BP 185/95
[2017-07-14 06:48] LABS: BASO % 0.3 %; BASO ABS # 0.01 K/uL (0-0.2); COMPLETE YES; EOS % 4.4 %; IG% 0.3 %; LYMPH % 34.3 %; LYMPH ABS # 1.24 K/uL (1.2-3.4); MEAN CORPUSCULAR HEMOGLOBIN 30.6 pg (25-34); MEAN CORPUSCULAR HGB CONC 30.6 g/dl (32-36); MEAN PLATELET VOLUME 9.4 fL (7.4-10.4); MONO % 8.3 %; NEUT % 52.4 %; PLATELET COUNT 105 K/uL (130-400); WHITE BLOOD COUNT 3.61 K/uL (4.8-10.8)
[2017-07-14 07:00] LABS: INR 1.9 (0.9-1.1); PROTHROMBIN TIME (PATIENT) 20.5 SECONDS (9.0-12.0)
[2017-07-14 07:20] LABS: CALCIUM 8.5 mg/dl (8.5-10.1); CREATININE 1.21 mg/dl (0.60-1.40); MAGNESIUM 1.8 mg/dl (1.8-2.4); POTASSIUM 3.8 mmol/L (3.5-5.1)
[2017-07-14 07:50] VITALS: BP 186/94; PULSE 83; TEMP 36.5; O2SAT 90
[2017-07-14] MEDS: SULINDAC 200 MG TAB PO SCH ×2 (08:30→17:53)
[2017-07-14] MEDS: ATORVASTATIN 10 MG TAB PO SCH (08:31)
[2017-07-14] MEDS: BOOST VANILLA PO SCH ×6 (08:31→17:53)
[2017-07-14] MEDS: CIPROFLOXACIN 500 MG TAB PO SCH ×2 (08:31→21:14)
--- NOTE | 2017-07-14 11:21 | Progress Note ---
Subjective Date of Service: Jul 14, 2017. Subjective culture pending, remains on emperic abx, tolerating well. afebrile. no overnight events. Problem List Medical Problems: (1) Abscess of shoulder Status: Acute (2) NAJMA (acute kidney injury) Status: Acute (3) Allergic drug rash Status: Acute (4) Cellulitis Status: Acute (5) CHF (congestive heart failure) Status: Acute (6) Drug-induced skin rash Status: Acute (7) Dyspnea Status: Acute (8) Foot abscess, right Status: Acute (9) Hypoxia Status: Acute (10) Petechiae Status: Acute (11) Pneumonia Status: Acute Objective Vital Signs Date Time Temp Pulse Resp B/P (MAP) Pulse Ox O2 Delivery O2 Flow Rate FiO2 07/14/17 08:00 Room Air 07/14/17 07:50 36.5 83 21 186/94 (124) 90 Room Air 07/14/17 06:38 185/95 (125) 07/14/17 03:37 36.5 66 17 174/83 (113) 94 Room Air 07/13/17 23:35 36.9 69 16 150/94 (112) 97 Room Air 07/13/17 23:30 Room Air 07/13/17 19:25 36.7 70 17 157/79 (105) 96 Room Air 07/13/17 15:15 Room Air 07/13/17 14:34 36.6 58 18 163/90 (114) 96 Room Air 07/13/17 13:32 36.5 64 18 173/79 (110) 96 Room Air 07/13/17 13:00 36.5 65 18 169/100 (123) 97 Room Air 07/13/17 12:25 60 17 168/103 97 Room Air 07/13/17 12:15 36.3 56 15 168/101 94 Room Air 07/13/17 12:05 71 17 154/103 90 Room Air 07/13/17 11:57 36.1 63 24 143/87 99 Room Air Laboratory Results Item Value Date Time Gram Stain - Final Resulted 07/13/17 1128 Incision Site Foot Right Last 24 Hours Test 07/14/17 06:19 White Blood Count 3.61 K/uL Red Blood Count 3.20 M/uL Hemoglobin 9.8 g/dL Hematocrit 32.0 % Mean Corpuscular Volume 100.0 fL Mean Corpuscular Hemoglobin 30.6 pg Mean Corpuscular Hemoglobin Concent 30.6 g/dl Platelet Count 105 K/uL Mean Platelet Volume 9.4 fL Neutrophils (%) (Auto) 52.4 % Lymphocytes (%) (Auto) 34.3 % Monocytes (%) (Auto) 8.3 % Eosinophils (%) (Auto) 4.4 % Basophils (%) (Auto) 0.3 % Neutrophils # (Auto) 1.89 K/uL Lymphocytes # (Auto) 1.24 K/uL Monocytes # (Auto) 0.30 K/uL Eosinophils # (Auto) 0.16 K/uL Basophils # (Auto) 0.01 K/uL RDW Standard Deviation 65.0 fL RDW Coefficient of Variation 17.6 % Immature Granulocyte % (Auto) 0.3 % Immature Granulocyte # (Auto) 0.01 K/uL Prothrombin Time 20.5 SECONDS Prothromb Time International Ratio 1.9 Sodium Level 139 mmol/L Potassium Level 3.8 mmol/L Chloride Level 107 mmol/L Carbon Dioxide Level 26 mmol/L Anion Gap 6.0 mmol/L Blood Urea Nitrogen 19 mg/dl Creatinine 1.21 mg/dl Est Creatinine Clear Calc Drug Dose 48.4 ml/min Estimated GFR () 63.3 Estimated GFR (Non- 54.6 BUN/Creatinine Ratio 16.0 Random Glucose 88 mg/dl Calcium Level 8.5 mg/dl Magnesium Level 1.8 mg/dl Assessment and Plan (1) Osteomyelitis Assessment & Plan: continue abx, recent outpt culture with MSSA, follow OR cultures and make final recs when available.
--- NOTE | 2017-07-14 11:36 | PROGRESS NOTE ---
DATE: 07/14/2017 SUBJECTIVE: The patient seen at bedside, pain control with oral meds although noted significant amount of discomfort over the evening. The patient is ambulating with surgical shoe and eating and voiding well without difficulty. OBJECTIVE: VITAL SIGNS: Temperature 36.5, pulse 83, blood pressure 186/94, pulse ox 90 on room air. HEART: Regular rate and rhythm. LUNGS: Clear to auscultation. ABDOMEN: Nondistended, no tenderness noted. LOWER EXTREMITY EXAMINATION: Vascular, moderate edema noted to the right foot. DERMATOLOGIC: Erythema has resolved. Packing removed from the right plantar aspect of the foot shows no malodor. Moderate amount of serosanguineous drainage noted. Sutures intact dorsally. Plantar ulcer still noted. NEUROLOGICAL: Epicritic sensation decreased. MUSCULOSKELETAL: There is an amputation of the third toe at the metatarsal neck region. IMPRESSION: 1. Status post metatarsal head resection, toe amputation, right third digit and irrigation and debridement, postoperative day #1. 2. Cellulitis nearly resolved. 3. History of osteomyelitis status post surgery. 4. Atrial fibrillation. 5. Chronic anemia. 6. Gout. 7. Hypertension. 8. Non-Hodgkin's lymphoma. 9. Coronary artery disease. 10. Chronic kidney disease. PLAN: I spoke to the pharmacy. We will switch to cefepime 2 grams q. 24 hours the next dose of vancomycin for ease in dosing. Recommend 6 weeks of IV antibiotics, stop date 08/23/2017. We will continue Cipro 500 mg b.i.d. DISCHARGE MEDICATIONS: Will be cefepime 2 grams q. 24 hours and Cipro 500 mg b.i.d. with stop date 08/23/2017. Appreciate ID's input. Labs reviewed afebrile with no white count noted. OR cultures showed no growth at this time. We will continue to monitor, planning discharge home tomorrow on cefepime and Cipro once PICC line is placed if tolerating cefepime well without any allergies. Appreciate ID, internal medicine, follow up. HERNANDEZ
[2017-07-14] MEDS ORDERED: CEFEPIME CONSULT ACTIVE PRN ×2 (11:45)
--- NOTE | 2017-07-14 11:57 | DIAGNOSTIC IMAGING REPORT ---
CHEST ONE VIEW PORTABLE CLINICAL HISTORY: Chest x-ray status post PICC catheter placement COMPARISON STUDY: 07/12/2017 FINDINGS: The heart is enlarged. There are subtle left basilar opacities, possibly atelectatic. There are postsurgical changes of bilateral shoulder arthroplasties. There has been interval placement of a left-sided PICC catheter. The catheter is looped back upon itself within the brachiocephalic vein[. The length of the loop is 3.5 cm. IMPRESSION: The left-sided PICC catheter is looped back upon itself at the level of the brachiocephalic vein Electronically signed by: Juvenal White M.D. 07/14/2017 11:56 AM Dictated Date/Time: 07/14/2017 11:53 AM
[2017-07-14 12:37] VITALS: BP 166/75; PULSE 51; TEMP 37.1; O2SAT 98
[2017-07-14 15:00] VITALS: BP 124/68; PULSE 57; TEMP 36.6; O2SAT 93
--- NOTE | 2017-07-14 15:27 | DIAGNOSTIC IMAGING REPORT ---
CHEST ONE VIEW PORTABLE HISTORY: picc placement left arm COMPARISON: Chest 07/14/2017. FINDINGS: The left PICC now terminates at the proximal SVC. No pneumothorax. The heart remains mildly enlarged. Mild central pulmonary vascular congestion without overt edema. Trace bilateral pleural effusions. Bilateral shoulder arthroplasties. IMPRESSION: A left PICC now terminates at the proximal SVC. Electronically signed by: Delfino Peng M.D. 07/14/2017 3:26 PM Dictated Date/Time: 07/14/2017 3:25 PM
[2017-07-14] MEDS ORDERED: VANCOMYCIN TROUGH ONE (15:30)
[2017-07-14] MEDS: CEFEPIME IV 2000 MG in DEXTROSE 5% 100ML IV SCH (15:32)
[2017-07-14] MEDS: ALLOPURINOL 100 MG TAB PO SCH (21:14)
--- NOTE | 2017-07-14 22:59 | Progress Note ---
Medicine Progress Note Date & Time of Visit: Jul 14, 2017 at 15:30 . Subjective Doing well postoperatively. No chest pain. No cough or dyspnea. No nausea or vomiting. No diarrhea. Voiding without difficulty. Postop pain well-controlled. . Objective Last 8 Hrs Date Time Temp Pulse Resp B/P (MAP) Pulse Ox O2 Delivery O2 Flow Rate FiO2 07/14/17 15:30 Room Air 07/14/17 15:00 36.6 57 20 124/68 (86) 93 Room Air Physical Exam: General- no distress Neck- no JVD Lungs- clear Heart- irregular; II/ systolic murmur at base Abdomen- normal bowel sounds, soft, nontender Extremities- right foot bandaged; no pretibial edema or calf tenderness Neuro- alert . Laboratory Results: Last 24 Hours Test 07/14/17 06:19 07/14/17 15:31 White Blood Count 3.61 K/uL Red Blood Count 3.20 M/uL Hemoglobin 9.8 g/dL Hematocrit 32.0 % Mean Corpuscular Volume 100.0 fL Mean Corpuscular Hemoglobin 30.6 pg Mean Corpuscular Hemoglobin Concent 30.6 g/dl Platelet Count 105 K/uL Mean Platelet Volume 9.4 fL Neutrophils (%) (Auto) 52.4 % Lymphocytes (%) (Auto) 34.3 % Monocytes (%) (Auto) 8.3 % Eosinophils (%) (Auto) 4.4 % Basophils (%) (Auto) 0.3 % Neutrophils # (Auto) 1.89 K/uL Lymphocytes # (Auto) 1.24 K/uL Monocytes # (Auto) 0.30 K/uL Eosinophils # (Auto) 0.16 K/uL Basophils # (Auto) 0.01 K/uL RDW Standard Deviation 65.0 fL RDW Coefficient of Variation 17.6 % Immature Granulocyte % (Auto) 0.3 % Immature Granulocyte # (Auto) 0.01 K/uL Prothrombin Time 20.5 SECONDS Prothromb Time International Ratio 1.9 Sodium Level 139 mmol/L Potassium Level 3.8 mmol/L Chloride Level 107 mmol/L Carbon Dioxide Level 26 mmol/L Anion Gap 6.0 mmol/L Blood Urea Nitrogen 19 mg/dl Creatinine 1.21 mg/dl Est Creatinine Clear Calc Drug Dose 48.4 ml/min Estimated GFR () 63.3 Estimated GFR (Non- 54.6 BUN/Creatinine Ratio 16.0 Random Glucose 88 mg/dl Calcium Level 8.5 mg/dl Magnesium Level 1.8 mg/dl Vancomycin Level Trough 19.5 mcg/ml Assessment & Plan OSTEOMYELITIS / SEPTIC ARTHRITIS RIGHT FOOT Amputation of right third digit with resection of right third metatarsal and I& D performed by Dr. Aguilar 07/13/17. ID consulted for antibiotic recommendations. Wound cultures from OR pending. CHRONIC ATRIAL FIBRILLATION Continue atenolol for rate control. Resume anticoagulation with warfarin when OK from surgical perspective. HYPERTENSION Hemodynamically stable. Continue atenolol and amlodipine. DYSLIPIDEMIA Continue atorvastatin. VTE PROPHYLAXIS Per Podiatry. Thank you for this consultation. We will follow the patient with you during their hospital stay. You can reach a member of the [facility] Medicine Team 12/04 via pager @ [phone]. You can reach me via cell @ [phone]. . Current Inpatient Medications: Current Inpatient Medications Medications (Trade) Dose Ordered Sig/Niall Route Start Time Stop Time Status Last Admin Dose Admin Atorvastatin Calcium (Lipitor Tab) 10 mg QAM PO 07/12/17 14:45 08/11/17 14:44 07/14/17 08:31 10 MG Ciprofloxacin (Consult) 1 ea UD PRN N/A 07/12/17 15:15 08/11/17 15:14 Allopurinol (Zyloprim Tab) 200 mg HS PO 07/12/17 21:00 08/11/17 20:59 07/14/17 21:14 100 MG Ciprofloxacin (Cipro Tab) 500 mg BID PO 07/12/17 17:00 08/23/17 16:59 07/14/17 21:14 500 MG Ondansetron HCl (Zofran Inj) 4 mg ONE PRN IV 07/13/17 09:30 Oxycodone HCl (Oxycontin Tab) 10 mg Q12H PO 07/13/17 18:00 07/27/17 17:59 07/14/17 17:53 10 MG Oxycodone HCl (Roxicodone Immediate Rel Tab) 5 mg Q3H PRN PO 07/13/17 17:15 07/27/17 17:14 07/14/17 16:39 5 MG Enteral Nutritional Formula (Boost) 1 can TIDM PO 07/14/17 08:30 11/24/17 08:29 07/14/17 17:53 1 CAN Sulindac (Clinoril Tab) 200 mg BIDM PO 07/14/17 08:30 08/13/17 08:29 07/14/17 17:53 200 MG Amlodipine Besylate (Norvasc Tab) 10 mg QAM PO 07/14/17 09:00 08/11/17 14:44 07/14/17 06:35 10 MG Atenolol (Tenormin Tab) 50 mg QAM PO 07/15/17 09:00 08/11/17 14:44 Cefepime HCl 2000 mg/Dextrose 112.5 ml @ 225 mls/hr Q24H IV 07/14/17 14:00 07/22/17 13:59 07/14/17 15:32 225 MLS/HR Cefepime HCl (Consult) 1 ea UD PRN N/A 07/14/17 11:45 08/13/17 11:44
[2017-07-14 23:04] VITALS: BP 120/64; PULSE 61; TEMP 36.6; O2SAT 96
[2017-07-15] VITALS (7 sets, daily range): BP systolic 125–169; BP diastolic 68–88; PULSE 58–65; TEMP 36.3–36.5; O2SAT 96–97
[2017-07-15] MEDS: OXYCODONE HCL 10 MG TABCR (OXYCONTIN) PO SCH ×2 (06:08→17:34)
[2017-07-15 06:14] LABS: INR 1.6 (0.9-1.1); PROTHROMBIN TIME (PATIENT) 17.4 SECONDS (9.0-12.0)
[2017-07-15 06:31] LABS: BUN/CREATININE RATIO 16.3 (10-20); CALCIUM 8.4 mg/dl (8.5-10.1); CREATININE 1.32 mg/dl (0.60-1.40); POTASSIUM 3.9 mmol/L (3.5-5.1)
[2017-07-15 07:34] LABS: MEAN CELL VOLUME 101.3 fL (80-100); MEAN CORPUSCULAR HEMOGLOBIN 30.1 pg (25-34); MEAN CORPUSCULAR HGB CONC 29.7 g/dl (32-36); RED BLOOD COUNT 3.16 M/uL (4.7-6.1); WHITE BLOOD COUNT 3.48 K/uL (4.8-10.8)
[2017-07-15 07:38] LABS: MEAN PLATELET VOLUME 9.9 fL (7.4-10.4); PLATELET COUNT 99 K/uL (130-400)
--- NOTE | 2017-07-15 07:57 | DISCHARGE SUMMARY ---
PROCEDURES: On July 12, chest x-ray which showed mild basilar interstitial thickening which was chronic and 2 shoulder arthroplasties. Foot x-ray showed lucency changes on the third metatarsal head. On July 13, ORIF of metatarsal head resection with toe amputation and I&D to the right lower extremity. On July 14, PICC line placement with repeat chest x-rays as the catheter was looped back upon itself and needed to be replaced. The second chest x-ray showed good placement of the PICC catheter. DISCHARGE DIAGNOSES: 1. Osteomyelitis, right foot. 2. Status post metatarsal head toe amputation and incision and drainage, right lower extremity on July 13. 3. Atrial fibrillation. 4. Chronic anemia and thrombocytopenia. 5. Gout. 6. Hypertension. 7. Non-Hodgkin's lymphoma. 8. Coronary artery disease. 9. Chronic kidney disease stage III. HOSPITAL COURSE: The patient was admitted on July 12. INR was 1.2, BUN was high, creatinine was 1.1, direct bilirubin was high at 0.3, total protein was high at 8.4, and albumin was low at 3.3. The patient was empirically started on vancomycin, clindamycin, and Cipro. On July 13, the patient went to the OR, had resection amputation to the right foot with an I&D. These cultures are still showing no growth to date. On , patient was ambulating well. Pain was controlled. Packing was removed from the amputation site. On the 3rd day of admission, the patient was postoperative day 2. He was switched during the night from vancomycin to cefepime 2 grams q. 24 hours for ease of dosing. DISCHARGE MEDICATIONS: Atenolol 50 mg q.a.m. cefepime 2 grams q. 24 hours, Cipro 500 mg 1 tablet p.o. b.i.d., Norvasc 10 mg q.a.m., OxyContin 10 mg q. 12 hours and oxycodone 5 mg q. 3 hours p.r.n. pain, allopurinol 200 mg p.o. and Lipitor 10 mg q.a.m. p.o. DISCHARGE ACTIVITIES: The patient will be weightbearing in IPOS shoe. DISCHARGE FOLLOWUP: Follow up with PCP. He will follow up with Dr. Aguilar in 1 week.
[2017-07-15] MEDS ORDERED: CPR500 PO (08:08)
[2017-07-15] MEDS ORDERED: OXYSR10 PO (08:08)
[2017-07-15] MEDS ORDERED: RXC5 PO (08:08)
[2017-07-15] MEDS ORDERED: CFP2IV IV (08:08)
--- NOTE | 2017-07-15 08:23 | Discharge Instructions ---
Discharge Instructions Date of Service Jul 15, 2017. Admission Reason for Admission: Right Foot Osteomyelitis Discharge Discharge Diagnosis / Problem: Osteomyelitis Discharge Goals Goal(s): Decrease discomfort Activity Recommendations Activity Limitations: as noted below (pt is to be in surgical shoe and weightbearing in surgical shoe as tolerated) Lifting Limitations: no more than 10 pounds Exercise/Sports Limitations: none May Resume Sexual Activity: when tolerated Shower/Bathe: keep incision dry (if get wet call doctors office immediately) Driving or Machine Use: not allowed to until released by our office Weightbearing Status: Right weightbearing (as tolerated in surgical shoe) . Current Hospital Diet Patient's current hospital diet: AHA Diet (Heart Healthy) Discharge Diet Recommended Diet: Regular Diet Fluid Restriction: None Procedures Procedures Performed: Amputation Right Third Metatarsal Pending Studies Studies pending at discharge: no Medical Emergencies . Who to Call and When: Medical Emergencies: If at any time you feel your situation is an emergency, please call 911 immediately. . Non-Emergent Contact Non-Emergency issues call your: Primary Care Provider Call Non-Emergent contact if: you have a fever, your pain is not controlled, wound has increased pain . "Provider Documentation" section prepared by Magdalena Bravo. . VTE Core Measure Inpt VTE Proph given/why not?: Treatment not indicated
[2017-07-15 08:31] LABS: COMPLETE YES; EOS % 6.6 %; IG% 0.3 %; LYMPH % 34.8 %; LYMPH ABS # 1.21 K/uL (1.2-3.4); MONO % 8.6 %; NEUT % 49.7 %
--- NOTE | 2017-07-15 09:12 | Progress Note ---
Subjective Date of Service: Jul 15, 2017. Subjective pt s/p picc and scheduled for d/c today on po cipro and IV cefepime. Was on vanco with adequate trough, abx changed by primary yesterday. OR cultures negative to date. Previous culture dated 06/24 grew MSSA, pt has pcn allergy, appears to be tolerating cefepime. no gnr identified on either culture. afebrile. Problem List Medical Problems: (1) Abscess of shoulder Status: Acute (2) NAJMA (acute kidney injury) Status: Acute (3) Allergic drug rash Status: Acute (4) Cellulitis Status: Acute (5) CHF (congestive heart failure) Status: Acute (6) Drug-induced skin rash Status: Acute (7) Dyspnea Status: Acute (8) Foot abscess, right Status: Acute (9) Hypoxia Status: Acute (10) Petechiae Status: Acute (11) Pneumonia Status: Acute Objective Vital Signs Date Time Temp Pulse Resp B/P (MAP) Pulse Ox O2 Delivery O2 Flow Rate FiO2 07/15/17 08:00 36.4 61 16 169/68 (101) 96 Room Air 07/15/17 00:15 Room Air 07/14/17 23:04 36.6 61 16 120/64 (82) 96 Room Air 07/14/17 15:30 Room Air 07/14/17 15:00 36.6 57 20 124/68 (86) 93 Room Air 07/14/17 12:37 37.1 51 18 166/75 (105) 98 Room Air Laboratory Results Item Value Date Time Gram Stain - Final Complete 06/24/17 0000 Drainage - Surface Foot Right Gram Stain - Final Resulted 07/13/17 1128 Incision Site Foot Right Last 24 Hours Test 07/14/17 15:31 07/15/17 05:44 Vancomycin Level Trough 19.5 mcg/ml White Blood Count 3.48 K/uL Red Blood Count 3.16 M/uL Hemoglobin 9.5 g/dL Hematocrit 32.0 % Mean Corpuscular Volume 101.3 fL Mean Corpuscular Hemoglobin 30.1 pg Mean Corpuscular Hemoglobin Concent 29.7 g/dl Platelet Count 99 K/uL Mean Platelet Volume 9.9 fL Neutrophils (%) (Auto) 49.7 % Lymphocytes (%) (Auto) 34.8 % Monocytes (%) (Auto) 8.6 % Eosinophils (%) (Auto) 6.6 % Basophils (%) (Auto) 0.0 % Neutrophils # (Auto) 1.73 K/uL Lymphocytes # (Auto) 1.21 K/uL Monocytes # (Auto) 0.30 K/uL Eosinophils # (Auto) 0.23 K/uL Basophils # (Auto) 0.00 K/uL RDW Standard Deviation 65.5 fL RDW Coefficient of Variation 17.6 % Immature Granulocyte % (Auto) 0.3 % Immature Granulocyte # (Auto) 0.01 K/uL Prothrombin Time 17.4 SECONDS Prothromb Time International Ratio 1.6 Sodium Level 139 mmol/L Potassium Level 3.9 mmol/L Chloride Level 107 mmol/L Carbon Dioxide Level 25 mmol/L Anion Gap 7.0 mmol/L Blood Urea Nitrogen 22 mg/dl Creatinine 1.32 mg/dl Est Creatinine Clear Calc Drug Dose 44.4 ml/min Estimated GFR () 57.0 Estimated GFR (Non- 49.2 BUN/Creatinine Ratio 16.3 Random Glucose 88 mg/dl Calcium Level 8.4 mg/dl Assessment and Plan (1) Osteomyelitis Assessment & Plan: OR culture negative, but oupt culture dated 06/24 growing MSSA. abx adjusted and pt is currently on no coverage for S. aureus. My recommendation for abx at d/c would be po doxy 100mg bid with food x 6 weeks. I do not feel pt will need IV cefepime as no gnr identified on either culture. could stop cipro as well from ID perspective.
[2017-07-15] MEDS: SULINDAC 200 MG TAB PO SCH ×2 (09:33→17:34)
[2017-07-15] MEDS: AMLODIPINE BESYLATE 5 MG TAB PO SCH (09:34)
[2017-07-15] MEDS: CIPROFLOXACIN 500 MG TAB PO SCH (09:35)
[2017-07-15] MEDS: ATORVASTATIN 10 MG TAB PO SCH (09:35)
[2017-07-15] MEDS: BOOST VANILLA PO SCH ×6 (09:40→17:34)
[2017-07-15] MEDS: CEFEPIME IV 2000 MG in DEXTROSE 5% 100ML IV SCH (14:14)
--- NOTE | 2017-07-15 19:07 | PROGRESS NOTE ---
DATE: 07/15/2017 SUBJECTIVE: Bin Gunderson was seen first thing this morning, pain well controlled and tolerated new antibiotics overnight well without problems. Vital signs were within normal limits. Exam was unremarkable and a dressing was intact to the right lower extremity. Labs were reviewed. Charts were reviewed. There are no further updates from yesterday. Discharge summary was dictated earlier today in discussing the case with Dr. Seay who originally recommended oral antibiotics. We decided upon IV antibiotics due to the history of the osteomyelitis for 6 weeks, the stop date would be August 23. Dr. Seay felt strongly to switch the IV antibiotics to Rocephin rather than cepha triamterene that was previously prescribed and ordered in the discharge. The patient will stay in until he receives 1 dose of Rocephin. Will modify discharge orders in the morning if tolerating Rocephin well will discharge planning for tomorrow. Discussed the case several times with the rn case manager throughout the day. HERNANDEZ
[2017-07-15] MEDS: CEFTRIAXONE SOD INJ 2000 MG in DEXTROSE 5% 50ML IV SCH (20:53)
[2017-07-15] MEDS: ALLOPURINOL 100 MG TAB PO SCH (21:16)
--- NOTE | 2017-07-15 22:00 | Progress Note ---
Medicine Progress Note Date & Time of Visit: Jul 15, 2017 at 16:45 . Subjective Doing well postoperatively. No fever. No chest pain. No cough or dyspnea. No nausea or vomiting. Voiding without difficulty. Postop pain well-controlled. . Objective Last 8 Hrs Date Time Temp Pulse Resp B/P (MAP) Pulse Ox O2 Delivery O2 Flow Rate FiO2 07/15/17 19:09 97 07/15/17 18:58 36.5 63 17 140/82 (101) 97 Room Air 07/15/17 15:50 Room Air 07/15/17 14:47 36.4 61 16 143/75 (97) 97 Room Air Physical Exam: General- no distress Neck- no JVD Lungs- clear Heart- irregular; II/ systolic murmur at base; no gallop Abdomen- normal bowel sounds, soft, nontender Extremities- right foot bandaged; no pretibial edema or calf tenderness Neuro- alert . Laboratory Results: Last 24 Hours Test 07/15/17 05:44 White Blood Count 3.48 K/uL Red Blood Count 3.16 M/uL Hemoglobin 9.5 g/dL Hematocrit 32.0 % Mean Corpuscular Volume 101.3 fL Mean Corpuscular Hemoglobin 30.1 pg Mean Corpuscular Hemoglobin Concent 29.7 g/dl Platelet Count 99 K/uL Mean Platelet Volume 9.9 fL Neutrophils (%) (Auto) 49.7 % Lymphocytes (%) (Auto) 34.8 % Monocytes (%) (Auto) 8.6 % Eosinophils (%) (Auto) 6.6 % Basophils (%) (Auto) 0.0 % Neutrophils # (Auto) 1.73 K/uL Lymphocytes # (Auto) 1.21 K/uL Monocytes # (Auto) 0.30 K/uL Eosinophils # (Auto) 0.23 K/uL Basophils # (Auto) 0.00 K/uL RDW Standard Deviation 65.5 fL RDW Coefficient of Variation 17.6 % Immature Granulocyte % (Auto) 0.3 % Immature Granulocyte # (Auto) 0.01 K/uL Prothrombin Time 17.4 SECONDS Prothromb Time International Ratio 1.6 Sodium Level 139 mmol/L Potassium Level 3.9 mmol/L Chloride Level 107 mmol/L Carbon Dioxide Level 25 mmol/L Anion Gap 7.0 mmol/L Blood Urea Nitrogen 22 mg/dl Creatinine 1.32 mg/dl Est Creatinine Clear Calc Drug Dose 44.4 ml/min Estimated GFR () 57.0 Estimated GFR (Non- 49.2 BUN/Creatinine Ratio 16.3 Random Glucose 88 mg/dl Calcium Level 8.4 mg/dl Assessment & Plan OSTEOMYELITIS / SEPTIC ARTHRITIS RIGHT FOOT Amputation of right third digit with resection of right third metatarsal and I& D performed by Dr. Aguilar 07/13/17. ID consulted for antibiotic recommendations. CHRONIC ATRIAL FIBRILLATION Continue atenolol for rate control. INR today = 1.6. Resume anticoagulation with warfarin when OK from surgical perspective. Currently receiving sulindac; may be prudent to discontinue once warfarin is restarted. HYPERTENSION Hemodynamically stable. Continue atenolol and amlodipine. DYSLIPIDEMIA Continue atorvastatin. VTE PROPHYLAXIS Per Podiatry. DISPOSITION Discharge plans per Podiatry. Internal Medicine follow-up with Dr. Gray. Warfarin management per [facility]. Thank you for this consultation. We will follow the patient with you during their hospital stay. You can reach a member of the [facility] Medicine Team 12/04 via pager @ [phone]. You can reach me via cell @ [phone]. . Current Inpatient Medications: Current Inpatient Medications Medications (Trade) Dose Ordered Sig/Niall Route Start Time Stop Time Status Last Admin Dose Admin Atorvastatin Calcium (Lipitor Tab) 10 mg QAM PO 07/12/17 14:45 08/11/17 14:44 07/15/17 09:35 10 MG Allopurinol (Zyloprim Tab) 200 mg HS PO 07/12/17 21:00 08/11/17 20:59 07/15/17 21:16 200 MG Ondansetron HCl (Zofran Inj) 4 mg ONE PRN IV 07/13/17 09:30 Oxycodone HCl (Oxycontin Tab) 10 mg Q12H PO 07/13/17 18:00 07/27/17 17:59 07/15/17 17:34 10 MG Oxycodone HCl (Roxicodone Immediate Rel Tab) 5 mg Q3H PRN PO 07/13/17 17:15 07/27/17 17:14 07/14/17 16:39 5 MG Enteral Nutritional Formula (Boost) 1 can TIDM PO 07/14/17 08:30 08/13/17 08:29 07/15/17 17:34 1 CAN Sulindac (Clinoril Tab) 200 mg BIDM PO 07/14/17 08:30 08/13/17 08:29 07/15/17 17:34 200 MG Amlodipine Besylate (Norvasc Tab) 10 mg QAM PO 07/14/17 09:00 08/11/17 14:44 07/15/17 09:34 10 MG Atenolol (Tenormin Tab) 50 mg QAM PO 07/15/17 09:00 08/11/17 14:44 Heparin Sodium (Porcine) (Heparin 10 Unit/ ml 5 ml Flush) 5 ml PRN PRN FLUSH 07/15/17 06:15 08/14/17 06:14 Ceftriaxone Sodium 2000 mg/ Dextrose 70 ml @ 140 mls/hr DAILY@2100 IV 07/15/17 21:00 08/26/17 20:59 07/15/17 20:53 140 MLS/HR
[2017-07-16] MEDS: OXYCODONE HCL IR 5 MG TAB (IMMEDIATE RELEASE) PO PRN ×3 (02:35→12:05)
[2017-07-16] MEDS: OXYCODONE HCL 10 MG TABCR (OXYCONTIN) PO SCH (05:58)
[2017-07-16 06:13] LABS: INR 1.2 (0.9-1.1); PROTHROMBIN TIME (PATIENT) 13.4 SECONDS (9.0-12.0)
[2017-07-16 07:12] VITALS: BP 176/89; PULSE 72; TEMP 36.3; O2SAT 96
[2017-07-16] MEDS: ATORVASTATIN 10 MG TAB PO SCH (07:50)
[2017-07-16] MEDS: SULINDAC 200 MG TAB PO SCH (07:51)
[2017-07-16] MEDS: AMLODIPINE BESYLATE 5 MG TAB PO SCH (07:51)
--- NOTE | 2017-07-16 07:56 | DISCHARGE SUMMARY ---
ADDENDUM DISCHARGE DATE: 07/16/2017. Ceftriaxone 2000 mg 70 mL IV daily at 2100. We will repeat labs weekly. Follow creatinine closely. The patient will not be placed on Cipro or ____ as previously dictated.
--- NOTE | 2017-07-16 08:02 | PROGRESS NOTE ---
DATE: 07/16/2017 DATE: 07/16/2017 SUBJECTIVE: The patient seen at bedside without complaints. He has his antibiotics last evening, tolerated them well. Cefepime was stopped, Rocephin was started with no allergies. PHYSICAL EXAMINATION AND EXAMINATION: VITAL SIGNS: Temperature afebrile, pulse 65, respiration 17, blood pressure 125/73, pulse ox 93. HEART: Regular rate and rhythm. LUNGS: Clear to auscultation. ABDOMEN: Nontender. LOWER EXTREMITY: On the right dressing clean, dry and intact. LABORATORY DATA: OR cultures still show no growth to date. WBC within normal limits. IMPRESSION: 1. Status post incision and drainage right lower extremity with metatarsal head resection and toe amputation, right foot. 2. History of osteomyelitis, right foot and cellulitis status post surgery. 3. Atrial fibrillation, controlled with atenolol. Okay from podiatry standpoint to restart Coumadin for chronic anemia and thrombocytopenia. 4. History of gout. Will continue allopurinol. 5. Hypertension. Atenolol and amlodipine. 6. Non-Hodgkin's lymphoma status post chemotherapy. 7. Coronary artery disease on beta anton. 8. Kidney disease stage III. LONG-TERM PLAN: Will be discharged on Rocephin. Discharge note will be addendum. Will continue Rocephin at current dosing per pharmacy, stop date 08/31/2017. Instructed to keep the dressing clean, dry, and intact, to ambulate with surgery shoe and walker as needed. We will follow up with the patient next week in my office.
--- NOTE | 2017-07-16 08:19 | DISCHARGE SUMMARY ---
ADDENDUM Clinoril is stopped and patient will resume normal Coumadin dosing per internal medicine. DISCHARGE MEDICATIONS: Coumadin.
--- NOTE | 2017-07-16 08:28 | Progress Note ---
Subjective Date of Service: Jul 16, 2017. Subjective pt remains with negative culture from OR, 06/24 culture with MSSA. abx changed to ctx yesterday, tolerating well. afebrile. for d/c later today. Problem List Medical Problems: (1) Abscess of shoulder Status: Acute (2) NAJMA (acute kidney injury) Status: Acute (3) Allergic drug rash Status: Acute (4) Cellulitis Status: Acute (5) CHF (congestive heart failure) Status: Acute (6) Drug-induced skin rash Status: Acute (7) Dyspnea Status: Acute (8) Foot abscess, right Status: Acute (9) Hypoxia Status: Acute (10) Petechiae Status: Acute (11) Pneumonia Status: Acute Objective Vital Signs Date Time Temp Pulse Resp B/P (MAP) Pulse Ox O2 Delivery O2 Flow Rate FiO2 07/16/17 00:18 Room Air 07/15/17 23:21 36.5 65 17 125/73 (90) 96 Room Air 07/15/17 19:09 97 07/15/17 18:58 36.5 63 17 140/82 (101) 97 Room Air 07/15/17 15:50 Room Air 07/15/17 14:47 36.4 61 16 143/75 (97) 97 Room Air 07/15/17 11:43 36.3 61 16 152/88 (109) 97 Room Air 07/15/17 09:41 58 131/77 (95) Room Air 07/15/17 09:31 Room Air Laboratory Results Last 24 Hours Test 07/16/17 05:51 Prothrombin Time 13.4 SECONDS Prothromb Time International Ratio 1.2 Assessment and Plan (1) Osteomyelitis Assessment & Plan: will continue with daily ctx, will need weekly cbc,cmp, esr while on abx. can follow with ID as outpt as well. No contraindication to d/c from ID standpoint.
[2017-07-16] MEDS: BOOST VANILLA PO SCH ×4 (09:01→11:48)
[2017-07-16 09:50] VITALS: BP 125/73; PULSE 65; TEMP 36.5; O2SAT 96
[2017-07-16 09:52] VITALS: BP 140/84
[2017-07-16] MEDS: CEFTRIAXONE SOD INJ 2000 MG in DEXTROSE 5% 50ML IV SCH (11:22)
--- NOTE | 2017-07-16 12:04 | Progress Note ---
Medicine Progress Note Date & Time of Visit: Jul 16, 2017 at 11:50 . Subjective Doing well. Being discharged today. No chest pain. No cough or dyspnea. No nausea or vomiting. No diarrhea. . Objective Last 8 Hrs Date Time Temp Pulse Resp B/P (MAP) Pulse Ox O2 Delivery O2 Flow Rate FiO2 07/16/17 09:52 140/84 (102) 07/16/17 09:50 36.5 65 17 96 Room Air 07/16/17 07:35 Room Air 07/16/17 07:12 36.3 72 16 176/89 (118) 96 Room Air Physical Exam: General- lying in bed, no distress Neck- no JVD Lungs- clear Heart- irregular; II/ systolic murmur at base; no gallop Abdomen- normal bowel sounds, soft, nontender Extremities- right foot bandaged; no pretibial edema or calf tenderness Neuro- alert . Laboratory Results: Last 24 Hours Test 07/16/17 05:51 Prothrombin Time 13.4 SECONDS Prothromb Time International Ratio 1.2 Assessment & Plan OSTEOMYELITIS / SEPTIC ARTHRITIS RIGHT FOOT Amputation of right third digit with resection of right third metatarsal and I& D performed by Dr. Aguilar 07/13/17. ID consulted for antibiotic recommendations. CHRONIC ATRIAL FIBRILLATION Continue atenolol for rate control. INR today = 1.2. OK to resume warfarin per Podiatry. Patient will resume usual dose this evening. HYPERTENSION Hemodynamically stable. Continue atenolol and amlodipine. DYSLIPIDEMIA Continue atorvastatin. VTE PROPHYLAXIS Per Podiatry. DISPOSITION Discharge plans per Podiatry. Internal Medicine follow-up with Dr. Gray. Warfarin management per [facility]. Thank you for this consultation. We will follow the patient with you during their hospital stay. You can reach a member of the [facility] Medicine Team 12/04 via pager @ [phone]. You can reach me via cell @ [phone]. . Current Inpatient Medications: Current Inpatient Medications Medications (Trade) Dose Ordered Sig/Niall Route Start Time Stop Time Status Last Admin Dose Admin Atorvastatin Calcium (Lipitor Tab) 10 mg QAM PO 07/12/17 14:45 08/11/17 14:44 07/16/17 07:50 10 MG Allopurinol (Zyloprim Tab) 200 mg HS PO 07/12/17 21:00 08/11/17 20:59 07/15/17 21:16 200 MG Ondansetron HCl (Zofran Inj) 4 mg ONE PRN IV 07/13/17 09:30 Oxycodone HCl (Oxycontin Tab) 10 mg Q12H PO 07/13/17 18:00 07/27/17 17:59 07/16/17 05:58 10 MG Oxycodone HCl (Roxicodone Immediate Rel Tab) 5 mg Q3H PRN PO 07/13/17 17:15 07/27/17 17:14 07/16/17 09:02 5 MG Enteral Nutritional Formula (Boost) 1 can TIDM PO 07/14/17 08:30 08/13/17 08:29 07/16/17 11:48 1 CAN Sulindac (Clinoril Tab) 200 mg BIDM PO 07/14/17 08:30 08/13/17 08:29 07/16/17 07:51 200 MG Amlodipine Besylate (Norvasc Tab) 10 mg QAM PO 07/14/17 09:00 08/11/17 14:44 07/16/17 07:51 10 MG Atenolol (Tenormin Tab) 50 mg QAM PO 07/15/17 09:00 08/11/17 14:44 07/16/17 07:52 50 MG Heparin Sodium (Porcine) (Heparin 10 Unit/ ml 5 ml Flush) 5 ml PRN PRN FLUSH 07/15/17 06:15 08/14/17 06:14 07/16/17 05:48 5 ML Ceftriaxone Sodium 2000 mg/ Dextrose 70 ml @ 140 mls/hr DAILY@2100 IV 07/15/17 21:00 08/26/17 20:59 07/16/17 11:22 140 MLS/HR
[2017-07-16] MEDS ORDERED: CEFT1INJ57 IV (12:07)
== END 2017-07-16 13:25 | disposition home health service (06) | DRG 503 ==
LOC: C.MSW 11:05
PROVIDERS: ADMIT Podiatrist Foot & Ankle Surgery; ATTEND Podiatrist Foot & Ankle Surgery
PROC: 0QTN0ZZ Resection of Right Metatarsal, Open Approach (ICD-10-PCS; principal; 2017-07-13 10:15)
PROC: 0Y6T0Z0 Detachment at Right 3rd Toe, Complete, Open Approach (ICD-10-PCS; principal; 2017-07-13 10:15)
DX: M86.9 Osteomyelitis, unspecified (principal); A48.0 Gas gangrene; L03.115 Cellulitis of right lower limb; C85.90 Non-Hodgkin lymphoma, unspecified, unspecified site; M00.871 Arthritis due to other bacteria, right ankle and foot; B95.61 Methicillin susceptible Staphylococcus aureus infection as the cause of diseases classified elsewhere; N18.3 Chronic kidney disease, stage 3 (moderate); I12.9 Hypertensive chronic kidney disease with stage 1 through stage 4 chronic kidney disease, or unspecified chronic kidney disease; E78.5 Hyperlipidemia, unspecified; I48.2 Chronic atrial fibrillation; M10.9 Gout, unspecified; G62.9 Polyneuropathy, unspecified; Z79.899 Other long term (current) drug therapy

== ENCOUNTER → 2017-07-26 | Outpatient (CLI) | payer OTHER ==
[~2017-07-26] MED LIST changes: +CEFT1INJ57 IV; -DXY100 PO; -LEVO-17 PO; +OXYSR10 PO; +RXC5 PO
[2017-07-26 17:27] LABS: HEMATOCRIT 36.8 % (42-52); HEMOGLOBIN 11.3 g/dL (14.0-18.0); MEAN CELL VOLUME 101.7 fL (80-100); MEAN CORPUSCULAR HEMOGLOBIN 31.2 pg (25-34); MEAN CORPUSCULAR HGB CONC 30.7 g/dl (32-36); MEAN PLATELET VOLUME 10.6 fL (7.4-10.4); PLATELET COUNT 130 K/uL (130-400); RED CELL DISTRIBUTION WIDTH CV 17.1 % (11.5-14.5); RED CELL DISTRIBUTION WIDTH SD 62.1 fL (36.4-46.3); WHITE BLOOD COUNT 5.17 K/uL (4.8-10.8)
[2017-07-26 17:52] LABS: ALBUMIN 3.3 gm/dl (3.4-5.0); ALT/SGPT 24 U/L (12-78); BLOOD UREA NITROGEN 35 mg/dl (7-18); CALCIUM 8.9 mg/dl (8.5-10.1); CARBON DIOXIDE 24 mmol/L (21-32); CREATININE 1.44 mg/dl (0.60-1.40); GLUCOSE 95 mg/dl (70-99); POTASSIUM 4.5 mmol/L (3.5-5.1); SODIUM 135 mmol/L (136-145)
[2017-07-26 17:55] LABS: ALKALINE PHOSPHATASE 113 U/L (45-117); AST/SGOT 25 U/L (15-37); TOTAL PROTEIN 8.1 gm/dl (6.4-8.2)
--- NOTE | 2017-08-18 14:48 | CODING QUERY NO DIAGNOSIS ---
: 1932 TREATMENT RENDERED WITHOUT A DIAGNOSIS To promote full compliance with coding requirements relating to patient care, physician participation is requested in all cases of cook syrup maker uncertainty. Please assist us with providing a diagnosis/symptom for the test(s) below: A diagnosis/symptom was not documented on your Order. A valid diagnosis/symptom is required to bill all insurances. Please remember that we are unable to code a diagnosis of rule out, probable, possible, questionable, or suspected. Tests that require a diagnosis: DOS: 07/26/17 CBC W/O DIFF DIAGNOSIS COMPREHENSIVE METABOLIC PANEL DIAGNOSIS ERYTHROCYTE SEDIMENTATION RATE DIAGNOSIS Provider Signature: Date: Thank you Annelise Dawson [facility] Information Management Once completed, please kindly fax back to [phone] For questions please call [phone]
== END | disposition home or self-care (01) ==
LOC: C.LABSPEC 16:43
PROVIDERS: ATTEND Internal Medicine Infectious Disease
DX: L02.611 Cutaneous abscess of right foot (principal); L03.115 Cellulitis of right lower limb

== ENCOUNTER → 2017-08-02 | Outpatient (CLI) | payer OTHER ==
[2017-08-02 14:39] LABS: HEMATOCRIT 38.9 % (42-52); MEAN CELL VOLUME 101.6 fL (80-100); MEAN CORPUSCULAR HEMOGLOBIN 31.1 pg (25-34); MEAN CORPUSCULAR HGB CONC 30.6 g/dl (32-36); RED BLOOD COUNT 3.83 M/uL (4.7-6.1); WHITE BLOOD COUNT 4.31 K/uL (4.8-10.8)
[2017-08-02 14:47] LABS: ALT/SGPT 34 U/L (12-78); AST/SGOT 35 U/L (15-37); BLOOD UREA NITROGEN 43 mg/dl (7-18); BUN/CREATININE RATIO 31.7 (10-20); CALCIUM 8.6 mg/dl (8.5-10.1); CARBON DIOXIDE 24 mmol/L (21-32); CHLORIDE 103 mmol/L (98-107); CREATININE 1.36 mg/dl (0.60-1.40); GLUCOSE 96 mg/dl (70-99); POTASSIUM 5.3 mmol/L (3.5-5.1); SODIUM 135 mmol/L (136-145)
[2017-08-02 14:49] LABS: ALB/GLOB RATIO 0.7 (0.9-2); ALKALINE PHOSPHATASE 128 U/L (45-117)
[2017-08-02 15:04] LABS: MEAN PLATELET VOLUME 10.1 fL (7.4-10.4); PLATELET COUNT 99 K/uL (130-400)
[2017-08-02 15:05] LABS: PLT ESTIMATE DECREASED
== END | disposition home or self-care (01) ==
LOC: C.LABSPEC 14:15
PROVIDERS: ATTEND Internal Medicine Infectious Disease
DX: L02.611 Cutaneous abscess of right foot (principal); L03.115 Cellulitis of right lower limb

== ENCOUNTER → 2017-08-09 | Outpatient (CLI) | payer OTHER ==
[2017-08-09 14:40] LABS: HEMATOCRIT 36.3 % (42-52); MEAN CELL VOLUME 100.3 fL (80-100); MEAN CORPUSCULAR HEMOGLOBIN 31.8 pg (25-34); MEAN CORPUSCULAR HGB CONC 31.7 g/dl (32-36); RED BLOOD COUNT 3.62 M/uL (4.7-6.1); WHITE BLOOD COUNT 4.68 K/uL (4.8-10.8)
[2017-08-09 14:50] LABS: MEAN PLATELET VOLUME 9.4 fL (7.4-10.4); PLATELET COUNT 96 K/uL (130-400)
[2017-08-09 14:51] LABS: ALT/SGPT 28 U/L (12-78); AST/SGOT 25 U/L (15-37); BLOOD UREA NITROGEN 48 mg/dl (7-18); CALCIUM 8.7 mg/dl (8.5-10.1); CARBON DIOXIDE 23 mmol/L (21-32); CHLORIDE 104 mmol/L (98-107); CREATININE 1.34 mg/dl (0.60-1.40); GLUCOSE 105 mg/dl (70-99); POTASSIUM 4.9 mmol/L (3.5-5.1); SODIUM 137 mmol/L (136-145)
[2017-08-09 14:53] LABS: ALB/GLOB RATIO 0.7 (0.9-2); ALKALINE PHOSPHATASE 131 U/L (45-117)
== END | disposition home or self-care (01) ==
LOC: C.LABSPEC 14:15
PROVIDERS: ATTEND Internal Medicine Infectious Disease
DX: L02.611 Cutaneous abscess of right foot (principal); L03.115 Cellulitis of right lower limb

== ENCOUNTER → 2017-08-16 | Outpatient (CLI) | payer OTHER ==
[2017-08-16 16:31] LABS: HEMATOCRIT 35.1 % (42-52); HEMOGLOBIN 11.1 g/dL (14.0-18.0); MEAN CORPUSCULAR HEMOGLOBIN 31.6 pg (25-34); MEAN CORPUSCULAR HGB CONC 31.6 g/dl (32-36); PLATELET COUNT 104 K/uL (130-400); RED CELL DISTRIBUTION WIDTH CV 16.7 % (11.5-14.5); RED CELL DISTRIBUTION WIDTH SD 60.6 fL (36.4-46.3); WHITE BLOOD COUNT 4.53 K/uL (4.8-10.8)
[2017-08-16 16:52] LABS: ALBUMIN 3.1 gm/dl (3.4-5.0); ALT/SGPT 24 U/L (12-78); BLOOD UREA NITROGEN 49 mg/dl (7-18); CALCIUM 8.7 mg/dl (8.5-10.1); CARBON DIOXIDE 20 mmol/L (21-32); CREATININE 1.36 mg/dl (0.60-1.40); GLUCOSE 83 mg/dl (70-99); POTASSIUM 4.3 mmol/L (3.5-5.1); SODIUM 138 mmol/L (136-145)
[2017-08-16 16:55] LABS: ALKALINE PHOSPHATASE 118 U/L (45-117); AST/SGOT 23 U/L (15-37); TOTAL PROTEIN 7.9 gm/dl (6.4-8.2)
== END | disposition home or self-care (01) ==
LOC: C.LABSPEC 14:45
PROVIDERS: ATTEND Internal Medicine Infectious Disease
DX: L02.611 Cutaneous abscess of right foot (principal); L03.115 Cellulitis of right lower limb

== ENCOUNTER 2018-11-30 12:54 | Inpatient (IN) ==
[2018-11-30] MEDS ORDERED: SODIUM CHLORIDE 0.9% 1000ML 1,000 ML IV SCH ×2 (15:15→20:00)
--- NOTE | 2018-11-30 15:45 | XRay Report ---
SINGLE VIEW CHEST CLINICAL HISTORY: Dyspnea. FINDINGS: An AP, portable, upright chest radiograph is compared to study dated 07/19/2018 and correla sidra with chest CT dated 11/10/2018. The examination is degraded by portable technique and patient rota tion. The heart is enlarged, and there is atherosclerotic calcification of the thoracic aorta. The p ulmonary vasculature is noncongested. Chronic interstitial thickening is similar to previous. There i s bibasilar atelectasis. No airspace consolidation or large pleural effusion is identified. No pneumo thorax is seen. The skeletal structures are osteopenic. The bony thorax is grossly intact. There are bilateral shoulder arthroplasties. IMPRESSION: Cardiomegaly with no acute cardiopulmonary abnormality. Electronically signed by: Memo Daly M.D. 11/30/2018 3:44 PM
[2018-11-30 15:52] LABS: Basophils # (auto) 0.01 K/uL (0-0.2); Basophils % (auto) 0.1 %; Eosinophils # (auto) 0.02 K/uL (0-0.5); Eosinophils % (auto) 0.3 %; Hematocrit (blood only) 38.2 % (42-52); Hemoglobin 13.1 g/dL (14.0-18.0); Immature Granulocytes # (auto) 0.02 K/uL (0.00-0.02); Immature Granulocytes % (auto) 0.3 %; Lymphocytes # (auto) 1.96 K/uL (1.2-3.4); Lymphocytes % (auto) 25.9 %; Mean Corpuscular Hgb Conc 34.3 g/dL (32-36); Mean Corpuscular Volume 92.7 fL (80-100); Mean Platelet Volume 10.1 fL (7.4-10.4); Monocytes % (auto) 5.3 %; Neutrophils # (auto) 5.15 K/uL (1.4-6.5); Neutrophils % (auto) 68.1 %; Platelet Count 118 K/uL (130-400); RDW Coefficient of Variation 17.6 % (11.5-14.5); RDW Standard Deviation 57.5 fL (36.4-46.3); Red Blood Count 4.12 M/uL (4.7-6.1); White Blood Count 7.56 K/uL (4.8-10.8)
[2018-11-30 16:07] LABS: Albumin Level 3.4 gm/dl (3.4-5.0); BUN Creatinine Ratio 29.3 (10-20); Calcium 8.9 mg/dl (8.5-10.1); Creatinine Clr Calc Pharmacy 21.7 ml/min; Est GFR (African American) 24.8; Est GFR (Non-African American) 21.4
[2018-11-30 16:08] LABS: Albumin Globulin Ratio 0.6 (0.9-2); Bilirubin,Total 1.1 mg/dl (0.2-1); Globulin 5.6 gm/dl (2.5-4.0)
[2018-11-30 16:09] LABS: INR 1.9 (0.9-1.1); Partial Thromboplastin Ratio 1.2; Partial Thromboplastin Time 32.2 Seconds (21.0-31.0); Prothrombin Time 18.6 Seconds (9.0-12.0)
[2018-11-30] MEDS ORDERED: POTASSIUM CHLORIDE 10 MEQ TABCR PO STA ×2 (16:12→19:50)
[2018-11-30] MEDS: POTASSIUM CHLORIDE / WTR 10 MEQ/100 ML PLCT IV SCH ×2 (16:28→17:59)
[2018-11-30 16:50] LABS: Appearance Urine Clear (Clear); Bacteria Urine Automated Negative (Negative); Bilirubin Urine Negative (Negative); Blood Urine 1+ (Negative); Color Urine Yellow; Glucose Urine UA Negative (Negative); Ketones Urine Negative (Negative); Leukocyte Esterase Urine Negative (Negative); Nitrite Urine Negative (Negative); Protein Urine 1+ (Negative); RBC Urine Automated 0-4 /hpf (0-4); Specific Gravity Urine 1.017 (1.000-1.030); Urobilinogen Urine Negative (Negative); pH Urine 5.5 (4.5-7.5)
--- NOTE | 2018-11-30 20:20 | History & Physical Report ---
Date of Service November 30, 2018 Assessment & Plan (1) Hypokalemia: This is an 87-year-old male with a PMH of HTN, HLD, CKD stage III, anemia of chronic disease (on Procrit [id number]), permanent atrial fibrillation (on long- term anticoagulation), R ventricular systolic dysfunction, gout and history of diffuse large B cell lymphoma (in remission since 2010) who presents with worsening shortness of breath and weight loss and was found to be hypokalemia with an NAJMA on CKD. -Initial potassium of 2.0 in setting of chronic diarrhea -Given replacement in ED. Will repeat lab work -No chest pain but EKG with ST & T wave abnormality in lateral leads -Initial troponin of 0.069. Continue trending troponin -Telemetry (2) Acute kidney injury superimposed on CKD: Creatinine elevated at 2.6 (baseline mid-1s) -In setting of dehydration-- decreased PO intake, GI losses -Gentle fluids resuscitation -Avoid nephrotoxic agents -BMP in AM (3) Unintentional weight loss: Endorses ~20 lb weight loss since September -Noted to have R axillary adenopathy last month and CT chest/abd was ordered which revealed cecal wall thickening. -Was not interested in proceeding with colonoscopy, which was GI's recommend ation -Stool culture, C diff pending -Need to establish goals of care -Per Dr. Sky's addendum for further details (4) Anemia due to chronic kidney disease: Follows with heme onc. Receives procrit injections every few weeks -Hgb of 13 tonight (above baseline, likely some hemoconcentration) -Continue monitoring CBC (5) HTN (hypertension): Continue atenolol with hold parameters -Holding lasix in setting of dehydration, NAJMA (6) Chronic atrial fibrillation: EKG with rate-controlled A Fib -Continue atenolol with hold parameters -Taking 2.5mg Coumadin this week, per coag clinic -INR subtherapeutic at 1.9 (7) 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: (8) Valvular heart disease: Clinically dry with NAJMA -Holding lasix -Monitor volume status closely (9) DLBCL (diffuse large B cell lymphoma): History of diffuse large B cell lymphoma (s/p chemo) -In remission since 2010 (10) Dyslipidemia: Continue atorvastatin (11) Thrombocytopenia: Plt of 118 (baseline 110-140) -Continue monitoring Code status: DNR per discussion with patient PCP: Isaac Dispo: Admit to med tele. Plan to return home once medically stable. Patient seen in collaboration with Dr. Sky. Please see addendum. History of Present Illness Chief Complaint: unintentional weight loss, Primary Care Provider: Kenn Gray, DO This is an 87-year-old male with a PMH of HTN, HLD, CKD stage III, anemia of chronic disease on Procrit [id number], permanent atrial fibrillation on long-term anticoagulation, R ventricular systolic dysfunction, gout and history of diffuse large B cell lymphoma (in remission since 2010) who presents with worsening shortness of breath and weight loss. Patient endorses decreased appetite and unintentional weight loss of 20 pounds since September. Also experiencing dyspnea on exertion, fatigue, generalized weakness, nausea and diarrhea. Follows with heme onc for anemia of chronic disease and was noted to have R axillary adenopathy last month, so a CT chest/abd was ordered which revealed cecal wall thickening. Was seen by GI to discuss possibility of malignancy. Per GI clinic note from last week, patient does not wish to proceed with colonoscopy at this point in time because "I'm 87 and I don't find it necessary". Has been having intermittent black stools but states that he only notices them after he drinks pepto bismol. Denies fever, chills, night sweats, vision changes, confusion, chest pain, palpitations, wheezing, vomiting, abdominal pain, dysuria, hematuria or hematochezia. No unusual bruising or new lymphadenopathy. Allergies Allergy/AdvReac Type Severity Reaction Status Date / Time aztreonam Allergy Intermediate RASH Verified 11/30/18 19:09 daptomycin Allergy Intermediate RASH Verified 11/30/18 19:09 indapamide Allergy Unknown Unknown Verified 11/30/18 19:09 Penicillins Allergy Unknown unknown Verified 11/30/18 19:09 Sulfa (Sulfonamide Allergy Unknown unknown Verified 11/30/18 19:09 Antibiotics) sulfamethoxazole Allergy Unknown unknown Verified 11/30/18 19:09 Home Medications Home Medications Medication Instructions Recorded Confirmed Type allopurinol 200 mg PO HS 07/19/18 11/30/18 History atenolol 50 mg PO DAILY 07/19/18 11/30/18 History epoetin renee 20,000 units SUBCUT UD 07/19/18 11/30/18 History warfarin 2.5 mg PO DAILY 07/19/18 11/30/18 History pantoprazole [Protonix] 40 mg PO DAILY #30 tab 07/21/18 11/30/18 Rx Align 4 mg PO DAILY 08/03/18 11/30/18 History atorvastatin 40 mg PO HS 08/03/18 11/30/18 History folic acid 1 mg PO DAILY 11/30/18 11/30/18 History furosemide 20 mg PO DAILY 11/30/18 11/30/18 History potassium chloride 10 meq PO DAILY 11/30/18 11/30/18 History Past Med/Surg History Medical History Dyslipidemia (Chronic) HTN (hypertension) (Chronic) Valvular heart disease (Chronic) 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) Amputated toe (Chronic) 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) Chronic atrial fibrillation (Chronic) 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) CKD (chronic kidney disease), stage III (Chronic) Osteoarthritis (Chronic) Gout (Chronic) Amputated toe of right foot Anemia of chronic disease Atrial fibrillation CKD (chronic kidney disease), stage III 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, 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 cycles Dyslipidemia Gout HTN (hypertension) 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 Osteoarthritis Surgical History History of total left hip replacement (Resolved) History of bilateral carotid endarterectomy (Resolved) History of cholecystectomy (Resolved) History of total bilateral knee replacement (Resolved) S/P rotator cuff repair (Resolved) Status post total shoulder arthroplasty (Resolved) H/O rotator cuff surgery History of CEA (carotid endarterectomy) History of lymph node biopsy History of total bilateral knee replacement "s/p left knee revision" History of total left hip replacement Hx of cholecystectomy Status post total shoulder arthroplasty Family History Other Family history non-contributory Social History Communication Ability: Effective 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 Beliefs That Will Affect Care: None marital status: Current Living Situation: Family Current Living Situation Comment: Lives with son current occupational status: retired current occupation: [employer] Other Information That Helps Us Care for You: No Feels Safe at Home: Yes Safety Concerns: Feels Safe At This Time Smoking Status: Never smoker Hx Alcohol Use: Yes Hx Substance Use: No Review of Systems All systems reviewed & are unremarkable except as noted in HPI & below Physical Exam Vital Signs (Past 24 Hours): Last Vital Signs Temp 36.3 C L 11/30/18 13:13 Pulse 59 L 11/30/18 19:43 Resp 20 11/30/18 19:43 BP 138/77 11/30/18 19:43 Pulse Ox 98 11/30/18 19:43 Physical Exam: General Appearance: WD/WN, elderly male, no apparent distress, chronically ill appearing Head: normocephalic, atraumatic Eyes: normal inspection, PERRL, EOMI ENT: hearing grossly normal, pharynx normal (mucous membranes moist) Neck: supple, no JVD, no adenopathy Respiratory/Chest: lungs clear to auscultation. No wheezes, rales or rhonci. No respiratory distress or accessory muscle use Cardiovascular: bradycardic, regular rhythm, no murmur, normal peripheral pulses Abdomen/GI: normal bowel sounds, soft, non-tender to palpation Extremities/Musculoskelatal: normal inspection, no calf tenderness, normal capillary refill, no pedal edema Neurologic/Psych: alert, normal mood/affect, oriented x 3 Skin: normal color, warm/dry Results & Data Laboratory Results Short CBC 11/30/18 Range/Units 15:30 WBC 7.56 (4.8-10.8) K/uL Hgb 13.1 L (14.0-18.0) g/dL Hct 38.2 L (42-52) % Plt Count 118 L (130-400) K/uL BMP 11/30/18 15:30 Sodium 135 L Potassium 2.0 L* Chloride 104 Carbon Dioxide 17 L BUN 76 H Creatinine 2.60 H Glucose 122 H Calcium 8.9 Cardiac Enzymes 11/30/18 Range/Units 15:30 Troponin I 0.069 H* (0-0.045) ng/ml Liver Function 11/30/18 Range/Units 15:30 Total Bilirubin 1.1 H (0.2-1) mg/dl AST 61 H (15-37) U/L ALT 71 (12-78) U/L Alkaline Phosphatase 174 H (45-117) U/L Albumin 3.4 (3.4-5.0) gm/dl Urine 11/30/18 Range/Units 16:30 Urine Color Yellow Urine Appearance Clear (Clear) Urine pH 5.5 (4.5-7.5) Ur Specific [place] 1.017 (1.000-1.030) Urine Protein 1+ H (Negative) Urine Glucose (UA) Negative (Negative) ECG Rhythm: atrial fibrillation Findings: + nonspecific-ST abn Code Status & VTE Plan Code Status DNR per discussion with patient Supervising Physician Co-Signing Physician Notes IM ATTENDING : Patient seen and examined. History obtained from patient and records. Preceding documentation by Ms. Archana Mcdaniels PA-C reviewed. FINAL ASSESSMENT AND PLAN as follows : Hypokalemia, ARF on CRI, weight loss secondary to chronic diarrhea Cecal wall thickening on recent outpatient CT (?NHL relapse) rule out C. difficile Home diuretic started a few months ago outpatient by PCP for possible fluid retention contributory to hypokalemia, kidney dysfunction ? OTC probiotic (Align) contributory to diarrhea Depression possibly contributory to poor p.o. intake Asymptomatic troponin elevation likely secondary to kidney dysfunction hx CAD/ PVD as per records hypertension, stable History VHD (mild , mod MR, TR on outpx TTE 2018) AFib, on anticoagulation Patient on the bradycardic side, INR slightly subtherapeutic history of non-Hodgkin's lymphoma, status post chemotherapy ? Relapse R axillary adenopathy, splenomegaly, cecal wall thickening noted outpatient CT last month chronic anemia, hemoglobin better than baseline likely secondary to hemoconcentration chronic thrombocytopenia Medical telemetry for troponin elevation Follow troponin, TTE if with progression Replace potassium, hold Lasix monitor creatinine response to IV fluids, renal ultrasound if without improvement of kidney function Hold OTC probiotic for now given listed diarrhea side effect Stool C. difficile, stool cultures (ordered outpatient by [facility]) GI consult RE chronic diarrhea, cecal wall thickening on CT, ? Inpatient colonoscopy given patient's frailty Clear liquid diet, hold Coumadin for now in anticipation of possible inpatient endoscopy Psych consult RE depression Outpatient follow-up eval with Oncology RE adenopathy, splenomegaly on outpatient CT PT OT eval DVT prophylaxis. SCDs if INR less than 2 while Coumadin on hold for possible inpatient endoscopy DNR
[2018-11-30 20:25] LABS: Magnesium 2.7 mg/dl (1.8-2.4)
--- NOTE | 2018-11-30 21:15 | Emergency Department Note ---
Entered by Stephanie Mendosa acting as a scribe for Ama Nieto MD History of Present Illness General Chief complaint: Shortness of Breath/Dyspnea Stated complaint: SOB Time Seen by Provider: 11/30/18 15:07 Source: patient Mode of arrival: ambulatory Limitations: no limitations History of Present Illness Provider complaint: shortness of breath Onset (ago): month(s) 1 Location: chest Pain Consistency: + other (worsening) Quality: + other (shortness of breath) Relieved By: + other (lying down) Exacerbated By: + other (sitting/standing) Associated symptoms: + cough, + loss of appetite and + other (weight loss) The patient is an 88 year old male who presents to the Emergency Room with complaints of a a worsening shortness of breath that began a month ago. The patient reports that his shortness of breath is relieved when lying down and exacerbated when sitting or standing. He states that he has had a loss of appetite for the last month as well. He notes that he was evaluated by his PCP a month ago where he weighed 213 lbs and that today he weighed himself and was 172 lb. He reports that he has a history of lymphoma. He also states that he did woodard ve a CT scan performed recently at this hospital. Home Medications Home Medications Medication Instructions Recorded Confirmed Type allopurinol 200 mg PO HS 07/19/18 11/30/18 History atenolol 50 mg PO DAILY 07/19/18 11/30/18 History epoetin renee 20,000 units SUBCUT UD 07/19/18 11/30/18 History warfarin 2.5 mg PO DAILY 07/19/18 11/30/18 History pantoprazole [Protonix] 40 mg PO DAILY #30 tab 07/21/18 11/30/18 Rx Align 4 mg PO DAILY 08/03/18 11/30/18 History atorvastatin 40 mg PO HS 08/03/18 11/30/18 History folic acid 1 mg PO DAILY 11/30/18 11/30/18 History furosemide 20 mg PO DAILY 11/30/18 11/30/18 History potassium chloride 10 meq PO DAILY 11/30/18 11/30/18 History Allergies Allergy/AdvReac Type Severity Reaction Status Date / Time aztreonam Allergy Intermediate RASH Verified 11/30/18 19:09 daptomycin Allergy Intermediate RASH Verified 11/30/18 19:09 indapamide Allergy Unknown Unknown Verified 11/30/18 19:09 Penicillins Allergy Unknown unknown Verified 11/30/18 19:09 Sulfa (Sulfonamide Allergy Unknown unknown Verified 11/30/18 19:09 Antibiotics) sulfamethoxazole Allergy Unknown unknown Verified 11/30/18 19:09 Past Med/Surg History Medical History Dyslipidemia (Chronic) HTN (hypertension) (Chronic) Valvular heart disease (Chronic) 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) Amputated toe (Chronic) 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) Chronic atrial fibrillation (Chronic) 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) CKD (chronic kidney disease), stage III (Chronic) Osteoarthritis (Chronic) Gout (Chronic) Amputated toe of right foot Anemia of chronic disease Atrial fibrillation CKD (chronic kidney disease), stage III 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, 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 cycles Dyslipidemia Gout 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 Osteoarthritis Surgical History History of total left hip replacement (Resolved) History of bilateral carotid endarterectomy (Resolved) History of cholecystectomy (Resolved) History of total bilateral knee replacement (Resolved) S/P rotator cuff repair (Resolved) Status post total shoulder arthroplasty (Resolved) H/O rotator cuff surgery History of CEA (carotid endarterectomy) History of lymph node biopsy History of total bilateral knee replacement "s/p left knee revision" History of total left hip replacement Hx of cholecystectomy Status post total shoulder arthroplasty Family History Other Family history non-contributory Social History Communication Ability: Effective [place] Required: No Beliefs That Will Affect Care: None marital status: Current Living Situation: Family Current Living Situation Comment: Lives with son current occupational status: retired current occupation: Other Information That Helps Us Care for You: No Feels Safe at Home: Yes Safety Concerns: Feels Safe At This Time Smoking Status: Never smoker Hx Alcohol Use: Yes Hx Substance Use: No Review of Systems See HPI for pertinent positives & negatives. and A total of 10 systems reviewed and were otherwise negative Physical Exam Vital Signs Vital Signs - 24 hr 12/01/18 07:12 12/01/18 08:57 12/01/18 12:55 Temperature 36.7 C 36.5 C Temperature Source Oral Oral Pulse Rate 51 L Pulse Rate [Finger] 99 H 58 L Pulse Rhythm [Finger] Irregular Pulse Strength [Finger] Normal Respiratory Rate 18 18 Respiratory Effort / Characteristics Non-Labored Respiratory Depth Normal Respiratory Pattern Regular Blood Pressure [Right Arm] 120/69 147/88 H Blood Pressure Mean [Right Arm] 86 107 Blood Pressure Position [Right Arm] Lying Pulse Oximetry 94 100 Oxygen Delivery Method Room Air 12/01/18 15:53 12/01/18 16:00 12/01/18 19:09 Temperature 36.6 C 36.4 C L Temperature Source Oral Oral Pulse Rate 59 L Pulse Rate [Finger] 60 48 L Pulse Rhythm [Finger] Pulse Strength [Finger] Normal Respiratory Rate 18 19 Respiratory Effort / Characteristics Respiratory Depth Normal Respiratory Pattern Blood Pressure [Right Arm] 136/91 132/82 Blood Pressure Mean [Right Arm] 106 98 Blood Pressure Position [Right Arm] Lying Pulse Oximetry 100 91 Oxygen Delivery Method Room Air 12/01/18 23:03 12/01/18 23:25 12/02/18 04:12 Temperature 36.5 C 36.7 C Temperature Source Oral Oral Pulse Rate 69 Pulse Rate [Finger] 68 58 L Pulse Rhythm [Finger] Regular Regular Pulse Strength [Finger] Normal Normal Respiratory Rate 20 20 Respiratory Effort / Characteristics Non-Labored Non-Labored Respiratory Depth Normal Normal Respiratory Pattern Regular Regular Blood Pressure [Right Arm] 128/69 120/71 Blood Pressure Mean [Right Arm] 88 87 Blood Pressure Position [Right Arm] Lying Lying Pulse Oximetry 96 99 Oxygen Delivery Method Room Air Room Air Vital signs reviewed. General: Somewhat ill-appearing, elderly, in no significant distress. HEENT: No scleral icterus, PERRLA, neck supple. Atraumatic. Dry mucous membranes. Pale conjunctiva. Cardiovascular: Regular rate and rhythm, no extra sounds. Pulmonary: Clear to auscultation bilaterally, normal work of breathing. Abdomen: Soft, nontender, nondistended, positive bowel sounds. Musculoskeletal: Atraumatic, no peripheral edema. Neurologic: Patient awake alert and oriented x 3, full strength in all 4 extremities. Cranial nerves 2 through 12 grossly intact. Skin: Warm, dry, no rash Course 1510: Past medical records reviewed. The patient was evaluated in room A12B, and a complete history and physical examination were performed. 1840: I reviewed the patient's case with Archana Mcdaniels PA-C - [facility] Hospitalist. She will evaluate the patient for further management. Administered Medications Allopurinol (Zyloprim) 200 mg PO HS JACKIE Stop: 12/31/18 20:59 Last Admin: 12/01/18 21:06 Dose: 200 mg Documented by: [id number] Atenolol (Tenormin) 25 mg PO DAILY JACKIE Stop: 12/31/18 08:59 Last Admin: 12/01/18 07:59 Dose: 25 mg Documented by: [id number] Atorvastatin Calcium (Lipitor) 40 mg PO HS JACKIE Stop: 12/31/18 20:59 Last Admin: 12/01/18 20:06 Dose: 40 mg Documented by: [id number] Folic Acid (Folvite) 1 mg PO DAILY JACKIE Stop: 12/31/18 08:59 Last Admin: 12/01/18 07:59 Dose: 1 mg Documented by: [id number] Pantoprazole Sodium (Protonix) 40 mg PO DAILY JACKIE Stop: 12/31/18 08:59 Last Admin: 12/01/18 07:59 Dose: 40 mg Documented by: [id number] Discontinued Medications Sodium Chloride (Nss 1000ml) 1,000 mls @ 999 mls/hr IV .[id number] JACKIE Stop: 11/30/18 16:15 Last Infusion: 11/30/18 16:51 Dose: 0 mls/hr Documented by: [id number] Admin: 11/30/18 15:47 Dose: 999 mls/hr Documented by: [id number] Potassium Chloride (K Tonny / Wtr) 10 meq in 100 mls @ 100 mls/hr IV Q1H JACKIE Stop: 11/30/18 18:14 Last Infusion: 11/30/18 19:34 Dose: 0 mls/hr Documented by: [id number] Admin: 11/30/18 17:59 Dose: 100 mls/hr Documented by: [id number] Infusion: 11/30/18 17:59 Dose: 0 mls/hr Documented by: [id number] Admin: 11/30/18 16:28 Dose: 100 mls/hr Documented by: [id number] Potassium Chloride/Sodium Chloride (Normal Saline W/20 Meq Kcl) 20 meq in 1,000 mls @ 60 mls/hr IV .[id number] ONE Stop: 12/01/18 15:39 Last Infusion: 12/01/18 16:08 Dose: 0 mls/hr Documented by: [id number] Admin: 11/30/18 23:27 Dose: 60 mls/hr Documented by: [id number] Potassium Chloride (Klor-Con M10) 40 meq PO NOW STA Stop: 11/30/18 16:13 Last Admin: 11/30/18 16:28 Dose: 40 meq Documented by: [id number] Potassium Chloride (Klor-Con M10) 50 meq PO NOW STA Stop: 11/30/18 19:51 Last Admin: 11/30/18 21:00 Dose: 50 meq Documented by: [id number] Potassium Chloride (Klor-Con M10) 50 meq PO ONE ONE Stop: 11/30/18 21:46 Last Admin: 11/30/18 23:27 Dose: 50 meq Documented by: [id number] Potassium Chloride (Klor-Con M20) 60 meq PO NOW ONE Stop: 12/01/18 06:46 Last Admin: 12/01/18 07:59 Dose: 60 meq Documented by: [id number] Potassium Chloride (Klor-Con M10) 20 meq PO NOW STA Stop: 12/01/18 15:40 Last Admin: 12/01/18 17:33 Dose: 20 meq Documented by: [id number] Potassium Chloride (Klor-Con M10) 20 meq PO NOW STA Stop: 12/01/18 19:14 Last Admin: 12/01/18 20:05 Dose: 20 meq Documented by: [id number] Medical Decision Making Differential Diagnosis Differential diagnoses includes but is not limited to pneumonia, bronchitis, COPD/Asthma exacerbation, pneumothorax, pulmonary embolism, congestive heart sayra lure, and acute coronary syndrome. Medical Records Attestation: I reviewed the patient's medical records. Home Medications Current Medication List: was personally reviewed by me Laboratory Data Attestation: I reviewed the patient's lab results. Result diagrams: 12/02/18 05:24 12/02/18 05:24 Lab Results 11/30/18 11/30/18 11/30/18 Range/Units 15:30 15:30 15:30 WBC 7.56 (4.8-10.8) K/uL RBC 4.12 L (4.7-6.1) M/uL Hgb 13.1 L (14.0-18.0) g/dL Hct 38.2 L (42-52) % MCV 92.7 (80-100) fL MCH 31.8 (25-34) pg MCHC 34.3 (32-36) g/dL RDW Std Deviation 57.5 H (36.4-46.3) fL RDW Coeff of Fang 17.6 H (11.5-14.5) % Plt Count 118 L (130-400) K/uL MPV 10.1 (7.4-10.4) fL Immature Gran % (Auto) 0.3 % Neut % (Auto) 68.1 % Lymph % (Auto) 25.9 % [place] % (Auto) 5.3 % Eos % (Auto) 0.3 % Baso % (Auto) 0.1 % Immature Gran # (Auto) 0.02 (0.00-0.02) K/uL Neut # (Auto) 5.15 (1.4-6.5) K/uL Lymph # (Auto) 1.96 (1.2-3.4) K/uL [place] # (Auto) 0.40 (0.11-0.59) K/uL Eos # (Auto) 0.02 (0-0.5) K/uL Baso # (Auto) 0.01 (0-0.2) K/uL Platelet Estimate (Normal) ESR (0-14) mm/hr PT 18.6 H (9.0-12.0) Seconds INR 1.9 H (0.9-1.1) APTT 32.2 H (21.0-31.0) Seconds PTT Ratio 1.2 Sodium 135 L (136-145) mmol/L Potassium 2.0 L* (3.5-5.1) mmol/L Chloride 104 (98-107) mmol/L Carbon Dioxide 17 L (21-32) mmol/L Anion Gap 13.0 H (3-11) BUN 76 H (7-18) mg/dl Creatinine 2.60 H (0.6-1.4) mg/dl Est Cr Clr Drug Dosing 21.7 ml/min Est GFR ( Amer) 24.8 Est GFR (Non-Af Amer) 21.4 BUN/Creatinine Ratio 29.3 H (10-20) Glucose 122 H (70-99) mg/dl Calcium 8.9 (8.5-10.1) mg/dl Magnesium (1.8-2.4) mg/dl Total Bilirubin 1.1 H (0.2-1) mg/dl AST 61 H (15-37) U/L ALT 71 (12-78) U/L Alkaline Phosphatase 174 H (45-117) U/L Lactate Dehydrogenase (87-241) U/L Troponin I (0-0.045) ng/ml C-Reactive Protein (0-0.29) mg/dl Total Protein 9.0 H (6.4-8.2) gm/dl Albumin 3.4 (3.4-5.0) gm/dl Globulin 5.6 H (2.5-4.0) gm/dl Albumin/Globulin Ratio 0.6 L (0.9-2) TSH (0.300-4.500) uIu/ml Urine Color Urine Appearance (Clear) Urine pH (4.5-7.5) Ur Specific [place] (1.000-1.030) Urine Protein (Negative) Urine Glucose (UA) (Negative) Urine Ketones (Negative) Urine Blood (Negative) Urine Nitrite (Negative) Urine Bilirubin (Negative) Urine Urobilinogen (Negative) Ur Leukocyte Esterase (Negative) Urine WBC (Auto) (0-5) /hpf Urine RBC (Auto) (0-4) /hpf U Hyaline Cast (Auto) (0-5) /lpf U Epithel Cells (Auto) (0-5) /lpf Urine Bacteria (Auto) (Negative) 11/30/18 11/30/18 11/30/18 Range/Units 15:30 15:30 16:30 WBC (4.8-10.8) K/uL RBC (4.7-6.1) M/uL Hgb (14.0-18.0) g/dL Hct (42-52) % MCV (80-100) fL MCH (25-34) pg MCHC (32-36) g/dL RDW Std Deviation (36.4-46.3) fL RDW Coeff of Fang (11.5-14.5) % Plt Count (130-400) K/uL MPV (7.4-10.4) fL Immature Gran % (Auto) % Neut % (Auto) % Lymph % (Auto) % [place] % (Auto) % Eos % (Auto) % Baso % (Auto) % Immature Gran # (Auto) (0.00-0.02) K/uL Neut # (Auto) (1.4-6.5) K/uL Lymph # (Auto) (1.2-3.4) K/uL [place] # (Auto) (0.11-0.59) K/uL Eos # (Auto) (0-0.5) K/uL Baso # (Auto) (0-0.2) K/uL Platelet Estimate (Normal) ESR (0-14) mm/hr PT (9.0-12.0) Seconds INR (0.9-1.1) APTT (21.0-31.0) Seconds PTT Ratio Sodium (136-145) mmol/L Potassium (3.5-5.1) mmol/L Chloride (98-107) mmol/L Carbon Dioxide (21-32) mmol/L Anion Gap (3-11) BUN (7-18) mg/dl Creatinine (0.6-1.4) mg/dl Est Cr Clr Drug Dosing ml/min Est GFR ( Amer) Est GFR (Non-Af Amer) BUN/Creatinine Ratio (10-20) Glucose (70-99) mg/dl Calcium (8.5-10.1) mg/dl Magnesium 2.7 H (1.8-2.4) mg/dl Total Bilirubin (0.2-1) mg/dl AST (15-37) U/L ALT (12-78) U/L Alkaline Phosphatase (45-117) U/L Lactate Dehydrogenase (87-241) U/L Troponin I 0.069 H* (0-0.045) ng/ml C-Reactive Protein (0-0.29) mg/dl Total Protein (6.4-8.2) gm/dl Albumin (3.4-5.0) gm/dl Globulin (2.5-4.0) gm/dl Albumin/Globulin Ratio (0.9-2) TSH 2.480 (0.300-4.500) uIu/ml Urine Color Yellow Urine Appearance Clear (Clear) Urine pH 5.5 (4.5-7.5) Ur Specific [place] 1.017 (1.000-1.030) Urine Protein 1+ H (Negative) Urine Glucose (UA) Negative (Negative) Urine Ketones Negative (Negative) Urine Blood 1+ H (Negative) Urine Nitrite Negative (Negative) Urine Bilirubin Negative (Negative) Urine Urobilinogen Negative (Negative) Ur Leukocyte Esterase Negative (Negative) Urine WBC (Auto) 1-5 (0-5) /hpf Urine RBC (Auto) 0-4 (0-4) /hpf U Hyaline Cast (Auto) 1-5 (0-5) /lpf U Epithel Cells (Auto) 10-20 H (0-5) /lpf Urine Bacteria (Auto) Negative (Negative) 12/01/18 12/01/18 12/01/18 Range/Units 04:48 04:48 04:48 WBC 10.33 (4.8-10.8) K/uL RBC 4.10 L (4.7-6.1) M/uL Hgb 13.1 L (14.0-18.0) g/dL Hct 39.1 L (42-52) % MCV 95.4 (80-100) fL MCH 32.0 (25-34) pg MCHC 33.5 (32-36) g/dL RDW Std Deviation 60.7 H (36.4-46.3) fL RDW Coeff of Fang 17.7 H (11.5-14.5) % Plt Count 117 L (130-400) K/uL MPV 9.6 (7.4-10.4) fL Immature Gran % (Auto) 0.3 % Neut % (Auto) 52.9 % Lymph % (Auto) 40.9 % [place] % (Auto) 4.5 % Eos % (Auto) 1.2 % Baso % (Auto) 0.2 % Immature Gran # (Auto) 0.03 H (0.00-0.02) K/uL Neut # (Auto) 5.47 (1.4-6.5) K/uL Lymph # (Auto) 4.22 H (1.2-3.4) K/uL [place] # (Auto) 0.47 (0.11-0.59) K/uL Eos # (Auto) 0.12 (0-0.5) K/uL Baso # (Auto) 0.02 (0-0.2) K/uL Platelet Estimate (Normal) ESR (0-14) mm/hr PT 19.3 H (9.0-12.0) Seconds INR 2.0 H (0.9-1.1) APTT (21.0-31.0) Seconds PTT Ratio Sodium 135 L (136-145) mmol/L Potassium 2.9 L D (3.5-5.1) mmol/L Chloride 108 H (98-107) mmol/L Carbon Dioxide 18 L (21-32) mmol/L Anion Gap 9.0 (3-11) BUN 66 H (7-18) mg/dl Creatinine 2.34 H (0.6-1.4) mg/dl Est Cr Clr Drug Dosing 24.1 ml/min Est GFR ( Amer) 28.1 Est GFR (Non-Af Amer) 24.3 BUN/Creatinine Ratio 28.4 H (10-20) Glucose 114 H (70-99) mg/dl Calcium 8.3 L (8.5-10.1) mg/dl Magnesium (1.8-2.4) mg/dl Total Bilirubin 0.9 (0.2-1) mg/dl AST 64 H (15-37) U/L ALT 74 (12-78) U/L Alkaline Phosphatase 175 H (45-117) U/L Lactate Dehydrogenase (87-241) U/L Troponin I 0.094 H* (0-0.045) ng/ml C-Reactive Protein (0-0.29) mg/dl Total Protein 8.8 H (6.4-8.2) gm/dl Albumin 3.1 L (3.4-5.0) gm/dl Globulin 5.7 H (2.5-4.0) gm/dl Albumin/Globulin Ratio 0.5 L (0.9-2) TSH (0.300-4.500) uIu/ml Urine Color Urine Appearance (Clear) Urine pH (4.5-7.5) Ur Specific [place] (1.000-1.030) Urine Protein (Negative) Urine Glucose (UA) (Negative) Urine Ketones (Negative) Urine Blood (Negative) Urine Nitrite (Negative) Urine Bilirubin (Negative) Urine Urobilinogen (Negative) Ur Leukocyte Esterase (Negative) Urine WBC (Auto) (0-5) /hpf Urine RBC (Auto) (0-4) /hpf U Hyaline Cast (Auto) (0-5) /lpf U Epithel Cells (Auto) (0-5) /lpf Urine Bacteria (Auto) (Negative) 12/01/18 12/01/18 12/01/18 Range/Units 04:48 12:02 12:02 WBC (4.8-10.8) K/uL RBC (4.7-6.1) M/uL Hgb (14.0-18.0) g/dL Hct (42-52) % MCV (80-100) fL MCH (25-34) pg MCHC (32-36) g/dL RDW Std Deviation (36.4-46.3) fL RDW Coeff of Fang (11.5-14.5) % Plt Count (130-400) K/uL MPV (7.4-10.4) fL Immature Gran % (Auto) % Neut % (Auto) % Lymph % (Auto) % [place] % (Auto) % Eos % (Auto) % Baso % (Auto) % Immature Gran # (Auto) (0.00-0.02) K/uL Neut # (Auto) (1.4-6.5) K/uL Lymph # (Auto) (1.2-3.4) K/uL [place] # (Auto) (0.11-0.59) K/uL Eos # (Auto) (0-0.5) K/uL Baso # (Auto) (0-0.2) K/uL Platelet Estimate (Normal) ESR 75 H (0-14) mm/hr PT (9.0-12.0) Seconds INR (0.9-1.1) APTT (21.0-31.0) Seconds PTT Ratio Sodium 135 L (136-145) mmol/L Potassium 3.1 L (3.5-5.1) mmol/L Chloride 111 H (98-107) mmol/L Carbon Dioxide 18 L (21-32) mmol/L Anion Gap 6.0 (3-11) BUN 60 H (7-18) mg/dl Creatinine 2.04 H D (0.6-1.4) mg/dl Est Cr Clr Drug Dosing 27.7 ml/min Est GFR ( Amer) 33.2 Est GFR (Non-Af Amer) 28.7 BUN/Creatinine Ratio 29.3 H (10-20) Glucose 117 H (70-99) mg/dl Calcium 8.4 L (8.5-10.1) mg/dl Magnesium (1.8-2.4) mg/dl Total Bilirubin (0.2-1) mg/dl AST (15-37) U/L ALT (12-78) U/L Alkaline Phosphatase (45-117) U/L Lactate Dehydrogenase 238 (87-241) U/L Troponin I 0.072 H* (0-0.045) ng/ml C-Reactive Protein (0-0.29) mg/dl Total Protein (6.4-8.2) gm/dl Albumin (3.4-5.0) gm/dl Globulin (2.5-4.0) gm/dl Albumin/Globulin Ratio (0.9-2) TSH (0.300-4.500) uIu/ml Urine Color Urine Appearance (Clear) Urine pH (4.5-7.5) Ur Specific [place] (1.000-1.030) Urine Protein (Negative) Urine Glucose (UA) (Negative) Urine Ketones (Negative) Urine Blood (Negative) Urine Nitrite (Negative) Urine Bilirubin (Negative) Urine Urobilinogen (Negative) Ur Leukocyte Esterase (Negative) Urine WBC (Auto) (0-5) /hpf Urine RBC (Auto) (0-4) /hpf U Hyaline Cast (Auto) (0-5) /lpf U Epithel Cells (Auto) (0-5) /lpf Urine Bacteria (Auto) (Negative) 12/01/18 12/02/18 12/02/18 Range/Units 12:02 05:24 05:24 WBC 5.55 (4.8-10.8) K/uL RBC 3.53 L (4.7-6.1) M/uL Hgb 11.3 L (14.0-18.0) g/dL Hct 33.9 L (42-52) % MCV 96.0 (80-100) fL MCH 32.0 (25-34) pg MCHC 33.3 (32-36) g/dL RDW Std Deviation 61.9 H (36.4-46.3) fL RDW Coeff of Fang 18.0 H (11.5-14.5) % Plt Count 98 L (130-400) K/uL MPV 9.7 (7.4-10.4) fL Immature Gran % (Auto) 0.4 % Neut % (Auto) 62.2 % Lymph % (Auto) 28.8 % [place] % (Auto) 6.8 % Eos % (Auto) 1.6 % Baso % (Auto) 0.2 % Immature Gran # (Auto) 0.02 (0.00-0.02) K/uL Neut # (Auto) 3.45 (1.4-6.5) K/uL Lymph # (Auto) 1.60 (1.2-3.4) K/uL [place] # (Auto) 0.38 (0.11-0.59) K/uL Eos # (Auto) 0.09 (0-0.5) K/uL Baso # (Auto) 0.01 (0-0.2) K/uL Platelet Estimate Decreased (Normal) ESR (0-14) mm/hr PT (9.0-12.0) Seconds INR (0.9-1.1) APTT (21.0-31.0) Seconds PTT Ratio Sodium 139 (136-145) mmol/L Potassium 3.1 L (3.5-5.1) mmol/L Chloride 115 H (98-107) mmol/L Carbon Dioxide 15 L (21-32) mmol/L Anion Gap 9.0 (3-11) BUN 47 H (7-18) mg/dl Creatinine 1.74 H D (0.6-1.4) mg/dl Est Cr Clr Drug Dosing 32.5 ml/min Est GFR ( Amer) 40.3 Est GFR (Non-Af Amer) 34.7 BUN/Creatinine Ratio 26.7 H (10-20) Glucose 102 H (70-99) mg/dl Calcium 8.3 L (8.5-10.1) mg/dl Magnesium (1.8-2.4) mg/dl Total Bilirubin (0.2-1) mg/dl AST (15-37) U/L ALT (12-78) U/L Alkaline Phosphatase (45-117) U/L Lactate Dehydrogenase (87-241) U/L Troponin I (0-0.045) ng/ml C-Reactive Protein 3.24 H (0-0.29) mg/dl Total Protein (6.4-8.2) gm/dl Albumin (3.4-5.0) gm/dl Globulin (2.5-4.0) gm/dl Albumin/Globulin Ratio (0.9-2) TSH (0.300-4.500) uIu/ml Urine Color Urine Appearance (Clear) Urine pH (4.5-7.5) Ur Specific [place] (1.000-1.030) Urine Protein (Negative) Urine Glucose (UA) (Negative) Urine Ketones (Negative) Urine Blood (Negative) Urine Nitrite (Negative) Urine Bilirubin (Negative) Urine Urobilinogen (Negative) Ur Leukocyte Esterase (Negative) Urine WBC (Auto) (0-5) /hpf Urine RBC (Auto) (0-4) /hpf U Hyaline Cast (Auto) (0-5) /lpf U Epithel Cells (Auto) (0-5) /lpf Urine Bacteria (Auto) (Negative) Imaging Data Radiologist's Impression: Radiology results as stated below per my review and the radiologist's interpretation: CT chest w/o con 10-NOV-2018 IMPRESSION: 1. Limited evaluation of the upper chest and axillary distributions secondary to streak artifact from bilateral shoulder arthroplasties. Within the limitations of the study, there are several nonspecific prominent right axillary and right subpectoral lymph nodes seen measuring up to 9 mm. 2. No acute intrathoracic abnormality identified. 3. Stable 6 and 5 mm nodules of the right lung which appear unchanged from 07/29/2016 suggestive of benign etiology. 3 mm solid nodule of the right upper lobe is likely benign, however has slightly increased in size from 2016. 4. Cardiomegaly with suggestion of pulmonary arterial hypertension. 5. Additional findings as above. Electronically signed by: Walter Deshpande M.D. 11/10/2018 5:[address] abd pelvis oral con only 10-NOV-2018 IMPRESSION: 1. Mild splenomegaly 2. No evidence of pathologic adenopathy 3. No evidence of bowel obstruction. No evidence of free air. 4. Normal appendix. No evidence of acute diverticulitis 5. Borderline cecal wall thickening Electronically signed by: Juvenal White M.D. 11/10/2018 3:59 PM SINGLE VIEW CHEST CLINICAL HISTORY: Dyspnea. FINDINGS: An AP, portable, upright chest radiograph is compared to study dated 07/19/2018 and correlated with chest CT dated 11/10/2018. The examination is degraded by portable technique and patient rotation. The heart is enlarged, and there is atherosclerotic calcification of the thoracic aorta. The pulmonary vasculature is noncongested. Chronic interstitial thickening is similar to previous. There is bibasilar atelectasis. No airspace consolidation or large pleural effusion is identified. No pneumothorax is seen. The skeletal structures are osteopenic. The bony thorax is grossly intact. There are bilateral shoulder arthroplasties. IMPRESSION: Cardiomegaly with no acute cardiopulmonary abnormality. Electronically signed by: Memo Daly M.D. 11/30/2018 3:44 PM ECG Data Attestation: I personally reviewed and interpreted this ECG as follows: Indication: SOB/dyspnea Rate (beats per minute): 60 Rhythm: atrial fibrillation Findings: + other (previous septal and inferior infarct, repolarization abn in anterior lateral leads) Comparison ECG Date: from (03-AUG-2018) Change: the following changes noted (significant changes noted) Additional Comments: REPEAT EKG: a-fib, 59 bpm, low voltage, repolarization abnormality, previous inferior and anterior infarct. Blood Pressure Blood Pressure Findings: Elevated blood pressure Blood Pressure Disposition: further management by hospitalist MDM Narrative This patient was evaluated and appeared to be in no distress. Patient is chronically ill-appearing. IV access was obtained and laboratory work was drawn. Patient is noted to have EKG changes including an intraventricular conduction delay. Patient was hydrated with normal saline solution. Laboratory work reveals a potassium of 2.0. Patient was given 40 mEq of oral potassium as well as 20 mEq of IV potassium. Patient has a slightly elevated troponin, but no complaints of chest pain. He is fatigued with exertion. Patient does have a long history of medical issues including lymphoma, atrial fibrillation chronic renal insufficiency. Records from the outpatient provider were reviewed as well as CT imaging of the chest and abdomen performed in the last several months. There is no acute pathology or notable malignant appearing mass. Given the electrolyte disturbance and elevated troponin, fatigue with exertion, the patient will be evaluated by the hospitalist service for further management. He is aware of the plan and agrees. Impression & Plan Dehydration, Hypokalemia, Renal failure Discharge Plan Visit Data *Final* Discharge Date/Time: 11/30/18 22:29 Chief Complaint: Shortness of Breath/Dyspnea Stated Complaint: SOB ED Provider: Ama Nieto Discharge Problem: Dehydration, Hypokalemia, Renal failure Patient Disposition: Admitted As Inpatient Discharge Instructions Interventions: ED Discharge Assessment Last Done: 11/30/18 22:29 The scribe's documentation has been prepared under my direction and personally reviewed by me in its entirety. I confirm that the note above accurately r eflects all work, treatment, procedures, and medical decision making performed by me.
[2018-11-30] MEDS ORDERED: ACETAMINOPHEN 325 MG TAB PO PRN (21:32)
[2018-11-30] MEDS ORDERED: NITROGLYCERIN SL 0.4 MG/TAB TAB SL PRN (21:32)
[2018-11-30] MEDS ORDERED: TRAMADOL HCL 50 MG TABLET PO PRN (21:32)
[2018-11-30] MEDS ORDERED: PROCHLORPERAZINE 5 MG in SYRINGE 4 ML IV PRN (21:32)
[2018-11-30] MEDS ORDERED: POTASSIUM CHLORIDE 10 MEQ TABCR PO ONE (21:45)
[2018-11-30] MEDS ORDERED: NSS + 20MEQ KCL 20 MEQ/1,000 ML BAG IV ONE (23:00)
[2018-12-01 04:59] LABS: Basophils # (auto) 0.02 K/uL (0-0.2); Basophils % (auto) 0.2 %; Eosinophils # (auto) 0.12 K/uL (0-0.5); Eosinophils % (auto) 1.2 %; Hematocrit (blood only) 39.1 % (42-52); Hemoglobin 13.1 g/dL (14.0-18.0); Immature Granulocytes # (auto) 0.03 K/uL (0.00-0.02); Immature Granulocytes % (auto) 0.3 %; Lymphocytes # (auto) 4.22 K/uL (1.2-3.4); Lymphocytes % (auto) 40.9 %; Mean Corpuscular Hgb Conc 33.5 g/dL (32-36); Mean Corpuscular Volume 95.4 fL (80-100); Mean Platelet Volume 9.6 fL (7.4-10.4); Monocytes # (auto) 0.47 K/uL (0.11-0.59); Monocytes % (auto) 4.5 %; Neutrophils # (auto) 5.47 K/uL (1.4-6.5); Neutrophils % (auto) 52.9 %; Platelet Count 117 K/uL (130-400); RDW Coefficient of Variation 17.7 % (11.5-14.5); RDW Standard Deviation 60.7 fL (36.4-46.3); White Blood Count 10.33 K/uL (4.8-10.8)
[2018-12-01 05:13] LABS: Prothrombin Time 19.3 Seconds (9.0-12.0)
[2018-12-01 05:23] LABS: Albumin Globulin Ratio 0.5 (0.9-2); Albumin Level 3.1 gm/dl (3.4-5.0); BUN Creatinine Ratio 28.4 (10-20); Bilirubin,Total 0.9 mg/dl (0.2-1); Calcium 8.3 mg/dl (8.5-10.1); Creatinine Clr Calc Pharmacy 24.1 ml/min; Est GFR (African American) 28.1; Est GFR (Non-African American) 24.3; Globulin 5.7 gm/dl (2.5-4.0); Potassium 2.9 mmol/L (3.5-5.1); Total Protein 8.8 gm/dl (6.4-8.2); Troponin I 0.094 ng/ml (0-0.045)
[2018-12-01] MEDS ORDERED: POTASSIUM CHLORIDE 20 MEQ TABCR PO ONE (06:45)
[2018-12-01] MEDS: ATENOLOL 50 MG TABLET PO SCH (07:59)
[2018-12-01] MEDS: FOLIC ACID 1 MG TAB PO SCH (07:59)
[2018-12-01] MEDS: PANTOprazole 40 MG TAB PO SCH (07:59)
--- NOTE | 2018-12-01 08:49 | Hospitalist Progress Note ---
Date of Service December 01, 2018 Assessment & Plan (1) Hypokalemia: per admitting SVC notes: This an 87-year-old male with a PMH of HTN, HLD, CKD stage III, anemia of chronic disease (on Procrit [id number]), permanent atrial fibrillation (on long- term anticoagulation), R ventricular systolic dysfunction, gout and history of diffuse large B cell lymphoma (in remission since 2010) who presents with worsening shortness of breath and weight loss and was found to be hypokalemia with an NAJMA on CKD. -Initial potassium of 2.0 in setting of chronic diarrhea -Given replacement in ED. Will repeat lab work -No chest pain but EKG with ST & T wave abnormality in lateral leads -Initial troponin of 0.069. Continue trending troponin -Telemetry 12/01 Hypokalemia secondary to GI Losses from Diarrhea, Lasix K improving PO and IV K given repeat PRP at 1pm (2) Acute kidney injury superimposed on CKD: Creatinine elevated at 2.6 (baseline mid-1s) -In setting of dehydration-- decreased PO intake, GI losses -Gentle fluids resuscitation -Avoid nephrotoxic agents -BMP in AM 12/01 Acute Renal Failure secondary to GI Losses from Diarrhea, Lasix Crea improved from 2.6 to 2.4 continue gentle IV NSS + K monitor (3) Diarrhea: (+) cecal wall thickening on last CT Abdomen stool cultures/ C diff ordered Clear liquids, IV fluids GI consulted (4) Unintentional weight loss: Endorses ~20 lb weight loss since September -Noted to have R axillary adenopathy last month and CT chest/abd was ordered which revealed cecal wall thickening. - Nutrition consult - continue close outpatient ff up with Hem/Onc (5) Anemia due to chronic kidney disease: Follows with heme onc. Receives procrit injections every few weeks ) Hg stable at 13 (6) HTN (hypertension): Continue atenolol with hold parameters -Holding lasix in setting of dehydration, NAJMA (7) Chronic atrial fibrillation: EKG with rate-controlled A Fib -Continue atenolol with hold parameters -Taking 2.5mg Coumadin this week, per coag clinic INR 2.0 coumadin on hold for possible EGD/Colonoscopy (8) 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: (9) Valvular heart disease: Clinically dry with NAJMA -Holding lasix -Monitor volume status closely (10) DLBCL (diffuse large B cell lymphoma): History of diffuse large B cell lymphoma (s/p chemo) -In remission since 2010 (11) Dyslipidemia: Continue atorvastatin (12) Thrombocytopenia: Plt of 118 (baseline 110-140) -Continue monitoring Code status: DNR per discussion with patient PCP: Isaac Dispo: pending lives with son at home PT bessie Subjective ff up for weakness, diarrhea seen resting in bed, comfortable states he feels somewhat better today compared to admission weakness improving still has diarrhea- 2-3 loose BMs, occasionally "black", no blood denies abdominal pain appetite improved today denies other symptoms Physical Exam Vital Signs (Past 24 Hours): Last Vital Signs Temp 36.7 C 12/01/18 07:12 Pulse 99 H 12/01/18 07:12 Resp 18 12/01/18 07:12 BP 120/69 12/01/18 07:12 Pulse Ox 94 12/01/18 07:12 Physical Exam: General- oriented x 3, not in distress, speaks in sentences with no effort or accessory muscle use Head- atraumatic Eyes- PERRL, EOMI, anicteric ENT- oropharynx clear Neck- supple, no JVD, no adenopathy, no thyromegaly; carotids +2/2, no bruits appreciated Lungs- clear to auscultation bilaterally, no rales/wheezes Heart- normal rate, regular rhythm; no murmur, no gallop, no rub appreciated Abdomen- normal bowel sounds, nondistended, soft, nontender, no masses or hepatosplenomegaly Extremities- no pretibial edema, no calf tenderness; peripheral pulses intact no lymphadenopathy Neuro- alert, oriented x 3; CN 2-12 grossly intact; motor 5/5 bilaterally;sensation 100% on all extremities; no other gross focal neurologic deficits Skin- warm & dry Results & Data Laboratory Results Laboratory Results - last 24 hr 11/30/18 11/30/18 11/30/18 15:30 15:30 15:30 WBC 7.56 RBC 4.12 L Hgb 13.1 L Hct 38.2 L MCV 92.7 MCH 31.8 MCHC 34.3 RDW Std Deviation 57.5 H RDW Coeff of Fang 17.6 H Plt Count 118 L MPV 10.1 Immature Gran % (Auto) 0.3 Neut % (Auto) 68.1 Lymph % (Auto) 25.9 Starr % (Auto) 5.3 Eos % (Auto) 0.3 Baso % (Auto) 0.1 Immature Gran # (Auto) 0.02 Neut # (Auto) 5.15 Lymph # (Auto) 1.96 Starr # (Auto) 0.40 Eos # (Auto) 0.02 Baso # (Auto) 0.01 PT 18.6 H INR 1.9 H APTT 32.2 H PTT Ratio 1.2 Sodium 135 L Potassium 2.0 L* Chloride 104 Carbon Dioxide 17 L Anion Gap 13.0 H BUN 76 H Creatinine 2.60 H Est Cr Clr Drug Dosing 21.7 Est GFR ( Amer) 24.8 Est GFR (Non-Af Amer) 21.4 BUN/Creatinine Ratio 29.3 H Glucose 122 H Calcium 8.9 Magnesium Total Bilirubin 1.1 H AST 61 H ALT 71 Alkaline Phosphatase 174 H Troponin I Total Protein 9.0 H Albumin 3.4 Globulin 5.6 H Albumin/Globulin Ratio 0.6 L TSH Urine Color Urine Appearance Urine pH Ur Specific [place] Urine Protein Urine Glucose (UA) Urine Ketones Urine Blood Urine Nitrite Urine Bilirubin Urine Urobilinogen Ur Leukocyte Esterase Urine WBC (Auto) Urine RBC (Auto) U Hyaline Cast (Auto) U Epithel Cells (Auto) Urine Bacteria (Auto) 11/30/18 11/30/18 11/30/18 15:30 15:30 16:30 WBC RBC Hgb Hct MCV MCH MCHC RDW Std Deviation RDW Coeff of Fang Plt Count MPV Immature Gran % (Auto) Neut % (Auto) Lymph % (Auto) Starr % (Auto) Eos % (Auto) Baso % (Auto) Immature Gran # (Auto) Neut # (Auto) Lymph # (Auto) Starr # (Auto) Eos # (Auto) Baso # (Auto) PT INR APTT PTT Ratio Sodium Potassium Chloride Carbon Dioxide Anion Gap BUN Creatinine Est Cr Clr Drug Dosing Est GFR ( Amer) Est GFR (Non-Af Amer) BUN/Creatinine Ratio Glucose Calcium Magnesium 2.7 H Total Bilirubin AST ALT Alkaline Phosphatase Troponin I 0.069 H* Total Protein Albumin Globulin Albumin/Globulin Ratio TSH 2.480 Urine Color Yellow Urine Appearance Clear Urine pH 5.5 Ur Specific [place] 1.017 Urine Protein 1+ H Urine Glucose (UA) Negative Urine Ketones Negative Urine Blood 1+ H Urine Nitrite Negative Urine Bilirubin Negative Urine Urobilinogen Negative Ur Leukocyte Esterase Negative Urine WBC (Auto) 1-5 Urine RBC (Auto) 0-4 U Hyaline Cast (Auto) 1-5 U Epithel Cells (Auto) 10-20 H Urine Bacteria (Auto) Negative 12/01/18 12/01/18 12/01/18 04:48 04:48 04:48 WBC 10.33 RBC 4.10 L Hgb 13.1 L Hct 39.1 L MCV 95.4 MCH 32.0 MCHC 33.5 RDW Std Deviation 60.7 H RDW Coeff of Fang 17.7 H Plt Count 117 L MPV 9.6 Immature Gran % (Auto) 0.3 Neut % (Auto) 52.9 Lymph % (Auto) 40.9 Starr % (Auto) 4.5 Eos % (Auto) 1.2 Baso % (Auto) 0.2 Immature Gran # (Auto) 0.03 H Neut # (Auto) 5.47 Lymph # (Auto) 4.22 H Starr # (Auto) 0.47 Eos # (Auto) 0.12 Baso # (Auto) 0.02 PT 19.3 H INR 2.0 H APTT PTT Ratio Sodium 135 L Potassium 2.9 L D Chloride 108 H Carbon Dioxide 18 L Anion Gap 9.0 BUN 66 H Creatinine 2.34 H Est Cr Clr Drug Dosing 24.1 Est GFR ( Amer) 28.1 Est GFR (Non-Af Amer) 24.3 BUN/Creatinine Ratio 28.4 H Glucose 114 H Calcium 8.3 L Magnesium Total Bilirubin 0.9 AST 64 H ALT 74 Alkaline Phosphatase 175 H Troponin I 0.094 H* Total Protein 8.8 H Albumin 3.1 L Globulin 5.7 H Albumin/Globulin Ratio 0.5 L TSH Urine Color Urine Appearance Urine pH Ur Specific [place] Urine Protein Urine Glucose (UA) Urine Ketones Urine Blood Urine Nitrite Urine Bilirubin Urine Urobilinogen Ur Leukocyte Esterase Urine WBC (Auto) Urine RBC (Auto) U Hyaline Cast (Auto) U Epithel Cells (Auto) Urine Bacteria (Auto)
[2018-12-01] MEDS ORDERED: LOPERAMIDE HCL 2 MG CAP PO PRN (11:25)
--- NOTE | 2018-12-01 12:17 | Gastrointestinal Consultation ---
Date of Consultation December 01, 2018 Assessment & Plan (1) Diarrhea: Pt is a 88 y/o male seen for diarrhea, weight loss, and outpt CT abd/pelvis w signs of borderline cecal wall thickening. He had refused colonoscopy evaluation in the past but now agreeable. In light of hypokalemia, rising troponin, and EKG changes, we should defer diagnostic colonoscopy evaluation until he's more stable. - K repletion and NAJMA management per primary team - Recommend Cardiology eval for colonoscopy risk/clearance - Check stool cx and Cdiff - Check ESR, CRP though suspect IBD less likely - Imodium 2mg TID prn diarrhea. Was going to start him on Bentyl but this had high interaction potential w oral KCl. - If his hypokalemia is resolved, cleared by Cardiology for colonoscopy eval and if he's still here over the weekend we can potentially try to prep him for colonoscopy on Wednesday. Otherwise will help schedule on outpt basis. He also already has a f/u visit w Ms. Monteiro on 12/23/18 (2) Unintentional weight loss: (3) Hypokalemia: (4) NAJMA (acute kidney injury): Supervising Physician Co-Signing Physician Notes I have personally seen and examined the patient with PRECIOUS Salgado. Her note reflects my exam and findings. I agree with her impression and plan. Pt with electrolyte imbalance/metabolic disarray and months worth of diarrhea. He already has an out patient colonoscopy scheduled. Clarence Barger M.D. History of Present Illness Reason for Consultation: Diarrhea Requesting Physician: Dr. Chapito Pimentel Attending Physician: Dr. Clarence Barger History of Present Illness Pt is a 88 y/o male, w PMHx of HTN, dyslipidemia, OA, gout, CKD, anemia, Afib on coumadin, R ventricular systolic dysfunction, hx of large B cell lymphoma in remission since 2010, currently admitted for hypokalemia and NAJMA. GI asked to see him for diarrhea. He was seen in GI clinic by PRECIOUS Baez a couple of week ago for borderline cecal wall thickening seen on CT scan, and for diarrhea, weight loss over 23lbs in last month. He was asked to submit stool studies but hasn't done so. He was also recommended to undergo colonoscopy eval but he had refused at that time. Pt reports close to watery stools usually 5-6x a day. Has stool urgency right after eating. Has nocturnal awakening w diarrhea too. Denies any tarry or blood in stools. He does have occasional "stomach upset" and would take Pepto Bismol on PRN basis. Stools would get black when he does take it. He denies trial of Imodium in the past. He does take Align probiotics for snf. He's never had a colonoscopy before. Allergies Allergy/AdvReac Type Severity Reaction Status Date / Time aztreonam Allergy Intermediate RASH Verified 11/30/18 19:09 daptomycin Allergy Intermediate RASH Verified 11/30/18 19:09 indapamide Allergy Unknown Unknown Verified 11/30/18 19:09 Penicillins Allergy Unknown unknown Verified 11/30/18 19:09 Sulfa (Sulfonamide Allergy Unknown unknown Verified 11/30/18 19:09 Antibiotics) sulfamethoxazole Allergy Unknown unknown Verified 11/30/18 19:09 Home Medications Home Medications Medication Instructions Recorded Confirmed Type allopurinol 200 mg PO HS 07/19/18 11/30/18 History atenolol 50 mg PO DAILY 07/19/18 11/30/18 History epoetin renee 20,000 units SUBCUT UD 07/19/18 11/30/18 History warfarin 2.5 mg PO DAILY 07/19/18 11/30/18 History pantoprazole [Protonix] 40 mg PO DAILY #30 tab 07/21/18 11/30/18 Rx Align 4 mg PO DAILY 08/03/18 11/30/18 History atorvastatin 40 mg PO HS 08/03/18 11/30/18 History folic acid 1 mg PO DAILY 11/30/18 11/30/18 History furosemide 20 mg PO DAILY 11/30/18 11/30/18 History potassium chloride 10 meq PO DAILY 11/30/18 11/30/18 History Patient History Medical History Dyslipidemia (Chronic) HTN (hypertension) (Chronic) Valvular heart disease (Chronic) 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) Amputated toe (Chronic) 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) Chronic atrial fibrillation (Chronic) 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) CKD (chronic kidney disease), stage III (Chronic) Osteoarthritis (Chronic) Gout (Chronic) Amputated toe of right foot Anemia of chronic disease Atrial fibrillation CKD (chronic kidney disease), stage III 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, 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 cycles Dyslipidemia Gout HTN (hypertension) [facility] (current) use of 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 Osteoarthritis Surgical History History of total left hip replacement (Resolved) History of bilateral carotid endarterectomy (Resolved) History of cholecystectomy (Resolved) History of total bilateral knee replacement (Resolved) S/P rotator cuff repair (Resolved) Status post total shoulder arthroplasty (Resolved) H/O rotator cuff surgery History of CEA (carotid endarterectomy) History of lymph node biopsy History of total bilateral knee replacement "s/p left knee revision" History of total left hip replacement Hx of cholecystectomy Status post total shoulder arthroplasty Family History Other Family history non-contributory Social History Communication Ability: Effective Screenplay Writer Required: No Beliefs That Will Affect Care: None marital status: Current Living Situation: Family Current Living Situation Comment: Lives with son current occupational status: retired current occupation: [employer] Other Information That Helps Us Care for You: No Feels Safe at Home: Yes Safety Concerns: Feels Safe At This Time Smoking Status: Never smoker Hx Alcohol Use: Yes Hx Substance Use: No Review of Systems Constitutional: as per Subjective / HPI Respiratory: no cough and no dyspnea Cardiovascular: no chest pain, no lightheadedness and no edema Gastrointestinal: + diarrhea/loose stools; no abdominal pain, no nausea, no vomiting and no blood in stools Physical Exam Vital Signs (Past 24 Hours): Last Vital Signs Temp 36.7 C 12/01/18 07:12 Pulse 51 L 12/01/18 08:57 Resp 18 12/01/18 07:12 BP 120/69 12/01/18 07:12 Pulse Ox 94 12/01/18 07:12 Constitutional: WD/WN, vitals as above well groomed, cooperative and comfortable Eyes: PERRL, conjunctivae normal, anicteric sclerae ENMT: external ear and nose normal, oropharynx normal Respiratory: normal respiratory effort, lungs clear to auscultation Cardiovascular: RRR, no murmur, no edema Gastrointestinal (Abdomen): normal bowel sounds, soft, nontender, no hepatosplenomegaly Skin: no rashes, warm and dry no jaundice Neurologic: Motor/Sensory: no asterixis Psychiatric: A+Ox3, euthymic affect Lymphatic: no lymphedema Results & Data Laboratory Results Laboratory Results - last 48 hr 11/30/18 11/30/18 11/30/18 15:30 15:30 15:30 WBC 7.56 RBC 4.12 L Hgb 13.1 L Hct 38.2 L MCV 92.7 MCH 31.8 MCHC 34.3 RDW Std Deviation 57.5 H RDW Coeff of Fang 17.6 H Plt Count 118 L MPV 10.1 Immature Gran % (Auto) 0.3 Neut % (Auto) 68.1 Lymph % (Auto) 25.9 [place] % (Auto) 5.3 Eos % (Auto) 0.3 Baso % (Auto) 0.1 Immature Gran # (Auto) 0.02 Neut # (Auto) 5.15 Lymph # (Auto) 1.96 Millard # (Auto) 0.40 Eos # (Auto) 0.02 Baso # (Auto) 0.01 PT 18.6 H INR 1.9 H APTT 32.2 H PTT Ratio 1.2 Sodium 135 L Potassium 2.0 L* Chloride 104 Carbon Dioxide 17 L Anion Gap 13.0 H BUN 76 H Creatinine 2.60 H Est Cr Clr Drug Dosing 21.7 Est GFR ( Amer) 24.8 Est GFR (Non-Af Amer) 21.4 BUN/Creatinine Ratio 29.3 H Glucose 122 H Calcium 8.9 Magnesium Total Bilirubin 1.1 H AST 61 H ALT 71 Alkaline Phosphatase 174 H Troponin I Total Protein 9.0 H Albumin 3.4 Globulin 5.6 H Albumin/Globulin Ratio 0.6 L TSH Urine Color Urine Appearance Urine pH Ur Specific [place] Urine Protein Urine Glucose (UA) Urine Ketones Urine Blood Urine Nitrite Urine Bilirubin Urine Urobilinogen Ur Leukocyte Esterase Urine WBC (Auto) Urine RBC (Auto) U Hyaline Cast (Auto) U Epithel Cells (Auto) Urine Bacteria (Auto) 11/30/18 11/30/18 11/30/18 15:30 15:30 16:30 WBC RBC Hgb Hct MCV MCH MCHC RDW Std Deviation RDW Coeff of Fang Plt Count MPV Immature Gran % (Auto) Neut % (Auto) Lymph % (Auto) [place] % (Auto) Eos % (Auto) Baso % (Auto) Immature Gran # (Auto) Neut # (Auto) Lymph # (Auto) Mill[place] # (Auto) Eos # (Auto) Baso # (Auto) PT INR APTT PTT Ratio Sodium Potassium Chloride Carbon Dioxide Anion Gap BUN Creatinine Est Cr Clr Drug Dosing Est GFR ( Amer) Est GFR (Non-Af Amer) BUN/Creatinine Ratio Glucose Calcium Magnesium 2.7 H Total Bilirubin AST ALT Alkaline Phosphatase Troponin I 0.069 H* Total Protein Albumin Globulin Albumin/Globulin Ratio TSH 2.480 Urine Color Yellow Urine Appearance Clear Urine pH 5.5 Ur Specific [place] 1.017 Urine Protein 1+ H Urine Glucose (UA) Negative Urine Ketones Negative Urine Blood 1+ H Urine Nitrite Negative Urine Bilirubin Negative Urine Urobilinogen Negative Ur Leukocyte Esterase Negative Urine WBC (Auto) 1-5 Urine RBC (Auto) 0-4 U Hyaline Cast (Auto) 1-5 U Epithel Cells (Auto) 10-20 H Urine Bacteria (Auto) Negative 12/01/18 12/01/18 12/01/18 04:48 04:48 04:48 WBC 10.33 RBC 4.10 L Hgb 13.1 L Hct 39.1 L MCV 95.4 MCH 32.0 MCHC 33.5 RDW Std Deviation 60.7 H RDW Coeff of Fang 17.7 H Plt Count 117 L MPV 9.6 Immature Gran % (Auto) 0.3 Neut % (Auto) 52.9 Lymph % (Auto) 40.9 [place] % (Auto) 4.5 Eos % (Auto) 1.2 Baso % (Auto) 0.2 Immature Gran # (Auto) 0.03 H Neut # (Auto) 5.47 Lymph # (Auto) 4.22 H Mill[place] # (Auto) 0.47 Eos # (Auto) 0.12 Baso # (Auto) 0.02 PT 19.3 H INR 2.0 H APTT PTT Ratio Sodium 135 L Potassium 2.9 L D Chloride 108 H Carbon Dioxide 18 L Anion Gap 9.0 BUN 66 H Creatinine 2.34 H Est Cr Clr Drug Dosing 24.1 Est GFR ( Amer) 28.1 Est GFR (Non-Af Amer) 24.3 BUN/Creatinine Ratio 28.4 H Glucose 114 H Calcium 8.3 L Magnesium Total Bilirubin 0.9 AST 64 H ALT 74 Alkaline Phosphatase 175 H Troponin I 0.094 H* Total Protein 8.8 H Albumin 3.1 L Globulin 5.7 H Albumin/Globulin Ratio 0.5 L TSH Urine Color Urine Appearance Urine pH Ur Specific [place] Urine Protein Urine Glucose (UA) Urine Ketones Urine Blood Urine Nitrite Urine Bilirubin Urine Urobilinogen Ur Leukocyte Esterase Urine WBC (Auto) Urine RBC (Auto) U Hyaline Cast (Auto) U Epithel Cells (Auto) Urine Bacteria (Auto)
[2018-12-01 12:39] LABS: Est GFR (African American) 33.2; Potassium 3.1 mmol/L (3.5-5.1)
[2018-12-01 12:40] LABS: BUN Creatinine Ratio 29.3 (10-20); Calcium 8.4 mg/dl (8.5-10.1); Creatinine Clr Calc Pharmacy 27.7 ml/min; Est GFR (Non-African American) 28.7
[2018-12-01 12:51] LABS: Troponin I 0.072 ng/ml (0-0.045)
[2018-12-01] MEDS ORDERED: POTASSIUM CHLORIDE 10 MEQ TABCR PO STA ×2 (15:39→19:13)
[2018-12-01] MEDS: ATORVASTATIN 40 MG TAB PO SCH (20:06)
[2018-12-01] MEDS: ALLOPURINOL 100 MG TAB PO SCH (21:06)
--- NOTE | 2018-12-02 02:31 | Consultation Report ---
DATE OF CONSULTATION: 12/01/2018 REFERRING PHYSICIAN: Dr. Pimentel. INDICATIONS: Hypokalemia, acute renal failure, elevated troponin. HISTORY OF PRESENT ILLNESS: The patient is an 88-year-old male with complex past medical history with notable history of hypertension, hyperlipidemia, atherosclerotic carotid disease, stage III renal insufficiency, chronic anemia with Procrit administration, chronic atrial fibrillation on anticoagulation. The patient presents this admission with symptoms of acute weakness and fatigue approximately 2-3 week history of worsening diarrhea, nausea and poor p.o. intake. He has lost a substantial amount of weight, greater than 20 pounds over the past 2 months. Denies fevers or chills. Notes no chest pains. Notes no tachy-palpitations. Notes no syncope or near syncope. He has been taking medications as prescribed, but noted having difficulties with oral intake, especially over the past several days. He has been using Pepto-Bismol for GI upset, which has turned his stools black. Notes no orthopnea or peripheral edema. Notes no syncope or near syncope. Notes no falls or injuries. He is referred for additional management after presentation to the ER demonstrated on laboratory studies, marked hypokalemia, anemia, acute on chronic renal insufficiency. EKG demonstrates poor R-wave progression across the anterior precordial leads, as well as ST segment abnormalities more pronounced in the lateral leads, occasional ventricular ectopy. He is referred now for further evaluation. At the time of examination, he notes no complaints at all, feels substantially improved since hospitalization with primary intervention, potassium supplement and IV fluids. REVIEW OF SYSTEMS: Otherwise negative. ALLERGIES: AZTREONAM, DAPTOMYCIN, INDAPAMIDE, PENICILLIN, SULFA, SULFAMETHOXAZOLE. MEDICATIONS: Per list prior to hospitalization were, Align 4 mg p.o. daily, allopurinol 200 units at bedtime, atenolol 50 mg p.o. daily, atorvastatin 40 mg at bedtime, Procrit 20,000 units subQ, folic acid 1 mg p.o. daily, furosemide 20 p.o. daily, pantoprazole 40 mg daily, potassium chloride 10 mEq p.o. daily, and warfarin 2.5 mg p.o. daily. PAST SURGICAL HISTORY: Notable for prior left hip replacement, history of bilateral remote carotid enterectomy, arthroscopic shoulder debridement on the left, left total knee replacement, left total shoulder replacement, lymph node biopsy in 2016, prior A-port insertion. FAMILY HISTORY: Per the patient is not notable for cardiac disease. SOCIAL HISTORY: The patient is currently a resident at [facility]. He is nonsmoker, occasional alcohol user, 6 beers per week as a social intake. PHYSICAL EXAMINATION: GENERAL: The patient is an age-appropriate male currently pleasant, in no acute distress. VITAL SIGNS: Reveal heart rate of 60, blood pressure 136/91. HEENT: Normocephalic and atraumatic. Nares without discharge. Throat was clear. NECK: Thin. There is no jugular venous distention. There are a well healed carotid enterectomy scars. There is no audible carotid bruit today. LUNGS: Reveal clear bases. CARDIOVASCULAR: Reveals irregularly irregular rhythm with a grade 1/6 systolic murmur at the lower left sternal border. There is no diastolic murmur. ABDOMEN: Soft, nontender. There is no distinct palpable hepatosplenomegaly. EXTREMITIES: Without cyanosis or clubbing. There is no peripheral edema. There are intact distal pulses. DATA: On presentation, chest x-ray reveals cardiomegaly without infiltrate or edema. LABORATORY STUDIES: On presentation, white cell count was 7.5, hemoglobin 13.1. Sodium is 135 with a potassium of 2.0. Potassium this morning was 3.1. Creatinine was 2.6, now 2.0. Troponins are elevated, but relatively flat. TSH was 2.4. C-reactive protein was 3.2. EKG as noted demonstrated atrial fibrillation with left axis deviation, Q-waves across the anteroseptal precordial leads, unchanged since 07/2018. T-wave inversion in the lateral leads. QT shortened after administration of potassium. IMPRESSION: An 88-year-old male admitted with marked weakness and fatigue in association with profound hypokalemia, possibly diuretic induced in the setting of diarrhea and poor p.o. intake. PLAN: Supplement potassium and continue to hydrate, hold furosemide and warfarin until evaluation complete. GI is involved in considering colonoscopy depending on patient's agreement. No absolute contraindications currently but would like to review echocardiogram which will be ordered and supplement potassium to greater than 4. He denies any acute cardiac symptoms or complaints with main difficulties, GI in origin. We will follow patient in the hospital.
[2018-12-02 05:49] LABS: Hematocrit (blood only) 33.9 % (42-52); Hemoglobin 11.3 g/dL (14.0-18.0); Mean Corpuscular Hgb Conc 33.3 g/dL (32-36); RDW Standard Deviation 61.9 fL (36.4-46.3); Red Blood Count 3.53 M/uL (4.7-6.1); White Blood Count 5.55 K/uL (4.8-10.8)
[2018-12-02 06:15] LABS: Basophils # (auto) 0.01 K/uL (0-0.2); Basophils % (auto) 0.2 %; Eosinophils # (auto) 0.09 K/uL (0-0.5); Eosinophils % (auto) 1.6 %; Immature Granulocytes # (auto) 0.02 K/uL (0.00-0.02); Immature Granulocytes % (auto) 0.4 %; Lymphocytes % (auto) 28.8 %; Mean Platelet Volume 9.7 fL (7.4-10.4); Monocytes # (auto) 0.38 K/uL (0.11-0.59); Monocytes % (auto) 6.8 %; Neutrophils # (auto) 3.45 K/uL (1.4-6.5); Neutrophils % (auto) 62.2 %; Platelet Count 98 K/uL (130-400); Platelet Estimate Decreased (Normal)
[2018-12-02 06:24] LABS: BUN Creatinine Ratio 26.7 (10-20); Calcium 8.3 mg/dl (8.5-10.1); Creatinine Clr Calc Pharmacy 32.5 ml/min; Est GFR (African American) 40.3; Est GFR (Non-African American) 34.7; Potassium 3.1 mmol/L (3.5-5.1)
[2018-12-02] MEDS: FOLIC ACID 1 MG TAB PO SCH (08:49)
[2018-12-02] MEDS: PANTOprazole 40 MG TAB PO SCH (08:49)
[2018-12-02] MEDS: ATENOLOL 50 MG TABLET PO SCH (08:49)
[2018-12-02] MEDS ORDERED: POTASSIUM CHLORIDE 10 MEQ TABCR PO STA (09:13)
[2018-12-02] MEDS: SODIUM BICARBONATE 8.4% 75 MEQ, POTASSIUM CHLORIDE 20 MEQ in SODIUM CHLORIDE 0.45 % 1,0... IV SCH ×2 (10:26→23:26)
[2018-12-02 14:05] LABS: Cdiff Antigen Negative; Cdiff Toxin A+B Negative (Negative)
--- NOTE | 2018-12-02 14:51 | Cardiology Progress Note ---
Date of Service December 02, 2018 Assessment & Plan (1) Hypokalemia: Appears to be secondary to GI losses as well as chronic diuretic usage. Would continue to hold furosemide, supplement potassium until greater than 4 Patient is noted marked improvement since hydration and potassium replacement. EKGs have improved Echocardiogram demonstrates preserved LV systolic function (2) Acute kidney injury superimposed on CKD: (3) Diarrhea: (4) Elevated troponin: No signs or symptoms of acute coronary syndrome troponin likely elevated in the basis of acute illness and acute renal insufficiency. Presentation not suspicious for demand ischemia EKG is normalizing with potassium supplementation LV systolic function normal Would continue atenolol (5) Valvular heart disease: Mild mitral and moderate tricuspid insufficiency, moderate aortic sclerosis With chronic atrial fibrillation. (6) Chronic atrial fibrillation: Patient on anticoagulation warfarin per regimen currently on hold. If no GI procedures anticipated would resume anticoagulation Subjective Patient seen and examined, chart medications telemetry reviewed. Patient feels substantially improved since IV hydration and potassium replacement today. Denies any chest pain shortness of breath tachypalpitations. Overall weakness has improved. Physical Exam Vital Signs (Past 24 Hours): Last Vital Signs Temp 36.8 C 12/02/18 11:22 Pulse 69 12/02/18 11:22 Resp 18 12/02/18 11:22 BP 148/86 H 12/02/18 11:22 Pulse Ox 96 12/02/18 11:22 Constitutional: + thin and comfortable; no acute distress Eyes: PERRL, conjunctivae normal, anicteric sclerae ENMT: external ear and nose normal, oropharynx normal Neck: trachea midline, no thyromegaly Respiratory: normal respiratory effort, lungs clear to auscultation Cardiovascular: Extremities: no edema Irregularly irregular with grade 1/6 systolic murmur, no diastolic murmur no S3 gallop Gastrointestinal (Abdomen): normal bowel sounds, soft, nontender, no hepatosplenomegaly Results & Data Laboratory Results Laboratory Results - last 24 hr 12/02/18 12/02/18 12/02/18 05:24 05:24 08:42 WBC 5.55 RBC 3.53 L Hgb 11.3 L Hct 33.9 L MCV 96.0 MCH 32.0 MCHC 33.3 RDW Std Deviation 61.9 H RDW Coeff of Fang 18.0 H Plt Count 98 L MPV 9.7 Immature Gran % (Auto) 0.4 Neut % (Auto) 62.2 Lymph % (Auto) 28.8 [place] % (Auto) 6.8 Eos % (Auto) 1.6 Baso % (Auto) 0.2 Immature Gran # (Auto) 0.02 Neut # (Auto) 3.45 Lymph # (Auto) 1.60 [place] # (Auto) 0.38 Eos # (Auto) 0.09 Baso # (Auto) 0.01 Platelet Estimate Decreased Sodium 139 Potassium 3.1 L Chloride 115 H Carbon Dioxide 15 L Anion Gap 9.0 BUN 47 H Creatinine 1.74 H D Est Cr Clr Drug Dosing 32.5 Est GFR ( Amer) 40.3 Est GFR (Non-Af Amer) 34.7 BUN/Creatinine Ratio 26.7 H Glucose 102 H Calcium 8.3 L Stl C. diff Tox B Gene Pos Cdiff Tox B Gene A Stl C.difficile Tox A&B Negative ECG Additional Comments: 02-DEC-2018 12:11:27 [facility] Atrial fibrillation Inferior infarct (cited on or before 30-NOV-2018) Anteroseptal infarct (cited on or before 03-AUG-2018) Abnormal ECG When compared with ECG of 01-DEC-2018 11:43, T wave inversion no longer evident in Lateral leads
[2018-12-02 17:13] LABS: BUN Creatinine Ratio 23.6 (10-20); Creatinine Clr Calc Pharmacy 34.2 ml/min; Est GFR (African American) 42.9; Potassium 3.4 mmol/L (3.5-5.1)
--- NOTE | 2018-12-02 19:00 | Hospitalist Progress Note ---
Date of Service December 02, 2018 Assessment & Plan (1) Hypokalemia: per admitting SVC notes: This an 87-year-old male with a PMH of HTN, HLD, CKD stage III, anemia of chronic disease (on Procrit [id number]), permanent atrial fibrillation (on long- term anticoagulation), R ventricular systolic dysfunction, gout and history of diffuse large B cell lymphoma (in remission since 2010) who presents with worsening shortness of breath and weight loss and was found to be hypokalemia with an NAJMA on CKD. -Initial potassium of 2.0 in setting of chronic diarrhea -Given replacement in ED. Will repeat lab work -No chest pain but EKG with ST & T wave abnormality in lateral leads -Initial troponin of 0.069. Continue trending troponin -Telemetry 12/01 Hypokalemia secondary to GI Losses from Diarrhea, Lasix K improving PO and IV K given repeat PRP at 1pm 3015 Hypokalemia further improving #3.1 Given p.o. K, potassium added to IV fluids Repeat PRP at 5:00 PM (2) Acute kidney injury superimposed on CKD: Creatinine elevated at 2.6 (baseline mid-1s) -In setting of dehydration-- decreased PO intake, GI losses -Gentle fluids resuscitation -Avoid nephrotoxic agents -BMP in AM 12/01 Acute Renal Failure secondary to GI Losses from Diarrhea, Lasix Crea improved from 2.6 to 2.4 continue gentle IV NSS + K monitor 12/02 Creatinine improving to 1.7, although bicarbonate is decreasing not 15 Start half NS +75 mEq of bicarb and +20 mg of potassium Nephrology consulted, appreciate recommendations (3) Unintentional weight loss: Endorses ~20 lb weight loss since September -Noted to have R axillary adenopathy last month and CT chest/abd was ordered which revealed cecal wall thickening. - Nutrition consult - continue close outpatient ff up with Hem/Onc (4) Anemia due to chronic kidney disease: Follows with heme onc. Receives procrit injections every few weeks ) Chemo globin 11 today Continue to monitor (5) HTN (hypertension): Continue atenolol with hold parameters -Holding lasix in setting of dehydration, NAJMA (6) Chronic atrial fibrillation: EKG with rate-controlled A Fib -Continue atenolol with hold parameters -Taking 2.5mg Coumadin this week, per coag clinic Resume Coumadin today Check INR tomorrow (7) 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: (8) Valvular heart disease: Clinically dry with NAJMA -Holding lasix -Monitor volume status closely (9) DLBCL (diffuse large B cell lymphoma): History of diffuse large B cell lymphoma (s/p chemo) -In remission since 2010December 02 2018 Platelets trending down, today at 98,000 No signs of bleeding Continue to monitor (10) Dyslipidemia: Continue atorvastatin (11) Thrombocytopenia: Plt of 118 (baseline 110-140) Continue 1999, no signs of bleeding -Continue monitoring Code status: DNR per discussion with patient PCP: [facility] Dispo: pending lives with son at home PT bessie Subjective ff up for weakness, diarrhea Seen resting in bed, comfortable, watching TV In good spirits States he continues to feel improved Had only one bowel movement today follow-up, form No abdominal pain, no nausea no fevers chills Ambulating the hallway today more strength Denies other symptoms Physical Exam Vital Signs (Past 24 Hours): Last Vital Signs Temp 36.7 C 12/02/18 14:56 Pulse 59 L 12/02/18 15:48 Resp 18 12/02/18 14:56 BP 137/91 12/02/18 14:56 Pulse Ox 100 12/02/18 14:56 Physical Exam: General- oriented x 3, not in distress, speaks in sentences with no effort or accessory muscle use Eyes- anicteric Neck- no JVD Lungs- clear breath sounds bilaterally No crackles or wheezing Heart- normal rate, regular rhythm; no murmurs Abdomen- normal bowel sounds, nondistended, soft, nontender Extremities- no pretibial edema, no calf tenderness Neuro- alert, oriented x 3; no gross focal neurologic deficits Skin- warm & dry Results & Data Laboratory Results Laboratory Results - last 24 hr 12/02/18 12/02/18 12/02/18 05:24 05:24 08:42 WBC 5.55 RBC 3.53 L Hgb 11.3 L Hct 33.9 L MCV 96.0 MCH 32.0 MCHC 33.3 RDW Std Deviation 61.9 H RDW Coeff of Fang 18.0 H Plt Count 98 L MPV 9.7 Immature Gran % (Auto) 0.4 Neut % (Auto) 62.2 Lymph % (Auto) 28.8 [place] % (Auto) 6.8 Eos % (Auto) 1.6 Baso % (Auto) 0.2 Immature Gran # (Auto) 0.02 Neut # (Auto) 3.45 Lymph # (Auto) 1.60 [place] # (Auto) 0.38 Eos # (Auto) 0.09 Baso # (Auto) 0.01 Platelet Estimate Decreased Sodium 139 Potassium 3.1 L Chloride 115 H Carbon Dioxide 15 L Anion Gap 9.0 BUN 47 H Creatinine 1.74 H D Est Cr Clr Drug Dosing 32.5 Est GFR ( Amer) 40.3 Est GFR (Non-Af Amer) 34.7 BUN/Creatinine Ratio 26.7 H Glucose 102 H Calcium 8.3 L Stl C. diff Tox B Gene Pos Cdiff Tox B Gene A Stl C.difficile Tox A&B Negative 12/02/18 16:41 WBC RBC Hgb Hct MCV MCH MCHC RDW Std Deviation RDW Coeff of Fang Plt Count MPV Immature Gran % (Auto) Neut % (Auto) Lymph % (Auto) [place] % (Auto) Eos % (Auto) Baso % (Auto) Immature Gran # (Auto) Neut # (Auto) Lymph # (Auto) [place] # (Auto) Eos # (Auto) Baso # (Auto) Platelet Estimate Sodium 139 Potassium 3.4 L Chloride 114 H Carbon Dioxide 16 L Anion Gap 9.0 BUN 39 H Creatinine 1.65 H Est Cr Clr Drug Dosing 34.2 Est GFR ( Amer) 42.9 Est GFR (Non-Af Amer) 37.0 BUN/Creatinine Ratio 23.6 H Glucose 91 Calcium 8.0 L Stl C. diff Tox B Gene Stl C.difficile Tox A&B
--- NOTE | 2018-12-02 19:06 | Nephrology Consultation ---
Date of Consultation December 02, 2018 Assessment & Plan (1) Disorders of fluid, electrolyte, and acid-base balance: severe hypokalemia on presentation w/ hx c/w GI losses as is the hyperchloremic metabolic acidosis K improving but not normalized; acid/base disorder persists; diarrhea per pt imp roving -not clear at this point when he will do colonoscopy >> inpt or outpt; if and when this is done, will need very close monitoring to optimize chemistries/ avoid Najma -earlier today at about midday in c/s w/ Dr Pimentel, we started him on 09/21 NS w/ 75 mEq / L sodium bicarbonate and 20 mEq/L K at 80 mL hourly -ordered bmp, mag, phos for am -also had 40 mEq K po today >> will give another 40 po now Present on Admission?: Yes (2) Acute kidney injury superimposed on CKD: nearly resolved now w/ creatinine approaching mid 1's -cont to hold very low dose lasix -bmp daily -cont to record i/0 Present on Admission?: Yes History of Present Illness Reason for Consultation: acidosis, NAJMA on CKD3 Requesting Physician: Dr Pimentel Attending Physician: Chapito Pimentel MD History of Present Illness 88 y/o M whom I'm asked to see for metabolic acidosis and najma on ckd 3. He was admitted here 11/30 for unexplained 20 lb wt loss since 09/2018, acutely worsened chronic diarrhea x 3 days prior to admission, low K. PMH includes baseline creatinine 1.6, HTN, HL, anemia of chronic dz on epo q2wks, hx of diffuse large B cell lymphoma in remission since 2010, gout, permanent a fib on coumadin, RV systolic dysfunction, atherosclerotic carotid disease s/p BL CEA. Of note had prior to admission been noted to have R axillary adenopathy and cecal wall thickening noted on CT chest /abd. He initially declined colonoscopy to evaluate this but now amenable -- tentatively for 12/05 if other issues optimized. GI following. 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 no nsaids. he drinks about 6 beers weekly. His creatinine on admission was 2.6 w/ K 2.0. K has trended up to 3.4 today. C02 hasrun mid teens consistently since admission, w/ hyperchloremia. Creatinine has improved to 1.6. 1+ blood and protein on ua. 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 Feels much stronger; eager to get out of hospital/ resume daily routines since he feels better. Allergies Allergy/AdvReac Type Severity Reaction Status Date / Time aztreonam Allergy Intermediate RASH Verified 11/30/18 19:09 daptomycin Allergy Intermediate RASH Verified 11/30/18 19:09 indapamide Allergy Unknown Unknown Verified 11/30/18 19:09 Penicillins Allergy Unknown unknown Verified 11/30/18 19:09 Sulfa (Sulfonamide Allergy Unknown unknown Verified 11/30/18 19:09 Antibiotics) sulfamethoxazole Allergy Unknown unknown Verified 11/30/18 19:09 Home Medications Home Medications Medication Instructions Recorded Confirmed Type allopurinol 200 mg PO HS 07/19/18 11/30/18 History atenolol 50 mg PO DAILY 07/19/18 11/30/18 History epoetin renee 20,000 units SUBCUT UD 07/19/18 11/30/18 History warfarin 2.5 mg PO DAILY 07/19/18 11/30/18 History pantoprazole [Protonix] 40 mg PO DAILY #30 tab 07/21/18 11/30/18 Rx Align 4 mg PO DAILY 08/03/18 11/30/18 History atorvastatin 40 mg PO HS 08/03/18 11/30/18 History folic acid 1 mg PO DAILY 11/30/18 11/30/18 History furosemide 20 mg PO DAILY 11/30/18 11/30/18 History potassium chloride 10 meq PO DAILY 11/30/18 11/30/18 History Patient History Medical History Dyslipidemia (Chronic) HTN (hypertension) (Chronic) Valvular heart disease (Chronic) 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) Amputated toe (Chronic) 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) Chronic atrial fibrillation (Chronic) 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) CKD (chronic kidney disease), stage III (Chronic) Osteoarthritis (Chronic) Gout (Chronic) Amputated toe of right foot Anemia of chronic disease Atrial fibrillation CKD (chronic kidney disease), stage III 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, 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 cycles Dyslipidemia Gout HTN (hypertension) FDC (current) use of 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 Osteoarthritis Surgical History History of total left hip replacement (Resolved) History of bilateral carotid endarterectomy (Resolved) History of cholecystectomy (Resolved) History of total bilateral knee replacement (Resolved) S/P rotator cuff repair (Resolved) Status post total shoulder arthroplasty (Resolved) H/O rotator cuff surgery History of CEA (carotid endarterectomy) History of lymph node biopsy History of total bilateral knee replacement "s/p left knee revision" History of total left hip replacement Hx of cholecystectomy Status post total shoulder arthroplasty Family History Other Family history non-contributory Social History Communication Ability: Effective Hse Manager Required: No Beliefs That Will Affect Care: None marital status: Current Living Situation: Family Current Living Situation Comment: Lives with son current occupational status: retired current occupation: [place] Other Information That Helps Us Care for You: No Feels Safe at Home: Yes Safety Concerns: Feels Safe At This Time Smoking Status: Never smoker Hx Alcohol Use: Yes Hx Substance Use: No Review of Systems Constitutional: + fatigue, + weakness, + anorexia and + weight loss but both markedly improved Eyes: no worsening vision Ear, Nose, Mouth, Throat: no dry mouth Respiratory: no cough and no dyspnea Cardiovascular: no dyspnea on exertion, no palpitations and no edema Gastrointestinal: as per Subjective / HPI, + heartburn, + nausea, + change in bowel habits and + diarrhea/loose stools; no vomiting Genitourinary (Male): no dysuria, no urinary hesitancy and no urinary incontin ence Musculoskeletal: + muscle weakness (now much imrpoved) Integumentary: no rash and no lesions Neurologic: + generalized weakness; no paresthesia and no confusion Psychiatric: + anxiety (for d/c) Endocrine: + fatigue Hematologic / Lymphatic: no easy bleeding Physical Exam Vital Signs (Past 24 Hours): Last Vital Signs Temp 36.7 C 12/02/18 14:56 Pulse 59 L 12/02/18 15:48 Resp 18 12/02/18 14:56 BP 137/91 12/02/18 14:56 Pulse Ox 100 12/02/18 14:56 Constitutional: well developed, well nourished and average body habitus on RA, maneuvers w/o assist for exam but needs encouragement Eyes: EOM intact bilaterally ENMT: Ears: no external ear abnormality Nose: no external nose abnormality Mouth: + dry oral mucous membranes Neck: no nuchal rigidity Respiratory: normal respiratory effort Auscultation: + diminished lung sounds Cardiovascular: Rate/Rhythm: + bradycardic (in 50s regular) Extremities: no edema Gastrointestinal (Abdomen): Inspection/Auscultation: normal bowel sounds Percussion/Palpation: abdomen soft; abdomen nontender Musculoskeletal: Extremities: strength 5/5 throughout Skin: no rashes, warm and dry Neurologic: shah, fluent speech, no tremor Psychiatric: A+Ox3, euthymic affect Genitourinary: no das Results & Data Laboratory Results Abnormal lab results 12/02/18 12/02/18 12/02/18 Range/Units 05:24 05:24 08:42 RBC 3.53 L (4.7-6.1) M/uL Hgb 11.3 L (14.0-18.0) g/dL Hct 33.9 L (42-52) % RDW Std Deviation 61.9 H (36.4-46.3) fL RDW Coeff of Fang 18.0 H (11.5-14.5) % Plt Count 98 L (130-400) K/uL Potassium 3.1 L (3.5-5.1) mmol/L Chloride 115 H (98-107) mmol/L Carbon Dioxide 15 L (21-32) mmol/L BUN 47 H (7-18) mg/dl Creatinine 1.74 H D (0.6-1.4) mg/dl BUN/Creatinine Ratio 26.7 H (10-20) Glucose 102 H (70-99) mg/dl Calcium 8.3 L (8.5-10.1) mg/dl Stl C. diff Tox B Gene Pos Cdiff Tox B Gene A (Neg) 12/02/18 Range/Units 16:41 RBC (4.7-6.1) M/uL Hgb (14.0-18.0) g/dL Hct (42-52) % RDW Std Deviation (36.4-46.3) fL RDW Coeff of Fang (11.5-14.5) % Plt Count (130-400) K/uL Potassium 3.4 L (3.5-5.1) mmol/L Chloride 114 H (98-107) mmol/L Carbon Dioxide 16 L (21-32) mmol/L BUN 39 H (7-18) mg/dl Creatinine 1.65 H (0.6-1.4) mg/dl BUN/Creatinine Ratio 23.6 H (10-20) Glucose (70-99) mg/dl Calcium 8.0 L (8.5-10.1) mg/dl Stl C. diff Tox B Gene (Neg) Diagnostic Findings CT po con abd/pelvis 11/10/18 1. Mild splenomegaly 2. No evidence of pathologic adenopathy 3. No evidence of bowel obstruction. No evidence of free air. 4. Normal appendix. No evidence of acute diverticulitis 5. Borderline cecal wall thickening CT chest 10/2018 1. Limited evaluation of the upper chest and axillary distributions secondary to streak artifact from bilateral shoulder arthroplasties. Within the limitations of the study, there are several nonspecific prominent right axillary and right subpectoral lymph nodes seen measuring up to 9 mm. 2. No acute intrathoracic abnormality identified. 3. Stable 6 and 5 mm nodules of the right lung which appear unchanged from 07/29/2016 suggestive of benign etiology. 3 mm solid nodule of the right upper lobe is likely benign, however has slightly increased in size from 2016. 4. Cardiomegaly with suggestion of pulmonary arterial hypertension. 5. Additional findings as per report body
[2018-12-02] MEDS: ALLOPURINOL 100 MG TAB PO SCH (20:24)
[2018-12-02] MEDS: ATORVASTATIN 40 MG TAB PO SCH (20:25)
[2018-12-02] MEDS: WARFARIN SOD 2.5 MG TAB PO SCH (22:10)
[2018-12-03] MEDS: ATENOLOL 50 MG TABLET PO SCH (08:08)
[2018-12-03] MEDS: PANTOprazole 40 MG TAB PO SCH (08:08)
[2018-12-03] MEDS: FOLIC ACID 1 MG TAB PO SCH (08:09)
[2018-12-03 08:23] LABS: BUN Creatinine Ratio 22.1 (10-20); Calcium 7.7 mg/dl (8.5-10.1); Creatinine Clr Calc Pharmacy 35.5 ml/min; Est GFR (African American) 44.9; Est GFR (Non-African American) 38.7; Magnesium 1.9 mg/dl (1.8-2.4); Phosphorus 1.6 mg/dl (2.5-4.9); Potassium 3.2 mmol/L (3.5-5.1)
[2018-12-03 08:47] LABS: Hematocrit (blood only) 30.3 % (42-52); Mean Corpuscular Volume 95.9 fL (80-100); RDW Coefficient of Variation 18.2 % (11.5-14.5); Red Blood Count 3.16 M/uL (4.7-6.1); White Blood Count 6.02 K/uL (4.8-10.8)
[2018-12-03] MEDS ORDERED: POTASSIUM CHLORIDE 10 MEQ TABCR PO STA (08:51)
[2018-12-03 09:08] LABS: Basophils # (auto) 0.01 K/uL (0-0.2); Basophils % (auto) 0.2 %; Eosinophils # (auto) 0.12 K/uL (0-0.5); Immature Granulocytes # (auto) 0.03 K/uL (0.00-0.02); Immature Granulocytes % (auto) 0.5 %; Lymphocytes # (auto) 1.79 K/uL (1.2-3.4); Lymphocytes % (auto) 29.7 %; Mean Platelet Volume 9.7 fL (7.4-10.4); Monocytes # (auto) 0.37 K/uL (0.11-0.59); Monocytes % (auto) 6.1 %; Neutrophils % (auto) 61.5 %; Platelet Count 84 K/uL (130-400)
[2018-12-03 11:57] LABS: Prothrombin Time 19.8 Seconds (9.0-12.0)
[2018-12-03] MEDS ORDERED: SODIUM BICARBONATE 8.4% 75 MEQ, POTASSIUM CHLORIDE 40 MEQ in SODIUM CHLORIDE 0.45 % 1,0... IV SCH (12:10)
--- NOTE | 2018-12-03 12:16 | Nephrology Progress Note ---
Date of Service December 03, 2018 Assessment & Plan (1) Disorders of fluid, electrolyte, and acid-base balance: severe hypokalemia on presentation w/ hx c/w GI losses as is the hyperchloremic metabolic acidosis K improving but not normalized; acid/base disorder persists; diarrhea per pt improving >>on checking labs also has -not clear at this point when he will do colonoscopy >> inpt or outpt; if and when this is done, will need very close monitoring to optimize chemistries/ avoid [place]ossom -change K/bicarb rich fluids to D5W w/ 150 mEq Na bicarb/L and 40 mEq/L K at 80 mL /hr -repeat bmp, phos for am -will start on 40 mEq bid K po -will start on K phos qid as well; do not believe he needs phos IV replacement (2) Acute kidney injury superimposed on CKD: nearly resolved now w/ creatinine approaching mid 1's; baseline creatinine since 03/2018 is 1.4-1.7 creatinine -cont to hold very low dose lasix -bmp daily -cont to record i/0 Subjective states he feels terrific. no c/o diarrhea edema. sob, n/v, voiding concerns. + cold inteolerance Physical Exam Vital Signs (Past 24 Hours): Last Vital Signs Temp 36.6 C 12/03/18 11:32 Pulse 73 12/03/18 11:32 Resp 20 12/03/18 11:32 BP 132/76 12/03/18 11:32 Pulse Ox 95 12/03/18 11:32 Constitutional: well developed, well nourished and average body habitus on RA maneuvers easily for exam Eyes: EOM intact bilaterally ENMT: Ears: no external ear abnormality Nose: no external nose abnormality Mouth: + dry oral mucous membranes Neck: no nuchal rigidity Respiratory: normal respiratory effort Auscultation: + diminished lung sounds Cardiovascular: Rate/Rhythm: regular rate and regular rhythm Extremities: no edema Gastrointestinal (Abdomen): Inspection/Auscultation: normal bowel sounds Percussion/Palpation: abdomen soft; abdomen nontender Musculoskeletal: Extremities: strength 5/5 throughout Skin: no rashes, warm and dry Neurologic: shah, fleunt speech Psychiatric: A+Ox3, euthymic affect ? insight Results & Data Laboratory Results Abnormal lab results 12/02/18 12/02/18 12/03/18 Range/Units 08:42 16:41 07:12 RBC (4.7-6.1) M/uL Hgb (14.0-18.0) g/dL Hct (42-52) % RDW Std Deviation (36.4-46.3) fL RDW Coeff of Fang (11.5-14.5) % Plt Count (130-400) K/uL Immature Gran # (Auto) (0.00-0.02) K/uL PT (9.0-12.0) Seconds INR (0.9-1.1) Potassium 3.4 L 3.2 L (3.5-5.1) mmol/L Chloride 114 H 114 H (98-107) mmol/L Carbon Dioxide 16 L 17 L (21-32) mmol/L BUN 39 H 35 H (7-18) mg/dl Creatinine 1.65 H 1.59 H (0.6-1.4) mg/dl BUN/Creatinine Ratio 23.6 H 22.1 H (10-20) Calcium 8.0 L 7.7 L (8.5-10.1) mg/dl Phosphorus 1.6 L (2.5-4.9) mg/dl Stl C. diff Tox B Gene Pos Cdiff Tox B Gene A (Neg) 12/03/18 12/03/18 Range/Units 07:16 11:32 RBC 3.16 L (4.7-6.1) M/uL Hgb 10.0 L (14.0-18.0) g/dL Hct 30.3 L (42-52) % RDW Std Deviation 63.0 H (36.4-46.3) fL RDW Coeff of Fang 18.2 H (11.5-14.5) % Plt Count 84 L (130-400) K/uL Immature Gran # (Auto) 0.03 H (0.00-0.02) K/uL PT 19.8 H (9.0-12.0) Seconds INR 2.0 H (0.9-1.1) Potassium (3.5-5.1) mmol/L Chloride (98-107) mmol/L Carbon Dioxide (21-32) mmol/L BUN (7-18) mg/dl Creatinine (0.6-1.4) mg/dl BUN/Creatinine Ratio (10-20) Calcium (8.5-10.1) mg/dl Phosphorus (2.5-4.9) mg/dl Stl C. diff Tox B Gene (Neg)
[2018-12-03] MEDS: SODIUM BICARBONATE 8.4% 150 MEQ, POTASSIUM CHLORIDE 40 MEQ in DEXTROSE 5% 1,000 ML IV SCH (13:38)
[2018-12-03] MEDS: POT PHOSPHATE MONOBASIC W/ SOD TAB PO SCH ×3 (13:39→20:57)
[2018-12-03] MEDS: VANCOMYCIN HCL 125 MG/2.5ML SOLN PO SCH ×2 (13:39→17:00)
[2018-12-03] MEDS: POTASSIUM CHLORIDE 20 MEQ TABCR PO SCH ×2 (13:39→20:57)
[2018-12-03] MEDS: RASPBERRY SYRUP 5 ML UDP PO SCH ×2 (13:40→17:00)
[2018-12-03] MEDS: WARFARIN SOD 2.5 MG TAB PO SCH (16:54)
--- NOTE | 2018-12-03 17:51 | Hospitalist Progress Note ---
Date of Service December 03, 2018 Assessment & Plan (1) Hypokalemia: per admitting SVC notes: This an 87-year-old male with a PMH of HTN, HLD, CKD stage III, anemia of chronic disease (on Procrit [id number]), permanent atrial fibrillation (on long- term anticoagulation), R ventricular systolic dysfunction, gout and history of diffuse large B cell lymphoma (in remission since 2010) who presents with worsening shortness of breath and weight loss and was found to be hypokalemia with an NAJMA on CKD. -Initial potassium of 2.0 in setting of chronic diarrhea -Given replacement in ED. Will repeat lab work -No chest pain but EKG with ST & T wave abnormality in lateral leads -Initial troponin of 0.069. Continue trending troponin -Telemetry 12/01 Hypokalemia secondary to GI Losses from Diarrhea, Lasix K improving PO and IV K given repeat PRP at 1pm 3015 Hypokalemia further improving #3.1 Given p.o. K, potassium added to IV fluids Repeat PRP at 5:00 PM 12/03/2018 Potassium 3.4 P.o. potassium and additional potassium and IV fluids ordered (2) Acute kidney injury superimposed on CKD: Creatinine elevated at 2.6 (baseline mid-1s) -In setting of dehydration-- decreased PO intake, GI losses -Gentle fluids resuscitation -Avoid nephrotoxic agents -BMP in AM 12/01 Acute Renal Failure secondary to GI Losses from Diarrhea, Lasix Crea improved from 2.6 to 2.4 continue gentle IV NSS + K monitor 12/02 Creatinine improving to 1.7, although bicarbonate is decreasing not 15 Start half NS +75 mEq of bicarb and +20 mg of potassium Nephrology consulted, appreciate recommendations 6090 Creatinine further improved to 1.6, bicarbonate still at 17 Continue bicarb drip Nephrology consulted, appreciate the recommendations (3) Unintentional weight loss: Endorses ~20 lb weight loss since September -Noted to have R axillary adenopathy last month and CT chest/abd was ordered which revealed cecal wall thickening. - Nutrition consult - continue close outpatient ff up with Hem/Onc (4) Anemia due to chronic kidney disease: Follows with heme onc. Receives procrit injections every few weeks ) Hemoglobin 10 Continue to monitor (5) HTN (hypertension): Continue atenolol with hold parameters -Holding lasix in setting of dehydration, NAJMA (6) Chronic atrial fibrillation: EKG with rate-controlled A Fib -Continue atenolol with hold parameters -Taking 2.5mg Coumadin this week, per coag clinic INR 2.0, continue Coumadin (7) 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: (8) Valvular heart disease: Clinically dry with NAJMA -Holding lasix -Monitor volume status closely (9) DLBCL (diffuse large B cell lymphoma): History of diffuse large B cell lymphoma (s/p chemo) -In remission since 2010December 02 2018 Platelets continue to trend down now at 80,000 Peripheral smear ordered Monitor Hematology consulted (10) Dyslipidemia: Continue atorvastatin (11) Thrombocytopenia: Management as noted above DVT prophylaxis on Coumadin Code status: DNR per discussion with patient PCP: Isaac Dispo: pending lives with son at home PT eval Subjective Follow-up for acute renal failure, diabetes Seen resting in bed, comfortable Had 3 episodes of loose stools yesterday, 1; today, denies abdominal pain, nausea Denies chest pain, shortness of breath, dizziness No other symptoms Physical Exam Vital Signs (Past 24 Hours): Last Vital Signs Temp 36.6 C 12/03/18 14:52 Pulse 68 12/03/18 16:00 Resp 20 12/03/18 14:52 BP 132/79 12/03/18 14:52 Pulse Ox 99 12/03/18 14:52 Physical Exam: General- oriented x 3, not in distress, speaks in sentences with no effort or accessory muscle use Eyes- anicteric Neck- no JVD Lungs- clear breath sounds bilaterally Heart- normal rate, regular rhythm; no murmurs Abdomen- normal bowel sounds, nondistended, soft, nontender Extremities- no pretibial edema, no calf tenderness Neuro- alert, oriented x 3; no gross focal neurologic deficits Skin- warm & dry
--- NOTE | 2018-12-03 19:22 | Oncology Consultation ---
Date of Consultation December 03, 2018 ASSESSMENT AND PLAN: 88 year old male admitted with chronic diarrhea found to have C diff positive, weight loss, electrolyte imbalance, NAJMA on CKD and worsening thrombocytopenia He has chronic anemia in setting of CKD received procrit outpatient Also has chronic mild thrombocytopenia. worsneing of his chronic thrombocytopenia - may be due to infection since he has C difficile infection he has chronic anemia in setting of CKD - may have been hemoconcentrated on admission since hemoglobin was 13 but has trended down. Monitor for any GI blood loss. His coumadin can be resumed for his cardiac reasons if no procedures planned and as long as no bleeding and platelet count >50. last INR is 2. check peripheral smear iron tibc ferritin b12 folate spep serum immunofixation and fibrinogen ldh and haptoglobin. clinically his DLBCL appears in remission. mild splenomegaly was reported on his CT but spleen size was under 13cm and this can be followed outpatient with Dr Marin. He is on oral vancomycin recommend follow up with Dr Marin for monitoring of his CBCw/ diff and continuation of his procrit outpatient. monitor daily cbc while he is admitted. no indication for transfusion at this time. thank you for consult Reason for consult: thrombocytopenia physician requesting consult: Dr Pimentel History of Present Illness Attending Physician: Chapito Pimentel MD HPI: 88 year old male with prior history of DLBCL in remission, chronic anemia in setting of CKD stage 3, on procrit, intermittent mild thrombocytopenia for which he follows with Dr Marin, hypertension, hyperlipidemia, A fib on coumadin, carotid disease s/p bilateral CEA, RV systolic dysfunction, gout who is admitted with chronic diarrhea which he states has been for several months but was up to 5 to 6 times per day in the 3 weeks prior to admission and unintentional weight loss and decreased appetite, electrolyte imbalance with hypokalemia, NAJMA on CKD and elevated creatinine. baseline creatinine is ~1.6 His creatinine was elevated up to 2.6 on admission but has improved to 1.59 Platelet count was mildly low in 07/2018 as well. Platelet count on this admission was 117 platelet count yesterday was 98 and today platelet count is 84 His hemoglobin on admission was 13.1 but has trended down to 10g/dL He drinks alcohol socially- states he does not drink every day, sometimes few beers per week socially when he has company. He denies any hematochezia He denies any abdominal pain or fever or chills or night sweats or swollen glands or cough or shortness of breath. no headache or paresthesias He states that he was taking pepto bismol on and off prior to admission for stomach upset and that he would notice stool black only when he takes pepto bismol. He states that he is feeling signicantly improved and stronger since he has been in hospital and that diarrhea is less now - 3 bowel movements today. He had a CT scan chest/abd/pelvis in 10/2018 showing: "1. Limited evaluation of the upper chest and axillary distributions secondary to streak artifact from bilateral shoulder arthroplasties. Within the limitations of the study, there are several nonspecific prominent right axillary and right subpectoral lymph nodes seen measuring up to 9 mm. 2. No acute intrathoracic abnormality identified. 3. Stable 6 and 5 mm nodules of the right lung which appear unchanged from 07/29/2016 suggestive of benign etiology. 3 mm solid nodule of the right upper lobe is likely benign, however has slightly increased in size from 2016. 4. Cardiomegaly with suggestion of pulmonary arterial hypertension. 5. For Additional findings - see official ct scan report CT Abd/pel 1. Mild splenomegaly 2. No evidence of pathologic adenopathy 3. No evidence of bowel obstruction. No evidence of free air. 4. Normal appendix. No evidence of acute diverticulitis 5. Borderline cecal wall thickening" GI was consulted and he is planned for colonoscopy to evaluate his cecal wall thickening and weight loss. C difficile positive sed rate is elevated Allergies Allergy/AdvReac Type Severity Reaction Status Date / Time aztreonam Allergy Intermediate RASH Verified 11/30/18 19:09 daptomycin Allergy Intermediate RASH Verified 11/30/18 19:09 indapamide Allergy Unknown Unknown Verified 11/30/18 19:09 Penicillins Allergy Unknown unknown Verified 11/30/18 19:09 Sulfa (Sulfonamide Allergy Unknown unknown Verified 11/30/18 19:09 Antibiotics) sulfamethoxazole Allergy Unknown unknown Verified 11/30/18 19:09 Home Medications Home Medications Medication Instructions Recorded Confirmed Type allopurinol 200 mg PO HS 07/19/18 11/30/18 History atenolol 50 mg PO DAILY 07/19/18 11/30/18 History epoetin renee 20,000 units SUBCUT UD 07/19/18 11/30/18 History warfarin 2.5 mg PO DAILY 07/19/18 11/30/18 History pantoprazole [Protonix] 40 mg PO DAILY #30 tab 07/21/18 11/30/18 Rx Align 4 mg PO DAILY 08/03/18 11/30/18 History atorvastatin 40 mg PO HS 08/03/18 11/30/18 History folic acid 1 mg PO DAILY 11/30/18 11/30/18 History furosemide 20 mg PO DAILY 11/30/18 11/30/18 History potassium chloride 10 meq PO DAILY 11/30/18 11/30/18 History Patient History Medical History Dyslipidemia (Chronic) HTN (hypertension) (Chronic) Valvular heart disease (Chronic) 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) Amputated toe (Chronic) 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) Chronic atrial fibrillation (Chronic) 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) CKD (chronic kidney disease), stage III (Chronic) Osteoarthritis (Chronic) Gout (Chronic) Amputated toe of right foot Anemia of chronic disease Atrial fibrillation CKD (chronic kidney disease), stage III 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, 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 cycles Dyslipidemia Gout HTN (hypertension) emt intermediate (current) use of 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 Osteoarthritis Surgical History History of total left hip replacement (Resolved) History of bilateral carotid endarterectomy (Resolved) History of cholecystectomy (Resolved) History of total bilateral knee replacement (Resolved) S/P rotator cuff repair (Resolved) Status post total shoulder arthroplasty (Resolved) H/O rotator cuff surgery History of CEA (carotid endarterectomy) History of lymph node biopsy History of total bilateral knee replacement "s/p left knee revision" History of total left hip replacement Hx of cholecystectomy Status post total shoulder arthroplasty Family History Other Family history non-contributory Social History Communication Ability: Effective Watch Crystal Cutter Required: No Beliefs That Will Affect Care: None marital status: Current Living Situation: Family Current Living Situation Comment: Lives with son current occupational status: retired current occupation: Other Information That Helps Us Care for You: No Feels Safe at Home: Yes Safety Concerns: Feels Safe At This Time Smoking Status: Never smoker Hx Alcohol Use: Yes Hx Substance Use: No Review of Systems as stated per HPI. Otherwise negative of 10 point ROS Physical Exam Vital Signs (Past 24 Hours): Last Vital Signs Temp 36.6 C 12/03/18 14:52 Pulse 68 12/03/18 16:00 Resp 20 12/03/18 14:52 BP 132/79 12/03/18 14:52 Pulse Ox 99 12/03/18 14:52 Gen: well developed male in no acute distress HEENT: anicteric, no erythema or exudate Neck: no palpable adenopathy Lungs: CTAB CV: S1 S2 irregularly irregular Abd: +BS soft nontender nondistended spleen and liver are not palpable Ext: no edema neuro: alert and oriented x3 grossly nonfocal Results & Data Diagnostic Findings Cardiomegaly with no acute cardiopulmonary abnormality.
[2018-12-03 19:32] LABS: Ferritin 616.3 ng/ml (8-388)
[2018-12-03 19:34] LABS: Folate (Folic Acid) 16.63 ng/ml (>5.38)
[2018-12-03 20:06] LABS: Fibrinogen 428 mg/dl (184-400)
[2018-12-03] MEDS: ALLOPURINOL 100 MG TAB PO SCH (20:57)
[2018-12-03] MEDS: ATORVASTATIN 40 MG TAB PO SCH (20:57)
[2018-12-04] MEDS: RASPBERRY SYRUP 5 ML UDP PO SCH ×5 (00:16→23:41)
[2018-12-04] MEDS: VANCOMYCIN HCL 125 MG/2.5ML SOLN PO SCH ×5 (00:17→23:42)
[2018-12-04] MEDS: SODIUM BICARBONATE 8.4% 150 MEQ, POTASSIUM CHLORIDE 40 MEQ in DEXTROSE 5% 1,000 ML IV SCH (06:07)
[2018-12-04 07:07] LABS: Calcium 7.7 mg/dl (8.5-10.1); Creatinine Clr Calc Pharmacy 37.9 ml/min; Est GFR (African American) 48.6; Est GFR (Non-African American) 41.9; Potassium 4.5 mmol/L (3.5-5.1)
[2018-12-04 07:18] LABS: Phosphorus 1.4 mg/dl (2.5-4.9)
[2018-12-04] MEDS: PANTOprazole 40 MG TAB PO SCH (08:09)
[2018-12-04] MEDS: ATENOLOL 50 MG TABLET PO SCH (08:10)
[2018-12-04] MEDS: POTASSIUM CHLORIDE 20 MEQ TABCR PO SCH ×2 (08:11→21:50)
[2018-12-04] MEDS: FOLIC ACID 1 MG TAB PO SCH (08:11)
[2018-12-04] MEDS: POT PHOSPHATE MONOBASIC W/ SOD TAB PO SCH ×4 (08:11→21:50)
[2018-12-04 09:32] LABS: INR 1.7 (0.9-1.1); Prothrombin Time 16.9 Seconds (9.0-12.0)
[2018-12-04 09:37] LABS: Hematocrit (blood only) 29.5 % (42-52); Hemoglobin 9.6 g/dL (14.0-18.0); Mean Corpuscular Hgb Conc 32.5 g/dL (32-36); Mean Corpuscular Volume 96.1 fL (80-100); RDW Coefficient of Variation 18.9 % (11.5-14.5); RDW Standard Deviation 65.2 fL (36.4-46.3); Red Blood Count 3.07 M/uL (4.7-6.1); White Blood Count 5.88 K/uL (4.8-10.8)
[2018-12-04 09:39] LABS: Basophils # (auto) 0.01 K/uL (0-0.2); Basophils % (auto) 0.2 %; Eosinophils # (auto) 0.21 K/uL (0-0.5); Eosinophils % (auto) 3.6 %; Immature Granulocytes # (auto) 0.01 K/uL (0.00-0.02); Immature Granulocytes % (auto) 0.2 %; Lymphocytes # (auto) 2.08 K/uL (1.2-3.4); Lymphocytes % (auto) 35.4 %; Mean Platelet Volume 9.9 fL (7.4-10.4); Monocytes # (auto) 0.33 K/uL (0.11-0.59); Monocytes % (auto) 5.6 %; Neutrophils # (auto) 3.24 K/uL (1.4-6.5); Platelet Count 86 K/uL (130-400)
--- NOTE | 2018-12-04 12:07 | Nephrology Progress Note ---
Date of Service December 04, 2018 Assessment & Plan (1) Disorders of fluid, electrolyte, and acid-base balance: severe hypokalemia on presentation w/ hx c/w GI losses as is the hyperchloremic metabolic acidosis K and acid/base normalized; creatinine back to mid 1's baseline; diarrhea per pt improving but now c diff + -not clear at this point when he will do colonoscopy >> inpt or outpt; if and when this is done, will need very close monitoring to optimize chemistries/ avoid Blossom ->>given better labs and HTN will stop IVF -repeat bmp, phos for am ordered -continue 40 mEq bid K po >>>will increase to TWO K phos qid ; do not believe he needs phos IV replacement Subjective seen on rounds just after noon. cont to state he feels "great." ambulating to bathroom. no gross bleeding. no edema. no abd pain. no sob. no mm weakness. diarrhea again quiet. Physical Exam Vital Signs (Past 24 Hours): Last Vital Signs Temp 36.4 C L 12/04/18 11:51 Pulse 62 12/04/18 11:51 Resp 20 12/04/18 11:51 BP 138/81 12/04/18 11:51 Pulse Ox 94 12/04/18 11:51 Constitutional: well developed, well nourished and average body habitus Eyes: EOM intact bilaterally ENMT: Ears: no external ear abnormality Nose: no external nose abnormality Mouth: + dry oral mucous membranes Neck: no nuchal rigidity Respiratory: normal respiratory effort Auscultation: + diminished lung sounds Cardiovascular: Rate/Rhythm: regular rate and regular rhythm Extremities: no edema Gastrointestinal (Abdomen): Inspection/Auscultation: normal bowel sounds Percussion/Palpation: abdomen soft; abdomen nontender Musculoskeletal: Extremities: strength 5/5 throughout Skin: no rashes, warm and dry Neurologic: shah, fluent speech Psychiatric: A+Ox3, euthymic affect Results & Data Laboratory Results Abnormal lab results 12/03/18 12/03/18 12/04/18 Range/Units 18:44 18:53 06:20 RBC (4.7-6.1) M/uL Hgb (14.0-18.0) g/dL Hct (42-52) % RDW Std Deviation (36.4-46.3) fL RDW Coeff of Fang (11.5-14.5) % Plt Count (130-400) K/uL PT (9.0-12.0) Seconds INR (0.9-1.1) Fibrinogen 428 H (184-400) mg/dl Chloride 114 H (98-107) mmol/L BUN 30 H (7-18) mg/dl Creatinine 1.49 H (0.6-1.4) mg/dl Calcium 7.7 L (8.5-10.1) mg/dl Phosphorus 1.4 L* (2.5-4.9) mg/dl Iron 25 L (35-175) mcg/dl TIBC 170 L (250-450) mcg/dl Transferrin 140 L (200-360) mg/dl Transferrin % Sat 13 L (20-50) % Ferritin 616.3 H (8-388) ng/ml 12/04/18 12/04/18 Range/Units 06:27 08:51 RBC 3.07 L (4.7-6.1) M/uL Hgb 9.6 L (14.0-18.0) g/dL Hct 29.5 L (42-52) % RDW Std Deviation 65.2 H (36.4-46.3) fL RDW Coeff of Fang 18.9 H (11.5-14.5) % Plt Count 86 L (130-400) K/uL PT 16.9 H (9.0-12.0) Seconds INR 1.7 H (0.9-1.1) Fibrinogen (184-400) mg/dl Chloride (98-107) mmol/L BUN (7-18) mg/dl Creatinine (0.6-1.4) mg/dl Calcium (8.5-10.1) mg/dl Phosphorus (2.5-4.9) mg/dl Iron (35-175) mcg/dl TIBC (250-450) mcg/dl Transferrin (200-360) mg/dl Transferrin % Sat (20-50) % Ferritin (8-388) ng/ml
[2018-12-04] MEDS: IRON SUCROSE 200 MG in 0.9 % SODIUM CHLORIDE 100 ML IV SCH (13:06)
[2018-12-04] MEDS ORDERED: WARFARIN SOD 4 MG TAB PO ONE (15:38)
[2018-12-04] MEDS: ALLOPURINOL 100 MG TAB PO SCH (21:50)
[2018-12-04] MEDS: ATORVASTATIN 40 MG TAB PO SCH (21:50)
[2018-12-05] MEDS: RASPBERRY SYRUP 5 ML UDP PO SCH ×3 (05:43→17:40)
[2018-12-05] MEDS: VANCOMYCIN HCL 125 MG/2.5ML SOLN PO SCH ×3 (05:43→17:40)
--- NOTE | 2018-12-05 07:27 | Hospitalist Progress Note ---
Date of Service December 05, 2018 time of service 419pm Assessment & Plan (1) Hypokalemia: per admitting SVC notes: This an 87-year-old male with a PMH of HTN, HLD, CKD stage III, anemia of chronic disease (on Procrit [id number]), permanent atrial fibrillation (on long- term anticoagulation), R ventricular systolic dysfunction, gout and history of diffuse large B cell lymphoma (in remission since 2010) who presents with worsening shortness of breath and weight loss and was found to be hypokalemia with an NAJMA on CKD. -Initial potassium of 2.0 in setting of chronic diarrhea -Given replacement in ED. Will repeat lab work -No chest pain but EKG with ST & T wave abnormality in lateral leads -Initial troponin of 0.069. Continue trending troponin -Telemetry 12/01 Hypokalemia secondary to GI Losses from Diarrhea, Lasix K improving PO and IV K given repeat PRP at 1pm 3015 Hypokalemia further improving #3.1 Given p.o. K, potassium added to IV fluids Repeat PRP at 5:00 PM 12/03/2018 Potassium 3.4 P.o. potassium and additional potassium and IV fluids ordered 12/05/2018 K normalized Ph 2.1, to be given Neutraphos x 3 days repeat PRP, Mg, Ph with PCP ff up this week (2) Acute kidney injury superimposed on CKD: Creatinine elevated at 2.6 (baseline mid-1s) -In setting of dehydration-- decreased PO intake, GI losses -Gentle fluids resuscitation -Avoid nephrotoxic agents -BMP in AM 12/01 Acute Renal Failure secondary to GI Losses from Diarrhea, Lasix Crea improved from 2.6 to 2.4 continue gentle IV NSS + K monitor 12/02 Creatinine improving to 1.7, although bicarbonate is decreasing not 15 Start half NS +75 mEq of bicarb and +20 mg of potassium Nephrology consulted, appreciate recommendations 12/03 Creatinine further improved to 1.6, bicarbonate still at 17 Continue bicarb drip Nephrology consulted, appreciate the recommendations 12/04 crea back to baseline repeat PRP on ff up with PCP (3) Unintentional weight loss: Endorses ~20 lb weight loss since September - Noted to have R axillary adenopathy last month and CT chest/abd was ordered which revealed cecal wall thickening. - GI consulted plan for outpatient Colonoscopy, patient needs to ff up with GI Clinic for Colonoscopy to be arranged - Nutrition consult - continue close outpatient ff up with Hem/Onc (4) Anemia due to chronic kidney disease: Follows with heme onc. Receives procrit injections every few weeks ) Hemoglobin 10 Continue to monitor (5) HTN (hypertension): Continue atenolol with hold parameters - patient is on the dry side HOLD Lasix in setting of dehydration, NAJMA (6) Chronic atrial fibrillation: EKG with rate-controlled A Fib -Continue atenolol with hold parameters - continue Coumadin ff up with Coumadin clinic this week (7) 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: (8) Valvular heart disease: Clinically dry with NAJMA -Holding lasix -Monitor volume status closely (9) DLBCL (diffuse large B cell lymphoma): History of diffuse large B cell lymphoma (s/p chemo) -In remission since 2010 platelets trended down to 80k Peripheral smear ordered: nonspecific No overt morphologic abnormalities, including changes of a myelodysplastic syndrome, lymphoma or hemolytic anemia, are seen. The reviewed findings are consistent with a non-specific normocytic anemia and thrombocytopenia. Hematology consulted Dr. Sainz recommend follow up with Dr Marin for monitoring of his CBC w/ diff and continuation of his procrit outpatient. (10) Dyslipidemia: Continue atorvastatin (11) Thrombocytopenia: Management as noted above DVT prophylaxis on Coumadin Code status: DNR per discussion with patient PCP: Isaac Dispo: d/c home today ff up with PCP this week 12/08/18 Dr. Plunkett Subjective ff up for diarrhea, acute renal failure seen resting in bed, comfortable in good spirits states he continues to feel much better walking with no problems diarrhea resolved, no nausea/fever/abdominal pain denies other symptoms states he is ready and would like to be discharged today Physical Exam Vital Signs (Past 24 Hours): Last Vital Signs Temp 36.7 C 12/05/18 07:21 Pulse 73 12/05/18 07:21 Resp 16 12/05/18 07:21 BP 145/84 H 12/05/18 07:21 Pulse Ox 99 12/05/18 07:21 Physical Exam: General- oriented x 3, not in distress, speaks in sentences with no effort or accessory muscle use Eyes- anicteric Neck- no JVD Lungs- clear breath sounds bilaterally no crackles no wheezing Heart- normal rate, irregularly irregular rhythm; no murmurs Abdomen- normal bowel sounds, nondistended, soft, nontender Extremities- no pretibial edema, no calf tenderness Neuro- alert, oriented x 3; no gross focal neurologic deficits Skin- warm & dry Results & Data Laboratory Results Laboratory Results - last 24 hr 12/03/18 12/03/18 12/05/18 07:16 11:32 07:19 WBC RBC Hgb Hct MCV MCH MCHC RDW Std Deviation RDW Coeff of Fang Plt Count MPV Immature Gran % (Auto) Neut % (Auto) Lymph % (Auto) [place] % (Auto) Eos % (Auto) Baso % (Auto) Immature Gran # (Auto) Neut # (Auto) Lymph # (Auto) [place] # (Auto) Eos # (Auto) Baso # (Auto) Anisocytosis Peripher Smr Path Cons Cancelled PT 17.2 H INR 1.7 H Sodium Potassium Chloride Carbon Dioxide Anion Gap BUN Creatinine Est Cr Clr Drug Dosing Est GFR ( Amer) Est GFR (Non-Af Amer) BUN/Creatinine Ratio Glucose Calcium Phosphorus 12/05/18 12/05/18 07:19 07:19 WBC 5.14 RBC 2.88 L Hgb 9.1 L Hct 28.2 L MCV 97.9 MCH 31.6 MCHC 32.3 RDW Std Deviation 67.5 H RDW Coeff of Fang 19.2 H Plt Count 75 L MPV 9.3 Immature Gran % (Auto) 0.4 Neut % (Auto) 59.7 Lymph % (Auto) 30.9 [place] % (Auto) 4.5 Eos % (Auto) 4.5 Baso % (Auto) 0.0 Immature Gran # (Auto) 0.02 Neut # (Auto) 3.07 Lymph # (Auto) 1.59 [place] # (Auto) 0.23 Eos # (Auto) 0.23 Baso # (Auto) 0.00 Anisocytosis Present Peripher Smr Path Cons PT INR Sodium 143 Potassium 4.1 Chloride 115 H Carbon Dioxide 21 Anion Gap 7.0 BUN 25 H Creatinine 1.37 Est Cr Clr Drug Dosing 41.2 Est GFR ( Amer) 53.7 Est GFR (Non-Af Amer) 46.4 BUN/Creatinine Ratio 18.3 Glucose 87 Calcium 7.6 L Phosphorus 2.1 L
[2018-12-05 07:51] LABS: Hematocrit (blood only) 28.2 % (42-52); Hemoglobin 9.1 g/dL (14.0-18.0); Mean Corpuscular Hgb Conc 32.3 g/dL (32-36); Mean Corpuscular Volume 97.9 fL (80-100); RDW Coefficient of Variation 19.2 % (11.5-14.5); RDW Standard Deviation 67.5 fL (36.4-46.3); Red Blood Count 2.88 M/uL (4.7-6.1); White Blood Count 5.14 K/uL (4.8-10.8)
[2018-12-05 08:03] LABS: INR 1.7 (0.9-1.1); Prothrombin Time 17.2 Seconds (9.0-12.0)
[2018-12-05 08:07] LABS: Mean Platelet Volume 9.3 fL (7.4-10.4); Platelet Count 75 K/uL (130-400)
[2018-12-05 08:16] LABS: BUN Creatinine Ratio 18.3 (10-20); Calcium 7.6 mg/dl (8.5-10.1); Creatinine Clr Calc Pharmacy 41.2 ml/min; Est GFR (African American) 53.7; Est GFR (Non-African American) 46.4; Potassium 4.1 mmol/L (3.5-5.1)
[2018-12-05 08:17] LABS: Phosphorus 2.1 mg/dl (2.5-4.9)
[2018-12-05 08:40] LABS: Anisocytosis Present; Eosinophils # (auto) 0.23 K/uL (0-0.5); Eosinophils % (auto) 4.5 %; Immature Granulocytes # (auto) 0.02 K/uL (0.00-0.02); Immature Granulocytes % (auto) 0.4 %; Lymphocytes # (auto) 1.59 K/uL (1.2-3.4); Lymphocytes % (auto) 30.9 %; Monocytes # (auto) 0.23 K/uL (0.11-0.59); Monocytes % (auto) 4.5 %; Neutrophils # (auto) 3.07 K/uL (1.4-6.5); Neutrophils % (auto) 59.7 %
[2018-12-05] MEDS: IRON SUCROSE 200 MG in 0.9 % SODIUM CHLORIDE 100 ML IV SCH (09:49)
[2018-12-05] MEDS: POTASSIUM CHLORIDE 20 MEQ TABCR PO SCH (09:57)
[2018-12-05] MEDS: FOLIC ACID 1 MG TAB PO SCH (09:57)
[2018-12-05] MEDS: ATENOLOL 50 MG TABLET PO SCH (09:58)
[2018-12-05] MEDS: PANTOprazole 40 MG TAB PO SCH (09:58)
[2018-12-05] MEDS: POT PHOSPHATE MONOBASIC W/ SOD TAB PO SCH ×3 (09:58→16:40)
[2018-12-05] MEDS ORDERED: WARFARIN SOD 4 MG TAB PO SCH (16:00)
--- NOTE | 2018-12-05 16:15 | Hospitalist Progress Note ---
Date of Service December 05, 2018 Assessment & Plan (1) Hypokalemia: per admitting SVC notes: This an 87-year-old male with a PMH of HTN, HLD, CKD stage III, anemia of chronic disease (on Procrit [id number]), permanent atrial fibrillation (on long- term anticoagulation), R ventricular systolic dysfunction, gout and history of diffuse large B cell lymphoma (in remission since 2010) who presents with worsening shortness of breath and weight loss and was found to be hypokalemia with an NAJMA on CKD. -Initial potassium of 2.0 in setting of chronic diarrhea -Given replacement in ED. Will repeat lab work -No chest pain but EKG with ST & T wave abnormality in lateral leads -Initial troponin of 0.069. Continue trending troponin -Telemetry 12/01 Hypokalemia secondary to GI Losses from Diarrhea, Lasix K improving PO and IV K given repeat PRP at 1pm 3015 Hypokalemia further improving #3.1 Given p.o. K, potassium added to IV fluids Repeat PRP at 5:00 PM 12/03/2018 Potassium 3.4 P.o. potassium and additional potassium and IV fluids ordered 12/04 potassium continues to improve K BID ordered (2) Acute kidney injury superimposed on CKD: Creatinine elevated at 2.6 (baseline mid-1s) -In setting of dehydration-- decreased PO intake, GI losses -Gentle fluids resuscitation -Avoid nephrotoxic agents -BMP in AM 12/01 Acute Renal Failure secondary to GI Losses from Diarrhea, Lasix Crea improved from 2.6 to 2.4 continue gentle IV NSS + K monitor 12/02 Creatinine improving to 1.7, although bicarbonate is decreasing not 15 Start half NS +75 mEq of bicarb and +20 mg of potassium Nephrology consulted, appreciate recommendations 12/03 Creatinine further improved to 1.6, bicarbonate still at 17 Continue bicarb drip Nephrology consulted, appreciate the recommendations 12/04 crea and HCO3 further improved fluids d/c'd (3) Unintentional weight loss: Endorses ~20 lb weight loss since September -Noted to have R axillary adenopathy last month and CT chest/abd was ordered which revealed cecal wall thickening. - Nutrition consult - continue close outpatient ff up with Hem/Onc (4) Anemia due to chronic kidney disease: Follows with heme onc. Receives procrit injections every few weeks ) Hemoglobin 10 Continue to monitor Fe level low: 25 IV Fe ordered (5) HTN (hypertension): Continue atenolol with hold parameters -Holding lasix in setting of dehydration, NAJMA (6) Chronic atrial fibrillation: EKG with rate-controlled A Fib -Continue atenolol with hold parameters -Taking 2.5mg Coumadin this week, per coag clinic INR 1.7, continue Coumadin (7) 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: (8) Valvular heart disease: Clinically dry with NAJMA -Holding lasix -Monitor volume status closely (9) DLBCL (diffuse large B cell lymphoma): History of diffuse large B cell lymphoma (s/p chemo) -In remission since 2010December 02 2018 Platelets continue to trend down now at 80,000 Peripheral smear ordered Monitor Hematology consulted (10) Dyslipidemia: Continue atorvastatin (11) Thrombocytopenia: Management as noted above DVT prophylaxis on Coumadin Code status: DNR per discussion with patient PCP: Isaac Dispo: pending lives with son at home PT eval Subjective ff up for diarrhea, acute renal failure seen resting in bed, comfortable states he feels improved again no diarrhea, abdominal pain, fever no problems with urination denies other symptoms Physical Exam Vital Signs (Past 24 Hours): Last Vital Signs Temp 36.5 C 12/05/18 11:05 Pulse 58 L 12/05/18 15:57 Resp 17 12/05/18 15:12 BP 118/78 12/05/18 15:12 Pulse Ox 98 12/05/18 15:12 Physical Exam: General- oriented x 3, not in distress, speaks in sentences with no effort or accessory muscle use Eyes- anicteric Neck- no JVD Lungs- clear breath sounds bilaterally Heart- normal rate, regular rhythm; no murmurs Abdomen- normal bowel sounds, nondistended, soft, nontender Extremities- no pretibial edema, no calf tenderness Neuro- alert, oriented x 3; no gross focal neurologic deficits Skin- warm & dry Results & Data Laboratory Results all noted and reviewed
--- NOTE | 2018-12-06 06:42 | Discharge Summary ---
Date of Service December 08, 2018 Admission HPI Per Admitting Provider This is an 87-year-old male with a PMH of HTN, HLD, CKD stage III, anemia of chronic disease on Procrit [id number], permanent atrial fibrillation on long-term anticoagulation, R ventricular systolic dysfunction, gout and history of diffuse large B cell lymphoma (in remission since 2010) who presents with worsening shortness of breath and weight loss. Patient endorses decreased appetite and unintentional weight loss of 20 pounds since September. Also experiencing dyspnea on exertion, fatigue, generalized weakness, nausea and diarrhea. Follows with heme onc for anemia of chronic disease and was noted to have R axillary adenopathy last month, so a CT chest/abd was ordered which revealed cecal wall thickening. Was seen by GI to discuss possibility of malignancy. Per GI clinic note from last week, patient does not wish to proceed with colonoscopy at this point in time because "I'm 87 and I don't find it necessary". Has been having intermittent black stools but states that he only notices them after he drinks pepto bismol. Denies fever, chills, night sweats, vision changes, confusion, chest pain, palpitations, wheezing, vomiting, abdominal pain, dysuria, hematuria or hematochezia. No unusual bruising or new lymphadenopathy. Discharge Data Consultations 11/30/18 19:12 ED Decision to Admit Stat 11/30/18 21:32 Consult Gastroenterology Routine 12/01/18 11:30 Consult Cardiology Routine 12/02/18 09:30 Consult Nephrology Routine 12/03/18 11:12 Consult Hematology Routine
[2018-12-06 18:37] LABS: Albumin 2.5 G/DL (3.8-4.8); Alpha 1 Globulin 0.5 G/DL (0.2-0.3); Alpha 2 Globulin 0.8 G/DL (0.5-0.9); Beta-1-Globulin 0.2 G/DL (0.4-0.6); Beta-2-Globulin 0.4 G/DL (0.2-0.5); Gamma Globulin 1.5 G/DL (0.8-1.7); Monoclonal Protein Band 1 DNR G/DL (NOT DETECTED); Monoclonal Protein Band 2 DNR G/DL (NOT DETECTED); Monoclonal Protein Band 3 DNR G/DL (NOT DETECTED); Total Protein 5.9 G/DL (6.2-8.3)
--- NOTE | 2018-12-07 21:50 | Discharge Summary ---
Date of Service December 07, 2018 Admission HPI Per Admitting Provider This is an 87-year-old male with a PMH of HTN, HLD, CKD stage III, anemia of chronic disease on Procrit [id number], permanent atrial fibrillation on long-term anticoagulation, R ventricular systolic dysfunction, gout and history of diffuse large B cell lymphoma (in remission since 2010) who presents with worsening shortness of breath and weight loss. Patient endorses decreased appetite and unintentional weight loss of 20 pounds since September. Also experiencing dyspnea on exertion, fatigue, generalized weakness, nausea and diarrhea. Follows with heme onc for anemia of chronic disease and was noted to have R axillary adenopathy last month, so a CT chest/abd was ordered which revealed cecal wall thickening. Was seen by GI to discuss possibility of malignancy. Per GI clinic note from last week, patient does not wish to proceed with colonoscopy at this point in time because "I'm 87 and I don't find it necessary". Has been having intermittent black stools but states that he only notices them after he drinks pepto bismol. Denies fever, chills, night sweats, vision changes, confusion, chest pain, palpitations, wheezing, vomiting, abdominal pain, dysuria, hematuria or hematochezia. No unusual bruising or new lymphadenopathy. Admission Exam Per Admitting Provider Vital Signs (Past 24 Hours): Last Vital Signs Temp 36.3 C L 11/30/18 13:13 Pulse 59 L 11/30/18 19:43 Resp 20 11/30/18 19:43 BP 138/77 11/30/18 19:43 Pulse Ox 98 11/30/18 19:43 Physical Exam: General Appearance: WD/WN, elderly male, no apparent distress, chronically ill appearing Head: normocephalic, atraumatic Eyes: normal inspection, PERRL, EOMI ENT: hearing grossly normal, pharynx normal (mucous membranes moist) Neck: supple, no JVD, no adenopathy Respiratory/Chest: lungs clear to auscultation. No wheezes, rales or rhonci. No respiratory distress or accessory muscle use Cardiovascular: bradycardic, regular rhythm, no murmur, normal peripheral pulses Abdomen/GI: normal bowel sounds, soft, non-tender to palpation Extremities/Musculoskelatal: normal inspection, no calf tenderness, normal capillary refill, no pedal edema Neurologic/Psych: alert, normal mood/affect, oriented x 3 Skin: normal color, warm/dry Principal Diagnosis HYPOKALEMIA, ACUTE RENAL FAILURE SECONDARY TO DIARRHEA; C. DIFF COLITIS Discharge Exam Vital Signs (Past 24 Hours): Last Vital Signs Temp 36.5 C 12/05/18 11:05 Pulse 58 L 12/05/18 15:57 Resp 17 12/05/18 15:12 BP 118/78 12/05/18 15:12 Pulse Ox 98 12/05/18 15:12 Physical Exam: General- oriented x 3, not in distress, speaks in sentences with no effort or accessory muscle use Eyes- anicteric Neck- no JVD Lungs- clear breath sounds bilaterally Heart- normal rate, regular rhythm; no murmurs Abdomen- normal bowel sounds, nondistended, soft, nontender Extremities- no pretibial edema, no calf tenderness Neuro- alert, oriented x 3; no gross focal neurologic deficits Skin- warm & dry Discharge Data Allergies Allergy/AdvReac Type Severity Reaction Status Date / Time aztreonam Allergy Intermediate RASH Verified 11/30/18 19:09 daptomycin Allergy Intermediate RASH Verified 11/30/18 19:09 indapamide Allergy Unknown Unknown Verified 11/30/18 19:09 Penicillins Allergy Unknown unknown Verified 11/30/18 19:09 Sulfa (Sulfonamide Allergy Unknown unknown Verified 11/30/18 19:09 Antibiotics) sulfamethoxazole Allergy Unknown unknown Verified 11/30/18 19:09 Consultations 11/30/18 19:12 ED Decision to Admit Stat 11/30/18 21:32 Consult Gastroenterology Routine 12/01/18 11:30 Consult Cardiology Routine 12/02/18 09:30 Consult Nephrology Routine 12/03/18 11:12 Consult Hematology Routine Hospital Course (1) Hypokalemia: (1) Hypokalemia: Hypokalemia secondary to GI Losses from Diarrhea, Lasix -Initial potassium of 2.0 in setting of chronic diarrhea -No chest pain but EKG with ST & T wave abnormality in lateral leads - replaced with PO and IV potassium 12/05/2018 K normalized Ph 2.1, to be given Neutraphos x 3 days repeat PRP, Mg, Ph with PCP ff up this week (2) Acute kidney injury superimposed on CKD: Creatinine elevated at 2.6 (baseline mid-1s) Acute Renal Failure secondary to GI Losses from Diarrhea, Lasix Nephro consulted given gentle IV NSS + HCO3 crea back to baseline repeat PRP on ff up with PCP (3) Unintentional weight loss: Endorses ~20 lb weight loss since September - Noted to have R axillary adenopathy last month and CT chest/abd was ordered which revealed cecal wall thickening. - GI consulted plan for outpatient Colonoscopy, patient needs to ff up with GI Clinic for Colonoscopy to be arranged - Nutrition consult - continue close outpatient ff up with Hem/Onc - appetite improved with resolution of diarrhea, hypokalemia (4) Anemia due to chronic kidney disease: Follows with heme onc. Receives procrit injections every few weeks Hemoglobin 10 Continue to monitor (5) HTN (hypertension): Continue atenolol with hold parameters - patient is on the dry side HOLD Lasix in setting of dehydration, NAJMA (6) Chronic atrial fibrillation: EKG with rate-controlled A Fib -Continue atenolol with hold parameters - continue Coumadin ff up with Coumadin clinic this week (7) 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: (8) Valvular heart disease: Clinically dry with NAJMA -Holding lasix -Monitor volume status closely (9) DLBCL (diffuse large B cell lymphoma): History of diffuse large B cell lymphoma (s/p chemo) -In remission since 2010 platelets trended down to 80k Peripheral smear ordered: nonspecific No overt morphologic abnormalities, including changes of a myelodysplastic syndrome, lymphoma or hemolytic anemia, are seen. The reviewed findings are consistent with a non-specific normocytic anemia and thrombocytopenia. Hematology consulted Dr. Sainz recommend follow up with Dr Marin for monitoring of his CBC w/ diff and continuation of his procrit outpatient. (10) Dyslipidemia: Continue atorvastatin (11) Thrombocytopenia: Management as noted above Code status: DNR per discussion with patient PCP: Isaac Dispo: d/c home today ff up with PCP this week 12/08/18 Dr. Plunkett Total Time Total Time Spent Total Time Spent (In Minutes): 40 minutes Discharge Plan Discharge Items Patient Disposition: Home - Self-Care Reason For Visit: HYPOKALEMIA Discharge Diagnosis: C. DIFF DIARRHEA, DEHYDRATION, LOW POTASSIUM LEVEL Discharge Goals: Diagnostic testing and Therapeutic intervention Activity: As commented below Activity Comment: NO HEAVY EXERTION UNTIL RE-EVALUATED BY PRIMARY CARE PHYSICIAN. Lifting: Wait until after follow-up appointment Exercise/Sports: Wait until after follow-up appointment Driving/Machine Use Comment: NO DRIVING UNTIL RE-EVALUATED BY PRIMARY CARE PHYSICIAN. Non-emergency contact: Primary Care Provider Call non-emergency contact if: you have any medication questions, your symptoms worsen and you have a fever Diet: Heart Healthy Addtl Provider Instructions: FOLLOW UP WITH PRIMARY CARE PHYSICIAN IN [facility] ON AY 12/08/18 AT 12:45PM. (DR. GRAY IS NOT AVAILABLE THIS WEEK.) ALWAYS STAY WELL HYDRATED. CALL PRIMARY CARE PHYSICIAN OR RETURN TO THE ER IMMEDIATELY IF WITH WORSENING OF SYMPTOMS. Prescriptions: New vancomycin 25 mg/mL recon soln 125 mg PO QID 7 Days Qty: 140 RF: 0 Continued allopurinol 100 mg Tablet 200 mg PO HS RF: 0 atenolol 50 mg Tablet 50 mg PO DAILY RF: 0 epoetin renee 20,000 unit/mL Solution 20,000 units SUBCUT UD RF: 0 warfarin 5 mg Tablet 2.5 mg PO DAILY RF: 0 atorvastatin 40 mg Tablet 40 mg PO HS RF: 0 folic acid 1 mg tablet 1 mg PO DAILY RF: 0 Discontinued pantoprazole [Protonix] 40 mg tablet,delayed release (DR/EC) 40 mg PO DAILY Qty: 30 RF: 0 Align 4 mg Capsule 4 mg PO DAILY RF: 0 furosemide 20 mg tablet 20 mg PO DAILY RF: 0 potassium chloride 10 mEq capsule, extended release 10 meq PO DAILY RF: 0 Stand-Alone Forms: [facility] Discharge Orders: Discharge Order (Routine); Ordered 12/05/18 Ordered By: Chapito Pimentel Admission Data Admit Date/Time: 11/30/18 21:32 Attending Provider: Chapito Pimentel Admit Provider: Oneal Sky Primary Care Provider: Kenn Gray Other Providers: Oneal Sky ; Padmini Francis ; Ravi Lambert ; Maida Ramírez ; Pablo Meadows ; Willian Zapata ; Dinah Hitchcock ; Alayna Adler ; Anton Thorpe ; Clarence Barger ; Jaquelin Salazar ; Bharti Claros ; Cheryl Myles ; Muriel Shelton ; Hlai Jonas ; Bin Ruggiero ; Froylan Kwan ; Daniel Akins ; Tito Mobley ; Moises Adair ; Jeffrey Evans ; Tracie Willis ; Rosa Maria Looney ; Gladys Dodson ; Tejas Holloway ; Kristi Holden I ; Laverne Choe ; Leeanne Ortiz ; Helio Marinelli. ; Dc Sainz ; Maciel Marin ; Jonna Rust Service: Telemetry Other Interventions: Discharge Summary Assessment (RN) Last Done: 12/05/18 17:15 DC Date/Time DO NOT enter until pt leaves facility: 12/05/18 18:11
== END 2018-12-05 18:11 | disposition home or self-care (01) | DRG 372 ==
LOC: ED 12:54 → 2W 21:32

== ENCOUNTER 2019-04-26 14:16 | Inpatient (IN) ==
[2019-04-26 14:46] LABS: Hematocrit (blood only) 30.5 % (42-52); Hemoglobin 9.7 g/dL (14.0-18.0); Mean Corpuscular Hgb Conc 31.8 g/dL (32-36); Mean Corpuscular Volume 108.5 fL (80-100); RDW Coefficient of Variation 17.4 % (11.5-14.5); RDW Standard Deviation 69.4 fL (36.4-46.3); Red Blood Count 2.81 M/uL (4.7-6.1); White Blood Count 3.48 K/uL (4.8-10.8)
--- NOTE | 2019-04-26 14:59 | XRay Report ---
XR chest 1V portable CLINICAL HISTORY: 88 years-old Male presenting with Dyspnea. TECHNIQUE: Portable upright AP view of the chest was obtained. COMPARISON: 03/20/2019. FINDINGS: Aortic endograft stent in place in the aortic arch, which is new from prior. Cardiac silhouette moder ately enlarged. Pulmonary vascular prominence in the left lung has decreased. The left pleural drain has been removed. Development of a small to moderate left pleural effusion. Decreased aeration of the left lung base. Right lung and pleural space grossly clear. Total bilateral reverse shoulder arthrop lasty. IMPRESSION: 1. Interval development of a small to moderate left pleural effusion with decreased aeration of the left lung base status post removal of the left pleural drain from March. 2. New aortic endograft stent. 3. Cardiomegaly. No significant evidence of volume overload or congestive change. Electronically signed by: Isaiah Barahona M.D. 04/26/2019 2:58 PM
[2019-04-26 15:02] LABS: Alanine Aminotransferase 25 U/L (12-78); Albumin Level 2.3 gm/dl (3.4-5.0); Aspartate Aminotransferase 28 U/L (15-37); BUN Creatinine Ratio 15.2 (10-20); Blood Urea Nitrogen 23 mg/dl (7-18); Calcium 7.7 mg/dl (8.5-10.1); Carbon Dioxide 22 mmol/L (21-32); Chloride 113 mmol/L (98-107); Est GFR (Non-African American) 42.2; Glucose 96 mg/dl (70-99); Potassium 3.4 mmol/L (3.5-5.1); Sodium 142 mmol/L (136-145)
[2019-04-26 15:06] LABS: INR 1.2 (0.9-1.1); Partial Thromboplastin Ratio 1.1; Partial Thromboplastin Time 30.6 Seconds (21.0-31.0); Prothrombin Time 11.7 Seconds (9.0-12.0)
[2019-04-26 15:07] LABS: Albumin Globulin Ratio 0.7 (0.9-2); Alkaline Phosphatase 162 U/L (45-117); Bilirubin,Total 1.1 mg/dl (0.2-1); Globulin 3.5 gm/dl (2.5-4.0); Mean Platelet Volume 10.6 fL (7.4-10.4); Platelet Count 77 K/uL (130-400); Total Protein 5.8 gm/dl (6.4-8.2); Troponin I < 0.015 ng/ml (0-0.045)
[2019-04-26] MEDS ORDERED: IOVERSOL 100ml IV PRN (15:29)
[2019-04-26 15:36] LABS: Basophils # (auto) 0.01 K/uL (0-0.2); Basophils % (auto) 0.3 %; Eosinophils # (auto) 0.04 K/uL (0-0.5); Eosinophils % (auto) 1.1 %; Giant Platelets 1+; Immature Granulocytes # (auto) 0.01 K/uL (0.00-0.02); Immature Granulocytes % (auto) 0.3 %; Lymphocytes # (auto) 0.94 K/uL (1.2-3.4); Monocytes # (auto) 0.17 K/uL (0.11-0.59); Monocytes % (auto) 4.9 %; Neutrophils # (auto) 2.31 K/uL (1.4-6.5); Neutrophils % (auto) 66.4 %
[2019-04-26] MEDS ORDERED: fentaNYL citrate 100 MCG/2 ML VIAL IV STA (15:49)
--- NOTE | 2019-04-26 15:58 | CT Scan Report ---
CT ANGIOGRAM OF THE CHEST CLINICAL HISTORY: Dyspnea. COMPARISON STUDY: Chest CT scans dated 03/20/2019 and 11/10/2018. Chest x-ray dated 04/26/2019. TECHNIQUE: Following the IV administration of 120 cc of Optiray 320, CT angiogram of the chest was pe rformed from the upper abdomen to the thoracic inlet utilizing the pulmonary embolus protocol. Images are reviewed in the axial, sagittal, and coronal planes. 3-D MIPS images are created and assessed. I V contrast was administered without complication. A dose lowering technique was utilized adhering to the principles of ALARA. CT DOSE: 1123.67 mGy.cm FINDINGS: Thyroid: Imaged portions of the thyroid gland are normal in size and attenuation. Thoracic aorta: There is mild atherosclerotic calcification of the thoracic aorta. A stent graft is i n place. The thoracic aorta is normal in caliber and the arch demonstrates standard 3-vessel anatomy. The thoracic aorta is not well opacified. Pulmonary vasculature: The main pulmonary arteries are dilated suggesting pulmonary artery hypertensi on. There are no filling defects identified in main, lobar, or proximal segmental pulmonary branches to suggest pulmonary embolus. Evaluation of the peripheral branches is degraded motion artifact and s uboptimal contrast opacification. Heart: The heart is enlarged and there is a small pericardial effusion. The coronary arteries are den sely calcified. Lungs and pleural spaces: Evaluation of the lung parenchyma is degraded by motion artifact. There are moderate pleural effusions, left larger than right with associated atelectasis. Groundglass opacitie s are seen throughout both lungs. The pneumothorax seen on 03/20/2019 has resolved. Mediastinum: There is no mediastinal hematoma or lymphadenopathy. Mely: Clear. Axillae: There is no axillary lymphadenopathy. Upper abdomen: Partially visualized upper abdominal viscera is within normal limits. Skeletal structures: The skeletal structures are osteopenic. Degenerative change is noted throughout the thoracic spine. No lytic or blastic bony lesions are seen. There are bilateral shoulder arthropla sties in place. There are subacute fractures of the left 2nd through 9th ribs. There is also healing manubrial fracture. IMPRESSION: 1. Motion degraded examination. 2. There is no evidence of central pulmonary embolus in the main, lobar, or proximal segmental pulmon kenna arteries. 3. There are moderate pleural effusions, left larger than right with associated atelectasis. 4. Cardiomegaly. 5. Groundglass opacities are seen throughout both lungs. Differential considerations include a mild i nfectious/inflammatory pneumonitis and/or interstitial edema. Clinical correlation will be essential. 6. There are numerous subacute left-sided rib fractures and a subacute manubrial fracture as above. 7. A thoracic aortic stent graft is new from 03/20/2019. No mediastinal hematoma is identified. 8. Additional findings as above. Electronically signed by: Memo Daly M.D. 04/26/2019 3:57 PM
--- NOTE | 2019-04-26 16:08 | CT Scan Report ---
CT OF THE ABDOMEN AND PELVIS WITH CONTRAST CLINICAL HISTORY: Left intermittent pain s/p trauma. COMPARISON STUDY: CT of the abdomen and pelvis March 20, 2019. TECHNIQUE: Following IV administration of 120 mL of Optiray-320, axial images of the abdomen and pelv is were obtained from the lung bases to the proximal femurs. Images were reviewed in the axial, sagit trudy, and coronal planes. IV contrast was administered without complication. Automated exposure contr ol was utilized for the study. A dose lowering technique was utilized adhering to the principles of ALARA. FINDINGS: Please note that the chest CT will be reported separately. Bilateral pleural effusions, lef t larger than right, are better depicted on the chest CT. Multiple left-sided rib fractures are again noted. These were shown on CT of March 20, 2019. No lumbar spine or pelvic fracture is identified. A s mall subcapsular splenic collection is chronic. Water attenuation bilateral renal lesions reflect cys ts. The adrenal glands, pancreas and liver are unremarkable. Mild biliary ductal dilatation is unchan ged and likely related to cholecystectomy. The infrarenal abdominal aorta is ectatic. There is no sascha dence for a bowel obstruction. No pneumatosis, free air or portal venous gas is present. The appendix is normal. IMPRESSION: 1. No acute process within the abdomen or pelvis. 2. Bilateral pleural effusions, left larger than right, which are better depicted on the chest CT. Pl ease see that report for further description. Multiple left-sided rib fractures which were shown on C T of March 20, 2019 and are subacute. Electronically signed by: Georges Deleon M.D. 04/26/2019 4:07 PM
[2019-04-26] MEDS ORDERED: ONDANSETRON INJ 2 MG/ML 2 ML VIAL IV PRN (18:44)
[2019-04-26] MEDS ORDERED: POLYETHYLENE (MIRALAX) 17 GM PACK PO PRN (18:44)
[2019-04-26] MEDS ORDERED: ACETAMINOPHEN 325 MG TAB PO PRN (18:44)
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
[2019-04-26] MEDS ORDERED: ACETAMINOPHEN 500 MG TAB PO PRN (20:35)
[2019-04-26] MEDS ORDERED: FUROSEMIDE 20 MG in SYRINGE 0 ML IV ONE (21:00)
[2019-04-26] MEDS: ATORVASTATIN 40 MG TAB PO SCH (21:45)
[2019-04-26] MEDS: SACCHAROMYCES BOULARDII 250 MG CAP PO SCH (21:45)
[2019-04-26] MEDS: TRAZODONE HCL 50 MG TAB PO SCH (21:45)
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
[2019-04-27] MEDS: OXYCODONE HCL IR 5 MG TAB (IMMEDIATE RELEASE) PO PRN ×4 (00:33→23:30)
[2019-04-27] MEDS: SACCHAROMYCES BOULARDII 250 MG CAP PO SCH ×2 (08:02→20:39)
[2019-04-27] MEDS: ALLOPURINOL 100 MG TAB PO SCH (08:02)
[2019-04-27] MEDS: PANTOprazole 40 MG TAB PO SCH (08:02)
[2019-04-27] MEDS: ASPIRIN 81 MG ECTAB PO SCH (08:02)
[2019-04-27] MEDS: FOLIC ACID 1 MG TAB PO SCH (08:02)
[2019-04-27] MEDS: ATENOLOL 50 MG TABLET PO SCH (08:02)
[2019-04-27 08:14] LABS: Hematocrit (blood only) 31.4 % (42-52); Hemoglobin 10.1 g/dL (14.0-18.0); Mean Corpuscular Hgb Conc 32.2 g/dL (32-36); Mean Corpuscular Volume 111.7 fL (80-100); Nucleated RBC # (auto) 0.05 K/uL (0-0); Nucleated RBC % (auto) 1.2 %; RDW Coefficient of Variation 17.3 % (11.5-14.5); RDW Standard Deviation 70.5 fL (36.4-46.3); Red Blood Count 2.81 M/uL (4.7-6.1); White Blood Count 4.49 K/uL (4.8-10.8)
[2019-04-27 08:41] LABS: Mean Platelet Volume 10.4 fL (7.4-10.4); Platelet Count 76 K/uL (130-400)
[2019-04-27 08:54] LABS: BUN Creatinine Ratio 14.6 (10-20); Calcium 8.2 mg/dl (8.5-10.1); Creatinine Clr Calc Pharmacy 36.2 ml/min; Est GFR (African American) 45.9; Est GFR (Non-African American) 39.6; Potassium 3.2 mmol/L (3.5-5.1)
[2019-04-27] MEDS ORDERED: EPOETIN ALFA 40,000 UNITS/ML VIAL SQ SCH (09:00)
[2019-04-27] MEDS ORDERED: POTASSIUM CHLORIDE 20 MEQ TABCR PO STA (10:03)
--- NOTE | 2019-04-27 11:23 | Procedure Note ---
Procedure Note Date of Service April 27, 2019 Procedure: Diagnostic therapeutic ultrasound-guided catheter thoracentesis Anodizing Line Operator: Dr. Darren Askew Indication: Pleural effusion Consent: Signed by patient and verified with timeout prior to procedure Anesthesia: 8 mL's 1% lidocaine without epinephrine local. Procedure: Consent was verified and timeout performed. Appropriate imaging studies were reviewed prior to the procedure. Patient was placed in a seated position and limited thoracic ultrasound was performed of the bilateral chest. See separate imaging. Site appropriate for thoracentesis was selected. The skin was prepped and draped in normal sterile fashion. 10 mL's 1% lidocaine was used for local analgesia. Fluid was aspirated via the finder needle. A small skin artemio was made with the scalpel and the catheter over the needle apparatus was advanced over the rib into the pleural space. Using the syringe one-way valve system, a total of mL's of 1600 serous fluid was removed. Procedure was terminated due to inability to withdraw any additional fluid. The catheter was removed and observed to be intact. A sterile dressing was applied. Post procedure chest x- ray was ordered. Fluid was sent for cytology, glucose, LDH, total protein, cell count differential. The patient tolerated the procedure well without obvious complication Coding CPT Codes Pulmonary/Thoracic - Pulmonary and Thoracic: Thoracentesis w imaging ([id number]) Pulmonary/Thoracic - Pulmonary and Thoracic: US, Chest, real time with imaging documentation ([id number])
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
--- NOTE | 2019-04-27 11:32 | XRay Report ---
XR chest 1V portable CLINICAL HISTORY: 88 years-old Male presenting with S/P Thoracentesis. TECHNIQUE: Portable upright AP view of the chest was obtained. COMPARISON: 04/26/2019. FINDINGS: Thoracic endograft stent again noted. Cardiac silhouette mildly enlarged. Decreased left pleural effu rory. Improved aeration of the left lung base. No left pneumothorax. Right lung and pleural space yared ar. Reverse total shoulder arthroplasties. Degenerative changes of the spine. Upper abdomen normal. IMPRESSION: 1. Decreased left pleural effusion status post thoracentesis. No pneumothorax. Improved aeration of the left lung base. 2. Cardiomegaly. Electronically signed by: Isaiah Barahona M.D. 04/27/2019 11:30 AM
[2019-04-27 11:51] LABS: Glucose Pleural Fluid 91 mg/dl
[2019-04-27 11:58] LABS: LDH Pleural Fluid 113 U/L; Total Protein Pleural Fluid 2.1 g/dl
[2019-04-27 12:00] LABS: Appearance Pleural Fluid CLEAR; Color Pleural Fluid YELLOW; Mononuclear WBC Pleural 97.1 %; Polynuclear WBC Pleural 2.9 %; RBC Pleural Fluid (A) < 3000 /uL; Source Pleural Fluid RIGHT LUNG; WBC Pleural Fluid (A) 80 /uL
[2019-04-27] MEDS ORDERED: PERFLUTREN LIPID MICROSPHERE (DEFINITY) IV ONE (12:12)
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
[2019-04-27] MEDS: TRAZODONE HCL 50 MG TAB PO SCH (20:39)
[2019-04-27] MEDS: ATORVASTATIN 40 MG TAB PO SCH (20:40)
[2019-04-28 07:15] LABS: Hematocrit (blood only) 27.8 % (42-52); Hemoglobin 8.8 g/dL (14.0-18.0); Mean Corpuscular Hgb Conc 31.7 g/dL (32-36); Mean Corpuscular Volume 111.6 fL (80-100); Nucleated RBC # (auto) 0.02 K/uL (0-0); Nucleated RBC % (auto) 0.7 %; RDW Coefficient of Variation 17.4 % (11.5-14.5); Red Blood Count 2.49 M/uL (4.7-6.1); White Blood Count 2.66 K/uL (4.8-10.8)
[2019-04-28 07:32] LABS: Mean Platelet Volume 10.6 fL (7.4-10.4); Platelet Count 65 K/uL (130-400)
[2019-04-28 07:51] LABS: BUN Creatinine Ratio 17.3 (10-20); Creatinine Clr Calc Pharmacy 39.2 ml/min; Est GFR (African American) 50.6; Est GFR (Non-African American) 43.7
[2019-04-28] MEDS: PANTOprazole 40 MG TAB PO SCH (08:28)
[2019-04-28] MEDS: ALLOPURINOL 100 MG TAB PO SCH (08:28)
[2019-04-28] MEDS: SACCHAROMYCES BOULARDII 250 MG CAP PO SCH (08:28)
[2019-04-28] MEDS: ATENOLOL 50 MG TABLET PO SCH (08:28)
[2019-04-28] MEDS: ASPIRIN 81 MG ECTAB PO SCH (08:29)
[2019-04-28] MEDS: FOLIC ACID 1 MG TAB PO SCH (08:29)
--- NOTE | 2019-04-28 10:03 | Pulmonology Progress Note ---
Date of Service April 28, 2019 Impression: 88-year-old male with bilateral pleural effusions status post diagnostic/therapeutic thoracentesis. Symptomatically improved Assessment & Plan (1) Bilateral pleural effusion: 1. Suspect secondary to fluid overload. Fluid appears transudate of. Suspect related to third spacing from IV fluids. Continue diuresis. He should follow-up with his primary care provider for a BMP in 1 to 2 weeks. Will defer additional diuretics to primary care and the admitting hospitalist. 2. We will hold on thoracentesis on the right side for now. Suspect this should improve with diuresis. I would be happy to see the patient back in clinic to review results of his pleural studies if needed. From a pulmonary standpoint, if the patient is feeling well and can ambulate with improvement in his dyspnea, he can likely be dismissed from the hospital. Discussed with hospitalist service (2) VANCE (dyspnea on exertion): 1. Essentially resolved. 2. The patient is stable to discharge from a pulmonary perspective. Feel free to contact us with questions or concerns. (3) Pulmonary HTN: 1. Suspect multifactorial with combinations of WHO class II and III. Suspect underlying diastolic dysfunction. No indication for additional studies, right heart catheterization, or pulmonary vasodilators. Subjective Patient feels markedly better. He states he is able to walk up and down the hallway without any shortness of breath. No chest pain or palpitations. No cough wheezing or sputum production. Medical history and review of systems unchanged from prior. Review of Systems Review of Systems: Unchanged from prior Physical Exam Constitutional: WD/WN, vitals as above Neck: trachea midline, no thyromegaly Cardiovascular: RRR, no murmur, no edema Gastrointestinal (Abdomen): normal bowel sounds, soft, nontender, no hepatosplenomegaly Results & Data Vital Signs (Past 12 Hours) Vital Signs Temp Pulse Resp BP BP Pulse Ox 04/28/19 08:27 79 101/71 04/28/19 06:26 36.4 C L 78 21 120/76 93 04/28/19 04:05 37.0 C 70 21 134/82 95 04/27/19 23:21 36.4 C L 72 19 125/78 94 Laboratory Results 04/28/19 06:39 04/28/19 06:39 Diagnostic Findings Chest x-ray independently reviewed XR chest 1V portable CLINICAL HISTORY: 88 years-old Male presenting with S/P Thoracentesis. TECHNIQUE: Portable upright AP view of the chest was obtained. COMPARISON: 04/26/2019. FINDINGS: Thoracic endograft stent again noted. Cardiac silhouette mildly enlarged. Decreased left pleural effusion. Improved aeration of the left lung base. No left pneumothorax. Right lung and pleural space clear. Reverse total shoulder arthroplasties. Degenerative changes of the spine. Upper abdomen normal. IMPRESSION: 1. Decreased left pleural effusion status post thoracentesis. No pneumothorax. Improved aeration of the left lung base. 2. Cardiomegaly. PG Care Time/CCT Total # of Minutes Spent Total Time Spent with Patient: Total time spent is greater than 50% in coordination of care (as documented) at patient's floor/unit and/or counseling patient:
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
== END 2019-04-28 12:00 | disposition home or self-care (01) | DRG 187 ==
LOC: ED 14:16 → 2W 17:46

== ENCOUNTER 2019-08-15 05:16 | Inpatient (IN) ==
[2019-08-15] MEDS ORDERED: LEVALBUTEROL HCL 1.25 MG/3 ML NEB NEB STA ×4 (05:32→05:33)
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
--- NOTE | 2019-08-15 05:48 | XRay Report ---
XR chest 1V portable CLINICAL HISTORY: Pt SOB dyspnea COMPARISON STUDY: 06/09/2019 FINDINGS: Myocardial megaly. Diaphragms are smooth. Lungs are clear. Postoperative changes are noted to the shoulders bilaterally as well as to the thoracic aorta. IMPRESSION: Chronic change. No acute process. The above report was generated using voice recognition software. It may contain grammatical, syntax or spelling errors. Electronically signed by: Jeffrey Loja M.D. 08/15/2019 5:47 AM
[2019-08-15] MEDS ORDERED: methylPREDNISolone 125 MG/2 ML VIAL IV STA (05:50)
[2019-08-15] MEDS ORDERED: SODIUM CHLORIDE 0.9% 1000ML 1,000 ML IV ONE (05:50)
[2019-08-15] MEDS ORDERED: MAGNESIUM SULFATE / D5W 1 GM/100 ML BAG IV ONE (05:50)
[2019-08-15 05:53] LABS: Hematocrit (blood only) 34.3 % (42-52); Hemoglobin 10.8 g/dL (14.0-18.0); Mean Corpuscular Hemoglobin 35.3 pg (25-34); Mean Corpuscular Hgb Conc 31.5 g/dL (32-36); Mean Corpuscular Volume 112.1 fL (80-100); Mean Platelet Volume 10.9 fL (7.4-10.4); Nucleated RBC # (auto) 0.06 K/uL (0-0); Nucleated RBC % (auto) 0.6 %; Platelet Count 109 K/uL (130-400); RDW Coefficient of Variation 17.2 % (11.5-14.5); RDW Standard Deviation 69.7 fL (36.4-46.3); Red Blood Count 3.06 M/uL (4.7-6.1); White Blood Count 9.32 K/uL (4.8-10.8)
[2019-08-15 06:10] LABS: Albumin Level 3.1 gm/dl (3.4-5.0); BUN Creatinine Ratio 22.5 (10-20); Calcium 9.2 mg/dl (8.5-10.1); Creatinine Clr Calc Pharmacy 22.1 ml/min; Est GFR (African American) 25.4; Est GFR (Non-African American) 21.9; Potassium 3.7 mmol/L (3.5-5.1)
[2019-08-15 06:14] LABS: INR 2.3 (0.9-1.1); Prothrombin Time 21.9 Seconds (9.0-12.0)
[2019-08-15 06:17] LABS: Albumin Globulin Ratio 0.6 (0.9-2); Bilirubin,Total 1.3 mg/dl (0.2-1); Creatine Kinase MB 1.5 ng/ml (0.5-3.6); Globulin 5.4 gm/dl (2.5-4.0); Total Protein 8.5 gm/dl (6.4-8.2); Troponin I 0.056 ng/ml (0-0.045)
[2019-08-15 06:27] LABS: Basophils # (auto) 0.01 K/uL (0-0.2); Basophils % (auto) 0.1 %; Dohle Bodies 1+; Immature Granulocytes # (auto) 0.04 K/uL (0.00-0.02); Immature Granulocytes % (auto) 0.4 %; Lymphocytes # (auto) 0.53 K/uL (1.2-3.4); Lymphocytes % (auto) 5.7 %; Macrocytosis Present; Monocytes # (auto) 0.13 K/uL (0.11-0.59); Monocytes % (auto) 1.4 %; Neutrophils # (auto) 8.61 K/uL (1.4-6.5); Neutrophils % (auto) 92.4 %; Polychromasia 1+; Toxic Vacuolation 1+
[2019-08-15 06:28] LABS: Influenza A virus by PCR Neg for Influ A (Neg); Influenza B virus by PCR Neg for Influ B (Neg)
[2019-08-15] MEDS ORDERED: SODIUM BICARB 8.4% INJ 50 MEQ/50 ML SYR IV STA (06:31)
[2019-08-15] MEDS ORDERED: ATENOLOL 50 MG TABLET PO SCH (06:35)
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
[2019-08-15] MEDS ORDERED: LACTATED RINGER'S 1,000 ML IV ONE (07:12)
[2019-08-15] MEDS ORDERED: PROMETHAZINE HCL 12.5 MG in SODIUM CHLORIDE 0.9% 50 ML IV PRN (07:39)
[2019-08-15 07:41] LABS: Acetaminophen 3 ug/ml (10-30); Salicylate < 1.7 mg/dl (2.8-20)
[2019-08-15] MEDS ORDERED: TRAMADOL HCL 50 MG TABLET ONE (11:43)
[2019-08-15] MEDS ORDERED: ALLOPURINOL 100 MG TAB PO SCH (12:37)
[2019-08-15] MEDS ORDERED: LACTATED RINGER'S 1,000 ML IV SCH (12:37)
[2019-08-15] MEDS ORDERED: FOLIC ACID 1 MG TAB PO SCH (12:37)
[2019-08-15] MEDS ORDERED: NITROGLYCERIN SL 0.4 MG/TAB TAB SL PRN (12:37)
[2019-08-15] MEDS ORDERED: LEVALBUTEROL 1.25MG/0.5ML NEB INH PRN (12:37)
[2019-08-15] MEDS ORDERED: TRAMADOL HCL 50 MG TABLET PO PRN (12:37)
[2019-08-15] MEDS ORDERED: XOPENEX/ATROVENT 1.25mg/0.5MG NEB COMBO NEB PRN (12:37)
[2019-08-15] MEDS ORDERED: IPRATROPIUM BROMIDE NEB SOLN 0.02% 2.5 ML VIAL INH PRN (12:37)
[2019-08-15 13:13] LABS: Base Excess VBG -10.9 mEq/L; HCO3 VBG 14 mmol/L; PCO2 VBG 29 mmHg (38-50); PO2 VBG 20 mmHg; pH VBG 7.31 (7.36-7.41)
[2019-08-15 13:18] LABS: Oxygen Saturation VBG < 60.0 %
[2019-08-15 13:40] LABS: BUN Creatinine Ratio 25.1 (10-20); Calcium 8.8 mg/dl (8.5-10.1); Creatinine Clr Calc Pharmacy 23.7 ml/min; Est GFR (African American) 27.6; Est GFR (Non-African American) 23.8; Potassium 3.4 mmol/L (3.5-5.1)
[2019-08-15 13:51] LABS: Troponin I 0.939 ng/ml (0-0.045)
[2019-08-15] MEDS ORDERED: IPRATROPIUM BROMIDE NEB SOLN 0.02% 2.5 ML VIAL INH SCH (15:00)
[2019-08-15] MEDS ORDERED: LEVALBUTEROL 1.25MG/0.5ML NEB INH SCH (15:00)
[2019-08-15 15:15] LABS: Appearance Urine Cloudy (Clear); Bacteria Urine Automated Negative (Negative); Bilirubin Urine Negative (Negative); Blood Urine 2+ (Negative); Color Urine Dark Yellow; Epithelial Cell Urine Auto >30 /lpf (0-5); Glucose Urine UA Negative (Negative); Ketones Urine Negative (Negative); Leukocyte Esterase Urine Negative (Negative); Nitrite Urine Negative (Negative); Protein Urine 1+ (Negative); Specific Gravity Urine 1.024 (1.000-1.030); Urobilinogen Urine Negative (Negative)
[2019-08-15 15:36] LABS: Amorphous Sediment Urine Present (None Prsent)
--- NOTE | 2019-08-15 15:51 | XRay Report ---
SINGLE VIEW CHEST CLINICAL HISTORY: Tachypnea. FINDINGS: An AP, portable, upright chest radiograph is compared to study dated 08/15/2019 and correla sidra with chest CT dated 04/26/2019. The examination is degraded by portable technique and patient rotat ion. The heart is enlarge, and there is atherosclerotic calcification of the thoracic aorta. There is mild pulmonary vascular congestion. A stent graft is noted in the thoracic aorta. Chronic interstiti al thickening is similar to previous. There is bibasilar atelectasis. Trace pleural effusions are milagros pected. No pneumothorax is seen. The skeletal structures are osteopenic. The bony thorax is grossly i ntact. There are bilateral shoulder arthroplasties. IMPRESSION: 1. Cardiomegaly with evidence of mild congestive failure. 2. Suspect trace pleural effusions. Electronically signed by: Memo Daly M.D. 08/15/2019 3:49 PM
[2019-08-15] MEDS ORDERED: SODIUM BICARBONATE 8.4% 100 MEQ in DEXTROSE 5% 1,000 ML IV SCH (16:00)
[2019-08-15 16:12] LABS: HCO3 ABG 9 mmol/L (19-24); Oxygen Saturation ABG 98.9 % (90-95); PCO2 ABG 13 mmHg (35-46); PO2 ABG 132 mm/Hg (80-95); pH ABG 7.44 (7.35-7.45)
[2019-08-15 16:14] LABS: Allen Test POS (Pos)
[2019-08-15] MEDS ORDERED: RAPID SEQUENCE INDUCTION BAG ONE (16:44)
[2019-08-15] MEDS ORDERED: fentaNYL citrate 100 MCG/2 ML VIAL IV PRN (16:53)
[2019-08-15] MEDS ORDERED: MIDAZOLAM HCL 1 MG/ML 2ML VIAL IV PRN (16:53)
[2019-08-15] MEDS ORDERED: fentaNYL citrate 100 MCG/2 ML VIAL ONE (16:56)
[2019-08-15] MEDS ORDERED: MIDAZOLAM HCL 1 MG/ML 2ML VIAL ONE (16:56)
[2019-08-15] MEDS ORDERED: CALCIUM CHLORIDE 10% 10 ML SYR IV ONE ×2 (17:31→18:54)
[2019-08-15] MEDS ORDERED: SODIUM BICARB 8.4% INJ 50 MEQ/50 ML SYR ONE (17:39)
[2019-08-15] MEDS ORDERED: NOREPINEPHRINE (Adult STAT Only) 4 MG in D5W 250 ML IV ONE (17:45)
[2019-08-15] MEDS ORDERED: NOREPINEPHRINE (Adult) 8 MG in DEXTROSE 5% 500 ML IV SCH (17:45)
--- NOTE | 2019-08-15 17:53 | Procedure Note ---
Procedure Note Date of Service August 15, 2019 INTUBATION PROCEDURE NOTE: Provider: Darren Askew MD A time-out was completed verifying correct patient, procedure, site, positioning. Patient was evaluated and required intubation for cardiac arrest. Sedative agent used: None Paralysis agent used: None Emergent consent was implied given patients rapidly declining clinical status and need for airway protection. Patient transferred to the ICU after suffering a cardiac and pulmonary arrest on the floor. He was immediately intubated on arrival to the ICU using a glide scope. 7.5 endotracheal tube was placed under direct visualization without difficulty. End-tidal CO2 was detected. Bilateral breath sounds were present. Tube misting was noted. The patient continued to be ventilated using bag valve ventilation. Due to his instability, chest x-ray was not performed to evaluate for tube placement Coding CPT Codes Resuscitation - Resuscitation: 91574 Endotracheal Intubation, emergency ([id number])
--- NOTE | 2019-08-15 17:59 | Procedure Note ---
Procedure Note Date of Service August 15, 2019 ARTERIAL LINE PROCEDURE NOTE: Procedure: Arterial Line Placement Provider: Darren Askew MD Indication: Monitoring on Pressors Procedure was emergent. The patient was transferred to the ICU after undergoing cardiopulmonary arrest on the floor. He remained hemodynamically unstable. The right groin was prepped and draped in normal sterile fashion. Under direct ultrasound guidance, the right femoral artery was cannulated with a needle. A wire was passed. A small skin artemio was made with scalpel and a 20-gauge arterial catheter was threaded over the wire into the artery. The wire was removed. Arterial waveform was transduced and the catheter was sutured in place. Arterial waveform was produced with CPR and intermittently when the patient had hemodynamics. Estimated blood loss: Less than 10 mL's Coding CPT Codes Tubes, Drains, and Vasc Access - Tubes, Drains, and Vasc Access: [id number] Place Catheter In Artery ([id number])
[2019-08-15] MEDS ORDERED: NOREPINEPHRINE BIT INJ 8 MG in DEXTROSE 5% 500 ML IV SCH (18:00)
--- NOTE | 2019-08-15 18:13 | Procedure Note ---
Procedure Note Date of Service August 15, 2019 CENTRAL LINE PROCEDURE NOTE: Procedure: Central Line Placement Provider: Darren Askew MD Indication: Central Drug Administration, Poor Venous Access, Multiple Lab Draws Necessary, etc. Anesthesia: None Site: Right femoral Procedure was emergent. The patient suffered a cardiopulmonary arrest. IV access was necessitated. No family immediately available. Patient was placed in the supine position. Ultrasound was performed of the right groin. The artery and vein were identified. A femoral arterial catheter previously been placed. Under direct ultrasound visualization, the right femoral vein was accessed. A wire was passed. A prepped triple-lumen catheter was then passed over the wire after dilatation of the tract. The wire was removed. All ports flushed and deandre easily. Catheter was sutured in place and a sterile dressing was applied. Coding CPT Codes Tubes, Drains, and Vasc Access - Tubes, Drains, and Vasc Access: [id number] Place catheter in vein superior or inferior vena cava ([id number])
--- NOTE | 2019-08-15 18:15 | Procedure Note ---
Procedure Note Date of Service August 15, 2019 Responded to CODE BLUE on the floor. Patient was immediately transferred to the ICU once a pulse and blood pressure were obtained. He was intubated on arrival to the ICU. Throughout this course the patient had intermittent loss of pulses requiring intermittent CPR and multiple vasoactive medications. Please see documentation from the nurse coordinator regarding multiple codes run on this patient Coding CPT Codes Resuscitation - Resuscitation: [id number] Heart/lung resuscitation CPR ([id number])
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
[2019-08-15] MEDS ORDERED: MIDAZOLAM HCL 5 MG/ML VIAL IV STA (18:23)
[2019-08-15] MEDS ORDERED: fentaNYL citrate 100 MCG/2 ML VIAL IV STA (18:23)
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
[2019-08-15] MEDS ORDERED: ATROPINE SULFATE 0.1 MG/ML 10ML SYR IV ONE (18:54)
[2019-08-15] MEDS ORDERED: SODIUM BICARB 8.4% INJ 50 MEQ/50 ML SYR IV ONE (18:54)
[2019-08-15] MEDS ORDERED: TRAZODONE HCL 50 MG TAB PO SCH (21:00)
[2019-08-15] MEDS ORDERED: ATORVASTATIN 40 MG TAB PO SCH (21:00)
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
[2019-08-16 11:31] LABS: iSTAT Arterial Blood Gas pCO2 26 mmHg (35-46); iSTAT Hematocrit 26 % (42-52); iSTAT Hemoglobin 8.8 g/dl (14.0-18.0); iSTAT Sodium 136 mEq/L (135-144)
[2019-08-16 11:32] LABS: iSTAT Arterial Bld Gas O2 Sat 100; iSTAT Arterial Blood Gas HCO3 5 meg/L (19-24); iSTAT Arterial Blood Gas pO2 387 mmHg (80-95); iSTAT Carbon Dioxide 6 mEq/l (24-31); iSTAT FiO2 100 %; iSTAT Sample Type Arterial
[2019-08-16 11:33] LABS: iSTAT Site Art Line
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
== END 2019-08-15 18:55 | disposition expired | DRG 641 ==
LOC: ED 05:16 → EDINP 07:08 → 2N 12:07 → 1E 16:41